=== PATIENT | female | born 1965 | race Caucasian/White ===

== ENCOUNTER 2016-07-14 11:57 | Inpatient (IN) | payer MEDICARE, MEDICAID ==
[~2016-07-14] VITALS: Ht 165.1 cm; Wt 78.5 kg
[~2016-07-14 11:57] MED LIST: ACET-73 GT; ACET650T10 GT; ACID1TAB12 GT; BISA10SU61 RC; CALC667C6 GT; DEXT1DRO3 OP; DOCU50LI GT; FERR-58 GT; INSU100V7 SQ; LEVE500T9 GT; MAGN400O6 GT; METO5SOL GT; MULT9LIQ GT; NA P133E RC
--- NOTE | 2016-07-14 12:05 | NUR ---
bibpa from snf due to pt was hypoxic. Patient received obtuned, appears in distress. Vent trach dependent with setting as tolerated. Patient noted obvious rales/wheezes. Patient;s face and both eyes noted with severe redness. Gt noted , abdomen non tendered. Skin is warm top touch rectal temp 100.3. Gowned and placed pt on tele monitor. Md barriga at bs
[2016-07-14 12:06] VITALS: BP 111/84
[2016-07-14] MEDS ORDERED: IV NS 0.9% 1,000 ML ONE (12:11)
[2016-07-14] MEDS ORDERED: IV SET PRIMARY PUMP SET 1 EA INFUS.SET MC ONE ×4 (12:11→19:32)
--- NOTE | 2016-07-14 12:11 | NUR ---
rt at bs
[2016-07-14] MEDS ORDERED: ASPIRIN 300 MG/SUPP.RECT RC ONE ×2 (12:12→12:30)
--- NOTE | 2016-07-14 12:18 | NUR ---
agricultural engineering technicians at for blood draw
[2016-07-14] MEDS ORDERED: ASPIRIN 325 MG TABLET ONE (12:29)
[2016-07-14] MEDS ORDERED: ASPIRIN 325 MG TABLET PO ONE (12:30)
[2016-07-14] MEDS ORDERED: PIPERACILLIN /TAZOBACTAM 3.375 G in IV D5W 50 ML IV ONE (12:30)
[2016-07-14] MEDS ORDERED: ACETAMINOPHEN ES 500 MG TABLET PO ONE (12:30)
[2016-07-14] MEDS ORDERED: VANCOMYCIN 1 GM in IV D5W 250 ML IV ONE (12:30)
[2016-07-14] MEDS ORDERED: ACETAMINOPHEN ES 500 MG TABLET ONE (12:30)
[2016-07-14] MEDS ORDERED: IV NS 0.9% 1,000 ML BAG IV ONE ×2 (12:30)
[2016-07-14 12:31] LABS: BASOPHILS # (AUTO) 0.5 /CMM (0.0-0.2); BASOPHILS % (AUTO) 2.5 % (0.0-2.0); EOSINOPHILS % (AUTO) 0.2 % (0.0-6.0); HEMATOCRIT 37 % (33-45); HEMOGLOBIN 12.6 g/dL (11.5-14.8); LYMPHOCYTES # (AUTO) 2.1 /CMM (0.8-4.8); LYMPHOCYTES % (AUTO) 9.9 % (20.0-44.0); MEAN CORPUSCULAR HEMOGLOBIN 30 PG (26.0-33.0); MEAN CORPUSCULAR HGB CONC 34 g/dl (31.0-36.0); MEAN CORPUSCULAR VOLUME 88 fL (82-100); MONOCYTES % (AUTO) 4.9 % (2.0-12.0); NEUTROPHILS # (AUTO) 17.6 /CMM (1.8-8.9); NEUTROPHILS % (AUTO) 82.5 % (43.0-81.0); PLATELET COUNT (AUTO) 256 /CMM (150-450); RDW COEFFICIENT OF VARIATION 13.4 (11.5-15.0); RED BLOOD CELL COUNT(AUTO) 4.22 MIL/uL (4.0-5.2); WHITE BLOOD COUNT (AUTO) 21.2 K/uL (4.3-11.0)
--- NOTE | 2016-07-14 12:35 | NUR ---
another iv inserted to rac 20. blood sample sent to lab
[2016-07-14] MEDS ORDERED: IV NS 0.9% 500 ML IV ONE (12:40)
[2016-07-14] MEDS ORDERED: IV NS 0.9% 2,000 ML ONE (12:40)
[2016-07-14 12:45] LABS: PROTHROMBIN TIME 10.4 SECS (9.5-12.7)
--- NOTE | 2016-07-14 12:45 | NUR ---
pharmacy tech customer service at bs
[2016-07-14 12:49] LABS: TROPONIN I < 0.017 ng/mL (0.00-0.056)
[2016-07-14 12:57] LABS: ALANINE AMINOTRANSFERASE 19 U/L (12-78); ALBUMIN 3.4 g/dL (3.4-5.0); ALKALINE PHOSPHATASE 102 U/L (46-116); B-TYPE NATRIURETIC PEPTIDE 209 PG/ML (0-125); BILIRUBIN,TOTAL 0.8 mg/dL (0.2-1.0); CALCIUM, SERUM 9.4 mg/dL (8.5-10.1); CARBON DIOXIDE 20 mmol/L (21-32); CHLORIDE 104 mmol/L (98-107); CREATININE 0.6 mg/dL (0.6-1.3); GFR 105 mL/min (>60); GLUCOSE 156 mg/dL (74-106); POTASSIUM 5.9 mmol/L (3.5-5.1); SODIUM SERUM 136 mmol/L (136-145); TOTAL PROTEIN, SERUM 7.8 g/dL (6.4-8.2)
[2016-07-14 13:07] LABS: ASPARTATE AMINOTRANSFERASE 11 U/L (15-37); BILIRUBIN,DIRECT 0.1 mg/dL (0.0-0.2); UREA NITROGEN, BLOOD 13 mg/dL (7-18)
[2016-07-14 13:12] LABS: LACTIC ACID 2.4 mmol/L (0.4-2.0)
--- NOTE | 2016-07-14 13:22 | NUR ---
[facility] PAGED [phone] LETITIA CM LOGISTICAL ENGINEER
[2016-07-14] MEDS ORDERED: DEXTROSE 50%-WATER 50 ML DISP.SYRIN IV ONE (13:30)
[2016-07-14] MEDS ORDERED: CALCIUM CHLORIDE 1,000 MG/10 ML DISP.SYRIN IV ONE (13:30)
[2016-07-14] MEDS ORDERED: SODIUM BICARBONATE SYR 50 MEQ/50 ML DISP.SYRIN IV ONE (13:30)
[2016-07-14] MEDS ORDERED: INSULIN REGULAR, HUMAN 100 UNIT/ML 10 ML VIAL IV ONE (13:30)
[2016-07-14] MEDS ORDERED: SODIUM POLYSTYRENE SULFONATE 15 G/60 ML BOTTLE PO ONE (13:30)
[2016-07-14 13:37] LABS: BAND % (MANUAL) 5 % (0.0-5.0); LYMPHOCYTES % (MANUAL) 11 % (16-48); MONOCYTES % (MANUAL) 9 % (0-11.0); NEUTROPHILS % (MANUAL) 75 (42-76)
[2016-07-14 13:38] LABS: PLATELET ESTIMATE ADEQUATE
[2016-07-14] MEDS ORDERED: SODIUM POLYSTYRENE SULFONATE 15 G/60 ML BOTTLE ONE (13:44)
[2016-07-14] MEDS ORDERED: CALCIUM CHLORIDE 1,000 MG/10 ML DISP.SYRIN ONE (13:45)
[2016-07-14] MEDS ORDERED: INSULIN REGULAR, HUMAN 100 UNIT/ML 10 ML VIAL ONE (13:45)
[2016-07-14] MEDS ORDERED: DEXTROSE 50%-WATER 50 ML DISP.SYRIN ONE (13:45)
[2016-07-14] MEDS ORDERED: SODIUM BICARBONATE SYR 50 MEQ/50 ML DISP.SYRIN ONE (13:45)
[2016-07-14] MEDS ORDERED: AMIN30LI26 GT (13:47)
[2016-07-14] MEDS ORDERED: CRAN3875 GT (13:47)
[2016-07-14] MEDS ORDERED: SACC250C6 GT (13:47)
[2016-07-14] MEDS ORDERED: FERR220S2 GT (13:47)
[2016-07-14] MEDS ORDERED: DEXT15DR23 EACHEYE (13:47)
[2016-07-14] MEDS ORDERED: INSU300I SQ (13:47)
[2016-07-14] MEDS ORDERED: ENOX40DI SQ (13:47)
[2016-07-14] MEDS ORDERED: FAMO-131 GT (13:47)
[2016-07-14] MEDS ORDERED: DEXT50DI5 IV (13:55)
--- NOTE | 2016-07-14 14:00 | NUR ---
PATIENT'S TRACH WAS CHANGED FROM A BIVONA#9 TO A SHILEY #8 XLT DISTAL DUE TO CUFF LEAK BY DR. DENNIS. SMALL AMOUNT OF BLOOD NOTED. PATIENT TOLERATED WELL. HOT AIR FURNACE INSTALLER REPAIRER DONE. PATIENT RESTING COMFORTABLY AT THIS TIME. WILL CONTINUE TO MONITOR.
[2016-07-14 14:11] VITALS: BP 119/57
[2016-07-14 14:11] LABS: ABG BASE EXCESS -1.5 mmol/L; ABG PCO2 31.7 mmHg (35.0-45.0); ABG PH 7.455 (7.350-7.450); ABG PO2 134.5 mmHg (75.0-100.0); ABG TOTAL HEMOGLOBIN 10.6 G/dL (12.0-16.0); AaDO2 186.3 mmHg; COHb 0.6 % (0.5-1.5); MetHb 0.4 % (0.0-1.5); PEEP,BG 5 cm H2O; SITE, ABG Right Radial; VT, ABG 550 mL
--- NOTE | 2016-07-14 14:15 | NUR ---
ABG DONE AND REPORTED TO NURSE[place]EXANDRIA)
[2016-07-14] MEDS ORDERED: INSU100V9 SQ (14:17)
[2016-07-14] MEDS ORDERED: *INS REG SQ (14:17)
[2016-07-14] MEDS ORDERED: MULT1TAB11 GT (14:20)
--- NOTE | 2016-07-14 14:27 | NUR ---
new vent setting ac 16 tv 550 fio2 40% peep 5
--- NOTE | 2016-07-14 14:27 | NUR ---
urine sample sent to lab
--- NOTE | 2016-07-14 14:30 | NUR ---
MD Eubanks at
[2016-07-14 14:36] LABS: APPEARANCE,URINE Turbid (CLEAR); BILIRUBIN,URINE Negative (NEGATIVE); BLOOD, URINE Large Ery/uL (NEGATIVE); COLOR,URINE Yellow (YELLOW); KETONES,URINE Negative (NEGATIVE); LEUKOCYTE ESTERASE ,URINE Trace (NEGATIVE); NITRITE, URINE Negative (NEGATIVE); PROTEIN,URINE 30 mg/dl (NEGATIVE); UGLUCOSE Negative (NEGATIVE); UROBILINOGEN,URINE 0.2 EU/dL (0.2)
--- NOTE | 2016-07-14 14:59 | NUR ---
REPORT GIOEVN TO FLOOR NRSE FOR GIOVANNY
[2016-07-14] MEDS ORDERED: ZOLPIDEM TARTRATE 5 MG TABLET PO PRN (15:00)
[2016-07-14] MEDS ORDERED: Z GUARD REMEDY 2 OZ OINT TP PRN (15:00)
[2016-07-14] MEDS ORDERED: HYDROCODONE/APAP 5/325MG 1 EACH TABLET PO PRN (15:00)
[2016-07-14] MEDS ORDERED: BISACODYL SUPP (10 MG) 10 MG/SUPP.RECT SUPP.RECT RC PRN (15:00)
[2016-07-14] MEDS ORDERED: ONDANSETRON HCL/PF 4 MG/2 ML VIAL IVP PRN (15:00)
--- NOTE | 2016-07-14 15:00 | NUR ---
pt was transferred to [facility]
[2016-07-14 15:04] LABS: ADD URINE CULTURE NO; BACTERIA,URINE Rare /HPF (None Seen); RBC,URINE 80-100 /HPF (0-2); SQUAMOUS EPITHELIAL CELL,UR Few /HPF (None Seen); WBC,URINE 0-3 /HPF (0-3)
--- NOTE | 2016-07-14 15:35 | NUR ---
RN INITIAL NOTE RECEIVED REPORT FROM REEMA. PT TRANSFERRED VIA GURNEY FROM ED. PT OBTUNDED OPENS EYES SPONTANEOUSLY. INO XLT #8 AC 16 TV 550 FIO2 40% PEEP # 5. TELE MONITOR SR 90'S. GT NPO. IV RAC #20G. R HAND #20G FLUSHED PATENT AND INTACT. DIAPER. PT CLEAN WARM AND DRY. WILL CONTINUE TO MONITOR CLOSELY.
[2016-07-14] MEDS ORDERED: FEE PK DOSING 1 MIN EA MC ONE (15:48)
[2016-07-14] MEDS ORDERED: DEXTROSE 50%-WATER 50 ML DISP.SYRIN IV PRN (16:00)
[2016-07-14] MEDS: DOCUSATE SODIUM LIQ 100 MG/10 ML UDC GT SCH (17:00)
[2016-07-14] MEDS ORDERED: PIPERACILLIN /TAZOBACTAM 3.375 G in IV D5W 50 ML IV SCH (18:00)
[2016-07-14] MEDS ORDERED: SECONDARY IV SET 1 EA INFUS.SET MC ONE (19:32)
[2016-07-14] MEDS: BLOOD SUGAR DIAGNOSTIC 1 EACH STRIP IN SCH ×2 (19:34→23:28)
[2016-07-14] MEDS: ENOXAPARIN SODIUM 40 MG/0.4 ML DISP.SYRIN SQ SCH (19:42)
--- NOTE | 2016-07-14 19:49 | NUR ---
RN CLOSING NOTE PT OBTUNDED OPENS EYES SPONTANEOUSLY. INO XLT #8 AC 16 TV 550 FIO2 40% PEEP # 5. TELE MONITOR SR 90'S. GT NPO. IV RAC #20G. R HAND #20G FLUSHED PATENT AND INTACT. DIAPER. PT CLEAN WARM AND DRY. ALL SAFETY MEASURES IN PLACE. REPORT GIVEN TO PM NURSE.
[2016-07-14] MEDS: IV NS 0.9% 1,000 ML IV PRN (19:59)
[2016-07-14 20:00] VITALS: BP 93/51
[2016-07-14] MEDS: MEROPENEM 500 MG in IV NS 0.9% 50 ML IV SCH (20:17)
[2016-07-14] MEDS: LEVETIRACETAM (250 MG) 250 MG TABLET PO SCH (20:17)
[2016-07-14] MEDS: METOCLOPRAMIDE HCL 10 MG/10 ML UDC GT SCH (20:18)
[2016-07-14] MEDS: FLUCONAZOLE (100 MG) 100 MG TABLET PO SCH (20:18)
[2016-07-14] MEDS ORDERED: PIPERACILLIN /TAZOBACTAM 4.5 G in IV D5W 50 ML IV SCH (21:00)
[2016-07-14] MEDS: INSULIN DETEMIR 100 UNIT/ML CARTRIDGE SQ SCH ×2 (21:55→23:36)
--- NOTE | 2016-07-14 21:59 | NUR ---
RN- BLOOD GLUCOSE 115 MG/DL. HELD LEVEMIR DOSE OF 66 UNITS DUE TO NPO STATUS. WILL F/U W/ MD IF FEEDING IS TO BE CONTINUED.
[2016-07-14] MEDS ORDERED: GLYTROL 1,000 ML BAG ONE (23:13)
[2016-07-14] MEDS: GLYTROL 1,000 ML BAG GT PRN (23:29)
--- NOTE | 2016-07-14 23:30 | NUR ---
RN- STARTED PT ON GLYTROL 55ML/HR VIA GT. BS 116 MG/DL, LEVEMIR 66 UNITS GIVEN SQ.
[2016-07-14] MEDS: ACETAMINOPHEN ES 500 MG TABLET PO PRN (23:54)
[2016-07-15] VITALS (10 sets, daily range): BP systolic 73–140; BP diastolic 35–80
--- NOTE | 2016-07-15 | NUR ---
RN- TEMP IS 101.1 COOLING MEASURES GIVEN. PRN TYLENOL ES 500 MG GIVEN VIA GT FOR FEVER. WILL MONITOR TEMP.
[2016-07-15] MEDS: METOCLOPRAMIDE HCL 10 MG/10 ML UDC GT SCH ×3 (04:10→20:15)
[2016-07-15] MEDS: MEROPENEM 500 MG in IV NS 0.9% 50 ML IV SCH ×3 (04:10→20:14)
[2016-07-15] MEDS: BLOOD SUGAR DIAGNOSTIC 1 EACH STRIP IN SCH ×4 (05:09→23:21)
[2016-07-15] MEDS ORDERED: SECONDARY IV SET 1 EA INFUS.SET MC ONE (06:09)
[2016-07-15] MEDS: VANCOMYCIN 1 GM in IV D5W 250 ML IV SCH (06:15)
[2016-07-15 06:38] LABS: BASOPHILS % (AUTO) 0.2 % (0.0-2.0); EOSINOPHILS # (AUTO) 0.4 /CMM (0.0-0.7); EOSINOPHILS % (AUTO) 2.1 % (0.0-6.0); HEMATOCRIT 31 % (33-45); HEMOGLOBIN 10.4 g/dL (11.5-14.8); LYMPHOCYTES # (AUTO) 1.6 /CMM (0.8-4.8); LYMPHOCYTES % (AUTO) 7.7 % (20.0-44.0); MEAN CORPUSCULAR HEMOGLOBIN 29 PG (26.0-33.0); MEAN CORPUSCULAR HGB CONC 33 g/dl (31.0-36.0); MEAN CORPUSCULAR VOLUME 88 fL (82-100); MONOCYTES # (AUTO) 0.9 /CMM (0.1-1.30); MONOCYTES % (AUTO) 4.5 % (2.0-12.0); NEUTROPHILS # (AUTO) 17.7 /CMM (1.8-8.9); NEUTROPHILS % (AUTO) 85.5 % (43.0-81.0); PLATELET COUNT (AUTO) 211 /CMM (150-450); RDW COEFFICIENT OF VARIATION 14.4 (11.5-15.0); RED BLOOD CELL COUNT(AUTO) 3.55 MIL/uL (4.0-5.2); WHITE BLOOD COUNT (AUTO) 20.7 K/uL (4.3-11.0)
[2016-07-15 07:03] LABS: THYROID STIMULATING HORMONE 0.817 uIU/mL (0.358-3.74)
[2016-07-15 07:16] LABS: CALCIUM, SERUM 8.5 mg/dL (8.5-10.1); CREATININE 0.6 mg/dL (0.6-1.3); MAGNESIUM 1.9 mg/dL (1.8-2.4); PHOSPHORUS 3.1 mg/dL (2.5-4.9); POTASSIUM 3.8 mmol/L (3.5-5.1)
[2016-07-15] MEDS: LEVETIRACETAM (250 MG) 250 MG TABLET PO SCH ×2 (08:33→20:15)
[2016-07-15] MEDS: DOCUSATE SODIUM LIQ 100 MG/10 ML UDC GT SCH ×2 (08:33→17:15)
[2016-07-15] MEDS: PANTOPRAZOLE 40 MG VIAL IV SCH (08:33)
[2016-07-15] MEDS: PROSOURCE / PROSTAT (PYXIS) 30 ML UDC GT SCH (08:33)
[2016-07-15] MEDS ORDERED: ENOXAPARIN SODIUM 40 MG/0.4 ML DISP.SYRIN SQ SCH (09:00)
[2016-07-15 09:32] LABS: BAND % (MANUAL) 23 % (0.0-5.0); EOSINOPHILS % (MANUAL) 1 % (0-4); LYMPHOCYTES % (MANUAL) 9 % (16-48); MONOCYTES % (MANUAL) 2 % (0-11.0); NEUTROPHILS % (MANUAL) 65 (42-76); PLATELET ESTIMATE ADEQUATE
--- NOTE | 2016-07-15 10:18 | NUR ---
WOUND CARE CONSULT: PATIENT SEEN AND SKIN ASSESSMENT DONE. TRACH VENT DEPENDENT PATIENT, ON GT FEEDING, INCONTINENT, IMMOBILE, JESENIA 11, NANDO ISOFLEX RENE BED IN USE. SEE TODAY'S SKIN ASSESSMENT IN PCS ALONG WITH RECOMMENDATIONS. RECOMMEND MOISTURE PROTECTION WITH Z GUARD ORDERED. TURN AND REPOSITION EVERY 2 HRS PATIENT CONDITION PERMITS, OFFLOAD BOTH HEELS. ALL DISCUSSED WITH NURSING STAFF. MD IN AGREEMENT WITH PLAN OF CARE. Addendum: 07/15/16 at 1025 by PONCHO ORTIZ WNDNU Amended: Links added.
[2016-07-15] MEDS: ACETAMINOPHEN ES 500 MG TABLET PO PRN ×2 (10:30→20:14)
[2016-07-15] MEDS: Z GUARD REMEDY 2 OZ OINT TP SCH ×2 (10:31→17:16)
--- NOTE | 2016-07-15 12:00 | NUR ---
Hypotensive Patient blood pressure low (see vitals signs) on 70's. Rechecked on both arm with patient lying flat. Patient placed on trendelenberg position and blood pressure still low @ 73/35. Paged Dr. Eubanks x 2 via exchange, no call back. Paged Dr. Lebron and gave order Bolus 1L NS. 1330 Current BP 90/45
[2016-07-15] MEDS ORDERED: IV NS 0.9% 1,000 ML IV PRN (13:00)
[2016-07-15] MEDS: INSULIN REGULAR, HUMAN 100 UNIT/ML 3 ML VIAL SQ PRN (13:18)
[2016-07-15] MEDS ORDERED: IV NS 0.9% 1,000 ML BAG IV ONE (13:30)
[2016-07-15] MEDS ORDERED: IV NS 0.9% 1,000 ML BAG IV PRN (13:30)
--- NOTE | 2016-07-15 15:43 | NUR ---
RT PATIENT RECEIVED TRACHED ON [facility] VENT. PROMOTION SPECIALIST DONE. BILAT BREATH SOUNDS ON AUSCULTATION. VENT PLUGGED INTO RED OUTLET. AMBU BAG AT HEAD OF BED. SUCTIONED SMALL AMOUNTS OF THICK, YELLOW SECRETIONS. NO SOB OR SIGNS OF DISTRESS NOTED AT THIS TIME. WILL CONTINUE TO MONITOR THE PT FOR ANY CHANGE OF CONDITION. Addendum: 07/15/16 at 1834 by SHAWN FERRELL RT Amended: Links added.
[2016-07-15] MEDS: IV NS 0.9% 1,000 ML IV PRN (17:15)
[2016-07-15] MEDS: LACTOBACILLUS RHAMNOSUS GG 1 EACH CAP.SPRINK PO SCH (17:15)
--- NOTE | 2016-07-15 20:00 | NUR ---
RN INITIAL NOTES RECEIVED PT OBTUNDED ON BED, OPENS EYES ONLY. ON VENT AC 16, TV 550, 40% FIO2, PEEP 5, SHILEY 8XLT, SATURATING WELL. PT IS CURRENTLY ST, HR 110-120'S. PERKINS CATH INTACT. ON GTUBE FEEDING OF GLYTROL 55MLS/HR, NO RESIDUALS, TOLERATING WELL. RIGHT AC 20 AND RIGHT HAND 20G WITH NS @ 75MLS/HR, FLUSHED AND PATENT, NO S/S OF INFILTRATION/INFECTION, DRESSINGS CDI. BED LOW AND LOCKED, SIDERAILS UP. WILL MONITOR
[2016-07-15] MEDS: ENOXAPARIN SODIUM 40 MG/0.4 ML DISP.SYRIN SQ SCH (20:15)
[2016-07-15] MEDS: FLUCONAZOLE (100 MG) 100 MG TABLET PO SCH (20:15)
[2016-07-15] MEDS: INSULIN DETEMIR 100 UNIT/ML CARTRIDGE SQ SCH (21:30)
[2016-07-16] VITALS: BP 108/37
[2016-07-16] MEDS: VANCOMYCIN 1 GM in IV D5W 250 ML IV SCH ×2 (00:11→19:25)
[2016-07-16] MEDS: MEROPENEM 500 MG in IV NS 0.9% 50 ML IV SCH ×2 (03:20→11:24)
[2016-07-16] MEDS: GLYTROL 1,000 ML BAG GT PRN ×2 (03:21→16:24)
[2016-07-16] MEDS: IV NS 0.9% 1,000 ML IV PRN ×2 (03:22→16:27)
[2016-07-16 04:00] VITALS: BP 104/42
[2016-07-16] MEDS: ACETAMINOPHEN ES 500 MG TABLET PO PRN (05:07)
[2016-07-16] MEDS: METOCLOPRAMIDE HCL 10 MG/10 ML UDC GT SCH ×3 (05:07→20:14)
[2016-07-16] MEDS: BLOOD SUGAR DIAGNOSTIC 1 EACH STRIP IN SCH ×4 (05:08→23:37)
--- NOTE | 2016-07-16 06:30 | NUR ---
RN CLOSING NOTES PT REMAINS STABLE OF THE MOMENT. ALL DUE MEDS GIVEN. AM CARE PROVIDED. WILL ENDORSE TO AM RN
[2016-07-16 07:01] LABS: CALCIUM, SERUM 8.1 mg/dL (8.5-10.1); CREATININE 0.5 mg/dL (0.6-1.3); POTASSIUM 3.6 mmol/L (3.5-5.1)
[2016-07-16 07:05] LABS: BASOPHILS % (AUTO) 0.4 % (0.0-2.0); EOSINOPHILS # (AUTO) 0.4 /CMM (0.0-0.7); EOSINOPHILS % (AUTO) 3.1 % (0.0-6.0); HEMATOCRIT 28 % (33-45); HEMOGLOBIN 9.4 g/dL (11.5-14.8); LYMPHOCYTES # (AUTO) 1.4 /CMM (0.8-4.8); LYMPHOCYTES % (AUTO) 10.4 % (20.0-44.0); MEAN CORPUSCULAR HEMOGLOBIN 30 PG (26.0-33.0); MEAN CORPUSCULAR HGB CONC 34 g/dl (31.0-36.0); MEAN CORPUSCULAR VOLUME 88 fL (82-100); MONOCYTES # (AUTO) 0.9 /CMM (0.1-1.30); MONOCYTES % (AUTO) 6.4 % (2.0-12.0); NEUTROPHILS # (AUTO) 10.9 /CMM (1.8-8.9); NEUTROPHILS % (AUTO) 79.7 % (43.0-81.0); PLATELET COUNT (AUTO) 177 /CMM (150-450); RDW COEFFICIENT OF VARIATION 14.3 (11.5-15.0); RED BLOOD CELL COUNT(AUTO) 3.16 MIL/uL (4.0-5.2); WHITE BLOOD COUNT (AUTO) 13.7 K/uL (4.3-11.0)
--- NOTE | 2016-07-16 07:10 | NUR ---
RN INITIAL NOTES RECEIVED PT IN BED, HOB ELEVATED. PT ON MECH VENT WITH FF SETTINGS: AC16, TV550, FI02 40%, PEEP +5. TRACH IN PLACE. NO RESPIRATORY DISTRESS NOTED. NO SOB NOTED. NO SIGNS OF PAIN NOTED. RAC #10 AND RH #[address] ON NS AT 75ML/HR. GT IN PLACE. TOLERATING GLYTROL AT 55ML/HR. NO RESIDUAL NOTED. FC IN PLACE. NO HEMATURIA NOR SEDIMENTS NOTED. BLE ELEVATED. WILL CONTINUE TO MONITOR.
[2016-07-16 08:00] VITALS: BP 93/58
[2016-07-16] MEDS: PROSOURCE / PROSTAT (PYXIS) 30 ML UDC GT SCH (08:17)
[2016-07-16] MEDS: Z GUARD REMEDY 2 OZ OINT TP SCH ×2 (08:17→16:27)
[2016-07-16] MEDS: DOCUSATE SODIUM LIQ 100 MG/10 ML UDC GT SCH ×2 (08:17→16:24)
[2016-07-16] MEDS: PANTOPRAZOLE 40 MG VIAL IV SCH (08:17)
[2016-07-16] MEDS: LEVETIRACETAM (250 MG) 250 MG TABLET PO SCH ×2 (08:17→20:14)
[2016-07-16] MEDS: LACTOBACILLUS RHAMNOSUS GG 1 EACH CAP.SPRINK PO SCH ×2 (08:17→16:24)
[2016-07-16] MEDS ORDERED: Z GUARD REMEDY 2 OZ OINT TP PRN (09:00)
--- NOTE | 2016-07-16 11:30 | NUR ---
RN NOTES SEEN AND EXAMINED BY DR. CHETNA KRAUSE. AWARE IF CURRENT LAB RESULTS. PT AFEBRILE. ON IV ATB. NO ASE NOTED. TOLERATING GTF WELL. ON IVF. MD ORDERED TO DECREASE IVF TO 50ML/HR. NOTED AND CARRIED OUT. MOTHER AT BEDSIDE AWARE.
[2016-07-16 12:00] VITALS: BP_SYST 103; BP_SYST 95; BP_DIAS 60; BP_DIAS 61
--- NOTE | 2016-07-16 15:39 | NUR ---
RT RCV'D PT TRACHED ON [facility] VENT. DRAPERY OPERATOR DONE. BILAT BREATH SOUNDS ON AUSCULTATION. VENT PLUGGED INTO RED OUTLET. ALARMS ON AND WORKING PROPERLY. AMBU BAG AT HEAD OF BED. SUCTIONED MOD AMOUNTS OF THICK, PALE YELLOW SECRETIONS. NO SOB OR SIGNS OF DISTRESS NOTED AT THIS TIME. WILL CONTINUE TO MONITOR THE PT FOR ANY CHANGES. Addendum: 07/16/16 at 1700 by SHAWN FERRELL RT Amended: Links added.
[2016-07-16 16:00] VITALS: BP_SYST 106; BP_SYST 116; BP_DIAS 77
[2016-07-16] MEDS: INSULIN REGULAR, HUMAN 100 UNIT/ML 3 ML VIAL SQ PRN ×2 (17:55→23:34)
--- NOTE | 2016-07-16 18:37 | NUR ---
RN CLOSING NOTES PT REMAINS STABLE. NO RESPIRATORY DISTRESS NOTED. NO SOB NOTED. TOLERATES VENT WELL. NO SIGNS OF PAIN NOTED. AFEBRILE. GT INTACT, TOLERATES GFT WELL. IV LINES IN PLACE. ON IVF. FC IN PLACE. KEPT CLEAN AND DRY. REPOSITIONED Q2. KEPT BLE ELEVATED. KEPT COMFORTABLE. NO SIGNIFICANT CHANGE NOTED. WILL ENDORSE FOR CONTINUITY OF CARE.
[2016-07-16 20:00] VITALS: BP 137/62
--- NOTE | 2016-07-16 20:00 | NUR ---
MARIA L RN NOTES RECEIVED PTS ON BED OBTUNDED , REMAINS ON MECHANICAL VENT , ON AC MODE SETTINGS WELL TOLERATED , NO SOB NO DISTRESS , NO FACIAL GRIMACES NOTED , V/S STABLE AFEBRILE , ON TELE SR ON THE MONITOR , ALL DUE MEDS GIVEN ORDERED ALL NEEDS ATTENDED TOO CALL LIGHT WITHIN REACH . ON GT FEEDING GLYTROL 55 CC/HR , NO RESIDUAL NOTED , WITH IVF OF NS AT 50CC/HR INFUSING WELL . F/C INTACT AND PATENT , HOB ELEVATED FOR ASPIRATION PRECAUTION , SUCTION SECRETION DONE , KEPT PTS CLEAN DRY AND COMFORTABLE, WILL CONTINUE TO MONITOR PTS.
[2016-07-16] MEDS: FLUCONAZOLE (100 MG) 100 MG TABLET PO SCH (20:14)
[2016-07-16] MEDS: MEROPENEM 1 G in IV NS 0.9% 100 ML IV SCH (20:15)
--- NOTE | 2016-07-16 20:30 | NUR ---
MARIA L RN NOTES SPOKE TO [facility] ON DUTY RE VANCO DOSE FOR 1900 HRS WAS NOT GIVEN D/T AWAITING RESULT OF VANCO TROUGH . VANCO REDOSE AND TIME CHANGE , PER PHARMACIST , GIVE DOSE AT 7AM.
[2016-07-16] MEDS: ENOXAPARIN SODIUM 40 MG/0.4 ML DISP.SYRIN SQ SCH (20:47)
[2016-07-16] MEDS: INSULIN DETEMIR 100 UNIT/ML CARTRIDGE SQ SCH (22:00)
--- NOTE | 2016-07-16 23:00 | NUR ---
MARIA L RN NOTES BLOOD SUGAR FOR 12MN IS 238 - LEVEMIR 66 UNITS SQ AND REGULAR INSULIN 4 UNITS SQ GIVEN ORDERED AND PER SLIDING SCALE PTS ON GT FEEDING .WILL CHECKED BS AGAIN IN AM.
[2016-07-17] VITALS: BP 133/66
[2016-07-17] MEDS: ACETAMINOPHEN ES 500 MG TABLET PO PRN (02:09)
[2016-07-17 04:00] VITALS: BP 92/56
[2016-07-17] MEDS: METOCLOPRAMIDE HCL 10 MG/10 ML UDC GT SCH ×3 (05:36→20:22)
[2016-07-17] MEDS: MEROPENEM 1 G in IV NS 0.9% 100 ML IV SCH ×3 (05:37→20:21)
[2016-07-17] MEDS: GLYTROL 1,000 ML BAG GT PRN (05:41)
[2016-07-17] MEDS: BLOOD SUGAR DIAGNOSTIC 1 EACH STRIP IN SCH ×3 (05:51→17:44)
[2016-07-17] MEDS: INSULIN REGULAR, HUMAN 100 UNIT/ML 3 ML VIAL SQ PRN ×3 (05:54→17:46)
[2016-07-17] MEDS: VANCOMYCIN 1 GM in IV D5W 250 ML IV SCH ×2 (06:24→19:05)
--- NOTE | 2016-07-17 06:39 | NUR ---
MARIA L RN NOTES PTS ON BED OBTUNDED, REMAINS ON VENTILATOR AC SETTINGS WELL TOLERATED . BLOOD SUGAR AT 6AM IS 87 NO COVERAGE GIVEN PER SLIDING SCALE.ALL NEEDS ATTENDED TOO CALL LIGHT WITHIN REACH ,KEPT PTS CLEAN DRY AND COMFORTABLE, WILL ENDORSE TO RN DAY SHIFT FOR CONTINUITY OF CARE.
[2016-07-17 07:32] LABS: CALCIUM, SERUM 8.2 mg/dL (8.5-10.1); CREATININE 0.5 mg/dL (0.6-1.3); POTASSIUM 3.4 mmol/L (3.5-5.1)
[2016-07-17 08:00] VITALS: BP 140/68
[2016-07-17] MEDS: PROSOURCE / PROSTAT (PYXIS) 30 ML UDC GT SCH (08:45)
[2016-07-17] MEDS: PANTOPRAZOLE 40 MG VIAL IV SCH (08:45)
[2016-07-17] MEDS: LEVETIRACETAM (250 MG) 250 MG TABLET PO SCH ×2 (08:45→20:22)
[2016-07-17] MEDS: LACTOBACILLUS RHAMNOSUS GG 1 EACH CAP.SPRINK PO SCH ×2 (08:45→17:44)
[2016-07-17] MEDS: DOCUSATE SODIUM LIQ 100 MG/10 ML UDC GT SCH ×2 (08:45→17:43)
[2016-07-17] MEDS: Z GUARD REMEDY 2 OZ OINT TP SCH ×2 (08:46→17:44)
[2016-07-17] MEDS ORDERED: POTASSIUM CHLORIDE 20 MEQ POWDER PACKET GT SCH (11:30)
[2016-07-17 12:00] VITALS: BP 91/46
[2016-07-17] MEDS ORDERED: POLYVINYL ALCOHOL 15 ML BOTTLE EACHEYE PRN (15:30)
[2016-07-17 16:00] VITALS: BP_SYST 117; BP_SYST 91; BP_DIAS 46; BP_DIAS 63
--- NOTE | 2016-07-17 19:20 | NUR ---
RN INITIAL NOTE RECEIVED PT IN NO ACUTE DISTRESS IN BED. PT IS OBTUNDED. PT IS ON MECHANICAL VENT VIA TRACH. TRACH SITE IS C/D/I. PT TOLERATING VENT SETTING WELL WITH O2 SAT @ 100%. PT IS ON TELE WITH SR ON THE MONITOR. PT HAS F/C THAT IS CLEAN DRY INTACT AND PATENT WITH CLEAR YELLOW URINE DRAINING. PT HAS G TUBE THAT IS CLEAN DRY INTACT AND PATENT WITH WATER FLUSH. PT HAS RFA 20G THAT IS CLEAN DRY INTACT AND PATENT WITH NS @ 50ML/HR. BED IN LOW LOCK POSITION WITH RIALS UP X 2. CALL LIGHT WITHIN REACH AND ALL SAFETY MEASURES ENSURED AND CARRIED OUT. WILL CONTINUE TO MONITOR FOR ANY CHANGES IN CONDITION.
[2016-07-17 20:00] VITALS: BP 145/85
[2016-07-17] MEDS: ENOXAPARIN SODIUM 40 MG/0.4 ML DISP.SYRIN SQ SCH (20:22)
[2016-07-17] MEDS: FLUCONAZOLE (100 MG) 100 MG TABLET PO SCH (20:22)
[2016-07-17] MEDS: INSULIN DETEMIR 100 UNIT/ML CARTRIDGE SQ SCH (21:29)
[2016-07-18] VITALS: BP 130/74
[2016-07-18] MEDS: BLOOD SUGAR DIAGNOSTIC 1 EACH STRIP IN SCH ×5 (00:48→23:37)
[2016-07-18 04:00] VITALS: BP 109/73
[2016-07-18] MEDS: MEROPENEM 1 G in IV NS 0.9% 100 ML IV SCH ×3 (05:23→21:23)
[2016-07-18] MEDS: METOCLOPRAMIDE HCL 10 MG/10 ML UDC GT SCH ×3 (05:23→21:23)
[2016-07-18] MEDS: VANCOMYCIN 1 GM in IV D5W 250 ML IV SCH ×2 (06:28→19:23)
--- NOTE | 2016-07-18 07:01 | NUR ---
RN CLOSING NOTE PT REMAINS IN NO ACUTE DISTRESS IN BED. PT DID NOT HAVE ANY SIGNIFICANT CHANGE IN CONDITION DURING SHIFT. PT TOLERATED VENT SETTING WELL. ALL NEEDS MET ALL ORDERS CARRIED OUT. WILL ENDORSE TO AM RN FOR CONTINUITY OF CARE.
[2016-07-18 07:07] LABS: BASOPHILS % (AUTO) 0.5 % (0.0-2.0); EOSINOPHILS # (AUTO) 0.4 /CMM (0.0-0.7); EOSINOPHILS % (AUTO) 4.6 % (0.0-6.0); HEMATOCRIT 30 % (33-45); LYMPHOCYTES % (AUTO) 24.1 % (20.0-44.0); MEAN CORPUSCULAR HEMOGLOBIN 29 PG (26.0-33.0); MEAN CORPUSCULAR HGB CONC 33 g/dl (31.0-36.0); MEAN CORPUSCULAR VOLUME 88 fL (82-100); MONOCYTES # (AUTO) 0.7 /CMM (0.1-1.30); MONOCYTES % (AUTO) 8.7 % (2.0-12.0); NEUTROPHILS # (AUTO) 5.2 /CMM (1.8-8.9); NEUTROPHILS % (AUTO) 62.1 % (43.0-81.0); PLATELET COUNT (AUTO) 184 /CMM (150-450); RDW COEFFICIENT OF VARIATION 14.4 (11.5-15.0); RED BLOOD CELL COUNT(AUTO) 3.45 MIL/uL (4.0-5.2); WHITE BLOOD COUNT (AUTO) 8.4 K/uL (4.3-11.0)
[2016-07-18 07:17] LABS: CALCIUM, SERUM 8.7 mg/dL (8.5-10.1); CREATININE 0.6 mg/dL (0.6-1.3); POTASSIUM 3.9 mmol/L (3.5-5.1)
[2016-07-18 08:00] VITALS: BP_SYST 145; BP_DIAS 73; BP_DIAS 84
--- NOTE | 2016-07-18 08:00 | NUR ---
TELE1/RN AM SHIFT INITIAL NOTES RECEIVED PT AWAKE IN BED, PT OPEN EYES WITH NOTICEABLE CATARACTS IN BOTH EYES, NO TRACKING NOTED, REACTS TO LIGHT STIMULUS, OBTUNDED. NO GRIMACING NOTED, NO ACUTE CHANGE OF CONDITION NOTED. ON DECEREBRATE POSTURING. ON VENTILATOR SET AT PRESCRIBED RATES, SATURATING @ 100%, LUNG SOUNDS CLEAR. ON TELE WITH SINUS RHYTHM, HR 82. WITH ON GOING IV INFUSION OF NS @ 50CC/HR, IV SITE PATENT WITH NO S/S OF INFECTION. PERKINS CATHETER INTACT, WITH CLEAR YELLOW URINE OUTPUT. GTF ON GOING @ 55CC/HR, NO GASTRIC RESIDUAL NOTED, FLUSHED, PATENT. DVT SLEEVED IN PLACED, PUMP ON. PT IS COMFORTABLE AT THIS TIME. SCHEDULED AM MEDS TO BE GIVEN. CL WITHIN REACHED AND SAFETY MAINTAINED. ON GOING MONITORING.
[2016-07-18] MEDS: PANTOPRAZOLE 40 MG VIAL IV SCH (08:59)
[2016-07-18] MEDS: LACTOBACILLUS RHAMNOSUS GG 1 EACH CAP.SPRINK PO SCH ×2 (08:59→18:13)
[2016-07-18] MEDS: LEVETIRACETAM (250 MG) 250 MG TABLET PO SCH ×2 (08:59→21:23)
[2016-07-18] MEDS: DOCUSATE SODIUM LIQ 100 MG/10 ML UDC GT SCH ×2 (08:59→18:13)
[2016-07-18] MEDS: PROSOURCE / PROSTAT (PYXIS) 30 ML UDC GT SCH (08:59)
[2016-07-18] MEDS: Z GUARD REMEDY 2 OZ OINT TP SCH ×2 (09:00→18:13)
[2016-07-18 12:00] VITALS: BP_SYST 121; BP_SYST 93; BP_DIAS 65; BP_DIAS 68
--- NOTE | 2016-07-18 12:00 | NUR ---
TELE1/RN NOON ROUNDS NO CHANGE OF CONDITION. MONITORING CONTINUED.
[2016-07-18] MEDS: IV NS 0.9% 1,000 ML IV PRN (13:58)
[2016-07-18 16:00] VITALS: BP 106/51
--- NOTE | 2016-07-18 19:32 | NUR ---
TELE1/RN AM SHIFT END NOTES NO ACUTE CHANGE OF CONDITION NOTED DURING THE SHIFT. ALL NEEDS MET. PT ENDORSED TO PM NURSE TO CONTINUE CARE. CL WITHIN REACHED AND SAFETY MAINTAINED.
[2016-07-18 20:00] VITALS: BP 116/56
--- NOTE | 2016-07-18 20:00 | NUR ---
TELE 1/RN NOT PT IN BED OBTUNDED WITH EYES OPEN. REMAIN ON VENT/TRACH TOLERATING THE SETTINGS WELL. ON TELE SR HR 71. NO DISTRESS OR DISCOMFORT NOTED. NO SS OF PAIN NOTED. GT INTACT AND PATENT INFUSING GLYTROL @ 55 ML/HR, NO RESIDUAL NOTED. KEPT HOB ELEVATED. F/C INTACT AND PATENT DRAINING YELLOWISH COLOR URINE BY GRAVITY. IVF NS AT 50 ML/HR INFUSING WELL, NO S/S OF INFILTRATION NOTED. REPOSITION HIM FOR SKIN MANAGEMENT. SIDE RAILS UP X 2 AND CALL LIGHT WITHIN REACH. VSS. CONTINUE TO MONITOR HIM.
[2016-07-18] MEDS: FLUCONAZOLE (100 MG) 100 MG TABLET PO SCH (21:23)
[2016-07-18] MEDS: ENOXAPARIN SODIUM 40 MG/0.4 ML DISP.SYRIN SQ SCH (21:25)
[2016-07-18] MEDS: INSULIN DETEMIR 100 UNIT/ML CARTRIDGE SQ SCH (23:38)
[2016-07-18] MEDS: INSULIN REGULAR, HUMAN 100 UNIT/ML 3 ML VIAL SQ PRN (23:39)
[2016-07-19] VITALS: BP 131/77
[2016-07-19 00:08] VITALS: BP 131/77
[2016-07-19 04:00] VITALS: BP 104/50
[2016-07-19] MEDS: MEROPENEM 1 G in IV NS 0.9% 100 ML IV SCH (05:06)
[2016-07-19] MEDS: METOCLOPRAMIDE HCL 10 MG/10 ML UDC GT SCH (05:06)
[2016-07-19] MEDS: GLYTROL 1,000 ML BAG GT PRN (05:07)
[2016-07-19] MEDS: BLOOD SUGAR DIAGNOSTIC 1 EACH STRIP IN SCH (06:04)
[2016-07-19 06:22] LABS: CALCIUM, SERUM 8.6 mg/dL (8.5-10.1); CREATININE 0.5 mg/dL (0.6-1.3); POTASSIUM 3.7 mmol/L (3.5-5.1)
[2016-07-19] MEDS: VANCOMYCIN 1 GM in IV D5W 250 ML IV SCH (06:33)
--- NOTE | 2016-07-19 06:56 | NUR ---
WET PROCESS MILLER HEAD NOTE NO CHANGE IN CONDITION. ON TELE SB HR 53. NO DISTRESS OR DISCOMFORT NOTED. IVF INFUSING WELL, NO S/S OF INFILTRATION NOTED. GT INFUSING WELL, 0 ML RESIDUAL NOTED. F/C DRAINING WELL. REPOSITIONED HER Q2H. KEPT HIM DRY AND CLEAN. SIDE RAILS UP X 2 AND CALL LIGHT WITHIN REACH. WILL ENDORSE TO DAY SHIFT NURSE FOR CONTINUE TO CARE.
--- NOTE | 2016-07-19 07:15 | NUR ---
RN INITIAL NOTE PT WAS RECEIVED IN BED RESTING COMFORTABLY, OBTUNDED. PT HAS TRACH INO #8, AC-16, TV -550, FI02-40%, PEEP 5. TOLERATING SETTINGS WELL. NO S/S OF RESPIRATORY DISTRESS OR SOB. SINUS RHYTHM-ISAIAS ON TELE MONITOR HR 54. GTUBE FLUSHED AND PATENT. RUNNING GLYTROL 55ML/HR. RIGHT A/C AND RIGHT FOREARM IV SITES FLUSHED AND PATENT. DRESSING C/D/I. PERKINS CATHETER DRAINING TO GRAVITY. SKIN WARM AND DRY TO TOUCH. SAFETY PRECAUTIONS OBSERVED AT ALL TIMES. BED IN LOCKED, LOW POSITION. ALARMS ON. SIDE RAILS UP. CALL LIGHT WITHIN EASY REACH. WILL CONTINUE TO MONITOR.
[2016-07-19 08:00] VITALS: BP 93/41
[2016-07-19] MEDS: PANTOPRAZOLE 40 MG VIAL IV SCH (08:14)
[2016-07-19] MEDS: PROSOURCE / PROSTAT (PYXIS) 30 ML UDC GT SCH (08:14)
[2016-07-19] MEDS: DOCUSATE SODIUM LIQ 100 MG/10 ML UDC GT SCH (08:14)
[2016-07-19] MEDS: LEVETIRACETAM (250 MG) 250 MG TABLET PO SCH (08:14)
[2016-07-19] MEDS: LACTOBACILLUS RHAMNOSUS GG 1 EACH CAP.SPRINK PO SCH (08:15)
[2016-07-19] MEDS: Z GUARD REMEDY 2 OZ OINT TP SCH (08:15)
--- NOTE | 2016-07-19 10:00 | NUR ---
RN NOTE PATIENT IS BEING DISCHARGED TO [facility]. REPORT CALLED TO MIKE. IV SITE REMAINS IN PLACE FOR ANTIBIOTIC TREATMENT.
--- NOTE | 2016-07-19 11:00 | NUR ---
RN CLOSING NOTE PT DISCHARGED TO [facility]. ID BAND REMOVED . GTUBE CLAMPED. GAVE REPORT TO EMT.
== END 2016-07-19 11:12 | DRG 870 ==
LOC: ER 11:59 → ICU 13:58 → TELE1 14:44 → TELE-TD 17:50 → TELE1 07-17 13:36
PROC: 5A1955Z Respiratory Ventilation, Greater than 96 Consecutive Hours (ICD-10-PCS; principal; 2016-07-14)
DX: A41.9 Sepsis, unspecified organism (principal); J96.20 Acute and chronic respiratory failure, unspecified whether with hypoxia or hypercapnia; R53.2 Functional quadriplegia; J96.21 Acute and chronic respiratory failure with hypoxia; J15.6 Pneumonia due to other Gram-negative bacteria; G93.1 Anoxic brain damage, not elsewhere classified; N39.0 Urinary tract infection, site not specified; Z99.11 Dependence on respirator [ventilator] status; J98.11 Atelectasis; D63.8 Anemia in other chronic diseases classified elsewhere; E11.21 Type 2 diabetes mellitus with diabetic nephropathy; E27.9 Disorder of adrenal gland, unspecified; E87.5 Hyperkalemia; F09 Unspecified mental disorder due to known physiological condition; G40.909 Epilepsy, unspecified, not intractable, without status epilepticus; I51.7 Cardiomegaly; Z93.0 Tracheostomy status; Z93.1 Gastrostomy status; R13.10 Dysphagia, unspecified; Y95 Nosocomial condition
CPT/HCPCS: 31720; 36415; 36600; 71010-TC; 80048-TC; 80061-TC; 80076-TC; 80202-TC; 81000-TC; 82962-TC; 83605-TC; 83735-TC; 83880; 84100-TC; 84443-TC; 84484-TC; 85025-TC; 85730-TC; 86850-TC; 87040-TC; 87081-TC; 87086-TC; 94002-TC; 94003-TC; 94760-TC; A4216; A4606; A6402; C9113; J1650; J1815; J2185; J2543; J3370; J3490; J7030; J7040; J7060; J8597; Z7610

== ENCOUNTER 2016-12-16 06:32 | Inpatient (IN) | payer MEDICARE, MEDICAID ==
[~2016-12-16] VITALS: Ht 167.6 cm; Wt 85.3 kg
[2016-12-16] VITALS (66 sets, daily range): BP systolic 45–156; BP diastolic 21–102
[~2016-12-16 06:32] MED LIST changes: +*INS REG SQ; -ACID1TAB12 GT; +AMIN30LI26 GT; +CRAN3875 GT; +DEXT50DI5 IV; +ENOX40DI SQ; +FAMO-131 GT; -FERR-58 GT; +FERR220S2 GT; -INSU100V7 SQ; +INSU100V9 SQ; +INSU300I SQ; +MULT1TAB11 GT; -MULT9LIQ GT; +SACC250C6 GT
--- NOTE | 2016-12-16 06:40 | NUR ---
To bed 5 a 51 yo female bb ra 78 from [facility]; fever, tachy x 1 hour. Upon arrival to er, patient is awake, nonverbal, opens eyes, does not follow command. With trach to mech vent, satting at 96%. Temperature recorded as 104.1 per rectum. Sinus tachy on the monitor at 130's. Ongoing cardiac and vs monitoring. kept patent airway. safety measures rendered. Dr Sagastume at bedside. Sepsis protocol initiated.
--- NOTE | 2016-12-16 06:50 | NUR ---
started a saline lock on the rac g18, blood drawn and sent to lab.
[2016-12-16] MEDS ORDERED: IV NS 0.9% 1,000 ML BAG IV ONE ×2 (07:00→10:30)
[2016-12-16] MEDS ORDERED: ACETAMINOPHEN 650 MG/SUPP.RECT RC ONE ×2 (07:00→07:11)
[2016-12-16] MEDS ORDERED: PIPERACILLIN /TAZOBACTAM 3.375 G in IV D5W 50 ML IV ONE (07:00)
[2016-12-16] MEDS ORDERED: PANTOPRAZOLE 80 MG in IV NS 0.9% 500 ML IV ONE (07:00)
[2016-12-16] MEDS ORDERED: VANCOMYCIN 1 GM in IV D5W 250 ML IV ONE (07:00)
[2016-12-16 07:17] LABS: HEMATOCRIT 40 % (33-45); HEMOGLOBIN 13.1 g/dL (11.5-14.8); LYMPHOCYTES % (AUTO) 1.7 % (20.0-44.0); MEAN CORPUSCULAR HEMOGLOBIN 29 PG (26.0-33.0); MEAN CORPUSCULAR HGB CONC 33 g/dl (31.0-36.0); MEAN CORPUSCULAR VOLUME 88 fL (82-100); MONOCYTES # (AUTO) 0.1 /CMM (0.1-1.30); MONOCYTES % (AUTO) 0.1 % (2.0-12.0); NEUTROPHILS # (AUTO) 57.5 /CMM (1.8-8.9); NEUTROPHILS % (AUTO) 98.2 % (43.0-81.0); PLATELET COUNT (AUTO) 162 /CMM (150-450); RDW COEFFICIENT OF VARIATION 14.3 (11.5-15.0); RED BLOOD CELL COUNT(AUTO) 4.57 MIL/uL (4.0-5.2)
[2016-12-16 07:19] LABS: WHITE BLOOD COUNT (AUTO) 58.5 K/uL (4.3-11.0)
[2016-12-16 07:33] LABS: BAND % (MANUAL) 67 % (0.0-5.0); NEUTROPHILS % (MANUAL) 33 (42-76)
[2016-12-16 07:38] LABS: ABG BASE EXCESS -16.6 mmol/L; ABG OXYGEN SATURATION 75.2 % (92.0-98.5); ABG PCO2 38.4 mmHg (35.0-45.0); ABG PH 7.113 (7.350-7.450); ABG PO2 50.2 mmHg (75.0-100.0); COHb 0.8 % (0.5-1.5); MetHb 0.9 % (0.0-1.5); O2Hb 73.9 % (94.0-97.0); PEEP,BG 5 cm H2O; SITE, ABG Left Brachial; VENT MODE, BG AC 16 550 60% +5; VT, ABG 550 mL
[2016-12-16] MEDS ORDERED: BLOO-668 IN (07:44)
[2016-12-16] MEDS ORDERED: ACET650S26 GT (07:44)
[2016-12-16] MEDS ORDERED: NUT.237L36 GT (07:44)
[2016-12-16] MEDS ORDERED: IPRA3AMP IH ×2 (07:44)
[2016-12-16] MEDS ORDERED: ASCO500S2 GT (07:44)
[2016-12-16] MEDS ORDERED: LEVE100S GT (07:44)
[2016-12-16] MEDS ORDERED: POLY15DR40 EACHEYE (07:44)
[2016-12-16 07:49] LABS: INR 1.6 (0.87-1.13); PROTHROMBIN TIME 17.7 SECS (9.5-12.7)
[2016-12-16] MEDS ORDERED: NOREPINEPHRINE 8 MG in IV D5W 500 ML IV PRN ×2 (08:30→09:00)
--- NOTE | 2016-12-16 08:35 | NUR ---
PANEL ON-CALL PAGED
[2016-12-16] MEDS ORDERED: IV NS 0.9% 1,000 ML IV PRN (09:02)
--- NOTE | 2016-12-16 09:21 | NUR ---
REPORT GIVEN TO AUNG DEL CASTILLO FOR [facility] ICU 259
[2016-12-16 09:23] LABS: ALANINE AMINOTRANSFERASE 61 U/L (12-78); ALBUMIN 2.8 g/dL (3.4-5.0); ALKALINE PHOSPHATASE 721 U/L (46-116); ASPARTATE AMINOTRANSFERASE 111 U/L (15-37); BILIRUBIN,DIRECT 3.8 mg/dL (0.0-0.2); BILIRUBIN,TOTAL 4.6 mg/dL (0.2-1.0); CALCIUM, SERUM 8.8 mg/dL (8.5-10.1); CARBON DIOXIDE 13 mmol/L (21-32); CHLORIDE 104 mmol/L (98-107); CREATININE 1.7 mg/dL (0.6-1.3); GLUCOSE 207 mg/dL (74-106); POTASSIUM 4.4 mmol/L (3.5-5.1); SODIUM SERUM 138 mmol/L (136-145); TOTAL PROTEIN, SERUM 7.4 g/dL (6.4-8.2); TROPONIN I < 0.017 ng/mL (0.00-0.056); UREA NITROGEN, BLOOD 26 mg/dL (7-18)
[2016-12-16] MEDS ORDERED: MAGNESIUM HYDROXIDE 30 ML UDC PO PRN (09:30)
[2016-12-16] MEDS ORDERED: ACETAMINOPHEN 325 MG TABLET PO PRN (09:30)
[2016-12-16] MEDS ORDERED: ONDANSETRON HCL/PF 4 MG/2 ML VIAL IVP PRN (09:30)
[2016-12-16] MEDS ORDERED: MAG HYDROX/AL HYDROX/SIMETH 30 ML UDC PO PRN (09:30)
[2016-12-16] MEDS ORDERED: HYDROCODONE/APAP 5/325MG 1 EACH TABLET PO PRN (09:30)
--- NOTE | 2016-12-16 09:43 | NUR ---
PT TRANSFERRED TO CT.
--- NOTE | 2016-12-16 09:59 | NUR ---
RT PT RECEIVED TRACHED WITH A SHILEY 8 XLT ON THE VENT WITH NOTED SETTINGS. PT IS AWAKE BUT DOES NOT FOLLOW COMMANDS. VENT ALARMS ARE SET AND AUDIBLE WITH BVM BY BEDSIDE. DARK ROOM ATTENDANT CUFF PRESSURE NOTED. VENT IS PLUGGED INTO RED OUTLET. SX SMALL THIN CLEAR/WHITE SECRETIONS. WILL CONTINUE TO MONITOR. Addendum: 12/16/16 at 1003 by BO SEASY RT Amended: Links added.
[2016-12-16] MEDS: NOREPINEPHRINE 8 MG in IV D5W 500 ML IV PRN ×2 (10:00→16:09)
--- NOTE | 2016-12-16 10:00 | NUR ---
ICU/RN PT ADMITTED FROM ER.CHRONIC TRACH ON THE VENT AC MODE,FIO2-80%.UNRESPONSIVE.QUADRIPLEGIC. G-TUBE CLAMPED.NEW 3 WAY F/C INSERTED IN ER.PT HAS HEMATURIA.RIGHT FEMORAL TLC.CVP LINE,WITH CVP-10.LEVOPHED AT 10 MCG. 3L BOLUS OF NS GIVEN IN ER .LABS REVIEW MD NOTIFIED.LACTIC ACID #2 IS 5.1.ABG ORDERED.PT HAS SACRAL WOUND 3CM-1CM-0CM.COVERED WITH MEPILEX, REDNESS UNDER BILATERAL BREAST ,REDNESS ON LOWER BACK AND RANJAN AREA NOTED.WOUND CONSULT AND [facility] ORDERED. SUCTION PROVIDED.REPOSITION FOR COMFORT.
[2016-12-16] MEDS ORDERED: FEE PK DOSING 1 MIN EA MC ONE (10:31)
[2016-12-16 10:32] LABS: APPEARANCE,URINE Cloudy (CLEAR); BILIRUBIN,URINE LARGE (NEGATIVE); BLOOD, URINE Large Ery/uL (NEGATIVE); COLOR,URINE Red (YELLOW); KETONES,URINE 15 (NEGATIVE); LEUKOCYTE ESTERASE ,URINE Large (NEGATIVE); NITRITE, URINE Negative (NEGATIVE); PROTEIN,URINE >=300 mg/dl (NEGATIVE); UGLUCOSE 100 MG/DL mg/dL (NEGATIVE)
[2016-12-16 10:43] LABS: BACTERIA,URINE 1+ /HPF (None Seen); RBC,URINE TOO NUMEROUS TO COUN /HPF (0-2)
[2016-12-16 10:44] LABS: SQUAMOUS EPITHELIAL CELL,UR Moderate /HPF (None Seen)
[2016-12-16] MEDS ORDERED: SODIUM BICARBONATE SYR 50 MEQ/50 ML DISP.SYRIN IV ONE (12:00)
[2016-12-16] MEDS ORDERED: Sodium Bicarbonate 100 MEQ in IV 1/2NS 1000 ML 1,000 ML IV PRN (12:00)
[2016-12-16] MEDS ORDERED: CITRIC ACID/SODIUM CITRATE (BICITRA)15 ML UDC GT ONE (12:30)
[2016-12-16] MEDS: PIPERACILLIN /TAZOBACTAM 2.25 G in IV D5W 50 ML IV SCH ×2 (12:34→17:14)
[2016-12-16 12:41] LABS: ABG BASE EXCESS -12.6 mmol/L; ABG OXYGEN SATURATION 98.7 % (92.0-98.5); ABG PCO2 25.3 mmHg (35.0-45.0); ABG PH 7.301 (7.350-7.450); ABG PO2 281.2 mmHg (75.0-100.0); AaDO2 262.6 mmHg; COHb 0.1 % (0.5-1.5); MetHb 0.9 % (0.0-1.5); O2Hb 97.7 % (94.0-97.0); PEEP,BG 0 cm H2O; SITE, ABG Right Radial; VT, ABG 550 mL
--- NOTE | 2016-12-16 12:50 | NUR ---
WEBMETHODS ARCHITECT NOTE Received patient from CN, patient obtunded. Admitted for sepsis, WBC 58.5, last lactic acid 5.1. With trache to vent, tolerated settings at this time. With GT intact, clamped. With right femoral TLC intact, on Levophed at 14mcg, will titrate as ordered. SBP 80's at this time. ST 120's on the monitor. Temp 99.4. Kept HOB elevated. Collected sputum for CS. Skin assessment done, noted with sacral decub and bilateral breastfolds redness. Taken pictures and attached to chart. PIVs on RAC and JUSTINE intact. With james cath intact, noted with moderate amount of bloody urine.
[2016-12-16] MEDS: HYDROGEL DRESSING 90 GM TUBE TP SCH (13:10)
--- NOTE | 2016-12-16 14:00 | NUR ---
ICU/RN LACTIC ACID #2-5.1.DR LUGO NOTIFIED.NEW ORDER RECEIVED.INCREASED IV FLUIDS RATE TO 100 ML/HR..CVP-10.CONTINUE MONITORING.
--- NOTE | 2016-12-16 15:22 | NUR ---
CHRISTMAS [employer] FARM CREW BOSS NOTE Updated Dr. Nicole re: patient's condition. Levo @ 30mcg, HR 130. with order to add Samuel and may titrate Levo and increased IVF to 100ml/hr and also artificial tears for dry eyes.
[2016-12-16] MEDS: LACTOBACILLUS RHAMNOSUS GG 1 EACH CAP.SPRINK PO SCH (16:10)
[2016-12-16] MEDS: PHENYLEPHRINE 80 MG in IV D5W 250 ML IV PRN (16:56)
[2016-12-16] MEDS: CITRIC ACID/SODIUM CITRATE (BICITRA)15 ML UDC GT SCH (17:14)
[2016-12-16] MEDS: IV NS 0.9% 1,000 ML IV PRN (17:24)
[2016-12-16] MEDS: NOREPINEPHRINE 16 MG in IV D5W 500 ML IV PRN (21:05)
--- NOTE | 2016-12-16 21:09 | NUR ---
received pt from day shift, septic shock, lethargic, does not follow commands, blind, ST, receiving levo at 30mcg and dano at 80mcg, on the vent, lungs congested, no edema, GT clamped, f/c hematuria, NPO except meds, v/s stable, no pain, pt turned and repositioned.
[2016-12-16] MEDS: FLUCONAZOLE IN NS 100 MG in PREMIX 1 EA IV SCH ×2 (21:32)
[2016-12-16] MEDS: LANOLIN/MIN OIL/PETROLAT,WHT 3.5 GM TUBE EACHEYE SCH (21:34)
--- NOTE | 2016-12-16 22:00 | NUR ---
CVP monitoring discontinued per Dr Hendrickson ( assistant professor of communication) because in was connected to L Femoral vein.
[2016-12-17] VITALS (107 sets, daily range): BP systolic 88–131; BP diastolic 48–90
--- NOTE | 2016-12-17 | NUR ---
pt is resting in the bed, obtunded, on levo at 20mcg and dano at 80mcg, hematuria, v/s stable, no pain, cooling measures initiated, pt turned and repositioned q2hrs.
[2016-12-17] MEDS: IV NS 0.9% 1,000 ML IV PRN (00:15)
[2016-12-17] MEDS: PIPERACILLIN /TAZOBACTAM 2.25 G in IV D5W 50 ML IV SCH ×4 (00:20→17:44)
[2016-12-17] MEDS: CITRIC ACID/SODIUM CITRATE (BICITRA)15 ML UDC GT SCH ×4 (00:21→17:36)
[2016-12-17] MEDS ORDERED: ACETAMINOPHEN 650 MG/20.3 ML UDC ONE (00:46)
[2016-12-17] MEDS: ACETAMINOPHEN 650 MG/20.3 ML UDC NG PRN ×2 (00:48→23:08)
[2016-12-17] MEDS: VANCOMYCIN 1 GM in IV D5W 250 ML IV SCH ×2 (01:34→20:15)
--- NOTE | 2016-12-17 04:31 | NUR ---
pt is resting in the bed, no acute distress overnight, obtunded, ST, on levo at 20mcg and dano at 80mcg, hematuria, v/s stable, no pain, pt cleaned, changed and repositioned q2hrs.
[2016-12-17] MEDS: PHENYLEPHRINE 80 MG in IV D5W 250 ML IV PRN ×2 (05:10→17:59)
[2016-12-17 05:11] LABS: HEMATOCRIT 35 % (33-45); HEMOGLOBIN 11.2 g/dL (11.5-14.8); LYMPHOCYTES # (AUTO) 2.8 /CMM (0.8-4.8); LYMPHOCYTES % (AUTO) 2.3 % (20.0-44.0); MEAN CORPUSCULAR HEMOGLOBIN 28 PG (26.0-33.0); MEAN CORPUSCULAR HGB CONC 32 g/dl (31.0-36.0); MEAN CORPUSCULAR VOLUME 88 fL (82-100); MONOCYTES # (AUTO) 0.2 /CMM (0.1-1.30); MONOCYTES % (AUTO) 0.2 % (2.0-12.0); NEUTROPHILS # (AUTO) 118.5 /CMM (1.8-8.9); NEUTROPHILS % (AUTO) 97.5 % (43.0-81.0); PLATELET COUNT (AUTO) 65 /CMM (150-450); RDW COEFFICIENT OF VARIATION 14.8 (11.5-15.0); RED BLOOD CELL COUNT(AUTO) 3.93 MIL/uL (4.0-5.2)
[2016-12-17] MEDS: NOREPINEPHRINE 16 MG in IV D5W 500 ML IV PRN (05:11)
[2016-12-17 05:14] LABS: CALCIUM, SERUM 7.1 mg/dL (8.5-10.1); CREATININE 1.6 mg/dL (0.6-1.3); MAGNESIUM 1.6 mg/dL (1.8-2.4); PHOSPHORUS 3.5 mg/dL (2.5-4.9)
[2016-12-17 05:16] LABS: WHITE BLOOD COUNT (AUTO) 121.5 K/uL (4.3-11.0)
[2016-12-17 06:12] LABS: BAND % (MANUAL) 54 % (0.0-5.0); LYMPHOCYTES % (MANUAL) 2 % (16-48); METAMYELOCYTES % 7 % (0-0); MYELOCYTES % 2 % (0-0); NEUTROPHILS % (MANUAL) 31 (42-76); PROMYELOCYTES % 1 % (0-0); REACTIVE LYMPHOCYTES 3 % (0-0)
[2016-12-17] MEDS: INSULIN REGULAR, HUMAN 100 UNIT/ML 3 ML VIAL SQ PRN ×3 (06:20→17:50)
[2016-12-17] MEDS ORDERED: DEXTROSE 50%-WATER 50 ML DISP.SYRIN IV PRN (06:30)
[2016-12-17] MEDS ORDERED: PANTOPRAZOLE 40 MG TABLET.DR PO SCH (07:30)
--- NOTE | 2016-12-17 08:09 | NUR ---
WOUND CARE CONSULT: PT PRESENTS WITH STAGE 2 ULCER TO SACRUM, LEFT HIP SCAR AND BILATERAL BREAST FOLD REDNESS, PRESENT ON ADMISSION. PT IS VENT-DEPENDENT AND IMMOBILE. PT ON FIRST STEP MATTRESS. ALL SKIN PROTECTION AND WOUND RECOMMENDATIONS DISCUSSED WITH NURSING STAFF. WILL SEE PRN. GUO IN AGREEMENT WITH PLAN OF CARE. Addendum: 12/17/16 at 0811 by TISHA PATTERSON WNDNU Amended: Links added.
--- NOTE | 2016-12-17 08:10 | NUR ---
FITNESS LEADER: pt.is comatose, unable to check pupils reaction, flat activity, weak gag/cough reflex, O2 sat. WNL, ST 125-132, on 2 pressors Levophed 20 mcg, Samuel-synephrine 100mcg, SBP 100-110 now, continue titrate, T99.3, WBC 121, IVF NS 100ml/h (2L NS bolus in EMR from 12/16, started per IV flowsheet, active, will speak with MD) order aggresive insulin SS started over night, BS was over 400, NPO, hematuria, got GT around leak with pt.reposition and pt.was suctioned with large light brown secretion from oral cavity, keep HOB over 40, started GT LCS: got 800ml light brown stomach secretion, w/c nurse evaluated pt.: see new order-Hydrogel,Mepilex for sacral wound, was in room, updated with all above, see new orders, Mg IV, 2Decho, lab, steroids, charge nurse updated
[2016-12-17] MEDS: HYDROCORTISONE SOD SUCCINATE 100 MG/2 ML VIAL IV SCH ×3 (08:58→17:36)
[2016-12-17] MEDS: Magnesium 1GM/D5W 100ML PREMIX 100 ML IV SCH ×2 (08:58→09:45)
[2016-12-17] MEDS: LACTOBACILLUS RHAMNOSUS GG 1 EACH CAP.SPRINK PO SCH ×2 (08:58→17:36)
[2016-12-17] MEDS: LANOLIN/MIN OIL/PETROLAT,WHT 3.5 GM TUBE EACHEYE SCH ×2 (09:19→20:32)
[2016-12-17] MEDS: HYDROGEL DRESSING 90 GM TUBE TP SCH (09:19)
--- NOTE | 2016-12-17 09:35 | NUR ---
HIGHWAY COMMISSIONER: is in room, updated with pt.current, neuro status, VS, ST, Levo, Samuel gtts, 1L light brown GT LIS (said continue suction), NPO, hematuria, IVF NS 100ml/h (notified re NS 2L bolus from 12/16), BS 411 episode, aggressive insulin SS, labs, pH, lactic acid, WBC 121, orders, wound, gram neg rods in blood, see new orders
--- NOTE | 2016-12-17 09:40 | NUR ---
GROUND MIXER: GROUND MIXER: is going to speak with pt.family re POC, prognosis, charge nurse is aware
--- NOTE | 2016-12-17 10:15 | NUR ---
WATERWORKS SUPERVISOR: is in room, notified re pt.condition/neuro status, 2 pressors, VS, O2sat. vent.setting, ABG orders is in comp., hematuria, 1L GT LIS, labs, meds, orders, IVF, NPO, BS, see new orders
[2016-12-17 10:28] LABS: ABG BASE EXCESS -15.1 mmol/L; ABG OXYGEN SATURATION 96.8 % (92.0-98.5); ABG PCO2 25.8 mmHg (35.0-45.0); ABG PH 7.239 (7.350-7.450); ABG PO2 93.8 mmHg (75.0-100.0); AaDO2 161.7 mmHg; COHb 0.4 % (0.5-1.5); MetHb 0.7 % (0.0-1.5); O2Hb 95.7 % (94.0-97.0); SITE, ABG Right Radial; VT, ABG 500 mL
--- NOTE | 2016-12-17 11:03 | NUR ---
MANAGER QUANTITATIVE: pt.mother is in room, notified re pt.current condition, VS, pressors, orders, POC, results, message for was sent
--- NOTE | 2016-12-17 11:45 | NUR ---
WIRELESS CONSTRUCTION MANAGER: pt.mother got detailed explanation by re: pt.current status, multiple problems, included cancer risk, POC, poor prognosis, is in room also, updated with all above, see new orders, pt.mother wants continue full code
[2016-12-17] MEDS: BLOOD SUGAR DIAGNOSTIC 1 EACH STRIP IN SCH ×2 (12:16→17:48)
[2016-12-17] MEDS ORDERED: IV NS 0.9% 1,000 ML IV SCH (14:00)
--- NOTE | 2016-12-17 14:06 | NUR ---
MEDICAL SCIENTIST: morning Na 133, lactic acid 5.1 (prev 9.3), pt.is getting NS 100ml/h over night and now (needs order confirmation), 2L NS bolus order is in EMR from 12/16 (scanned), paged for verification: confirmed - continue IVF NS 100ml/h unless ham pumper will put in something else
--- NOTE | 2016-12-17 15:08 | NUR ---
SUPERANNUATION CLERK: is in room, notified re pt.condition, VS, neuro status, pressors, GT to LIS since morning time: 1L dark browns stomach drainage, meds, orders, labs, CT scan result, hematuria, ordered: Protonix IV 40 mg BID, Reglan 5 mg IV q6h for 24 hrs/4 doses
--- NOTE | 2016-12-17 17:00 | NUR ---
PRINTING MANAGER: US poultry service technician called/asked clamp F/c until her visit
[2016-12-17] MEDS: METOCLOPRAMIDE HCL 10 MG/2 ML VIAL IV SCH ×2 (17:36→21:11)
--- NOTE | 2016-12-17 20:00 | NUR ---
LEAD SOFTWARE ENGINEER NOTES RECEIVED PT IN BED, OBTUNDED/COMATOSE. MILD REACTION TO STRONG DEEP PAIN. TELE READS ST AT 122 BPM. ON VENT VIA SHILEY 8XLT, SETTINGS OF AC 24, TV 600, FIO2 40%, PEEP 5, TOLERATING WELL. SMALL TO MODERATE THICK SECRETIONS. G-TUBE PRESENT, CONNECTED TO LIS WITH BROWN DRAINAGE. NPO EXCEPT MEDS AT THIS TIME. PERKINS CATH PRESENT, DRAINING WELL TO CLOUDY YELLOW URINE. RIGHT FEMORAL TLC, RAC 18G IV, AND JUSTINE 20G IV PRESENT, RUNNING LEVOPHED, TETE-SYNEPHRINE AND NS. US TECH AT BEDSIDE. HOB ELEVATED, NO S/S OF PAIN OR DISTRESS. SIDE RAILS X3. BED ALARM ON. PT TURNED AND REPOSITIONED, EXTREMITIES OFFLOADED. PER MD, ATTEMPT TO TITRATE OFF LEVOPHED FIRST WHILE KEEPING SBP >90 MMHG USING TETE-SYNEPHRINE.
[2016-12-17] MEDS: MEROPENEM 500 MG in IV NS 0.9% 50 ML IV SCH (20:15)
[2016-12-17] MEDS: FLUCONAZOLE IN NS 100 MG in PREMIX 1 EA IV SCH ×2 (20:16)
[2016-12-17] MEDS: PANTOPRAZOLE 40 MG VIAL IV SCH (20:16)
[2016-12-17] MEDS ORDERED: MEROPENEM 500 MG in IV NS 0.9% 50 ML IV SCH (21:00)
[2016-12-18] VITALS (118 sets, daily range): BP systolic 67–119; BP diastolic 48–75
--- NOTE | 2016-12-18 | NUR ---
FINANCIAL AID ADVISOR NOTES PT TURNED AND REPOSITIONED, NO BM. ORAL CARE RENDERED. TRACHEAL SUCTION PERFORMED WITH MINIMAL SECRETIONS. GT TO LIS WITH BROWN DRAINAGE.
[2016-12-18] MEDS: BLOOD SUGAR DIAGNOSTIC 1 EACH STRIP IN SCH ×4 (00:31→17:16)
[2016-12-18] MEDS: CITRIC ACID/SODIUM CITRATE (BICITRA)15 ML UDC GT SCH ×4 (00:31→17:30)
[2016-12-18] MEDS: IV NS 0.9% 1,000 ML IV PRN ×4 (00:31→16:55)
[2016-12-18] MEDS: INSULIN REGULAR, HUMAN 100 UNIT/ML 3 ML VIAL SQ PRN (00:37)
--- NOTE | 2016-12-18 04:00 | NUR ---
NAILER HAND NOTES PT GIVEN BED BATH, LINENS CHANGED, TURNED AND REPOSITIONED, EXTREMITIES OFFLOADED. PT IS AFEBRILE WITH BODY TEMP OF 98.7. HOB ELEVATED.
[2016-12-18] MEDS: PHENYLEPHRINE 80 MG in IV D5W 250 ML IV PRN ×2 (04:41→18:00)
[2016-12-18] MEDS: METOCLOPRAMIDE HCL 10 MG/2 ML VIAL IV SCH ×2 (04:41→10:00)
[2016-12-18 04:55] LABS: CREATININE 1.6 mg/dL (0.6-1.3); POTASSIUM 3.2 mmol/L (3.5-5.1)
[2016-12-18 06:09] LABS: EOSINOPHILS # (AUTO) 0.2 /CMM (0.0-0.7); EOSINOPHILS % (AUTO) 0.3 % (0.0-6.0); HEMATOCRIT 24 % (33-45); HEMOGLOBIN 8.1 g/dL (11.5-14.8); LYMPHOCYTES # (AUTO) 2.1 /CMM (0.8-4.8); MEAN CORPUSCULAR HEMOGLOBIN 29 PG (26.0-33.0); MEAN CORPUSCULAR HGB CONC 34 g/dl (31.0-36.0); MEAN CORPUSCULAR VOLUME 85 fL (82-100); MONOCYTES # (AUTO) 0.7 /CMM (0.1-1.30); MONOCYTES % (AUTO) 1.1 % (2.0-12.0); NEUTROPHILS # (AUTO) 65.8 /CMM (1.8-8.9); NEUTROPHILS % (AUTO) 95.6 % (43.0-81.0); RDW COEFFICIENT OF VARIATION 14.4 (11.5-15.0); RED BLOOD CELL COUNT(AUTO) 2.83 MIL/uL (4.0-5.2)
[2016-12-18 07:10] LABS: PLATELET COUNT (AUTO) 32 /CMM (150-450); WHITE BLOOD COUNT (AUTO) 68.8 K/uL (4.3-11.0)
--- NOTE | 2016-12-18 07:40 | NUR ---
PRESIDING STEWARD: pt.is comatose, unable to check corneal reflex, weak gag/cough reflex+, keep HOB over40, ST 100-110, Levophed off, dano-synephrine 100mcg/min gtt, continue titrate, no hematuria now, continue GT LIS (light brown drainage now), O2sat. over 94%, no labored breathing, K+ 3.2, ordered 60meq K+ IV/6bags, 3L NS 250ml/h and titrate off pressor
[2016-12-18] MEDS: POTASSIUM CL. PREMIX PERIPHER. 50 ML IV SCH ×6 (07:47→13:20)
[2016-12-18] MEDS: HYDROCORTISONE SOD SUCCINATE 100 MG/2 ML VIAL IV SCH ×3 (09:06→16:19)
[2016-12-18] MEDS: LACTOBACILLUS RHAMNOSUS GG 1 EACH CAP.SPRINK PO SCH ×2 (09:06→16:19)
[2016-12-18] MEDS: PANTOPRAZOLE 40 MG VIAL IV SCH ×2 (09:06→20:58)
[2016-12-18] MEDS: MEROPENEM 500 MG in IV NS 0.9% 50 ML IV SCH (09:07)
[2016-12-18] MEDS: LANOLIN/MIN OIL/PETROLAT,WHT 3.5 GM TUBE EACHEYE SCH ×2 (09:07→21:05)
[2016-12-18] MEDS: HYDROGEL DRESSING 90 GM TUBE TP SCH (09:08)
--- NOTE | 2016-12-18 09:30 | NUR ---
PACKAGE WORKER: is in room, updated with pt.current condition, on Samuel-synephrine gtt, VS, I/O, IVF, orders, GT LIS amount, no hematuria now, labs, meds, BS, see new orders
[2016-12-18 09:56] LABS: ABG BASE EXCESS -8.2 mmol/L; ABG OXYGEN SATURATION 97.9 % (92.0-98.5); ABG PCO2 20.5 mmHg (35.0-45.0); ABG PH 7.462 (7.350-7.450); ABG PO2 111.9 mmHg (75.0-100.0); AaDO2 149.7 mmHg; COHb 0.5 % (0.5-1.5); MetHb 0.6 % (0.0-1.5); O2Hb 96.8 % (94.0-97.0); PEEP,BG 0 cm H2O; SITE, ABG Right Radial; VT, ABG 600 mL
[2016-12-18 10:03] LABS: BAND % (MANUAL) 45 % (0.0-5.0); LYMPHOCYTES % (MANUAL) 2 % (16-48); MONOCYTES % (MANUAL) 1 % (0-11.0); NEUTROPHILS % (MANUAL) 52 (42-76)
--- NOTE | 2016-12-18 11:10 | NUR ---
CRISIS CLINICIAN: is in room, updated with all above, VS, Samuel synephrine gtt, orders, GT LIS & urine without blood, labs, low platelets/ H/H, ordered: DIC, fibrinogen, continue monitoring, spoke with pt.mother
--- NOTE | 2016-12-18 11:20 | NUR ---
ANTHROPOLOGICAL LINGUIST: [place] [facility] transfuse if Fibrinogen below 150, DIC ordered, will endorse for next shift
[2016-12-18] MEDS ORDERED: METOCLOPRAMIDE HCL 10 MG/2 ML VIAL IV ONE (11:30)
--- NOTE | 2016-12-18 11:30 | NUR ---
ROUSTABOUT HEAD: pt.mother is in room, notified re pt.VS, pressor, I/O, IVF, BS, GTS, orders, labs, spoke with family, wants to change code status: continue all care, but do not resuscitate
--- NOTE | 2016-12-18 12:00 | NUR ---
WOUND CARE CENTER CONSULTANT: updated with pt.current condition, neurostatus, Samuel gtt, VS, O2sat., vent setting, microbiol.results, labs, meds, orders, GT LIS, IVF
--- NOTE | 2016-12-18 12:10 | NUR ---
ACCOUNTING BOOKKEEPER: pt.mother, who is decision maker per chart information, stated/changed code status for DNR (pt.mother said: no chest compression, no defibrillation, no ACLS meds, no resuscitation with cardiopulmonary arrest), verified with charge nurse, Job. is in unit, notified, confirmed.
[2016-12-18 13:37] LABS: PLATELET COUNT (AUTO) 28 /CMM (150-450)
[2016-12-18 13:45] LABS: FIBRINOGEN ACTIVITY 717 Mg/dL (213-485); INR 1.11 (0.87-1.13); PARTIAL THROMBOPLASTIN TIME 40 SEC (23-34); PROTHROMBIN TIME 11.9 SECS (9.5-12.7)
--- NOTE | 2016-12-18 14:21 | NUR ---
REPORTED CRITICAL LABS PLATELET REPEAT FOR TODAY AT 28 AND COAG PANEL SPECIFICALLY FIBRINOGIN TO DR. TURCIOS. SHE STATES THAT PLTL IS LOW FROM BONE MARROW SUPPRESSION AND SEPSIS, SHE GIVES NO ORDER FOR TRANSFUSION. SHE ASKS IF THE PT IS BLEEDING. NO CHANGE/BLEEDING FROM THIS MORNING WHEN DR. TURCIOS WAS ON THE UNIT. URINE IS CLEAR AND GASTRIC OUTPUT FROM THE GTUBE IS YELLOW/GREEN, BOTH WERE SEEN BY DR. TURCIOS.
[2016-12-18 14:53] LABS: D-DIMER > 35.20 mg/L(FEU (0.17-0.50)
--- NOTE | 2016-12-18 18:00 | NUR ---
INVESTIGATOR INTERNAL REVENUE: platelets 24085, Fibrinogen 717 (misc.order if below 150), no events of acute bleeding, updated, no new order, Vanco level 27/hold dose, pt.is on Samuel-synephrine gtt, titration+, but sensitive for dose adjustment, SR, GT LIS 600ml light brown drainage, BS 104, 3d NS bolus bag is running, PM/wound care done. JASMIN Momin DECORATOR MANNEQUIN was in room, updated with all above.
--- NOTE | 2016-12-18 19:30 | NUR ---
CISCO CONSULTANT: RECEIVED CHRONIC VENT DEPENDENT PT AND TOLERATING VENT SETTINGS ORDERED. REMAINED OBTUNDED/COMATOSE. 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 AFEBRILE. RIGHT FEMORAL TLC RUNNING NEOSYNEPHRINE AT 90MCG/MIN TO KEEP SBP ABOVE 90 AND 3RD BAG OF NS AT 250ML/HR. GT CONNECTED TO LIS WT SMALL AMT. OF LIGHT BROWN GASTRIC SECRETIONS. F/C PATENT AND INTACT DRAINING YELLOW URINE WT NO HEMATURIA AT THIS TIME. HOB ON SEMI-DIAZ'S. WILL CONTINUE TO MONITOR.
[2016-12-18] MEDS ORDERED: VANCOMYCIN 1 GM in IV D5W 250 ML IV SCH (20:00)
[2016-12-18] MEDS: MEROPENEM 1 G in IV NS 0.9% 100 ML IV SCH (21:02)
[2016-12-18] MEDS: IV NS 0.9% 250 ML IV PRN (21:30)
[2016-12-18] MEDS: FLUCONAZOLE IN NS 100 MG in PREMIX 1 EA IV SCH ×2 (21:47)
[2016-12-19] VITALS (103 sets, daily range): BP systolic 92–124; BP diastolic 51–86
--- NOTE | 2016-12-19 | NUR ---
ACCOUNTS PAYABLE ADMINISTRATOR: NO GIOVANNY AT THIS TIME. VS WITHIN HER BASELINE. REPOSITIONED FOR COMFORT. ORAL SUCTIONING RENDERED WT MODERATE AMT. OF CLEAR THIN SECRETIONS.
[2016-12-19] MEDS: BLOOD SUGAR DIAGNOSTIC 1 EACH STRIP IN SCH ×5 (00:02→23:24)
[2016-12-19] MEDS: INSULIN REGULAR, HUMAN 100 UNIT/ML 3 ML VIAL SQ PRN ×4 (00:04→23:23)
[2016-12-19] MEDS: CITRIC ACID/SODIUM CITRATE (BICITRA)15 ML UDC GT SCH ×5 (00:06→23:21)
--- NOTE | 2016-12-19 04:15 | NUR ---
ENVIRONMENTAL HEALTH AND SAFETY LEADER: BED BATH GIVEN AND TOLERATED FAIRLY. GOOD SKIN CARE RENDERED. VS WITHIN HER BASELINE. NO ACUTE DISTRESS.
[2016-12-19 05:09] LABS: CALCIUM, SERUM 7.2 mg/dL (8.5-10.1); CREATININE 1.3 mg/dL (0.6-1.3); MAGNESIUM 2.6 mg/dL (1.8-2.4); PHOSPHORUS 1.9 mg/dL (2.5-4.9); POTASSIUM 3.4 mmol/L (3.5-5.1); TOTAL PROTEIN, SERUM 5.4 g/dL (6.4-8.2)
[2016-12-19 05:18] LABS: LYMPHOCYTES # (AUTO) 1.9 /CMM (0.8-4.8); LYMPHOCYTES % (AUTO) 3.6 % (20.0-44.0); MEAN CORPUSCULAR HEMOGLOBIN 28 PG (26.0-33.0); MEAN CORPUSCULAR HGB CONC 33 g/dl (31.0-36.0); MEAN CORPUSCULAR VOLUME 85 fL (82-100); MONOCYTES # (AUTO) 0.9 /CMM (0.1-1.30); MONOCYTES % (AUTO) 1.7 % (2.0-12.0); NEUTROPHILS # (AUTO) 48.9 /CMM (1.8-8.9); NEUTROPHILS % (AUTO) 94.7 % (43.0-81.0); RDW COEFFICIENT OF VARIATION 14.9 (11.5-15.0); RED BLOOD CELL COUNT(AUTO) 2.37 MIL/uL (4.0-5.2)
[2016-12-19 05:20] LABS: WHITE BLOOD COUNT (AUTO) 51.7 K/uL (4.3-11.0)
[2016-12-19 05:21] LABS: HEMATOCRIT 20 % (33-45); HEMOGLOBIN 6.6 g/dL (11.5-14.8); PLATELET COUNT (AUTO) 36 /CMM (150-450)
[2016-12-19 05:38] LABS: ALBUMIN 1.4 g/dL (3.4-5.0)
[2016-12-19 05:39] LABS: BAND % (MANUAL) 57 % (0.0-5.0); LYMPHOCYTES % (MANUAL) 2 % (16-48); METAMYELOCYTES % 4 % (0-0); NEUTROPHILS % (MANUAL) 36 (42-76); REACTIVE LYMPHOCYTES 1 % (0-0)
[2016-12-19] MEDS: VANCOMYCIN 1.25 GM in IV D5W 500 ML IV SCH (05:54)
--- NOTE | 2016-12-19 06:37 | NUR ---
OPTICAL BRIGHTENER MAKER HELPER: NOTIFIED DR. RUSSELL FOR HGB=6.6 FROM 8.1 AND INFORMED HIM THAT URINE HAS SLIGHT HEMATURIA AND HAD EPISODE OF LOOSE STOOL IN DARK GREEN COLOR. MD BARONE ORDER FOR 1 UNIT PRBC AND STOOL OCCULT BLOOD X 2. ALSO NOTIFIED HIM OF ALBUMIN 1.4 AND SAID LET THE ROUNDING DOCTOR TAKE CARE OF IT. WILL ENDORSE TO DAY SHIFT. NO SIGNIFICANT GIOVANNY AT THIS TIME. STILL ON NEOSYNEPHRINE AT 70MCG/MIN FOR BP SUPPORT.
--- NOTE | 2016-12-19 07:05 | NUR ---
RN INITIAL NOTES RECEIVED PT ON MECH VENT. TRACH IN PLACE. AIRWAY PATENT. HOB ELEVATED. NO RESPIRATORY DISTRESS NOTED. NO SOB NOTED. NO SIGNS OF PAIN NOTED. ON TETE AT 70MCG/MIN. WILL TITRATE ACCORDINGLY. BP CLOSELY MONITOR. IV LINES IN PLACE. RIGHT FEMORAL TLC IN PLACE. GT IN PLACE, CONNECTED TO LOW INTERMITTENT SUCTION. FC IN PLACE. WILL MONITOR FOR ANY SIGNS OF ACTIVE BLEEDING. PT FOR BLOOD TRANSFUSION, 1 UNIT OF PRBC TODAY. WILL COLLECT STOOL OB X2. BLE ELEVATED. PT COMFORTABLE. WILL CLOSELY MONITOR.
[2016-12-19] MEDS: HYDROCORTISONE SOD SUCCINATE 100 MG/2 ML VIAL IV SCH ×3 (08:06→17:10)
[2016-12-19] MEDS: PANTOPRAZOLE 40 MG VIAL IV SCH ×2 (08:07→20:12)
[2016-12-19] MEDS: MEROPENEM 1 G in IV NS 0.9% 100 ML IV SCH ×2 (08:07→20:08)
[2016-12-19] MEDS: LACTOBACILLUS RHAMNOSUS GG 1 EACH CAP.SPRINK PO SCH ×2 (08:07→17:10)
[2016-12-19] MEDS: LANOLIN/MIN OIL/PETROLAT,WHT 3.5 GM TUBE EACHEYE SCH ×2 (08:08→20:09)
[2016-12-19] MEDS: HYDROGEL DRESSING 90 GM TUBE TP SCH (08:09)
[2016-12-19] MEDS: PHENYLEPHRINE 80 MG in IV D5W 250 ML IV PRN (10:23)
[2016-12-19] MEDS ORDERED: POTASSIUM PHOSPHATE MM 5 MMOL in IV D5W 100 ML IV SCH (10:30)
--- NOTE | 2016-12-19 11:30 | NUR ---
RN NOTES SEEN AND EXAMINED BY DR. BELLA TURCIOS. AWARE OF CURRENT LAB VALUES. GIVEN 1 UNIT OF PRBC. NO BT REACTION NOTED. NO ORDER MADE.
[2016-12-19] MEDS: IV NS 0.9% 1,000 ML IV PRN ×2 (13:43→22:39)
--- NOTE | 2016-12-19 13:50 | NUR ---
RN NOTES SEEN AND EXAMINED BY DR. ESQUIVEL. [facility]. TRACH IN PLACE. AIRWAY PATENT. NO RESPIRATORY DISTRESS NOTED. NO ORDER MADE. WILL CONTINUE TO MONITOR
--- NOTE | 2016-12-19 15:00 | NUR ---
RN NOTES SEEN AND EXAMINED BY DR. MINDA LUGO. AWARE OF CURRENT LAB VALUES: WBC 51.7, HGB 6.6, HCT 20, PLATELET 36. NO SIGNS OF ACTIVE BLEEDING NOTED. SODIUM 140, POTASSIUM 3.4, CHLORIDE 111, C02 17, BUN 35, CREA 1.3, ALBUMIN 1.4, MG 2.6, PHOS 1.9. MD ORDERED IVF AND KPHOS IV. NOTED AND CARRIED OUT.
--- NOTE | 2016-12-19 18:40 | NUR ---
RN CLOSING NOTES NO SIGNIFICANT CHANGE NOTED. PT REMAINS ON VENT. AIRWAY PATENT. NO RESPIRATORY DISTRESS NOTED. IV LINES IN PLACE. TOLERATING IVF WELL. GT CONNECTED TO LOW INTERMITTENT SUCTION. FC IN PLACE. ADEQUATE OUTPUT NOTED. TX PROVIDED ORDERED. KEPT CLEAN AND DRY. REPOSITIONED Q2. KEPT BLE ELEVATED. GIVEN 1 UNIT OF PRBC GIVEN. NO BT REACTION NOTED. NO SIGNS OF ACTIVE BLEEDING NOTED. KEPT COMFORTABLE. WILL ENDORSE FOR CONTINUITY OF CARE.
--- NOTE | 2016-12-19 20:28 | NUR ---
received pt from day shift, obtunded, SR, receiving dano at 50mcg, on the vent, lungs congested, some non pitting edema BL hands, GT to LIS some output, f/c OK output, NPO except meds, v/s stable, no pain, pt turned and repositioned.
[2016-12-19] MEDS: FLUCONAZOLE IN NS 100 MG in PREMIX 1 EA IV SCH ×2 (20:52)
[2016-12-20] VITALS (62 sets, daily range): BP systolic 62–145; BP diastolic 30–128
--- NOTE | 2016-12-20 00:39 | NUR ---
pt is resting in the bed, obtunded, SR, receiving dano at 20mcg, v/s stable, no pain, pt turned and repositioned q2hrs.
--- NOTE | 2016-12-20 04:11 | NUR ---
pt is resting in the bed, no acute distress overnight, obtunded, SR, off of dano since 329, v/s stable, no pain, pt cleaned, changed and repositioned q2hrs.
[2016-12-20 05:07] LABS: HEMATOCRIT 22 % (33-45); HEMOGLOBIN 7.3 g/dL (11.5-14.8); LYMPHOCYTES # (AUTO) 1.4 /CMM (0.8-4.8); LYMPHOCYTES % (AUTO) 6.7 % (20.0-44.0); MEAN CORPUSCULAR HEMOGLOBIN 28 PG (26.0-33.0); MEAN CORPUSCULAR HGB CONC 33 g/dl (31.0-36.0); MEAN CORPUSCULAR VOLUME 85 fL (82-100); MONOCYTES # (AUTO) 0.2 /CMM (0.1-1.30); NEUTROPHILS # (AUTO) 18.8 /CMM (1.8-8.9); NEUTROPHILS % (AUTO) 92.3 % (43.0-81.0); RDW COEFFICIENT OF VARIATION 14.6 (11.5-15.0); RED BLOOD CELL COUNT(AUTO) 2.59 MIL/uL (4.0-5.2); WHITE BLOOD COUNT (AUTO) 20.4 K/uL (4.3-11.0)
[2016-12-20 05:13] LABS: CALCIUM, SERUM 6.7 mg/dL (8.5-10.1); CREATININE 1.2 mg/dL (0.6-1.3); POTASSIUM 3.1 mmol/L (3.5-5.1)
[2016-12-20 05:17] LABS: PLATELET COUNT (AUTO) 22 /CMM (150-450)
[2016-12-20 05:40] LABS: BAND % (MANUAL) 8 % (0.0-5.0); LYMPHOCYTES % (MANUAL) 4 % (16-48); MONOCYTES % (MANUAL) 7 % (0-11.0); NEUTROPHILS % (MANUAL) 81 (42-76)
[2016-12-20] MEDS: CITRIC ACID/SODIUM CITRATE (BICITRA)15 ML UDC GT SCH ×4 (05:43→23:39)
[2016-12-20] MEDS: VANCOMYCIN 1.25 GM in IV D5W 500 ML IV SCH (05:44)
[2016-12-20] MEDS: BLOOD SUGAR DIAGNOSTIC 1 EACH STRIP IN SCH ×4 (05:44→23:39)
[2016-12-20] MEDS: IV NS 0.9% 1,000 ML IV PRN ×3 (05:59→20:20)
--- NOTE | 2016-12-20 07:34 | NUR ---
INITIAL MAGNETO REPAIRER NOTE RCVD PT WITH EYES OPEN, UNABLE TO FOLLOW COMMANDS, BUE AND BLE RIGID AND FLACCID. SR ON TELE. TOLERATING ORDERED VENT SETTINGS. OFF PRESSORS AT THIS TIME. PEG PLACEMENT VERIFIED BY AUSCULTATION/ASPIRATION. PEG ON LOW INT. SUCTION. PERKINS DRAINING CLOUDY, YELLOW URINE. IV SITES C/D/I/PATENT. NO S/O INFILTRATION/PHLEBITIS OBSERVED IVF INFUSING. WILL CONTINUE TO MONITOR PT FOR SAFETY AND COMFORT. CALL LIGHT WITHIN REACH. BED IN LOW AND LOCKED POSITION.
[2016-12-20] MEDS: MEROPENEM 1 G in IV NS 0.9% 100 ML IV SCH ×2 (08:46→20:20)
[2016-12-20] MEDS: POTASSIUM CL. PREMIX PERIPHER. 50 ML IV SCH ×6 (08:46→16:57)
[2016-12-20] MEDS: IV NS 0.9% 250 ML IV PRN (08:46)
[2016-12-20] MEDS: PANTOPRAZOLE 40 MG VIAL IV SCH ×2 (08:46→20:20)
[2016-12-20] MEDS: HYDROGEL DRESSING 90 GM TUBE TP SCH (08:47)
[2016-12-20] MEDS: HYDROCORTISONE SOD SUCCINATE 100 MG/2 ML VIAL IV SCH ×3 (08:47→16:59)
[2016-12-20] MEDS: LANOLIN/MIN OIL/PETROLAT,WHT 3.5 GM TUBE EACHEYE SCH ×2 (08:47→22:29)
[2016-12-20] MEDS: LACTOBACILLUS RHAMNOSUS GG 1 EACH CAP.SPRINK PO SCH ×2 (08:47→16:59)
--- NOTE | 2016-12-20 10:06 | NUR ---
UNIT TRUST MANAGER NOTE DR. LUGO AT BEDSIDE INFORMED THAT ABDOMINAL AREA SOFT, NOT TENDER, NO OUTPUT FROM LIS, HYPOACTIVE BOWEL SOUNDS. RECOMMENDED TO D/C LIS. MD AGREED. WILL CONTINUE TO MONITOR.
[2016-12-20] MEDS ORDERED: POTASSIUM CHLORIDE 20 MEQ TAB.PRT.SR PO SCH (11:30)
--- NOTE | 2016-12-20 11:35 | NUR ---
STEEL PLACER NOTE PT'S MOM AT BEDSIDE UPDATED ON PT'S CONDITION, QUESTIONS ANSWERED. WILL CONTINUE TO MONITOR.
[2016-12-20 13:10] LABS: CHROMOGRANIN A 3 nmol/L (0-5)
--- NOTE | 2016-12-20 18:28 | NUR ---
GRANULATOR TENDER NOTE PT REMAINS STABLE OFF PRESSORS, TOLERATING ORDERED VENT SETTINGS. PERKINS DRAINING YELLOW URINE AND PEG CLAMPED. IV SITES C/D/I/PATENT. NO S/O INFILTRATION/PHLEBITIS OBSERVED IVF INFUSING TKO. WILL CONTINUE TO MONITOR PT FOR SAFETY AND COMFORT. CALL LIGHT WITHIN REACH. BED IN LOW AND LOCKED POSITION. PT'S CARE WILL BE ENDORSED TO MRI CT TECH RN FOR CONTINUITY OF CARE.
--- NOTE | 2016-12-20 19:38 | NUR ---
HOT BOX CHECKER. INITIAL ASSESSMENT. RECEIVED THE PT REST ON THE BE. TRACH TO VENT CONNECTED. PT AWAKE, OPEN EYES. DOES NOT FDOLLOW COMMANDS. LEAD MAINTENANCE TECHNICIAN SHOWING NSR. SHILEYXLT AC 24,TV 600,FIO2 40%. SAT 98%. IV RT FEMORAL TRIP[LE LUMEN NS 125 ML/H, FC PATENT. HOB ELEVATED. GT CLAMPED. TURN AND REPOSITION Q2H. WILL CONTINUE TO MONITOR VITALS.
[2016-12-20] MEDS: FLUCONAZOLE IN NS 100 MG in PREMIX 1 EA IV SCH ×2 (20:20)
[2016-12-20] MEDS: VANCOMYCIN 1 GM in IV D5W 250 ML IV SCH (20:21)
[2016-12-20] MEDS: INSULIN REGULAR, HUMAN 100 UNIT/ML 3 ML VIAL SQ PRN (23:44)
[2016-12-21] VITALS (28 sets, daily range): BP systolic 96–177; BP diastolic 49–93
--- NOTE | 2016-12-21 03:34 | NUR ---
BURNISHER. AM CARE.ORAL CARE, BATH GIVEN. LINEN CHANGE. REMAINING SAME VENT SETTING TOLERATED WELL. SAT98.NO ACUTE DISTRESS NOTED. CHIEF TALENT OFFICER SHOWING NSR. IV RT FEMORAL TRIPLE LUMEN IVF NS 125ML/H. GT CLAMPED. AFEBRILE. FC PATENT. HOB ELEVATED. TURN AND REPOSITION Q2H. WILL CONTINUE TO MONITOR VITALS.
[2016-12-21] MEDS: IV NS 0.9% 1,000 ML IV PRN (04:28)
[2016-12-21] MEDS: BLOOD SUGAR DIAGNOSTIC 1 EACH STRIP IN SCH ×3 (05:24→17:00)
[2016-12-21] MEDS: CITRIC ACID/SODIUM CITRATE (BICITRA)15 ML UDC GT SCH ×2 (05:24→12:00)
[2016-12-21 05:27] LABS: POTASSIUM 3.8 mmol/L (3.5-5.1)
[2016-12-21 07:04] LABS: BASOPHILS % (AUTO) 0.2 % (0.0-2.0); EOSINOPHILS % (AUTO) 0.1 % (0.0-6.0); HEMATOCRIT 25 % (33-45); HEMOGLOBIN 8.2 g/dL (11.5-14.8); LYMPHOCYTES # (AUTO) 1.3 /CMM (0.8-4.8); LYMPHOCYTES % (AUTO) 7.6 % (20.0-44.0); MEAN CORPUSCULAR HEMOGLOBIN 28 PG (26.0-33.0); MEAN CORPUSCULAR HGB CONC 33 g/dl (31.0-36.0); MEAN CORPUSCULAR VOLUME 86 fL (82-100); MONOCYTES # (AUTO) 0.4 /CMM (0.1-1.30); MONOCYTES % (AUTO) 2.1 % (2.0-12.0); NEUTROPHILS # (AUTO) 15.7 /CMM (1.8-8.9); RDW COEFFICIENT OF VARIATION 14.7 (11.5-15.0); RED BLOOD CELL COUNT(AUTO) 2.88 MIL/uL (4.0-5.2); WHITE BLOOD COUNT (AUTO) 17.4 K/uL (4.3-11.0)
[2016-12-21 07:05] LABS: PLATELET COUNT (AUTO) 40 /CMM (150-450)
--- NOTE | 2016-12-21 07:31 | NUR ---
INITIAL ELECTRICIAN MASTER NOTE RCVD PT NON-VERBAL WITH EYES OPEN, NOT FOLLOWING ANY COMMANDS. NON-PURPOSEFUL MOVEMENT OBSERVED. SR ON TELE. TOLERATING ORDERED VENT SETTINGS. PERKINS DRAINING YELLOW URINE. IV SITES C/D/I/PATENT. NO S/O INFILTRATION/PHLEBITIS OBSERVED. IVF INFUSING. WILL CONTINUE TO MONITOR PT FOR SAFETY AND COMFORT. CALL LIGHT WITHIN REACH. BED IN LOW AND LOCKED POSITION.
[2016-12-21 07:46] LABS: BAND % (MANUAL) 12 % (0.0-5.0); LYMPHOCYTES % (MANUAL) 6 % (16-48); METAMYELOCYTES % 2 % (0-0); MONOCYTES % (MANUAL) 7 % (0-11.0); MYELOCYTES % 3 % (0-0); NEUTROPHILS % (MANUAL) 70 (42-76)
[2016-12-21] MEDS: HYDROCORTISONE SOD SUCCINATE 100 MG/2 ML VIAL IV SCH ×3 (08:28→16:57)
[2016-12-21] MEDS: PANTOPRAZOLE 40 MG VIAL IV SCH ×2 (08:28→21:00)
[2016-12-21] MEDS: MEROPENEM 1 G in IV NS 0.9% 100 ML IV SCH ×2 (08:28→21:03)
[2016-12-21] MEDS: LACTOBACILLUS RHAMNOSUS GG 1 EACH CAP.SPRINK PO SCH ×2 (08:28→16:57)
[2016-12-21] MEDS: Z GUARD REMEDY 2 OZ OINT TP PRN (08:29)
[2016-12-21] MEDS: LANOLIN/MIN OIL/PETROLAT,WHT 3.5 GM TUBE EACHEYE SCH ×2 (08:29→21:02)
[2016-12-21] MEDS: HYDROGEL DRESSING 90 GM TUBE TP SCH (08:30)
--- NOTE | 2016-12-21 10:17 | NUR ---
GEOTHERMAL HVAC TECHNICIAN NOTE DR. LUGO IN UNIT REQUESTED DIET FOR PT AND TO REVIEW IVF, PT'S NA TRENDING UP, K CORRECTED YESTERDAY. HE RECOMMENDED TO CHANGE IVF TO 1/2 NS + 10 MEQ KCL AND DECREASE THE RATE AND DIETARY CONSULT TO START TUBE FEEDING. WILL F/U.
[2016-12-21 10:33] LABS: ABG OXYGEN SATURATION 98.3 % (92.0-98.5); ABG PCO2 16.9 mmHg (35.0-45.0); ABG PH 7.519 (7.350-7.450); ABG PO2 219.8 mmHg (75.0-100.0); COHb 0.3 % (0.5-1.5); MetHb 0.8 % (0.0-1.5); O2Hb 97.2 % (94.0-97.0); SITE, ABG Left Radial; VT, ABG 600 mL
--- NOTE | 2016-12-21 11:29 | NUR ---
NEW ACCOUNT INTERVIEWER NOTE DIETARY CONSULT DONE, ORDER FOR TUBE FEEDING ENTERED.
[2016-12-21] MEDS ORDERED: GLYTROL 1,000 ML BAG GT PRN ×2 (11:30→12:12)
--- NOTE | 2016-12-21 12:30 | NUR ---
HEAD ESTHETICIAN NOTE REQUESTED FROM DR. LUGO TO DEAN BEYER SINCE PH [phone]. AGREED. ORDERED D/C
[2016-12-21] MEDS: GLYTROL 1,000 ML BAG GT PRN (15:20)
--- NOTE | 2016-12-21 16:01 | NUR ---
INTERNATIONAL BANKER NOTE TUBE FEEDING STARTED WILL CONTINUE TO MONITOR.
[2016-12-21] MEDS: INSULIN REGULAR, HUMAN 100 UNIT/ML 3 ML VIAL SQ PRN (17:14)
[2016-12-21] MEDS: NYSTATIN TOP POWDER 15 GM BOTTLE TP SCH (17:16)
--- NOTE | 2016-12-21 18:27 | NUR ---
DRYING MACHINE OPERATOR PACKAGE YARNS NOTE PT REMAINS STABLE, DOWNGRADE ORDERED PENDING BED. SR ON TELE. TOLERATING NEW VENT SETTINGS. PERKINS DRAINING WELL. TOLERATING ORDERED TUBE FEEDING RATE, 20 ML RESIDUAL OBTAINED. IV SITES C/D/I/PATENT. NO S/O INFILTRATION/PHLEBITIS OBSERVED. IVF INFUSING TKO. WILL CONTINUE TO MONITOR PT FOR SAFETY AND COMFORT. BED IN LOW AND LOCKED POSITION. PT'S CARE WILL BE ENDORSED TO TRANSPORTATION SERVICES REPRESENTATIVE RN FOR CONTINUITY OF CARE.
--- NOTE | 2016-12-21 19:30 | NUR ---
CROP OR GRAIN FARMER REPORT GIVEN TO ELODIA HORAN; PT TRANSPORTED TO TELE VIA ACLS.
--- NOTE | 2016-12-21 20:00 | NUR ---
nURSING NOTES; rECIEVED FROM icu VIA BED EYES OPEN NOT FOCUSING, DRY EYES, ORSERED OINTSMENT APPLIED. iSOLATION DT ESBL IN THE URINE, PT WITH A PERKINS CATH CLEAR YELLOW. bATH GIVEN CLEANED AND DRIED UNDER THE BREAST, FACE RED, WASHED AND DRIEND. SACRAL TONE CLEANED, NOT FOAM DRESSING IN PLACE, WOUND MEASURED 1.5 CM WIDTH 3CM LENGTH, TOP LAYER SKIN TORN, WOUND CLEAN. sPEACIAL AIR BED IN USE. pT NOT REACTING TO TOUCH OR HER ROBBIE BEING SPOKEN. cONTACT iSOLATION CONTINUES. REPOSITIONED WITH THE ASIST OF ANOTHER NURSE.
[2016-12-21] MEDS: VANCOMYCIN 1 GM in IV D5W 250 ML IV SCH (21:02)
[2016-12-21] MEDS: FLUCONAZOLE IN NS 100 MG in PREMIX 1 EA IV SCH ×2 (21:03)
[2016-12-22] VITALS: BP 124/70
[2016-12-22] MEDS: BLOOD SUGAR DIAGNOSTIC 1 EACH STRIP IN SCH ×4 (00:33→18:25)
[2016-12-22] MEDS: INSULIN REGULAR, HUMAN 100 UNIT/ML 3 ML VIAL SQ PRN ×4 (00:36→18:24)
[2016-12-22] MEDS: GLYTROL 1,000 ML BAG GT PRN (03:59)
[2016-12-22 04:00] VITALS: BP 116/64
[2016-12-22 05:45] VITALS: BP 147/74
[2016-12-22 06:36] LABS: CALCIUM, SERUM 6.2 mg/dL (8.5-10.1); CREATININE 1.1 mg/dL (0.6-1.3); POTASSIUM 4.5 mmol/L (3.5-5.1)
--- NOTE | 2016-12-22 06:56 | NUR ---
nursing noteseyes open thru the night ket moist with eye drops as ordered. Small brown BM incontinent. Repositioned and turned and supported with pillows q 2 hours. Kept her swollen arms and hand elevated. Facwe noted easily redenneds sacracl wd cleaned with soap and water mepilex applied
--- NOTE | 2016-12-22 07:30 | NUR ---
RN OPENING NOTES RECEIVED PT. IN BED EYES GLAZED OVER, AND OBTUNDED. BREATHING ON OXYGEN UNLABORED. PT. HAS A SHILEY 8 TRACHEOSTOMY. NO S/S OF ACUTE DISTRESS. PT. HAS PERKINS 50CC CLEAR, AND YELLOW URINE OUTPUT. IV FLUIDS RUNNING ON THE RIGHT FEMORAL PICC CENTRAL LINE. PT. HAS RIGHT AND LEFT UPPER ARM IV ACCESS, INTACT AND PATENT. PT. HAS GLYTROL FEEDING TUBE RUNNING AT 30 ML/HR WITHOUT COMPLICATIONS. PT. HAS GENERALIZED PITTING EDEMA 2 + IN HANDS, FINGERS, AND LEGS. BED IS IN LOWEST POSITION, 2 SIDE RAILS UP, AND ALL NEEDS ATTENDED TO. WILL CONTINUE TO ASSESS AND MONITOR.
[2016-12-22 07:49] LABS: BASOPHILS % (AUTO) 0.1 % (0.0-2.0); HEMATOCRIT 27 % (33-45); HEMOGLOBIN 8.9 g/dL (11.5-14.8); LYMPHOCYTES # (AUTO) 1.8 /CMM (0.8-4.8); MEAN CORPUSCULAR HEMOGLOBIN 28 PG (26.0-33.0); MEAN CORPUSCULAR HGB CONC 33 g/dl (31.0-36.0); MEAN CORPUSCULAR VOLUME 86 fL (82-100); MONOCYTES # (AUTO) 0.1 /CMM (0.1-1.30); MONOCYTES % (AUTO) 0.4 % (2.0-12.0); NEUTROPHILS # (AUTO) 20.9 /CMM (1.8-8.9); NEUTROPHILS % (AUTO) 91.5 % (43.0-81.0); PLATELET COUNT (AUTO) 143 /CMM (150-450); RDW COEFFICIENT OF VARIATION 14.8 (11.5-15.0); RED BLOOD CELL COUNT(AUTO) 3.13 MIL/uL (4.0-5.2); WHITE BLOOD COUNT (AUTO) 22.9 K/uL (4.3-11.0)
[2016-12-22 08:00] VITALS: BP_SYST 130; BP_SYST 134; BP_DIAS 77
[2016-12-22 09:12] LABS: BAND % (MANUAL) 1 % (0.0-5.0); LYMPHOCYTES % (MANUAL) 13 % (16-48); MONOCYTES % (MANUAL) 7 % (0-11.0); NEUTROPHILS % (MANUAL) 79 (42-76)
[2016-12-22] MEDS ORDERED: SILVER NITRATE APPLICATOR 1 EA BOX TP ONE (10:00)
[2016-12-22] MEDS ORDERED: LIDOCAINE 2%-EPI 1:100,000 30 ML VIAL TP ONE (10:00)
[2016-12-22] MEDS: MULTIVIT, IRON, MIN NO. 8, FA 1 TAB GT SCH (10:24)
[2016-12-22] MEDS: PANTOPRAZOLE 40 MG VIAL IV SCH ×2 (10:24→20:44)
[2016-12-22] MEDS: LACTOBACILLUS RHAMNOSUS GG 1 EACH CAP.SPRINK PO SCH ×2 (10:25→18:11)
[2016-12-22] MEDS: THIAMINE HCL 100 MG TABLET PO SCH (10:25)
[2016-12-22] MEDS: HYDROGEL DRESSING 90 GM TUBE TP SCH (10:26)
[2016-12-22] MEDS: LANOLIN/MIN OIL/PETROLAT,WHT 3.5 GM TUBE EACHEYE SCH ×2 (10:27→20:44)
[2016-12-22] MEDS: HYDROCORTISONE SOD SUCCINATE 100 MG/2 ML VIAL IV SCH ×3 (10:51→18:11)
[2016-12-22] MEDS: NYSTATIN TOP POWDER 15 GM BOTTLE TP SCH ×2 (11:00→17:06)
--- NOTE | 2016-12-22 11:23 | NUR ---
RN NOTES 0900 MERREM IV ANTIBIOTIC WAS ADMINISTERED THIS MORNING PHARMACY AWARE OF DOSAGE GIVEN.
[2016-12-22] MEDS ORDERED: MEROPENEM 1 G in IV NS 0.9% 100 ML IV SCH (12:00)
--- NOTE | 2016-12-22 12:55 | NUR ---
RN NOTES WOUND DEBRIDEMENT CONSENT PLACED IN PT.S CHART WAS SIGNED BY PT.'S MOTHER.
[2016-12-22] MEDS ORDERED: LIDOCAINE 1%-EPI 1:200,000 SDV 10 ML VIAL IJ ONE (13:00)
[2016-12-22 16:00] VITALS: BP 101/62
--- NOTE | 2016-12-22 17:07 | NUR ---
RN NOTES WOUND CARE CLEANED PT.'S SACRAL WOUND, CLEANED WITH NORMAL SALINE, APPLIED HYDROGEL, AND MEPILEX. PROVIDED SPONGE BATH, APPLIED ZGUARD, AND MEDICATED POWDER UNDER BREAST FOLDS.
[2016-12-22] MEDS: MEROPENEM 1 G in IV NS 0.9% 100 ML IV SCH (18:11)
[2016-12-22 20:00] VITALS: BP 137/76
--- NOTE | 2016-12-22 20:02 | NUR ---
RN CLOSING NOTES PT. IN BED EYES GLAZED OVER, AND OBTUNDED. BREATHING ON OXYGEN UNLABORED OXYGEN SATURATION AT 100%. PT. HAS A SHILEY 8 TRACHEOSTOMY. NO S/S OF ACUTE DISTRESS. REMOVED FROM PERKINS 550 CC OF CLEAR, AND YELLOW URINE. IV FLUIDS RUNNING ON THE RIGHT FEMORAL CENTRAL LINE 75 ML/HR. PT. HAS RIGHT AND LEFT ARM IV ACCESS SITES, INTACT AND PATENT. PT. HAS GLYTROL FEEDING TUBE RUNNING AT 40 ML/HR WITHOUT COMPLICATIONS. PT. HAS GENERALIZED PITTING EDEMA 2 + IN HANDS, FINGERS, AND LEGS. BED IS IN LOWEST POSITION, 2 SIDE RAILS UP, AND ALL NEEDS ATTENDED TO.
[2016-12-22] MEDS: VANCOMYCIN 1 GM in IV D5W 250 ML IV SCH (20:44)
[2016-12-22] MEDS: FLUCONAZOLE IN NS 100 MG in PREMIX 1 EA IV SCH ×2 (20:44)
--- NOTE | 2016-12-22 21:00 | NUR ---
pt gt feeding with no residual noted ,increase to 50cc/hr.on Vent support,sinus rhythm on monitor,vss,afebrile.all iv sitehas no blood return but flushes, CVC 3 lumen intact and with blood return, iv fluids infusing to line. will continue to monitor.
[2016-12-23] VITALS: BP 155/78
[2016-12-23] MEDS: BLOOD SUGAR DIAGNOSTIC 1 EACH STRIP IN SCH ×4 (00:25→18:43)
[2016-12-23] MEDS: INSULIN REGULAR, HUMAN 100 UNIT/ML 3 ML VIAL SQ PRN ×4 (00:28→18:45)
[2016-12-23] MEDS: MEROPENEM 1 G in IV NS 0.9% 100 ML IV SCH ×3 (00:33→18:09)
[2016-12-23 04:00] VITALS: BP_SYST 144; BP_SYST 147; BP_DIAS 86; BP_DIAS 90
--- NOTE | 2016-12-23 06:00 | NUR ---
pt suctioned prn, but thin phlegm,whittish,bedbath provided, no bm james in place, tolerating gt feeding now increase to 60cc/hr.vss ,sinus rhythm on monitor. blood drawn from CVC femoral.continue with iv fluids and antibiotics.repositioned for comfort. kept clean and dry.
[2016-12-23 06:28] LABS: BASOPHILS % (AUTO) 0.1 % (0.0-2.0); EOSINOPHILS % (AUTO) 0.2 % (0.0-6.0); HEMATOCRIT 25 % (33-45); HEMOGLOBIN 8.2 g/dL (11.5-14.8); LYMPHOCYTES # (AUTO) 1.6 /CMM (0.8-4.8); LYMPHOCYTES % (AUTO) 7.8 % (20.0-44.0); MEAN CORPUSCULAR HEMOGLOBIN 28 PG (26.0-33.0); MEAN CORPUSCULAR HGB CONC 33 g/dl (31.0-36.0); MEAN CORPUSCULAR VOLUME 87 fL (82-100); MONOCYTES # (AUTO) 0.4 /CMM (0.1-1.30); NEUTROPHILS % (AUTO) 89.9 % (43.0-81.0); PLATELET COUNT (AUTO) 188 /CMM (150-450); RDW COEFFICIENT OF VARIATION 14.6 (11.5-15.0); WHITE BLOOD COUNT (AUTO) 21.1 K/uL (4.3-11.0)
[2016-12-23 06:53] LABS: CALCIUM, SERUM 7.2 mg/dL (8.5-10.1); CREATININE 1.1 mg/dL (0.6-1.3)
--- NOTE | 2016-12-23 07:45 | NUR ---
RN OPENING NOTES RECEIVED PT. IN BED EYES GLAZED OVER, AND OBTUNDED. BREATHING ON OXYGEN UNLABORED, NO S/S OF SOB. PT. HAS A SHILEY 8 TRACHEOSTOMY. NO S/S OF ACUTE DISTRESS. PT. HAS PERKINS 50CC CLEAR, AND YELLOW URINE OUTPUT. IV FLUIDS RUNNING ON THE RIGHT FEMORAL CENTRAL LINE 75 ML/HR. PT. HAS RIGHT AND LEFT UPPER ARM IV ACCESS INTACT. PEG GLYTROL FEEDING TUBE RUNNING AT 60 ML/HR WITHOUT COMPLICATIONS. PT. HAS GENERALIZED PITTING EDEMA 2 + IN HANDS, FINGERS, AND LEGS. DVT PUMPS ON BILATERAL LOWER EXTREMITIES WORKING. BED IS IN LOWEST POSITION, 2 SIDE RAILS UP, AND ALL NEEDS ATTENDED TO. WILL CONTINUE TO ASSESS AND MONITOR.
--- NOTE | 2016-12-23 07:45 | NUR ---
RN NOTE TELE READING NORMAL SINUS RHYTHM 80 BPM.
[2016-12-23 08:00] VITALS: BP 130/80
[2016-12-23] MEDS: HYDROGEL DRESSING 90 GM TUBE TP SCH (09:00)
[2016-12-23] MEDS: LANOLIN/MIN OIL/PETROLAT,WHT 3.5 GM TUBE EACHEYE SCH ×2 (09:00→21:00)
[2016-12-23] MEDS: NYSTATIN TOP POWDER 15 GM BOTTLE TP SCH ×2 (09:00→17:00)
[2016-12-23 10:28] LABS: BAND % (MANUAL) 6 % (0.0-5.0); LYMPHOCYTES % (MANUAL) 1 % (16-48); MONOCYTES % (MANUAL) 5 % (0-11.0); NEUTROPHILS % (MANUAL) 88 (42-76)
[2016-12-23] MEDS: MULTIVIT, IRON, MIN NO. 8, FA 1 TAB GT SCH (10:30)
[2016-12-23] MEDS: PANTOPRAZOLE 40 MG VIAL IV SCH ×2 (10:30→21:26)
[2016-12-23] MEDS: LACTOBACILLUS RHAMNOSUS GG 1 EACH CAP.SPRINK PO SCH ×2 (10:30→18:09)
[2016-12-23] MEDS: THIAMINE HCL 100 MG TABLET PO SCH (10:30)
[2016-12-23] MEDS: HYDROCORTISONE SOD SUCCINATE 100 MG/2 ML VIAL IV SCH ×3 (10:30→18:09)
--- NOTE | 2016-12-23 12:27 | NUR ---
RN NOTES PT.'S SACRAL WOUND DRESSING WAS CHANGED.
[2016-12-23 16:00] VITALS: BP 159/80
[2016-12-23] MEDS ORDERED: BISACODYL SUPP (10 MG) 10 MG/SUPP.RECT SUPP.RECT RC PRN (16:30)
[2016-12-23] MEDS ORDERED: ACETAMINOPHEN 650 MG/20.3 ML UDC GT PRN (16:30)
[2016-12-23] MEDS ORDERED: CLONIDINE HCL 0.1 MG TABLET PO PRN (16:30)
[2016-12-23] MEDS ORDERED: MAGNESIUM HYDROXIDE 30 ML UDC GT PRN (16:30)
[2016-12-23] MEDS ORDERED: MISCELLANEOUS MED 1 EA EA GT PRN (16:30)
[2016-12-23] MEDS ORDERED: NA PHOS,M-B/NA PHOS,DI-BA 1 EA ENEMA RC PRN (16:30)
[2016-12-23] MEDS: CALCIUM ACETATE 667 MG TABLET GT SCH (18:09)
[2016-12-23] MEDS: FERROUS SULFATE UDC 300 MG/5 ML UDC GT SCH (18:09)
[2016-12-23] MEDS: DOCUSATE SODIUM LIQ 100 MG/10 ML UDC GT SCH (18:10)
[2016-12-23 20:00] VITALS: BP 134/68
--- NOTE | 2016-12-23 20:00 | NUR ---
TELE/RN RECEIVE PATIENT EYES OPEN, OBTUNDED, APPEAR COMFORTABLE, NO SIGNS OF DISTRESS NOTED, MECH FRANKI WORKING WELL, GT FEEDING INFUSING, HOB ELEVATED, WILL MONITOR.
[2016-12-23] MEDS: METOCLOPRAMIDE HCL 5 MG/5 ML UDC GT SCH (21:00)
--- NOTE | 2016-12-23 21:03 | NUR ---
RN CLOSING NOTES PT. IN BED EYES GLAZED OVER, AND OBTUNDED. BREATHING ON OXYGEN UNLABORED AT FiO2 40% , NO S/S OF SOB. PT. HAS A SHILEY 8 TRACHEOSTOMY. NO S/S OF ACUTE DISTRESS. PT. HAS PERKINS 1350 CC CLEAR, AND YELLOW URINE OUTPUT. IV FLUIDS RUNNING ON THE RIGHT FEMORAL CENTRAL LINE 75 ML/HR. PT. HAS RIGHT AND LEFT UPPER ARM IV ACCESS INTACT. PEG GLYTROL FEEDING TUBE RUNNING AT 60 ML/HR WITHOUT COMPLICATIONS. PT. HAS GENERALIZED PITTING EDEMA 2 + IN HANDS, FINGERS, AND LEGS. DVT PUMPS ON BILATERAL LOWER EXTREMITIES WORKING. BED IS IN LOWEST POSITION, 2 SIDE RAILS UP, AND ALL NEEDS ATTENDED TO. WILL ENDORSE REPORT TO NURSE.
[2016-12-23] MEDS: FLUCONAZOLE IN NS 100 MG in PREMIX 1 EA IV SCH ×2 (21:26)
[2016-12-23] MEDS: LEVETIRACETAM SOL (5 ML) 100 MG/ML UDC GT SCH (21:33)
[2016-12-23] MEDS: GLYTROL 1,000 ML BAG GT PRN (21:38)
[2016-12-24] VITALS: BP 138/74
[2016-12-24] MEDS: BLOOD SUGAR DIAGNOSTIC 1 EACH STRIP IN SCH ×5 (00:12→23:59)
[2016-12-24] MEDS: INSULIN REGULAR, HUMAN 100 UNIT/ML 3 ML VIAL SQ PRN ×4 (00:14→18:00)
[2016-12-24] MEDS: MEROPENEM 1 G in IV NS 0.9% 100 ML IV SCH ×3 (01:21→17:46)
[2016-12-24 04:00] VITALS: BP 128/81
[2016-12-24] MEDS: METOCLOPRAMIDE HCL 5 MG/5 ML UDC GT SCH (05:00)
--- NOTE | 2016-12-24 06:15 | NUR ---
TELE/RN AWAKE, APPEAR COMFORTABLE, NO SIGNS OF DISTRESS NOTED, GT FEEDING INFUSING, NO RESIDUAL NOTED, VENT WORKING WELL, HOB ELEVATED, ALL NEEDS ATTENDED AT THIS TIME. WILL CONTINUE TO MONITOR.
[2016-12-24 06:44] LABS: BASOPHILS % (AUTO) 0.1 % (0.0-2.0); EOSINOPHILS % (AUTO) 0.2 % (0.0-6.0); HEMATOCRIT 24 % (33-45); HEMOGLOBIN 8.1 g/dL (11.5-14.8); LYMPHOCYTES # (AUTO) 1.6 /CMM (0.8-4.8); LYMPHOCYTES % (AUTO) 7.2 % (20.0-44.0); MEAN CORPUSCULAR HEMOGLOBIN 29 PG (26.0-33.0); MEAN CORPUSCULAR HGB CONC 34 g/dl (31.0-36.0); MEAN CORPUSCULAR VOLUME 86 fL (82-100); MONOCYTES # (AUTO) 0.7 /CMM (0.1-1.30); MONOCYTES % (AUTO) 3.2 % (2.0-12.0); NEUTROPHILS # (AUTO) 19.9 /CMM (1.8-8.9); NEUTROPHILS % (AUTO) 89.3 % (43.0-81.0); PLATELET COUNT (AUTO) 241 /CMM (150-450); RDW COEFFICIENT OF VARIATION 14.6 (11.5-15.0); RED BLOOD CELL COUNT(AUTO) 2.79 MIL/uL (4.0-5.2); WHITE BLOOD COUNT (AUTO) 22.3 K/uL (4.3-11.0)
[2016-12-24 07:09] LABS: CALCIUM, SERUM 7.8 mg/dL (8.5-10.1); CREATININE 1.1 mg/dL (0.6-1.3); POTASSIUM 4.1 mmol/L (3.5-5.1)
[2016-12-24 08:00] VITALS: BP 137/79
--- NOTE | 2016-12-24 08:02 | NUR ---
RN NOTES RECEIVED PT, PT IS STABLE AND IN BED. PT IS OBTUNDED. PT DOES NOT APPEAR TO BE IN PAIN. PT IS VENT DEPENDENT, VENT SETTINGS IN PLACE, O2 SAT ABOVE 95%. PT IS ON TELE MONITOR, CURRENTLY SR. FC INTACT, NO ACTIVE BLEEDING PRESENT IN URINE. IV ACCESS LOCATED ON RIGHT AC 18G RUNNING 1/2 NS + 10 KCL 75 ML/HR. PT IS ON GTF OF GLYTROL AT 70 ML/HR. SAFETY MEASURES IN PLACE, CALL LIGHT WITHIN REACH. WILL CONTINUE TO MONITOR.
[2016-12-24 08:22] LABS: BAND % (MANUAL) 11 % (0.0-5.0); EOSINOPHILS % (MANUAL) 1 % (0-4); LYMPHOCYTES % (MANUAL) 5 % (16-48); METAMYELOCYTES % 3 % (0-0); MONOCYTES % (MANUAL) 5 % (0-11.0); MYELOCYTES % 4 % (0-0); NEUTROPHILS % (MANUAL) 71 (42-76)
[2016-12-24] MEDS: FERROUS SULFATE UDC 300 MG/5 ML UDC GT SCH ×2 (08:52→17:46)
[2016-12-24] MEDS: THIAMINE HCL 100 MG TABLET PO SCH (08:52)
[2016-12-24] MEDS: LEVETIRACETAM SOL (5 ML) 100 MG/ML UDC GT SCH ×2 (08:52→22:12)
[2016-12-24] MEDS: CALCIUM ACETATE 667 MG TABLET GT SCH ×3 (08:52→17:46)
[2016-12-24] MEDS: HYDROCORTISONE SOD SUCCINATE 100 MG/2 ML VIAL IV SCH ×3 (08:52→17:46)
[2016-12-24] MEDS: PANTOPRAZOLE 40 MG VIAL IV SCH ×2 (08:52→22:12)
[2016-12-24] MEDS: DOCUSATE SODIUM LIQ 100 MG/10 ML UDC GT SCH ×2 (08:52→17:46)
[2016-12-24] MEDS: MULTIVIT, IRON, MIN NO. 8, FA 1 TAB GT SCH (08:52)
[2016-12-24] MEDS: ASCORBIC ACID 500 MG TABLET GT SCH (08:52)
[2016-12-24] MEDS: LACTOBACILLUS RHAMNOSUS GG 1 EACH CAP.SPRINK PO SCH ×2 (08:52→17:46)
[2016-12-24] MEDS: LANOLIN/MIN OIL/PETROLAT,WHT 3.5 GM TUBE EACHEYE SCH ×2 (08:53→21:00)
[2016-12-24] MEDS: NYSTATIN TOP POWDER 15 GM BOTTLE TP SCH ×2 (08:54→17:47)
[2016-12-24] MEDS: HYDROGEL DRESSING 90 GM TUBE TP SCH (08:54)
[2016-12-24 12:00] VITALS: BP 137/73
[2016-12-24 12:13] LABS: *MET NORMETANEPHRINE, PL 1309 pg/mL (0-145); *METANEPHRINES, PL 15 pg/mL (0-62)
[2016-12-24] MEDS ORDERED: METOCLOPRAMIDE HCL 10 MG/10 ML UDC GT PRN (13:30)
[2016-12-24] MEDS: GLYTROL 1,000 ML BAG GT PRN (15:38)
[2016-12-24 16:00] VITALS: BP 116/68
--- NOTE | 2016-12-24 19:03 | NUR ---
RN CLOSING NOTES PT IS IN BED RESTING. NO S/S OF DISTRESS OR SOB. PT IS VENT DEPENDENT, VENT SETTINGS IN PLACE. FC REMAINS INTACT, 1050 TOTAL OUTPUT. NO S/S OF BLEEDING IN THE URINE. SAFETY MEASURES IN PLACE, CALL LIGHT WITHIN REACH. WILL ENDORSE TO SUPERVISOR CORE DRILLING FOR GIOVANNY.
--- NOTE | 2016-12-24 19:30 | NUR ---
TELE/RN RECEIVE PATIENT AWAKE, NON VERBAL, OBTUNDED, APPEAR COMFORTABLE, NO DISTRESS NOTED, TRACH WITH MECH VENT AND IS WORKING WELL, IVF INFUSING, GT FEEDING INFUSING, RESIDUAL 60 MLS NOTED, WILL RECHECK AT 2230, IF RESIDUAL STILL HIGH, WILL HOLD FEEDING. HOB ELEVATED, WILL MONITOR.
[2016-12-24 20:00] VITALS: BP 136/70
--- NOTE | 2016-12-24 20:45 | NUR ---
TELE/RN VANCOMYCIN LEVEL AT 06:00 THIS MORNING WAS 25. CLARIFIED WITH PHARMACY ABOUT VANCOMYCIN DUE AT 21:00, PER PHARMACIST, SHE WILL ORDER IT FOR TOMORROW.
[2016-12-24] MEDS ORDERED: VANCOMYCIN 1 GM in IV D5W 250 ML IV SCH (21:00)
[2016-12-24] MEDS: FLUCONAZOLE IN NS 100 MG in PREMIX 1 EA IV SCH ×2 (22:01)
--- NOTE | 2016-12-24 22:24 | NUR ---
TELE/RN GASTRIC RESIDUAL STILL 60 MLS. HELD FEEDING AND WILL RECHECK AT 12:00 MIDNIGHT.
[2016-12-25] VITALS: BP 141/76
--- NOTE | 2016-12-25 | NUR ---
TELE/RN GASTRIC RESIDUAL IS 0. RESTARTED TUBE FEEDING AND WILL CONTINUE TO MONITOR.
[2016-12-25] MEDS: INSULIN REGULAR, HUMAN 100 UNIT/ML 3 ML VIAL SQ PRN ×5 (00:01→23:55)
[2016-12-25] MEDS: MEROPENEM 1 G in IV NS 0.9% 100 ML IV SCH ×3 (01:11→17:03)
--- NOTE | 2016-12-25 02:14 | NUR ---
TELE/RN APPEAR SLEEPING, APPEAR COMFORTABLE, NO SIGNS OF DISTRESS NOTED. WILL CONTINUE TO MONITOR.
[2016-12-25 04:00] VITALS: BP 151/80
[2016-12-25] MEDS: BLOOD SUGAR DIAGNOSTIC 1 EACH STRIP IN SCH ×3 (06:37→17:04)
[2016-12-25] MEDS: GLYTROL 1,000 ML BAG GT PRN ×2 (06:44→23:54)
[2016-12-25 07:00] VITALS: BP 142/70
--- NOTE | 2016-12-25 07:01 | NUR ---
TELE/RN NO RESIDUAL NOTED. BLOOD DRAW DONE FROM CENTRAL LINE. TRACH CARE DONE, TOLERATED, NO CHANGE IN CONDITION. ALL NEEDS ATTENDED AT THIS TIME, WILL ENDORSE.
[2016-12-25 07:25] LABS: HEMATOCRIT 24 % (33-45); HEMOGLOBIN 7.9 g/dL (11.5-14.8); LYMPHOCYTES # (AUTO) 1.5 /CMM (0.8-4.8); LYMPHOCYTES % (AUTO) 7.5 % (20.0-44.0); MEAN CORPUSCULAR HEMOGLOBIN 29 PG (26.0-33.0); MEAN CORPUSCULAR HGB CONC 33 g/dl (31.0-36.0); MEAN CORPUSCULAR VOLUME 87 fL (82-100); MONOCYTES # (AUTO) 0.7 /CMM (0.1-1.30); MONOCYTES % (AUTO) 3.3 % (2.0-12.0); NEUTROPHILS # (AUTO) 18.2 /CMM (1.8-8.9); NEUTROPHILS % (AUTO) 89.2 % (43.0-81.0); PLATELET COUNT (AUTO) 268 /CMM (150-450); RDW COEFFICIENT OF VARIATION 14.9 (11.5-15.0); RED BLOOD CELL COUNT(AUTO) 2.76 MIL/uL (4.0-5.2); WHITE BLOOD COUNT (AUTO) 20.4 K/uL (4.3-11.0)
--- NOTE | 2016-12-25 07:52 | NUR ---
APPLICATION INTEGRATION SPECIALIST: INITIAL NOTE RECEIVED PT NON-VERBAL, OPEN EYES. ON MECHANICAL VENTILATION SETTING TC 550, AC 18, FIO2 40%. BED BOUND. F/C PATENT AND DRAINING. NPO. ON G-TUBE RUNNING GLYTROL AT 60ML/HR. SITE CLEAR AND PATENT. 1/2 NS KCL 20MEQ RUNNING AT 75ML/HR. R GROIN CENTRAL LINE. IV ON RIGHT AC AND LEFT UPPER ARM. SITE CLEAR. ON CONTACT ISOLATION OF ESBL AND VRE OF URINE. RESTING COMFORTABLY IN BED. CALL LIGHT WITHIN REACH.
[2016-12-25 07:53] LABS: CALCIUM, SERUM 7.5 mg/dL (8.5-10.1); CREATININE 1.1 mg/dL (0.6-1.3); POTASSIUM 3.8 mmol/L (3.5-5.1)
[2016-12-25 08:00] VITALS: BP 142/70
[2016-12-25] MEDS: FERROUS SULFATE UDC 300 MG/5 ML UDC GT SCH ×2 (08:18→17:03)
[2016-12-25] MEDS: DOCUSATE SODIUM LIQ 100 MG/10 ML UDC GT SCH ×2 (08:18→17:03)
[2016-12-25] MEDS: HYDROCORTISONE SOD SUCCINATE 100 MG/2 ML VIAL IV SCH ×3 (08:18→17:03)
[2016-12-25] MEDS: THIAMINE HCL 100 MG TABLET PO SCH (08:18)
[2016-12-25] MEDS: CALCIUM ACETATE 667 MG TABLET GT SCH ×3 (08:18→17:03)
[2016-12-25] MEDS: ASCORBIC ACID 500 MG TABLET GT SCH (08:18)
[2016-12-25] MEDS: LACTOBACILLUS RHAMNOSUS GG 1 EACH CAP.SPRINK PO SCH ×2 (08:18→17:03)
[2016-12-25] MEDS: LEVETIRACETAM SOL (5 ML) 100 MG/ML UDC GT SCH ×2 (08:18→22:36)
[2016-12-25] MEDS: MULTIVIT, IRON, MIN NO. 8, FA 1 TAB GT SCH (08:18)
[2016-12-25] MEDS: PANTOPRAZOLE 40 MG VIAL IV SCH ×2 (08:18→22:36)
[2016-12-25] MEDS: NYSTATIN TOP POWDER 15 GM BOTTLE TP SCH ×2 (08:20→17:05)
[2016-12-25] MEDS: HYDROGEL DRESSING 90 GM TUBE TP SCH (08:20)
[2016-12-25] MEDS ORDERED: LANOLIN/MIN OIL/PETROLAT,WHT 3.5 GM TUBE EACHEYE SCH (09:30)
--- NOTE | 2016-12-25 10:00 | NUR ---
WOUND DRESSING CHANGED ORDERED. CLEANSED AND HYDROGEL APPLIED ON SACRUM WITH MEPILEX. Z-GUARD/ NYSTATIN POWDER APPLIED UNDER BILATERAL BREASTS AFTER CLEANINGS. PT TOLERATED WELL.
[2016-12-25 10:03] LABS: BAND % (MANUAL) 3 % (0.0-5.0); LYMPHOCYTES % (MANUAL) 7 % (16-48); MONOCYTES % (MANUAL) 2 % (0-11.0); MYELOCYTES % 3 % (0-0); NEUTROPHILS % (MANUAL) 85 (42-76)
[2016-12-25] MEDS: LANOLIN/MIN OIL/PETROLAT,WHT 3.5 GM TUBE EACHEYE SCH ×2 (12:50→22:37)
[2016-12-25 16:00] VITALS: BP 165/86
[2016-12-25] MEDS ORDERED: VANCOMYCIN 1 GM in IV D5W 250 ML IV SCH (18:00)
--- NOTE | 2016-12-25 18:31 | NUR ---
FILING AND POLISHING SUPERVISOR: CLOSING NOTE PT NON-VERBAL OPENS EYES. ON MECHANICAL VENTILATOR. SETTINGS TV 550, FIO2 40%, AC 18. SR AT 77. F/C OUTPUT IS 900. PATENT AND DRAINING. URINE YELLOW AND SLIGHTLY CLOUDY. NO HEMATURIA NOTED. BED BOUND. TURNED AND REPOSITIONED Q 2 HOURS. WOUND CARE DONE MD ORDER. NPO AND ON G-TUBE GLYTROL AT 60ML/HR. INCREASE BY 5ML AT 1700. NO RESIDUAL NOTED. NOW RUNNING AT 65ML/HR. G-TUBE SITE CLEAR. PATENT. ALL MEDICATIONS ADMINISTERED VIA G-TUBE. RIGHT AC, LEFT UPPER ARM IV. CENTRAL LINE AT R GROIN. ALL 3 SITES CLEAR AND PATENT. IV 1/2 NS KCL 10MEQ RUNNING AT 75ML/HR. SITE CLEAR AND PATENT. ON CONTACT ISOLATION. RESTING COMFORTABLY IN BED. CALL LIGHT WITHIN REACH.
[2016-12-25 20:00] VITALS: BP 123/78
--- NOTE | 2016-12-25 20:00 | NUR ---
TELE/RN RECEIVE PATIENT EYES OPEN, APPEAR COMFORTABLE, NO SIGNS OF DISTRESS NOTED, VENT WORKING WELL, GT FEEDING INFUSING, NO RESIDUAL NOTED, HOB ELEVATED, WILL MONITOR.
[2016-12-25] MEDS: FLUCONAZOLE IN NS 100 MG in PREMIX 1 EA IV SCH ×2 (21:39)
[2016-12-26] VITALS (7 sets, daily range): BP systolic 144–160; BP diastolic 48–81
[2016-12-26] MEDS: BLOOD SUGAR DIAGNOSTIC 1 EACH STRIP IN SCH ×4 (00:06→17:00)
[2016-12-26] MEDS: MEROPENEM 1 G in IV NS 0.9% 100 ML IV SCH ×3 (01:41→16:51)
[2016-12-26] MEDS: INSULIN REGULAR, HUMAN 100 UNIT/ML 3 ML VIAL SQ PRN ×3 (06:24→17:00)
--- NOTE | 2016-12-26 06:27 | NUR ---
TELE/RN NO BM FOR 3 DAYS NOTED, DULCOLAX SUPPOSITORY WAS ADMINISTERED ORDERED. GT NO RESIDUAL NOTED, FEEDING RATE WAS INCREASED TO 70 MLS/HR WHICH IS THE GOAL RATE ORDERED. WILL ENDORSE TO NEXT RN. ALL NEEDS ATTENDED AT THIS TIME. NO CHANGE IN CONDITION. WILL CONTINUE TO MONITOR.
[2016-12-26 07:00] LABS: BASOPHILS % (AUTO) 0.1 % (0.0-2.0); HEMATOCRIT 25 % (33-45); HEMOGLOBIN 8.3 g/dL (11.5-14.8); LYMPHOCYTES # (AUTO) 1.4 /CMM (0.8-4.8); LYMPHOCYTES % (AUTO) 6.7 % (20.0-44.0); MEAN CORPUSCULAR HEMOGLOBIN 29 PG (26.0-33.0); MEAN CORPUSCULAR HGB CONC 33 g/dl (31.0-36.0); MEAN CORPUSCULAR VOLUME 87 fL (82-100); MONOCYTES # (AUTO) 0.8 /CMM (0.1-1.30); MONOCYTES % (AUTO) 4.2 % (2.0-12.0); NEUTROPHILS # (AUTO) 18.1 /CMM (1.8-8.9); PLATELET COUNT (AUTO) 317 /CMM (150-450); RDW COEFFICIENT OF VARIATION 14.9 (11.5-15.0); WHITE BLOOD COUNT (AUTO) 20.3 K/uL (4.3-11.0)
[2016-12-26 07:13] LABS: CALCIUM, SERUM 7.7 mg/dL (8.5-10.1); CREATININE 1.1 mg/dL (0.6-1.3); POTASSIUM 3.6 mmol/L (3.5-5.1)
--- NOTE | 2016-12-26 07:40 | NUR ---
NEURO PSYCH SALES SPECIALIST: INITIAL NOTE RECEIVED PT NON-VERBAL. EYES CONSTANTLY OPEN. ON MECHANICAL VENTILATION. SETTING INCLUDE SHILEY #[id number], TV550, AC 18, FIO2 40%. SINUS RHYTHM. F/C PATENT AND IN PLACE, DRAINING. BED BOUND. NPO AND ON GLYTROL G-TUBE FEEDING ON 70ML/HR. GOAL IS 70ML/HR. IV L AND R ARM HEP LOCK. SITES CLEAR AND PATENT. R GROIN CENTRAL LINE. PATENT AND DRESSING INTACT. IV FLUIDS RUNNING 1/2NS +10MEQ AT 75ML/HR. RESTING COMFORTABLY IN BED. CALL LIGHT WITHIN REACH.
[2016-12-26] MEDS: LACTOBACILLUS RHAMNOSUS GG 1 EACH CAP.SPRINK PO SCH ×2 (08:09→16:51)
[2016-12-26] MEDS: DOCUSATE SODIUM LIQ 100 MG/10 ML UDC GT SCH ×2 (08:09→16:51)
[2016-12-26] MEDS: MULTIVIT, IRON, MIN NO. 8, FA 1 TAB GT SCH (08:09)
[2016-12-26] MEDS: PANTOPRAZOLE 40 MG VIAL IV SCH ×2 (08:09→21:29)
[2016-12-26] MEDS: HYDROCORTISONE SOD SUCCINATE 100 MG/2 ML VIAL IV SCH ×3 (08:09→16:52)
[2016-12-26] MEDS: CALCIUM ACETATE 667 MG TABLET GT SCH ×3 (08:09→16:52)
[2016-12-26] MEDS: ASCORBIC ACID 500 MG TABLET GT SCH (08:09)
[2016-12-26] MEDS: FERROUS SULFATE UDC 300 MG/5 ML UDC GT SCH ×2 (08:09→16:52)
[2016-12-26] MEDS: LEVETIRACETAM SOL (5 ML) 100 MG/ML UDC GT SCH ×2 (08:09→21:30)
[2016-12-26] MEDS: THIAMINE HCL 100 MG TABLET PO SCH (08:09)
[2016-12-26] MEDS: NYSTATIN TOP POWDER 15 GM BOTTLE TP SCH ×2 (08:10→16:51)
[2016-12-26] MEDS: LANOLIN/MIN OIL/PETROLAT,WHT 3.5 GM TUBE EACHEYE SCH ×2 (08:10→21:30)
[2016-12-26] MEDS: HYDROGEL DRESSING 90 GM TUBE TP SCH (08:11)
[2016-12-26 09:44] LABS: BAND % (MANUAL) 5 % (0.0-5.0); LYMPHOCYTES % (MANUAL) 6 % (16-48); METAMYELOCYTES % 1 % (0-0); MONOCYTES % (MANUAL) 1 % (0-11.0); MYELOCYTES % 5 % (0-0); NEUTROPHILS % (MANUAL) 82 (42-76)
--- NOTE | 2016-12-26 10:00 | NUR ---
WOUND CARE DONE. TURNED AND REPOSITIONED G2YYSNS.
--- NOTE | 2016-12-26 12:17 | NUR ---
EDUCATED FAMILY MEMBER (MOTHER) ABOUT THE IMPORTANCE OF WEARING GOWNS, GLOVES AND WASHING HANDS WITH CONTACT ISOLATION PRECAUTION. FAMILY MEMBER REFUSED TO LISTEN. TOLD ME SHE DOES NOT WANT TO WEAR GOWN. REINFORCED THE REASONS FOR SAFETY. MOTHER WORE GOWN WITH OUT GLOVES AND TOOK IT OFF. RE -EDUCATED MOM AGAIN. SHE REFUSED TO WEAR GOWN. ALL RISKS AND BENEFITS EXPLAINED.
[2016-12-26] MEDS: GLYTROL 1,000 ML BAG GT PRN (16:57)
--- NOTE | 2016-12-26 18:35 | NUR ---
NECK CUTTER: CLOSING NOTE PT [id number] WITH OBTUNED OPEN EYES. ON MECHANICAL VENTILATION. SETTINGS INCLUDE TV 550, FIO2 40%, AC 18. SR AT 76BPM. ALL MEDICATIONS GIVEN VIA G-TUBE. SITE PATENT. NO ADVERSE REACTIONS NOTED. G-TUBE RUNNING GLYTROL AT 70ML/HR (GOAL) AND NO RESIDUAL THROUGHOUT SHIFT NOTED. BED BOUND. TURNED AND REPOSITIONED Q 2 HOURS. L/R ARM HEPLOCK. PATENT AND CLEAR. R GROIN CENTRAL LINE RUNNING 1/2 NS KCL 10MEQ AT 75ML/HR. SITE CLEAR AND PATENT, DRESSING INTACT. F/C PATENT AND DRAINING 1300. NEW ORDER FOR US GUIDED THORACENTESIS PLACED. INSULIN ADMINISTERED PER SLIDING SCALE. WOUND CHANGE DONE ORDERED. ON CONTACT ISOLATION. RESTING COMFORTABLY IN BED. CALL LIGHT WITHIN REACH.
--- NOTE | 2016-12-26 20:00 | NUR ---
COOLER ROOM WORKER NOTE PT IN BED OBTUNDED. EYES OPEN. ON VENT/TRACH TOLERATING THE SETTINGS WELL. KEPT HOB ELEVATED. NO DISTRESS OR DISCOMFORT NOTED. NO S/S OF PAIN NOTED. GTF GLYTROL INFUSING AT 70 ML/HR, 0 ML RESIDUAL NOTED. IVF 1/2 NS WITH 10 MEQ KCL INFUSING WELL, NO S/S OF INFILTRATION NOTED. ON TELE SR HR 77. REPOSITION HER FOR SKIN MANAGEMENT, SIDE RAILS UP X 3 AND CALL LIGHT WITHIN REACH. CONTINUE TO MONITOR HER. Addendum: 12/26/16 at 2235 by MILLICENT PRECIADO RN F/C INTACT AND PATENT DRAINING YELLOWISH CLOUDY URINE.
[2016-12-26] MEDS: FLUCONAZOLE IN NS 100 MG in PREMIX 1 EA IV SCH ×2 (21:29)
[2016-12-27] VITALS (7 sets, daily range): BP systolic 96–153; BP diastolic 62–77
[2016-12-27] MEDS: BLOOD SUGAR DIAGNOSTIC 1 EACH STRIP IN SCH ×5 (00:07→23:47)
[2016-12-27] MEDS: MEROPENEM 1 G in IV NS 0.9% 100 ML IV SCH ×3 (00:22→16:31)
[2016-12-27] MEDS: INSULIN REGULAR, HUMAN 100 UNIT/ML 3 ML VIAL SQ PRN ×5 (00:22→23:56)
--- NOTE | 2016-12-27 07:00 | NUR ---
DOG TRACK KENNEL MANAGER NOTE PT IN BED OBTUNDED, TOLERATING VENT SETTINGS, NO DISTRESS OR DISCOMFORT NOTED. NO S/S OF PAIN NOTED. REPOSITION HER Q2H, KEPT HER DRY AND CLEAN. ON TELE SR HR 80. F/C INTACT AND PATENT DRAINING YELLOWISH CLOUDY URINE. SIDE RAILS UP X 3 AND CALL LIGHT WITHIN REACH. WILL ENDORSE TO DAY SHIFT NURSE FOR CONTINUE TO CARE.
[2016-12-27 07:14] LABS: CREATININE 1.1 mg/dL (0.6-1.3); POTASSIUM 3.5 mmol/L (3.5-5.1)
--- NOTE | 2016-12-27 07:20 | NUR ---
PRODUCT SUPPORT ANALYST OPENING RECEIVED PATIENT NON VERBAL NON RESPONSIVE AT THIS TIME. VENT DEPENDENT AND STABLE RESPIRATORY EFFORT. NO S/S PAIN AT THIS TIME. PATIENT ASSISTED TO REPOSITION TO INCREASE COMFORT AND OFFLOAD HEELS AND ELBOWS. BED LOWERED AND LOCKED, RAILS UPX3 FOR SAFETY AND WILL ROUND Q2H OR LESS PER NEEDS. Addendum: 12/27/16 at 0932 by ELY OWEN RN TELE NSR
[2016-12-27 07:21] LABS: EOSINOPHILS # (AUTO) 0.2 /CMM (0.0-0.7); EOSINOPHILS % (AUTO) 1.4 % (0.0-6.0); HEMATOCRIT 24 % (33-45); LYMPHOCYTES # (AUTO) 1.2 /CMM (0.8-4.8); MEAN CORPUSCULAR HEMOGLOBIN 29 PG (26.0-33.0); MEAN CORPUSCULAR HGB CONC 33 g/dl (31.0-36.0); MEAN CORPUSCULAR VOLUME 87 fL (82-100); MONOCYTES # (AUTO) 0.9 /CMM (0.1-1.30); MONOCYTES % (AUTO) 5.1 % (2.0-12.0); NEUTROPHILS # (AUTO) 15.2 /CMM (1.8-8.9); NEUTROPHILS % (AUTO) 86.5 % (43.0-81.0); PLATELET COUNT (AUTO) 324 /CMM (150-450); RDW COEFFICIENT OF VARIATION 15.1 (11.5-15.0); WHITE BLOOD COUNT (AUTO) 17.6 K/uL (4.3-11.0)
[2016-12-27] MEDS: LACTOBACILLUS RHAMNOSUS GG 1 EACH CAP.SPRINK PO SCH ×2 (08:22→16:31)
[2016-12-27] MEDS: DOCUSATE SODIUM LIQ 100 MG/10 ML UDC GT SCH ×2 (08:22→16:31)
[2016-12-27] MEDS: ASCORBIC ACID 500 MG TABLET GT SCH (08:22)
[2016-12-27] MEDS: PANTOPRAZOLE 40 MG VIAL IV SCH ×2 (08:22→21:33)
[2016-12-27] MEDS: CALCIUM ACETATE 667 MG TABLET GT SCH ×3 (08:22→16:31)
[2016-12-27] MEDS: MULTIVIT, IRON, MIN NO. 8, FA 1 TAB GT SCH (08:22)
[2016-12-27] MEDS: HYDROCORTISONE SOD SUCCINATE 100 MG/2 ML VIAL IV SCH ×3 (08:22→16:31)
[2016-12-27] MEDS: LEVETIRACETAM SOL (5 ML) 100 MG/ML UDC GT SCH ×2 (08:22→21:33)
[2016-12-27] MEDS: Z GUARD REMEDY 2 OZ OINT TP PRN ×3 (08:23→16:32)
[2016-12-27] MEDS: HYDROGEL DRESSING 90 GM TUBE TP SCH (08:23)
[2016-12-27] MEDS: LANOLIN/MIN OIL/PETROLAT,WHT 3.5 GM TUBE EACHEYE SCH ×2 (08:23→21:33)
[2016-12-27] MEDS: FERROUS SULFATE UDC 300 MG/5 ML UDC GT SCH ×2 (08:25→16:31)
[2016-12-27] MEDS: THIAMINE HCL 100 MG TABLET PO SCH (09:42)
--- NOTE | 2016-12-27 11:00 | NUR ---
MORTGAGE OR LOAN UNDERWRITER NOTES ANOTHER MESSAGE TO PHARMACY TO HAVE NYSTATIN BROUGHT UP
[2016-12-27 11:02] LABS: INR 0.96 (0.87-1.13)
[2016-12-27] MEDS: GLYTROL 1,000 ML BAG GT PRN (13:23)
[2016-12-27] MEDS: NYSTATIN TOP POWDER 15 GM BOTTLE TP SCH ×2 (13:23→16:31)
--- NOTE | 2016-12-27 18:30 | NUR ---
MS RN CLOSING PATIENT STABLE NO COMPLICATIONS NOTED ALL DUE MEDS GIVEN AND ALL NEEDS MET. PATIENT TURNED Q2H. TUBE FEEDING RUNNING ORDERED NO RESIDUAL NOTED. NO RESPIRATORY DIFFICULTY. BED LOWERED AND LOCKED, RAILS UPX3 FOR SAFETY WITH BED ALARM ON. CARE WILL BE ENDORSED TO RN FOR GIOVANNY.
--- NOTE | 2016-12-27 20:06 | NUR ---
PT RCVD ON [facility] VENT WITH NOTED SETTINGS . VENT ALARM WORKING AND AUDIBLE, VENT PLUGGED INTO RED OUTLET. TRACH SECURE IN AND IN PROPER POSITION. BILATERAL BREATH SOUNDS NOTED, CUFF CHECKED GENETICS TEACHER. SXN LARGE AMOUNT OF YELLOWISH GREEN THICK SECRETIONS . NO RESPIRATORY DISTRESS AT THIS TIME . AMBU BAG AT [facility], WILL CONTINUE TO MONITOR THE PT.
[2016-12-28] VITALS (8 sets, daily range): BP systolic 65–140; BP diastolic 61–88
[2016-12-28] MEDS: MEROPENEM 1 G in IV NS 0.9% 100 ML IV SCH ×2 (00:55→08:26)
--- NOTE | 2016-12-28 01:53 | NUR ---
Nrsg notes: Feeding bag changed per protocol residual checked no residual feeding continued
--- NOTE | 2016-12-28 04:43 | NUR ---
Nrsg notes: Slept off and on thru the night. When touched will awakened. Allen drainage clear yellow. Complete bath given with linen change. Mepliex on her sacrum. Oral care given throu pout the shift with the HOB elevated, ASP PRECAUTIONS. Isolation Contact continues as ordered. Tolerating her Peg feeding...aspiration precautions. Kept turned and supported with pillow, special air bed in use
[2016-12-28] MEDS: BLOOD SUGAR DIAGNOSTIC 1 EACH STRIP IN SCH ×3 (05:33→18:43)
[2016-12-28] MEDS: INSULIN REGULAR, HUMAN 100 UNIT/ML 3 ML VIAL SQ PRN ×3 (05:38→16:59)
--- NOTE | 2016-12-28 08:10 | NUR ---
RN NOTES RECEIVED PT. PT IS STABLE AND SLEEPING IN BED. PT IS OBTUNDED. VENT DEPENDENT, VENT SETTINGS IN PLACE. O2 SAT ABOVE 95%. RIGHT FEMORAL CENTRAL LINE INTACT, RUNNING 1/2 NS 10 MEQ KCL@ 75 ML/HR. PT IS ON GT FEEDING, GLYTROL AT 70CC/HR. SAFETY MEASURES IN PLACE, CALL LIGHT WITHIN REACH. WILL CONTINUE TO MONITOR.
[2016-12-28 08:24] LABS: CALCIUM, SERUM 7.6 mg/dL (8.5-10.1)
[2016-12-28] MEDS: LANOLIN/MIN OIL/PETROLAT,WHT 3.5 GM TUBE EACHEYE SCH (08:26)
[2016-12-28] MEDS: PANTOPRAZOLE 40 MG VIAL IV SCH (08:27)
[2016-12-28] MEDS: HYDROCORTISONE SOD SUCCINATE 100 MG/2 ML VIAL IV SCH ×2 (08:27→14:07)
[2016-12-28] MEDS: ASCORBIC ACID 500 MG TABLET GT SCH (08:27)
[2016-12-28] MEDS: LEVETIRACETAM SOL (5 ML) 100 MG/ML UDC GT SCH (08:27)
[2016-12-28] MEDS: THIAMINE HCL 100 MG TABLET PO SCH (08:27)
[2016-12-28] MEDS: DOCUSATE SODIUM LIQ 100 MG/10 ML UDC GT SCH (08:27)
[2016-12-28] MEDS: CALCIUM ACETATE 667 MG TABLET GT SCH ×2 (08:28→14:06)
[2016-12-28] MEDS: NYSTATIN TOP POWDER 15 GM BOTTLE TP SCH ×2 (08:28→17:00)
[2016-12-28] MEDS: MULTIVIT, IRON, MIN NO. 8, FA 1 TAB GT SCH (08:28)
[2016-12-28] MEDS: LACTOBACILLUS RHAMNOSUS GG 1 EACH CAP.SPRINK PO SCH (08:28)
[2016-12-28] MEDS: HYDROGEL DRESSING 90 GM TUBE TP SCH (08:29)
[2016-12-28] MEDS ORDERED: FLUCONAZOLE (100 MG) 100 MG TABLET PO SCH (09:00)
[2016-12-28] MEDS: FERROUS SULFATE UDC 300 MG/5 ML UDC GT SCH (10:36)
[2016-12-28] MEDS: POTASSIUM CL. PREMIX PERIPHER. 50 ML IV SCH ×6 (11:56→18:06)
--- NOTE | 2016-12-28 16:05 | NUR ---
RN NOTES CONTACTED PT'S FAMILY MEMBER AND NOTIFIED THEM REGARDING PT'S D/C TO [place] [facility].
--- NOTE | 2016-12-28 18:54 | NUR ---
RN CLOSING NOTES PT IS IN BED RESTING. PT IS OBTUNDED, NO S/S OF DISTRESS OR SOB. PT IS TO BE D/C, D/C PAPERWORK AND EXITCARE COMPLETED. ALL FORMS SIGNED AND COPIED. PT TO BE PICKED UP BY AMBULANCE TO GO TO [facility] AT 1915. PT TO BE D/C WITH PERKINS AND RIGHT GROIN CENTRAL LINE. LEFT UPPER ARM HL TO BE REMOVED AT DISCHARGE. REPORT GIVEN TO AUNG HILTON AT [facility]. BED LOWERED TO LOWEST POSITION, GUARD RAILS RAISED X3. SAFETY MEASURES IN PLACE. CALL LIGHT WITHIN REACH. WILL ENDORSE TO [facility] MARKER FOR GIOVANNY.
== END 2016-12-28 19:50 | DRG 870 ==
LOC: ER 06:35 → ICU 08:58 → MED 12-21 19:48 → TELE 12-21 20:24
PROVIDERS: ADMIT Internal Medicine; ATTEND Internal Medicine
PROC: 5A1955Z Respiratory Ventilation, Greater than 96 Consecutive Hours (ICD-10-PCS; principal; 2016-12-16)
PROC: 06HM33Z Insertion of Infusion Device into Right Femoral Vein, Percutaneous Approach (ICD-10-PCS; 2016-12-16)
PROC: B54BZZA Ultrasonography of Right Lower Extremity Veins, Guidance (ICD-10-PCS; 2016-12-16)
PROC: 30233N1 Transfusion of Nonautologous Red Blood Cells into Peripheral Vein, Percutaneous Approach (ICD-10-PCS; 2016-12-19)
DX: A41.9 Sepsis, unspecified organism (principal); N17.0 Acute kidney failure with tubular necrosis; J96.21 Acute and chronic respiratory failure with hypoxia; R65.21 Severe sepsis with septic shock; E43 Unspecified severe protein-calorie malnutrition; J18.9 Pneumonia, unspecified organism; Z99.11 Dependence on respirator [ventilator] status; G92 Toxic encephalopathy; G93.1 Anoxic brain damage, not elsewhere classified; R53.2 Functional quadriplegia; L89.153 Pressure ulcer of sacral region, stage 3; J90 Pleural effusion, not elsewhere classified; D68.59 Other primary thrombophilia; E87.2 Acidosis; R40.3 Persistent vegetative state; N10 Acute pyelonephritis; E87.1 Hypo-osmolality and hyponatremia; K92.0 Hematemesis; E66.01 Morbid (severe) obesity due to excess calories; D63.8 Anemia in other chronic diseases classified elsewhere; D69.6 Thrombocytopenia, unspecified; D35.00 Benign neoplasm of unspecified adrenal gland; E83.42 Hypomagnesemia; E87.6 Hypokalemia; G40.909 Epilepsy, unspecified, not intractable, without status epilepticus; K21.9 Gastro-esophageal reflux disease without esophagitis; K56.41 Fecal impaction; L30.4 Erythema intertrigo; R13.10 Dysphagia, unspecified; Z66 Do not resuscitate; Z79.899 Other long term (current) drug therapy; Z87.440 Personal history of urinary (tract) infections; Z93.0 Tracheostomy status; Z93.1 Gastrostomy status; R31.9 Hematuria, unspecified; R74.0 Nonspecific elevation of levels of transaminase and lactic acid dehydrogenase [LDH]; E88.09 Other disorders of plasma-protein metabolism, not elsewhere classified; M62.50 Muscle wasting and atrophy, not elsewhere classified, unspecified site; Z68.30 Body mass index [BMI] 30.0-30.9, adult; L98.9 Disorder of the skin and subcutaneous tissue, unspecified; K62.89 Other specified diseases of anus and rectum; B96.20 Unspecified Escherichia coli [E. coli] as the cause of diseases classified elsewhere; Z16.12 Extended spectrum beta lactamase (ESBL) resistance; Z86.61 Personal history of infections of the central nervous system; D69.59 Other secondary thrombocytopenia; E11.9 Type 2 diabetes mellitus without complications; N63.20 Unspecified lump in the left breast, unspecified quadrant
CPT/HCPCS: 31720; 36415; 36600; 71010-TC; 76604-TC; 76642-TC; 76705-TC; 76856-TC; 80048-TC; 80053-TC; 80076-TC; 80202-TC; 81000-TC; 82272-TC; 82533; 82803-TC; 82962-TC; 83605-TC; 83735-TC; 83835; 84100-TC; 84484-TC; 85025-TC; 85396; 85610-TC; 85730-TC; 86300; 86316; 86850-TC; 86921-TC; 87040-TC; 87070-TC; 87081-TC; 87086-TC; 87186-TC; 93307-TC; 94002-TC; 94003-TC; 94762-TC; 99082-TC; A4216; A4217; A4606; A6248; A6402; A6403; A7526; C1751; C9113; J1450; J1720; J1815; J1953; J2185; J2370; J2543; J2765; J3370; J3475; J3480; J3490; J7030; J7040; J7050; J7060; J8597; P9016-BL; Z7610

== ENCOUNTER 2017-01-03 14:16 | Inpatient (IN) | payer MEDICARE, MEDICAID ==
[~2017-01-03] VITALS: Ht 152.4 cm; Wt 88.9 kg
[~2017-01-03 14:16] MED LIST changes: +ACET650S26 GT; -AMIN30LI26 GT; +ASCO500S2 GT; +BLOO-668 IN; -DEXT1DRO3 OP; -INSU100V9 SQ; +IPRA3AMP IH; +LEVE100S GT; -LEVE500T9 GT; +NUT.237L36 GT; +POLY15DR40 EACHEYE
[2017-01-03] MEDS ORDERED: IV NS 0.9% 1,000 ML BAG IV ONE (14:30)
[2017-01-03 14:52] LABS: BASOPHILS # (AUTO) 0.1 /CMM (0.0-0.2); BASOPHILS % (AUTO) 0.9 % (0.0-2.0); EOSINOPHILS # (AUTO) 0.1 /CMM (0.0-0.7); HEMATOCRIT 21 % (33-45); LYMPHOCYTES # (AUTO) 1.4 /CMM (0.8-4.8); LYMPHOCYTES % (AUTO) 12.1 % (20.0-44.0); MEAN CORPUSCULAR HEMOGLOBIN 29 PG (26.0-33.0); MEAN CORPUSCULAR HGB CONC 34 g/dl (31.0-36.0); MEAN CORPUSCULAR VOLUME 87 fL (82-100); MONOCYTES # (AUTO) 0.7 /CMM (0.1-1.30); MONOCYTES % (AUTO) 5.8 % (2.0-12.0); NEUTROPHILS # (AUTO) 9.2 /CMM (1.8-8.9); NEUTROPHILS % (AUTO) 80.2 % (43.0-81.0); PLATELET COUNT (AUTO) 214 /CMM (150-450); RDW COEFFICIENT OF VARIATION 15.7 (11.5-15.0); RED BLOOD CELL COUNT(AUTO) 2.38 MIL/uL (4.0-5.2); WHITE BLOOD COUNT (AUTO) 11.5 K/uL (4.3-11.0)
[2017-01-03 15:01] LABS: CALCIUM, SERUM 8.3 mg/dL (8.5-10.1); CARBON DIOXIDE 27 mmol/L (21-32); CHLORIDE 105 mmol/L (98-107); CREATININE 1.1 mg/dL (0.6-1.3); GLUCOSE 127 mg/dL (74-106); POTASSIUM 3.4 mmol/L (3.5-5.1); SODIUM SERUM 140 mmol/L (136-145); UREA NITROGEN, BLOOD 24 mg/dL (7-18)
[2017-01-03 15:04] VITALS: BP 147/90
[2017-01-03 15:05] LABS: INR 0.98 (0.87-1.13); PROTHROMBIN TIME 10.2 SECS (9.5-12.7)
[2017-01-03 15:07] LABS: ALANINE AMINOTRANSFERASE 12 U/L (12-78); ALBUMIN 1.6 g/dL (3.4-5.0); ALKALINE PHOSPHATASE 113 U/L (46-116); ASPARTATE AMINOTRANSFERASE 15 U/L (15-37); BILIRUBIN,DIRECT 0.2 mg/dL (0.0-0.2); BILIRUBIN,TOTAL 0.4 mg/dL (0.2-1.0); TOTAL PROTEIN, SERUM 6.1 g/dL (6.4-8.2)
[2017-01-03 15:09] LABS: TROPONIN I < 0.017 ng/mL (0.00-0.056)
[2017-01-03] MEDS ORDERED: PANTOPRAZOLE 80 MG in IV NS 0.9% 500 ML IV ONE (15:30)
[2017-01-03] MEDS ORDERED: PANTOPRAZOLE 40 MG VIAL IV ONE (15:30)
[2017-01-03 15:37] LABS: APPEARANCE,URINE Hazy (CLEAR); BILIRUBIN,URINE Negative (NEGATIVE); BLOOD, URINE Moderate Ery/uL (NEGATIVE); COLOR,URINE Light yellow (YELLOW); KETONES,URINE Negative (NEGATIVE); LEUKOCYTE ESTERASE ,URINE Moderate (NEGATIVE); NITRITE, URINE Negative (NEGATIVE); PH,URINE 8.5 (5.0-8.0); PROTEIN,URINE 100 mg/dl (NEGATIVE); UGLUCOSE Negative (NEGATIVE); UROBILINOGEN,URINE 0.2 EU/dL (0.2)
[2017-01-03 15:45] LABS: BACTERIA,URINE None seen /HPF (None Seen); SQUAMOUS EPITHELIAL CELL,UR Few /HPF (None Seen)
[2017-01-03] MEDS ORDERED: PANT40SU2 GT (15:58)
[2017-01-03] MEDS ORDERED: MAG30ORA GT (15:58)
[2017-01-03] MEDS ORDERED: AMIN30LI2 GT (15:58)
[2017-01-03] MEDS ORDERED: FLUC100T8 GT (15:58)
[2017-01-03] MEDS ORDERED: CLON0.1T GT (15:58)
[2017-01-03] MEDS ORDERED: HYDR-552 GT (15:58)
[2017-01-03] MEDS ORDERED: HEPA50008 SQ (15:58)
[2017-01-03] MEDS ORDERED: PANTOPRAZOLE 40 MG VIAL ONE (15:58)
[2017-01-03] MEDS ORDERED: THIA100T74 GT (15:58)
[2017-01-03] MEDS ORDERED: ZINC220T GT (15:58)
[2017-01-03] MEDS ORDERED: SACC250C6 GT (15:58)
[2017-01-03] MEDS ORDERED: MEROPENEM 1,000 MG in IV NS 0.9% 100 ML IV ONE (16:00)
[2017-01-03] MEDS ORDERED: CLONIDINE HCL 0.1 MG TABLET GT PRN (17:30)
[2017-01-03] MEDS ORDERED: DEXTROSE 50%-WATER 50 ML DISP.SYRIN IV PRN (17:30)
[2017-01-03 18:00] VITALS: BP 132/82
[2017-01-03] MEDS ORDERED: Potassium Chloride 40 MEQ in IV D5/0.45 NACL 1,000 ML IV PRN (18:00)
[2017-01-03] MEDS: BLOOD SUGAR DIAGNOSTIC 1 EACH STRIP IN SCH (18:00)
[2017-01-03 20:00] VITALS: BP 128/71
[2017-01-03] MEDS ORDERED: GLYTROL 1,000 ML BAG GT SCH (20:00)
[2017-01-03] MEDS: CEFTRIAXONE 1 G in IV D5W 50 ML IV SCH (20:17)
[2017-01-03] MEDS: LEVETIRACETAM SOL (5 ML) 100 MG/ML UDC GT SCH (20:17)
[2017-01-03] MEDS: PANTOPRAZOLE 40 MG VIAL IV SCH (20:18)
[2017-01-03 21:54] VITALS: BP 128/71
[2017-01-04] VITALS (13 sets, daily range): BP systolic 99–142; BP diastolic 58–77
[2017-01-04] MEDS: BLOOD SUGAR DIAGNOSTIC 1 EACH STRIP IN SCH ×4 (00:53→17:16)
[2017-01-04] MEDS: INSULIN REGULAR, HUMAN 100 UNIT/ML 3 ML VIAL SQ PRN ×2 (00:56→12:18)
[2017-01-04 05:57] LABS: BASOPHILS # (AUTO) 0.1 /CMM (0.0-0.2); BASOPHILS % (AUTO) 0.4 % (0.0-2.0); EOSINOPHILS # (AUTO) 0.2 /CMM (0.0-0.7); EOSINOPHILS % (AUTO) 1.6 % (0.0-6.0); HEMATOCRIT 26 % (33-45); HEMOGLOBIN 8.6 g/dL (11.5-14.8); LYMPHOCYTES # (AUTO) 1.2 /CMM (0.8-4.8); LYMPHOCYTES % (AUTO) 8.1 % (20.0-44.0); MEAN CORPUSCULAR HEMOGLOBIN 29 PG (26.0-33.0); MEAN CORPUSCULAR HGB CONC 34 g/dl (31.0-36.0); MEAN CORPUSCULAR VOLUME 87 fL (82-100); MONOCYTES # (AUTO) 0.7 /CMM (0.1-1.30); NEUTROPHILS # (AUTO) 12.5 /CMM (1.8-8.9); NEUTROPHILS % (AUTO) 84.9 % (43.0-81.0); PLATELET COUNT (AUTO) 188 /CMM (150-450); RDW COEFFICIENT OF VARIATION 15.9 (11.5-15.0); RED BLOOD CELL COUNT(AUTO) 2.94 MIL/uL (4.0-5.2); WHITE BLOOD COUNT (AUTO) 14.7 K/uL (4.3-11.0)
[2017-01-04 06:13] LABS: ALBUMIN 1.5 g/dL (3.4-5.0); BILIRUBIN,TOTAL 0.6 mg/dL (0.2-1.0); CREATININE 0.9 mg/dL (0.6-1.3); MAGNESIUM 1.8 mg/dL (1.8-2.4); PHOSPHORUS 2.8 mg/dL (2.5-4.9); POTASSIUM 4.1 mmol/L (3.5-5.1); TOTAL PROTEIN, SERUM 6.1 g/dL (6.4-8.2)
[2017-01-04 06:25] LABS: THYROID STIMULATING HORMONE 1.783 uIU/mL (0.358-3.74)
[2017-01-04] MEDS: THIAMINE HCL 100 MG TABLET GT SCH (08:33)
[2017-01-04] MEDS: PANTOPRAZOLE 40 MG VIAL IV SCH ×2 (08:33→21:12)
[2017-01-04] MEDS: LEVETIRACETAM SOL (5 ML) 100 MG/ML UDC GT SCH ×2 (08:33→21:12)
[2017-01-04] MEDS: Z GUARD REMEDY 2 OZ OINT TP PRN ×2 (08:34→12:18)
[2017-01-04] MEDS ORDERED: FLUCONAZOLE (100 MG) 100 MG TABLET GT SCH (09:00)
[2017-01-04] MEDS: HYDROGEL DRESSING 90 GM TUBE TP SCH (10:37)
[2017-01-04] MEDS: GLYTROL 1,000 ML BAG GT PRN ×2 (15:43→17:16)
[2017-01-04] MEDS: HYDROGEL DRESSING 90 GM TUBE TP PRN (15:44)
[2017-01-04] MEDS ORDERED: LANOLIN/MIN OIL/PETROLAT,WHT 3.5 GM TUBE EACHEYE SCH (17:00)
[2017-01-04] MEDS: PROSOURCE / PROSTAT (PYXIS) 30 ML UDC GT SCH (17:16)
[2017-01-04] MEDS: CEFTRIAXONE 1 G in IV D5W 50 ML IV SCH (21:12)
[2017-01-04] MEDS: MUPIROCIN OINT 2% 22 GM TUBE SCH (21:12)
[2017-01-04] MEDS: LANOLIN/MIN OIL/PETROLAT,WHT 3.5 GM TUBE EACHEYE SCH (21:12)
[2017-01-05] VITALS: BP 95/65
[2017-01-05] MEDS: BLOOD SUGAR DIAGNOSTIC 1 EACH STRIP IN SCH ×5 (00:26→23:33)
[2017-01-05] MEDS: INSULIN REGULAR, HUMAN 100 UNIT/ML 3 ML VIAL SQ PRN ×3 (00:27→11:36)
[2017-01-05 01:26] LABS: APPEARANCE,URINE CLOUDY (CLEAR); BILIRUBIN,URINE NEGATIVE (NEGATIVE); BLOOD, URINE 3+ Ery/uL (NEGATIVE); COLOR,URINE AMBER (YELLOW); KETONES,URINE NEGATIVE (NEGATIVE); LEUKOCYTE ESTERASE ,URINE 3+ (NEGATIVE); NITRITE, URINE NEGATIVE (NEGATIVE); PROTEIN,URINE 2+ mg/dl (NEGATIVE); UGLUCOSE NEGATIVE (NEGATIVE); UROBILINOGEN,URINE 0.2 EU/dL (0.2)
[2017-01-05 01:32] LABS: BACTERIA,URINE 2+ /HPF (None Seen); SQUAMOUS EPITHELIAL CELL,UR Few /HPF (None Seen); WBC,URINE 81-100 /HPF (0-3)
[2017-01-05 04:00] VITALS: BP 108/59
[2017-01-05] MEDS ORDERED: MEROPENEM 1 G in IV NS 0.9% 100 ML IV SCH ×2 (05:00→08:17)
[2017-01-05] MEDS ORDERED: MEROPENEM 1 G VIAL IV ONE (05:07)
[2017-01-05] MEDS: IV NS 0.9% 250 ML IV PRN (05:17)
[2017-01-05] MEDS: LANOLIN/MIN OIL/PETROLAT,WHT 3.5 GM TUBE EACHEYE SCH ×3 (05:18→21:49)
[2017-01-05 05:52] LABS: BASOPHILS % (AUTO) 0.5 % (0.0-2.0); EOSINOPHILS # (AUTO) 0.2 /CMM (0.0-0.7); EOSINOPHILS % (AUTO) 1.5 % (0.0-6.0); HEMATOCRIT 23 % (33-45); HEMOGLOBIN 7.7 g/dL (11.5-14.8); LYMPHOCYTES % (AUTO) 9.2 % (20.0-44.0); MEAN CORPUSCULAR HEMOGLOBIN 29 PG (26.0-33.0); MEAN CORPUSCULAR HGB CONC 34 g/dl (31.0-36.0); MEAN CORPUSCULAR VOLUME 86 fL (82-100); MONOCYTES # (AUTO) 0.6 /CMM (0.1-1.30); MONOCYTES % (AUTO) 5.7 % (2.0-12.0); NEUTROPHILS # (AUTO) 8.8 /CMM (1.8-8.9); NEUTROPHILS % (AUTO) 83.1 % (43.0-81.0); PLATELET COUNT (AUTO) 194 /CMM (150-450); RDW COEFFICIENT OF VARIATION 16.3 (11.5-15.0); RED BLOOD CELL COUNT(AUTO) 2.67 MIL/uL (4.0-5.2); WHITE BLOOD COUNT (AUTO) 10.6 K/uL (4.3-11.0)
[2017-01-05 06:06] LABS: CALCIUM, SERUM 7.9 mg/dL (8.5-10.1); CREATININE 0.9 mg/dL (0.6-1.3); POTASSIUM 3.3 mmol/L (3.5-5.1)
[2017-01-05 08:00] VITALS: BP 116/76
[2017-01-05] MEDS ORDERED: FEE PK DOSING 1 MIN EA MC ONE (08:26)
[2017-01-05] MEDS ORDERED: MULTIVITAMIN LIQ 5 ML UDC GT SCH (09:00)
[2017-01-05] MEDS: VANCOMYCIN 1.25 GM in IV D5W 500 ML IV SCH ×2 (09:04→23:30)
[2017-01-05] MEDS: HYDROGEL DRESSING 90 GM TUBE TP SCH (09:04)
[2017-01-05] MEDS: LEVETIRACETAM SOL (5 ML) 100 MG/ML UDC GT SCH ×2 (09:05→21:48)
[2017-01-05] MEDS: ASCORBIC ACID 500 MG TABLET GT SCH (09:05)
[2017-01-05] MEDS: THIAMINE HCL 100 MG TABLET GT SCH (09:05)
[2017-01-05] MEDS: PROSOURCE / PROSTAT (PYXIS) 30 ML UDC GT SCH ×2 (09:05→16:24)
[2017-01-05] MEDS: PANTOPRAZOLE 40 MG VIAL IV SCH ×2 (09:05→21:48)
[2017-01-05] MEDS: MUPIROCIN OINT 2% 22 GM TUBE SCH ×2 (09:06→21:49)
[2017-01-05 09:42] LABS: BAND % (MANUAL) 2 % (0.0-5.0); LYMPHOCYTES % (MANUAL) 6 % (16-48); MONOCYTES % (MANUAL) 6 % (0-11.0); NEUTROPHILS % (MANUAL) 86 (42-76)
[2017-01-05] MEDS ORDERED: POTASSIUM CHLORIDE 20 MEQ POWDER PACKET NG SCH (11:30)
[2017-01-05 12:00] VITALS: BP 115/60
[2017-01-05] MEDS: MEROPENEM 1 G in IV NS 0.9% 100 ML IV SCH ×2 (12:00→21:48)
[2017-01-05 16:00] VITALS: BP 131/70
[2017-01-05] MEDS: GLYTROL 1,000 ML BAG GT PRN (16:24)
[2017-01-05] MEDS: LACTOBACILLUS RHAMNOSUS GG 1 EACH CAP.SPRINK PO SCH (16:24)
[2017-01-05 20:00] VITALS: BP 132/61
[2017-01-06] VITALS: BP 130/76
[2017-01-06 04:00] VITALS: BP 115/74
[2017-01-06] MEDS: LANOLIN/MIN OIL/PETROLAT,WHT 3.5 GM TUBE EACHEYE SCH ×3 (06:04→20:29)
[2017-01-06] MEDS: MEROPENEM 1 G in IV NS 0.9% 100 ML IV SCH ×3 (06:04→20:30)
[2017-01-06] MEDS: BLOOD SUGAR DIAGNOSTIC 1 EACH STRIP IN SCH ×3 (06:06→17:42)
[2017-01-06] MEDS: INSULIN REGULAR, HUMAN 100 UNIT/ML 3 ML VIAL SQ PRN ×2 (06:07→13:12)
[2017-01-06 06:24] LABS: BASOPHILS % (AUTO) 0.1 % (0.0-2.0); EOSINOPHILS # (AUTO) 0.2 /CMM (0.0-0.7); EOSINOPHILS % (AUTO) 1.6 % (0.0-6.0); HEMATOCRIT 24 % (33-45); HEMOGLOBIN 7.8 g/dL (11.5-14.8); LYMPHOCYTES # (AUTO) 1.1 /CMM (0.8-4.8); LYMPHOCYTES % (AUTO) 10.3 % (20.0-44.0); MEAN CORPUSCULAR HEMOGLOBIN 29 PG (26.0-33.0); MEAN CORPUSCULAR HGB CONC 33 g/dl (31.0-36.0); MEAN CORPUSCULAR VOLUME 86 fL (82-100); MONOCYTES # (AUTO) 0.8 /CMM (0.1-1.30); NEUTROPHILS # (AUTO) 8.7 /CMM (1.8-8.9); PLATELET COUNT (AUTO) 188 /CMM (150-450); RDW COEFFICIENT OF VARIATION 16.3 (11.5-15.0); RED BLOOD CELL COUNT(AUTO) 2.73 MIL/uL (4.0-5.2); WHITE BLOOD COUNT (AUTO) 10.7 K/uL (4.3-11.0)
[2017-01-06 06:44] LABS: CREATININE 0.9 mg/dL (0.6-1.3); POTASSIUM 3.8 mmol/L (3.5-5.1)
[2017-01-06 08:00] VITALS: BP 119/76
[2017-01-06] MEDS: PANTOPRAZOLE 40 MG VIAL IV SCH ×2 (09:42→20:30)
[2017-01-06] MEDS: ASCORBIC ACID 500 MG TABLET GT SCH (09:42)
[2017-01-06] MEDS: VANCOMYCIN 1.25 GM in IV D5W 500 ML IV SCH ×2 (09:42→21:00)
[2017-01-06] MEDS: LACTOBACILLUS RHAMNOSUS GG 1 EACH CAP.SPRINK PO SCH ×2 (09:42→17:41)
[2017-01-06] MEDS: MULTIVITAMINS,THERAGRAN 1 UDTAB TABLET PO SCH (09:42)
[2017-01-06] MEDS: LEVETIRACETAM SOL (5 ML) 100 MG/ML UDC GT SCH ×2 (09:42→20:30)
[2017-01-06] MEDS: PROSOURCE / PROSTAT (PYXIS) 30 ML UDC GT SCH ×2 (09:42→17:41)
[2017-01-06] MEDS: THIAMINE HCL 100 MG TABLET GT SCH (09:43)
[2017-01-06] MEDS: HYDROGEL DRESSING 90 GM TUBE TP SCH (09:43)
[2017-01-06] MEDS: MUPIROCIN OINT 2% 22 GM TUBE SCH ×2 (09:44→20:30)
[2017-01-06] MEDS ORDERED: IV NS 0.9% 250 ML IV ONE (11:28)
[2017-01-06] MEDS ORDERED: CT SWABBABLE VALVE TRANS SET 1 EA INFUS.SET MC ONE (11:28)
[2017-01-06] MEDS ORDERED: IOHEXOL-300 100 ML VIAL IV ONE (11:28)
[2017-01-06 12:00] VITALS: BP 110/59
[2017-01-06 16:00] VITALS: BP 103/65
[2017-01-06] MEDS: DOCUSATE SODIUM 100 MG CAPSULE PO SCH (17:42)
[2017-01-06 20:00] VITALS: BP 143/68
[2017-01-06] MEDS ORDERED: METOCLOPRAMIDE HCL 10 MG/2 ML VIAL ONE (21:23)
[2017-01-06] MEDS: METOCLOPRAMIDE HCL 10 MG/2 ML VIAL IV SCH (21:57)
[2017-01-07] VITALS: BP 123/69
[2017-01-07 04:00] VITALS: BP_SYST 121; BP_SYST 141; BP_DIAS 63; BP_DIAS 87
[2017-01-07] MEDS: MEROPENEM 1 G in IV NS 0.9% 100 ML IV SCH ×2 (04:17→11:59)
[2017-01-07] MEDS: METOCLOPRAMIDE HCL 10 MG/2 ML VIAL IV SCH ×4 (04:17→21:20)
[2017-01-07] MEDS: LANOLIN/MIN OIL/PETROLAT,WHT 3.5 GM TUBE EACHEYE SCH ×3 (04:18→21:21)
[2017-01-07] MEDS: BLOOD SUGAR DIAGNOSTIC 1 EACH STRIP IN SCH ×5 (05:24→23:44)
[2017-01-07 06:44] LABS: BASOPHILS % (AUTO) 0.6 % (0.0-2.0); EOSINOPHILS # (AUTO) 0.4 /CMM (0.0-0.7); EOSINOPHILS % (AUTO) 5.7 % (0.0-6.0); HEMATOCRIT 24 % (33-45); HEMOGLOBIN 8.1 g/dL (11.5-14.8); LYMPHOCYTES # (AUTO) 0.9 /CMM (0.8-4.8); LYMPHOCYTES % (AUTO) 12.6 % (20.0-44.0); MEAN CORPUSCULAR HEMOGLOBIN 29 PG (26.0-33.0); MEAN CORPUSCULAR HGB CONC 33 g/dl (31.0-36.0); MEAN CORPUSCULAR VOLUME 86 fL (82-100); MONOCYTES # (AUTO) 0.3 /CMM (0.1-1.30); MONOCYTES % (AUTO) 4.7 % (2.0-12.0); NEUTROPHILS # (AUTO) 5.6 /CMM (1.8-8.9); NEUTROPHILS % (AUTO) 76.4 % (43.0-81.0); PLATELET COUNT (AUTO) 162 /CMM (150-450); RDW COEFFICIENT OF VARIATION 16.1 (11.5-15.0); RED BLOOD CELL COUNT(AUTO) 2.83 MIL/uL (4.0-5.2); WHITE BLOOD COUNT (AUTO) 7.4 K/uL (4.3-11.0)
[2017-01-07 06:57] LABS: CREATININE 0.9 mg/dL (0.6-1.3); POTASSIUM 3.4 mmol/L (3.5-5.1)
[2017-01-07] MEDS ORDERED: VANCOMYCIN 1.25 GM in IV D5W 500 ML IV SCH (07:30)
[2017-01-07 08:00] VITALS: BP 123/71
[2017-01-07] MEDS: HYDROGEL DRESSING 90 GM TUBE TP SCH (09:00)
[2017-01-07] MEDS: PROSOURCE / PROSTAT (PYXIS) 30 ML UDC GT SCH ×2 (09:00→17:00)
[2017-01-07] MEDS: MUPIROCIN OINT 2% 22 GM TUBE SCH ×2 (09:00→21:21)
[2017-01-07] MEDS: THIAMINE HCL 100 MG TABLET GT SCH (09:00)
[2017-01-07] MEDS: MULTIVITAMINS,THERAGRAN 1 UDTAB TABLET PO SCH (09:00)
[2017-01-07] MEDS: DOCUSATE SODIUM 100 MG CAPSULE PO SCH ×2 (09:00→17:00)
[2017-01-07] MEDS: ASCORBIC ACID 500 MG TABLET GT SCH (09:00)
[2017-01-07] MEDS: LACTOBACILLUS RHAMNOSUS GG 1 EACH CAP.SPRINK PO SCH ×2 (09:00→17:00)
[2017-01-07] MEDS: LEVETIRACETAM SOL (5 ML) 100 MG/ML UDC GT SCH ×2 (09:49→21:21)
[2017-01-07] MEDS: PANTOPRAZOLE 40 MG VIAL IV SCH ×2 (09:55→21:20)
[2017-01-07 12:00] VITALS: BP 118/64
[2017-01-07] MEDS ORDERED: POTASSIUM CHLORIDE 20 MEQ POWDER PACKET GT SCH (12:00)
[2017-01-07] MEDS ORDERED: POTASSIUM CL. PREMIX PERIPHER. 50 ML IV ONE (13:00)
[2017-01-07 16:00] VITALS: BP 121/63
[2017-01-07] MEDS ORDERED: EPINEPHRINE (1:10,000) SYRINGE 1 MG/10 ML DISP.SYRIN ONE (18:05)
[2017-01-07] MEDS ORDERED: EPHEDRINE SULFATE IV 50MG VIAL ONE (18:39)
[2017-01-07] MEDS: METRONIDAZOLE 500MG/ NS 100ML 500 MG in PREMIX 1 EA IV SCH (19:45)
[2017-01-07 20:00] VITALS: BP 104/56
[2017-01-07 20:23] LABS: HEMOGLOBIN 7.6 g/dL (11.5-14.8)
[2017-01-07] MEDS ORDERED: GLYTROL 1,000 ML BAG GT PRN (20:30)
[2017-01-07] MEDS: CEFTAZIDIME 1 G in IV D5W 50 ML IV SCH (21:20)
[2017-01-08] VITALS (7 sets, daily range): BP systolic 86–113; BP diastolic 48–60
[2017-01-08] MEDS: METOCLOPRAMIDE HCL 10 MG/2 ML VIAL IV SCH ×4 (03:07→21:50)
[2017-01-08] MEDS: METRONIDAZOLE 500MG/ NS 100ML 500 MG in PREMIX 1 EA IV SCH ×3 (03:07→18:01)
[2017-01-08] MEDS: BLOOD SUGAR DIAGNOSTIC 1 EACH STRIP IN SCH ×3 (05:50→17:00)
[2017-01-08] MEDS: CEFTAZIDIME 1 G in IV D5W 50 ML IV SCH ×3 (05:51→21:50)
[2017-01-08] MEDS: LANOLIN/MIN OIL/PETROLAT,WHT 3.5 GM TUBE EACHEYE SCH ×3 (05:51→21:51)
[2017-01-08 06:27] LABS: HEMOGLOBIN 7.7 g/dL (11.5-14.8)
[2017-01-08 06:44] LABS: CALCIUM, SERUM 7.8 mg/dL (8.5-10.1); CREATININE 0.9 mg/dL (0.6-1.3); POTASSIUM 3.4 mmol/L (3.5-5.1)
[2017-01-08] MEDS: THIAMINE HCL 100 MG TABLET GT SCH (08:29)
[2017-01-08] MEDS: LEVETIRACETAM SOL (5 ML) 100 MG/ML UDC GT SCH ×2 (08:29→21:50)
[2017-01-08] MEDS: PROSOURCE / PROSTAT (PYXIS) 30 ML UDC GT SCH ×2 (08:29→17:00)
[2017-01-08] MEDS: DOCUSATE SODIUM 100 MG CAPSULE PO SCH ×2 (08:29→17:00)
[2017-01-08] MEDS: ASCORBIC ACID 500 MG TABLET GT SCH (08:30)
[2017-01-08] MEDS: MUPIROCIN OINT 2% 22 GM TUBE SCH ×2 (08:30→21:50)
[2017-01-08] MEDS: MULTIVITAMINS,THERAGRAN 1 UDTAB TABLET PO SCH (08:30)
[2017-01-08] MEDS: PANTOPRAZOLE 40 MG VIAL IV SCH ×2 (08:30→21:50)
[2017-01-08] MEDS: HYDROGEL DRESSING 90 GM TUBE TP SCH (08:30)
[2017-01-08] MEDS: LACTOBACILLUS RHAMNOSUS GG 1 EACH CAP.SPRINK PO SCH ×2 (08:30→17:00)
[2017-01-08] MEDS ORDERED: POTASSIUM CHLORIDE 20 MEQ POWDER PACKET GT ONE ×2 (10:00→13:00)
[2017-01-08] MEDS ORDERED: VANCOMYCIN 1 GM in IV D5W 250 ML IV SCH ×2 (11:00→12:00)
[2017-01-08] MEDS: ONDANSETRON HCL/PF 4 MG/2 ML VIAL IVP PRN (11:50)
[2017-01-08] MEDS: INSULIN REGULAR, HUMAN 100 UNIT/ML 3 ML VIAL SQ PRN ×2 (12:10→17:55)
[2017-01-08] MEDS ORDERED: GLYTROL 1,000 ML BAG GT PRN (12:36)
[2017-01-09] VITALS: BP 97/49
[2017-01-09] MEDS: BLOOD SUGAR DIAGNOSTIC 1 EACH STRIP IN SCH ×4 (00:39→18:23)
[2017-01-09] MEDS: INSULIN REGULAR, HUMAN 100 UNIT/ML 3 ML VIAL SQ PRN ×4 (00:41→18:22)
[2017-01-09] MEDS: METRONIDAZOLE 500MG/ NS 100ML 500 MG in PREMIX 1 EA IV SCH ×3 (02:13→19:43)
[2017-01-09 04:00] VITALS: BP 101/80
[2017-01-09] MEDS: METOCLOPRAMIDE HCL 10 MG/2 ML VIAL IV SCH ×4 (05:25→21:16)
[2017-01-09] MEDS: CEFTAZIDIME 1 G in IV D5W 50 ML IV SCH ×3 (05:26→21:16)
[2017-01-09] MEDS: IV NS 0.9% 250 ML IV PRN (05:26)
[2017-01-09] MEDS: LANOLIN/MIN OIL/PETROLAT,WHT 3.5 GM TUBE EACHEYE SCH ×3 (05:43→21:24)
[2017-01-09 07:10] LABS: BASOPHILS % (AUTO) 0.5 % (0.0-2.0); EOSINOPHILS # (AUTO) 0.3 /CMM (0.0-0.7); HEMATOCRIT 23 % (33-45); HEMOGLOBIN 7.9 g/dL (11.5-14.8); LYMPHOCYTES # (AUTO) 1.2 /CMM (0.8-4.8); LYMPHOCYTES % (AUTO) 18.1 % (20.0-44.0); MEAN CORPUSCULAR HEMOGLOBIN 29 PG (26.0-33.0); MEAN CORPUSCULAR HGB CONC 34 g/dl (31.0-36.0); MEAN CORPUSCULAR VOLUME 86 fL (82-100); MONOCYTES # (AUTO) 0.7 /CMM (0.1-1.30); MONOCYTES % (AUTO) 9.6 % (2.0-12.0); NEUTROPHILS # (AUTO) 4.5 /CMM (1.8-8.9); NEUTROPHILS % (AUTO) 66.8 % (43.0-81.0); PLATELET COUNT (AUTO) 153 /CMM (150-450); RDW COEFFICIENT OF VARIATION 16.3 (11.5-15.0); RED BLOOD CELL COUNT(AUTO) 2.72 MIL/uL (4.0-5.2); WHITE BLOOD COUNT (AUTO) 6.8 K/uL (4.3-11.0)
[2017-01-09 07:56] LABS: CALCIUM, SERUM 8.1 mg/dL (8.5-10.1); CREATININE 0.9 mg/dL (0.6-1.3); POTASSIUM 3.1 mmol/L (3.5-5.1)
[2017-01-09 08:00] VITALS: BP 112/60
[2017-01-09] MEDS: PANTOPRAZOLE 40 MG VIAL IV SCH ×2 (08:23→21:16)
[2017-01-09] MEDS: MULTIVITAMINS,THERAGRAN 1 UDTAB TABLET PO SCH (08:23)
[2017-01-09] MEDS: LACTOBACILLUS RHAMNOSUS GG 1 EACH CAP.SPRINK PO SCH ×2 (08:23→18:23)
[2017-01-09] MEDS: HYDROGEL DRESSING 90 GM TUBE TP SCH (08:23)
[2017-01-09] MEDS: DOCUSATE SODIUM 100 MG CAPSULE PO SCH (08:23)
[2017-01-09] MEDS: ASCORBIC ACID 500 MG TABLET GT SCH (08:23)
[2017-01-09] MEDS: THIAMINE HCL 100 MG TABLET GT SCH (08:23)
[2017-01-09] MEDS: MUPIROCIN OINT 2% 22 GM TUBE SCH ×2 (08:23→21:17)
[2017-01-09] MEDS: PROSOURCE / PROSTAT (PYXIS) 30 ML UDC GT SCH ×2 (08:23→18:23)
[2017-01-09] MEDS: LEVETIRACETAM SOL (5 ML) 100 MG/ML UDC GT SCH ×2 (08:23→21:16)
[2017-01-09] MEDS: IV D5/ 0.9% NACL 1,000 ML IV SCH (10:10)
[2017-01-09] MEDS ORDERED: POTASSIUM CHLORIDE 20 MEQ POWDER PACKET GT ONE (11:00)
[2017-01-09 12:00] VITALS: BP 98/54
[2017-01-09 16:00] VITALS: BP 118/71
[2017-01-09] MEDS: DOCUSATE SODIUM LIQ 100 MG/10 ML UDC NG SCH (18:23)
[2017-01-09 20:00] VITALS: BP 98/61
[2017-01-10] VITALS: BP 98/65
[2017-01-10] MEDS: BLOOD SUGAR DIAGNOSTIC 1 EACH STRIP IN SCH ×5 (00:18→23:21)
[2017-01-10] MEDS: INSULIN REGULAR, HUMAN 100 UNIT/ML 3 ML VIAL SQ PRN ×5 (00:23→23:22)
[2017-01-10] MEDS: METOCLOPRAMIDE HCL 10 MG/2 ML VIAL IV SCH ×4 (03:45→21:32)
[2017-01-10] MEDS: METRONIDAZOLE 500MG/ NS 100ML 500 MG in PREMIX 1 EA IV SCH ×2 (03:45→10:47)
[2017-01-10 04:00] VITALS: BP 127/58
[2017-01-10] MEDS: IV D5/ 0.9% NACL 1,000 ML IV SCH (05:35)
[2017-01-10] MEDS: LANOLIN/MIN OIL/PETROLAT,WHT 3.5 GM TUBE EACHEYE SCH ×3 (05:35→21:33)
[2017-01-10] MEDS: CEFTAZIDIME 1 G in IV D5W 50 ML IV SCH ×3 (05:35→21:32)
[2017-01-10 06:53] LABS: CALCIUM, SERUM 8.4 mg/dL (8.5-10.1); CREATININE 0.9 mg/dL (0.6-1.3); POTASSIUM 3.5 mmol/L (3.5-5.1)
[2017-01-10] MEDS ORDERED: VANCOMYCIN 1.25 GM in IV D5W 500 ML IV SCH (07:30)
[2017-01-10 08:00] VITALS: BP 123/69
[2017-01-10] MEDS: LACTOBACILLUS RHAMNOSUS GG 1 EACH CAP.SPRINK PO SCH ×2 (09:07→16:20)
[2017-01-10] MEDS: LEVETIRACETAM SOL (5 ML) 100 MG/ML UDC GT SCH ×2 (09:07→21:32)
[2017-01-10] MEDS: PANTOPRAZOLE 40 MG VIAL IV SCH ×2 (09:07→21:32)
[2017-01-10] MEDS: DOCUSATE SODIUM LIQ 100 MG/10 ML UDC NG SCH (09:07)
[2017-01-10] MEDS: THIAMINE HCL 100 MG TABLET GT SCH (09:07)
[2017-01-10] MEDS: MULTIVITAMINS,THERAGRAN 1 UDTAB TABLET PO SCH (09:08)
[2017-01-10] MEDS: PROSOURCE / PROSTAT (PYXIS) 30 ML UDC GT SCH ×2 (09:10→16:22)
[2017-01-10] MEDS: ASCORBIC ACID 500 MG TABLET GT SCH (09:10)
[2017-01-10] MEDS: HYDROGEL DRESSING 90 GM TUBE TP SCH (09:11)
[2017-01-10] MEDS: MUPIROCIN OINT 2% 22 GM TUBE SCH ×2 (09:11→21:33)
[2017-01-10] MEDS: HYDROGEL DRESSING 90 GM TUBE TP PRN (09:11)
[2017-01-10 12:00] VITALS: BP 117/64
[2017-01-10 12:58] LABS: BASOPHILS # (AUTO) 0.1 /CMM (0.0-0.2); BASOPHILS % (AUTO) 0.9 % (0.0-2.0); EOSINOPHILS # (AUTO) 0.4 /CMM (0.0-0.7); EOSINOPHILS % (AUTO) 4.2 % (0.0-6.0); HEMATOCRIT 28 % (33-45); HEMOGLOBIN 8.9 g/dL (11.5-14.8); LYMPHOCYTES # (AUTO) 1.5 /CMM (0.8-4.8); LYMPHOCYTES % (AUTO) 14.4 % (20.0-44.0); MEAN CORPUSCULAR HEMOGLOBIN 28 PG (26.0-33.0); MEAN CORPUSCULAR HGB CONC 32 g/dl (31.0-36.0); MEAN CORPUSCULAR VOLUME 87 fL (82-100); MONOCYTES # (AUTO) 0.6 /CMM (0.1-1.30); MONOCYTES % (AUTO) 5.8 % (2.0-12.0); NEUTROPHILS # (AUTO) 7.8 /CMM (1.8-8.9); NEUTROPHILS % (AUTO) 74.7 % (43.0-81.0); PLATELET COUNT (AUTO) 205 /CMM (150-450); RDW COEFFICIENT OF VARIATION 17.1 (11.5-15.0); RED BLOOD CELL COUNT(AUTO) 3.18 MIL/uL (4.0-5.2); WHITE BLOOD COUNT (AUTO) 10.4 K/uL (4.3-11.0)
[2017-01-10 13:08] LABS: INR 1.2 (0.87-1.13); PROTHROMBIN TIME 12.5 SECS (9.5-12.7)
[2017-01-10 13:34] LABS: BAND % (MANUAL) 11 % (0.0-5.0); EOSINOPHILS % (MANUAL) 3 % (0-4); LYMPHOCYTES % (MANUAL) 14 % (16-48); MONOCYTES % (MANUAL) 3 % (0-11.0); NEUTROPHILS % (MANUAL) 69 (42-76)
[2017-01-10] MEDS: GLYTROL 1,000 ML BAG GT PRN (14:52)
[2017-01-10 16:00] VITALS: BP 111/66
[2017-01-10] MEDS: METRONIDAZOLE 500 MG TABLET GT SCH (18:06)
[2017-01-10 20:00] VITALS: BP 117/67
[2017-01-11] VITALS (7 sets, daily range): BP systolic 111–126; BP diastolic 65–76
[2017-01-11] MEDS: IV D5/ 0.9% NACL 1,000 ML IV SCH ×2 (02:45→22:19)
[2017-01-11] MEDS: METRONIDAZOLE 500 MG TABLET GT SCH ×3 (02:46→18:02)
[2017-01-11] MEDS: METOCLOPRAMIDE HCL 10 MG/2 ML VIAL IV SCH ×4 (04:58→22:13)
[2017-01-11] MEDS: CEFTAZIDIME 1 G in IV D5W 50 ML IV SCH ×3 (04:59→22:17)
[2017-01-11] MEDS: LANOLIN/MIN OIL/PETROLAT,WHT 3.5 GM TUBE EACHEYE SCH ×3 (04:59→22:15)
[2017-01-11] MEDS: BLOOD SUGAR DIAGNOSTIC 1 EACH STRIP IN SCH ×4 (05:12→23:29)
[2017-01-11] MEDS: INSULIN REGULAR, HUMAN 100 UNIT/ML 3 ML VIAL SQ PRN ×3 (05:33→18:11)
[2017-01-11 07:09] LABS: CREATININE 0.9 mg/dL (0.6-1.3); POTASSIUM 2.9 mmol/L (3.5-5.1)
[2017-01-11] MEDS: PROSOURCE / PROSTAT (PYXIS) 30 ML UDC GT SCH ×2 (09:00→17:16)
[2017-01-11] MEDS ORDERED: MIDAZOLAM HCL 5MG/ML VIAL 25 MG/5 ML VIAL IV ONE (09:30)
[2017-01-11] MEDS ORDERED: NALOXONE PREFILLED SYRINGE 2 MG/2 ML SYRINGE IV ONE (09:30)
[2017-01-11] MEDS ORDERED: FENTANYL PF 250MCG/5ML AMPUL IV ONE (09:30)
[2017-01-11] MEDS ORDERED: METOCLOPRAMIDE HCL 10 MG/2 ML VIAL IV SCH (10:00)
[2017-01-11] MEDS: PANTOPRAZOLE 40 MG VIAL IV SCH ×2 (10:37→22:13)
[2017-01-11] MEDS: HYDROGEL DRESSING 90 GM TUBE TP SCH (10:38)
[2017-01-11] MEDS: MUPIROCIN OINT 2% 22 GM TUBE SCH ×2 (10:39→22:14)
[2017-01-11] MEDS ORDERED: LIDOCAINE HCL/PF 1% 30 ML SDV ONE (11:05)
[2017-01-11] MEDS: LACTOBACILLUS RHAMNOSUS GG 1 EACH CAP.SPRINK PO SCH ×2 (13:47→17:16)
[2017-01-11] MEDS: POTASSIUM CHLORIDE 20 MEQ POWDER PACKET GT SCH ×3 (13:47→15:26)
[2017-01-11] MEDS: MULTIVITAMINS,THERAGRAN 1 UDTAB TABLET PO SCH (13:47)
[2017-01-11] MEDS: ASCORBIC ACID 500 MG TABLET GT SCH (13:47)
[2017-01-11] MEDS: THIAMINE HCL 100 MG TABLET GT SCH (13:47)
[2017-01-11] MEDS: LEVETIRACETAM SOL (5 ML) 100 MG/ML UDC GT SCH ×2 (13:47→22:12)
[2017-01-11] MEDS: DOCUSATE SODIUM LIQ 100 MG/10 ML UDC NG SCH (13:47)
[2017-01-11] MEDS: GLYTROL 1,000 ML BAG GT PRN (23:35)
[2017-01-12] VITALS: BP_SYST 117; BP_DIAS 64; BP_DIAS 69
[2017-01-12] MEDS: METRONIDAZOLE 500 MG TABLET GT SCH ×3 (02:32→20:03)
[2017-01-12 04:00] VITALS: BP 113/66
[2017-01-12] MEDS: METOCLOPRAMIDE HCL 10 MG/2 ML VIAL IV SCH ×4 (05:11→21:06)
[2017-01-12] MEDS: CEFTAZIDIME 1 G in IV D5W 50 ML IV SCH ×3 (05:11→20:09)
[2017-01-12] MEDS: INSULIN REGULAR, HUMAN 100 UNIT/ML 3 ML VIAL SQ PRN ×3 (05:17→17:05)
[2017-01-12] MEDS: LANOLIN/MIN OIL/PETROLAT,WHT 3.5 GM TUBE EACHEYE SCH ×3 (05:21→20:10)
[2017-01-12] MEDS: BLOOD SUGAR DIAGNOSTIC 1 EACH STRIP IN SCH ×3 (05:22→17:03)
[2017-01-12 08:00] VITALS: BP 121/66
[2017-01-12 08:05] LABS: CALCIUM, SERUM 7.9 mg/dL (8.5-10.1); CREATININE 0.8 mg/dL (0.6-1.3); POTASSIUM 3.2 mmol/L (3.5-5.1)
[2017-01-12] MEDS: LEVETIRACETAM SOL (5 ML) 100 MG/ML UDC GT SCH ×2 (08:05→20:09)
[2017-01-12] MEDS: LACTOBACILLUS RHAMNOSUS GG 1 EACH CAP.SPRINK PO SCH ×2 (08:05→16:51)
[2017-01-12] MEDS: MULTIVITAMINS,THERAGRAN 1 UDTAB TABLET PO SCH (08:05)
[2017-01-12] MEDS: ASCORBIC ACID 500 MG TABLET GT SCH (08:05)
[2017-01-12] MEDS: THIAMINE HCL 100 MG TABLET GT SCH (08:05)
[2017-01-12] MEDS: PANTOPRAZOLE 40 MG VIAL IV SCH ×2 (08:05→20:09)
[2017-01-12] MEDS: DOCUSATE SODIUM LIQ 100 MG/10 ML UDC NG SCH (08:05)
[2017-01-12] MEDS: HYDROGEL DRESSING 90 GM TUBE TP SCH (08:05)
[2017-01-12] MEDS: PROSOURCE / PROSTAT (PYXIS) 30 ML UDC GT SCH ×2 (08:08→16:51)
[2017-01-12] MEDS: MUPIROCIN OINT 2% 22 GM TUBE SCH ×2 (08:09→20:10)
[2017-01-12] MEDS: POTASSIUM CHLORIDE 20 MEQ POWDER PACKET GT SCH ×2 (11:47→12:03)
[2017-01-12 12:00] VITALS: BP 105/59
[2017-01-12 16:00] VITALS: BP 118/72
[2017-01-12 20:00] VITALS: BP 118/58
[2017-01-12] MEDS: IV D5/ 0.9% NACL 1,000 ML IV PRN (22:31)
[2017-01-13] VITALS: BP 136/72
[2017-01-13] MEDS: BLOOD SUGAR DIAGNOSTIC 1 EACH STRIP IN SCH ×5 (00:08→23:47)
[2017-01-13] MEDS: INSULIN REGULAR, HUMAN 100 UNIT/ML 3 ML VIAL SQ PRN ×5 (00:08→23:59)
[2017-01-13] MEDS: METRONIDAZOLE 500 MG TABLET GT SCH ×3 (03:00→17:58)
[2017-01-13 04:00] VITALS: BP 120/61
[2017-01-13] MEDS: METOCLOPRAMIDE HCL 10 MG/2 ML VIAL IV SCH ×4 (04:00→21:59)
[2017-01-13] MEDS: LANOLIN/MIN OIL/PETROLAT,WHT 3.5 GM TUBE EACHEYE SCH ×3 (05:32→22:02)
[2017-01-13] MEDS: CEFTAZIDIME 1 G in IV D5W 50 ML IV SCH ×3 (05:33→21:52)
[2017-01-13 06:44] LABS: CREATININE 0.8 mg/dL (0.6-1.3); POTASSIUM 3.6 mmol/L (3.5-5.1)
[2017-01-13 08:00] VITALS: BP 95/61
[2017-01-13] MEDS: DOCUSATE SODIUM LIQ 100 MG/10 ML UDC NG SCH (09:00)
[2017-01-13] MEDS: LACTOBACILLUS RHAMNOSUS GG 1 EACH CAP.SPRINK PO SCH ×2 (09:00→16:58)
[2017-01-13] MEDS: ASCORBIC ACID 500 MG TABLET GT SCH (09:00)
[2017-01-13] MEDS: LEVETIRACETAM SOL (5 ML) 100 MG/ML UDC GT SCH ×2 (09:01→21:51)
[2017-01-13] MEDS: PROSOURCE / PROSTAT (PYXIS) 30 ML UDC GT SCH ×2 (09:05→17:00)
[2017-01-13] MEDS: MULTIVITAMINS,THERAGRAN 1 UDTAB TABLET PO SCH (09:06)
[2017-01-13] MEDS: THIAMINE HCL 100 MG TABLET GT SCH (09:06)
[2017-01-13] MEDS: PANTOPRAZOLE 40 MG VIAL IV SCH ×2 (09:06→21:51)
[2017-01-13] MEDS: HYDROGEL DRESSING 90 GM TUBE TP SCH (09:07)
[2017-01-13] MEDS: MUPIROCIN OINT 2% 22 GM TUBE SCH ×2 (09:08→21:00)
[2017-01-13 12:00] VITALS: BP 102/66
[2017-01-13 16:00] VITALS: BP_SYST 102; BP_SYST 122; BP_DIAS 62; BP_DIAS 73
[2017-01-13 20:00] VITALS: BP 110/65
[2017-01-13] MEDS: IV D5/ 0.9% NACL 1,000 ML IV PRN (21:54)
[2017-01-14] VITALS: BP 128/76
[2017-01-14] MEDS: METRONIDAZOLE 500 MG TABLET GT SCH ×3 (03:00→19:01)
[2017-01-14 04:00] VITALS: BP 105/64
[2017-01-14] MEDS: METOCLOPRAMIDE HCL 10 MG/2 ML VIAL IV SCH ×4 (04:00→21:20)
[2017-01-14] MEDS: CEFTAZIDIME 1 G in IV D5W 50 ML IV SCH ×2 (05:00→13:50)
[2017-01-14] MEDS: LANOLIN/MIN OIL/PETROLAT,WHT 3.5 GM TUBE EACHEYE SCH ×3 (05:00→21:19)
[2017-01-14] MEDS: BLOOD SUGAR DIAGNOSTIC 1 EACH STRIP IN SCH ×4 (06:00→23:44)
[2017-01-14 08:00] VITALS: BP 110/59
[2017-01-14] MEDS: ERYTHROMYCIN ETHYLSUCCINATE 200 MG/5 ML SUSPENSION GT SCH ×3 (08:00→16:49)
[2017-01-14] MEDS: LEVETIRACETAM SOL (5 ML) 100 MG/ML UDC GT SCH ×2 (10:31→21:18)
[2017-01-14] MEDS: PROSOURCE / PROSTAT (PYXIS) 30 ML UDC GT SCH ×2 (10:31→16:59)
[2017-01-14] MEDS: PANTOPRAZOLE 40 MG VIAL IV SCH ×2 (10:31→21:20)
[2017-01-14] MEDS: LACTOBACILLUS RHAMNOSUS GG 1 EACH CAP.SPRINK PO SCH ×2 (10:32→16:50)
[2017-01-14] MEDS: DOCUSATE SODIUM LIQ 100 MG/10 ML UDC NG SCH (10:32)
[2017-01-14] MEDS: THIAMINE HCL 100 MG TABLET GT SCH (10:32)
[2017-01-14] MEDS: MULTIVITAMINS,THERAGRAN 1 UDTAB TABLET PO SCH (10:32)
[2017-01-14] MEDS: HYDROGEL DRESSING 90 GM TUBE TP SCH (10:34)
[2017-01-14] MEDS: Z GUARD REMEDY 2 OZ OINT TP PRN (10:34)
[2017-01-14] MEDS: MUPIROCIN OINT 2% 22 GM TUBE SCH ×2 (10:35→21:19)
[2017-01-14] MEDS: ASCORBIC ACID 500 MG TABLET GT SCH (10:38)
[2017-01-14 12:00] VITALS: BP 116/69
[2017-01-14] MEDS: INSULIN REGULAR, HUMAN 100 UNIT/ML 3 ML VIAL SQ PRN ×2 (14:00→17:09)
[2017-01-14 16:00] VITALS: BP 105/64
[2017-01-14] MEDS: GLYTROL 1,000 ML BAG GT PRN (19:40)
[2017-01-14] MEDS: HYDROCODONE/APAP 5/325MG 1 EACH TABLET GT PRN ×2 (19:40→23:44)
[2017-01-14] MEDS: IV D5/ 0.9% NACL 1,000 ML IV PRN (19:40)
[2017-01-14 20:00] VITALS: BP 112/74
[2017-01-15] VITALS: BP 108/57
[2017-01-15] MEDS: METOCLOPRAMIDE HCL 10 MG/2 ML VIAL IV SCH ×4 (03:29→21:22)
[2017-01-15] MEDS: METRONIDAZOLE 500 MG TABLET GT SCH ×3 (03:30→18:05)
[2017-01-15 04:00] VITALS: BP 131/77
[2017-01-15] MEDS: BLOOD SUGAR DIAGNOSTIC 1 EACH STRIP IN SCH ×3 (05:13→17:11)
[2017-01-15] MEDS: HYDROCODONE/APAP 5/325MG 1 EACH TABLET GT PRN ×2 (05:14→12:02)
[2017-01-15] MEDS: LANOLIN/MIN OIL/PETROLAT,WHT 3.5 GM TUBE EACHEYE SCH ×3 (05:15→21:52)
[2017-01-15] MEDS: INSULIN REGULAR, HUMAN 100 UNIT/ML 3 ML VIAL SQ PRN ×3 (05:16→17:16)
[2017-01-15 08:00] VITALS: BP_SYST 119; BP_SYST 135; BP_DIAS 76
[2017-01-15] MEDS: MUPIROCIN OINT 2% 22 GM TUBE SCH ×2 (09:21→21:51)
[2017-01-15] MEDS: DOCUSATE SODIUM LIQ 100 MG/10 ML UDC NG SCH (09:23)
[2017-01-15] MEDS: MULTIVITAMINS,THERAGRAN 1 UDTAB TABLET PO SCH (09:23)
[2017-01-15] MEDS: PANTOPRAZOLE 40 MG VIAL IV SCH ×2 (09:23→21:23)
[2017-01-15] MEDS: THIAMINE HCL 100 MG TABLET GT SCH (09:23)
[2017-01-15] MEDS: LEVETIRACETAM SOL (5 ML) 100 MG/ML UDC GT SCH ×2 (09:23→21:22)
[2017-01-15] MEDS: LACTOBACILLUS RHAMNOSUS GG 1 EACH CAP.SPRINK PO SCH ×2 (09:23→16:30)
[2017-01-15] MEDS: ASCORBIC ACID 500 MG TABLET GT SCH (09:23)
[2017-01-15] MEDS: PROSOURCE / PROSTAT (PYXIS) 30 ML UDC GT SCH ×2 (09:24→16:32)
[2017-01-15] MEDS: HYDROGEL DRESSING 90 GM TUBE TP SCH (09:24)
[2017-01-15] MEDS: ERYTHROMYCIN ETHYLSUCCINATE 200 MG/5 ML SUSPENSION GT SCH ×3 (09:36→17:11)
[2017-01-15 12:00] VITALS: BP 125/74
[2017-01-15 16:00] VITALS: BP 135/84
[2017-01-15] MEDS: IV D5/ 0.9% NACL 1,000 ML IV PRN (16:28)
[2017-01-15] MEDS: CEFTAZIDIME 1 G in IV D5W 50 ML IV SCH (17:09)
[2017-01-15 20:00] VITALS: BP 125/76
[2017-01-16] VITALS: BP 122/79
[2017-01-16] MEDS: CEFTAZIDIME 1 G in IV D5W 50 ML IV SCH ×3 (00:09→16:23)
[2017-01-16] MEDS: BLOOD SUGAR DIAGNOSTIC 1 EACH STRIP IN SCH ×4 (00:09→17:10)
[2017-01-16] MEDS: INSULIN REGULAR, HUMAN 100 UNIT/ML 3 ML VIAL SQ PRN ×3 (00:16→11:13)
[2017-01-16] MEDS: METRONIDAZOLE 500 MG TABLET GT SCH ×3 (02:47→18:14)
[2017-01-16] MEDS: METOCLOPRAMIDE HCL 10 MG/2 ML VIAL IV SCH ×4 (03:49→21:24)
[2017-01-16 04:00] VITALS: BP 105/72
[2017-01-16] MEDS: LANOLIN/MIN OIL/PETROLAT,WHT 3.5 GM TUBE EACHEYE SCH ×3 (04:15→21:26)
[2017-01-16 08:00] VITALS: BP 126/75
[2017-01-16] MEDS: PANTOPRAZOLE 40 MG VIAL IV SCH ×2 (08:42→21:24)
[2017-01-16] MEDS: MULTIVITAMINS,THERAGRAN 1 UDTAB TABLET PO SCH (08:42)
[2017-01-16] MEDS: PROSOURCE / PROSTAT (PYXIS) 30 ML UDC GT SCH ×2 (08:42→16:22)
[2017-01-16] MEDS: DOCUSATE SODIUM LIQ 100 MG/10 ML UDC NG SCH (08:42)
[2017-01-16] MEDS: LACTOBACILLUS RHAMNOSUS GG 1 EACH CAP.SPRINK PO SCH ×2 (08:42→16:22)
[2017-01-16] MEDS: THIAMINE HCL 100 MG TABLET GT SCH (08:42)
[2017-01-16] MEDS: LEVETIRACETAM SOL (5 ML) 100 MG/ML UDC GT SCH ×2 (08:42→21:24)
[2017-01-16] MEDS: Z GUARD REMEDY 2 OZ OINT TP PRN (08:43)
[2017-01-16] MEDS: ASCORBIC ACID 500 MG TABLET GT SCH (08:44)
[2017-01-16] MEDS: MUPIROCIN OINT 2% 22 GM TUBE SCH ×2 (08:45→21:25)
[2017-01-16] MEDS: ERYTHROMYCIN ETHYLSUCCINATE 200 MG/5 ML SUSPENSION GT SCH ×3 (08:45→17:10)
[2017-01-16] MEDS: HYDROGEL DRESSING 90 GM TUBE TP SCH (08:45)
[2017-01-16 12:00] VITALS: BP_SYST 129; BP_DIAS 69; BP_DIAS 79
[2017-01-16 16:00] VITALS: BP 123/84
[2017-01-16] MEDS: IV D5/ 0.9% NACL 1,000 ML IV PRN (16:22)
[2017-01-16] MEDS: ONDANSETRON HCL/PF 4 MG/2 ML VIAL IVP PRN (17:11)
[2017-01-16 20:00] VITALS: BP 129/83
[2017-01-17] VITALS: BP 126/76
[2017-01-17] MEDS: CEFTAZIDIME 1 G in IV D5W 50 ML IV SCH ×3 (00:05→16:15)
[2017-01-17] MEDS: BLOOD SUGAR DIAGNOSTIC 1 EACH STRIP IN SCH ×4 (00:06→17:27)
[2017-01-17] MEDS: METRONIDAZOLE 500 MG TABLET GT SCH ×3 (03:33→18:08)
[2017-01-17] MEDS: METOCLOPRAMIDE HCL 10 MG/2 ML VIAL IV SCH ×4 (03:33→22:35)
[2017-01-17 04:00] VITALS: BP 123/76
[2017-01-17] MEDS: LANOLIN/MIN OIL/PETROLAT,WHT 3.5 GM TUBE EACHEYE SCH ×3 (05:05→20:14)
[2017-01-17 08:00] VITALS: BP 112/71
[2017-01-17] MEDS: ERYTHROMYCIN ETHYLSUCCINATE 200 MG/5 ML SUSPENSION GT SCH ×3 (08:59→17:27)
[2017-01-17] MEDS: HYDROGEL DRESSING 90 GM TUBE TP SCH (08:59)
[2017-01-17] MEDS: LEVETIRACETAM SOL (5 ML) 100 MG/ML UDC GT SCH ×2 (08:59→20:14)
[2017-01-17] MEDS: DOCUSATE SODIUM LIQ 100 MG/10 ML UDC NG SCH (08:59)
[2017-01-17] MEDS: LACTOBACILLUS RHAMNOSUS GG 1 EACH CAP.SPRINK PO SCH ×2 (08:59→16:15)
[2017-01-17] MEDS: ASCORBIC ACID 500 MG TABLET GT SCH (08:59)
[2017-01-17] MEDS: MULTIVITAMINS,THERAGRAN 1 UDTAB TABLET PO SCH (08:59)
[2017-01-17] MEDS: PANTOPRAZOLE 40 MG VIAL IV SCH ×2 (09:01→22:35)
[2017-01-17] MEDS: MUPIROCIN OINT 2% 22 GM TUBE SCH ×2 (09:02→20:15)
[2017-01-17] MEDS: PROSOURCE / PROSTAT (PYXIS) 30 ML UDC GT SCH ×2 (09:02→16:15)
[2017-01-17] MEDS: THIAMINE HCL 100 MG TABLET GT SCH (09:02)
[2017-01-17 12:00] VITALS: BP 117/65
[2017-01-17 16:00] VITALS: BP 107/63
[2017-01-17 20:00] VITALS: BP 98/58
[2017-01-17] MEDS: IV D5/ 0.9% NACL 1,000 ML IV PRN (20:14)
[2017-01-17] MEDS: HYDROCODONE/APAP 5/325MG 1 EACH TABLET GT PRN (20:14)
[2017-01-18] VITALS: BP 112/68
[2017-01-18] MEDS: BLOOD SUGAR DIAGNOSTIC 1 EACH STRIP IN SCH ×4 (00:31→17:29)
[2017-01-18] MEDS: HYDROCODONE/APAP 5/325MG 1 EACH TABLET GT PRN ×3 (00:31→14:26)
[2017-01-18] MEDS: INSULIN REGULAR, HUMAN 100 UNIT/ML 3 ML VIAL SQ PRN ×4 (00:37→17:44)
[2017-01-18] MEDS: CEFTAZIDIME 1 G in IV D5W 50 ML IV SCH ×3 (01:05→17:30)
[2017-01-18] MEDS: METRONIDAZOLE 500 MG TABLET GT SCH ×3 (03:49→19:05)
[2017-01-18 04:00] VITALS: BP 116/60
[2017-01-18] MEDS: METOCLOPRAMIDE HCL 10 MG/2 ML VIAL IV SCH ×4 (04:42→21:37)
[2017-01-18] MEDS: LANOLIN/MIN OIL/PETROLAT,WHT 3.5 GM TUBE EACHEYE SCH ×3 (05:25→21:39)
[2017-01-18 08:00] VITALS: BP 118/70
[2017-01-18] MEDS: ERYTHROMYCIN ETHYLSUCCINATE 200 MG/5 ML SUSPENSION GT SCH ×2 (08:55→13:19)
[2017-01-18] MEDS: PANTOPRAZOLE 40 MG VIAL IV SCH ×2 (08:58→21:37)
[2017-01-18] MEDS: THIAMINE HCL 100 MG TABLET GT SCH (08:58)
[2017-01-18] MEDS: ASCORBIC ACID 500 MG TABLET GT SCH (08:58)
[2017-01-18] MEDS: MULTIVITAMINS,THERAGRAN 1 UDTAB TABLET PO SCH (08:58)
[2017-01-18] MEDS: PROSOURCE / PROSTAT (PYXIS) 30 ML UDC GT SCH ×2 (08:58→17:29)
[2017-01-18] MEDS: LEVETIRACETAM SOL (5 ML) 100 MG/ML UDC GT SCH ×2 (08:58→21:37)
[2017-01-18] MEDS: LACTOBACILLUS RHAMNOSUS GG 1 EACH CAP.SPRINK PO SCH ×2 (08:58→17:29)
[2017-01-18] MEDS: DOCUSATE SODIUM LIQ 100 MG/10 ML UDC NG SCH (08:58)
[2017-01-18] MEDS: HYDROGEL DRESSING 90 GM TUBE TP SCH (09:00)
[2017-01-18] MEDS: MUPIROCIN OINT 2% 22 GM TUBE SCH ×2 (09:02→21:39)
[2017-01-18 12:00] VITALS: BP 140/78
[2017-01-18] MEDS: GLYTROL 1,000 ML BAG GT PRN (14:24)
[2017-01-18 16:00] VITALS: BP 147/75
[2017-01-18] MEDS: IV D5/ 0.9% NACL 1,000 ML IV PRN (17:30)
[2017-01-18 20:00] VITALS: BP 126/64
[2017-01-19] VITALS (7 sets, daily range): BP systolic 90–129; BP diastolic 51–71
[2017-01-19] MEDS: BLOOD SUGAR DIAGNOSTIC 1 EACH STRIP IN SCH ×5 (00:21→23:59)
[2017-01-19] MEDS: CEFTAZIDIME 1 G in IV D5W 50 ML IV SCH ×3 (00:22→16:23)
[2017-01-19] MEDS: INSULIN REGULAR, HUMAN 100 UNIT/ML 3 ML VIAL SQ PRN ×3 (00:22→18:25)
[2017-01-19] MEDS: METRONIDAZOLE 500 MG TABLET GT SCH ×3 (03:23→18:15)
[2017-01-19] MEDS: METOCLOPRAMIDE HCL 10 MG/2 ML VIAL IV SCH ×3 (03:23→16:24)
[2017-01-19] MEDS: HYDROCODONE/APAP 5/325MG 1 EACH TABLET GT PRN ×3 (03:29→16:24)
[2017-01-19] MEDS: LANOLIN/MIN OIL/PETROLAT,WHT 3.5 GM TUBE EACHEYE SCH ×3 (05:32→20:32)
[2017-01-19 05:50] LABS: BASOPHILS # (AUTO) 0.2 /CMM (0.0-0.2); BASOPHILS % (AUTO) 0.7 % (0.0-2.0); EOSINOPHILS # (AUTO) 0.4 /CMM (0.0-0.7); EOSINOPHILS % (AUTO) 1.6 % (0.0-6.0); HEMATOCRIT 22 % (33-45); HEMOGLOBIN 7.3 g/dL (11.5-14.8); LYMPHOCYTES % (AUTO) 9.1 % (20.0-44.0); MEAN CORPUSCULAR HEMOGLOBIN 28 PG (26.0-33.0); MEAN CORPUSCULAR HGB CONC 33 g/dl (31.0-36.0); MEAN CORPUSCULAR VOLUME 87 fL (82-100); MONOCYTES # (AUTO) 1.3 /CMM (0.1-1.30); MONOCYTES % (AUTO) 5.9 % (2.0-12.0); NEUTROPHILS # (AUTO) 18.6 /CMM (1.8-8.9); NEUTROPHILS % (AUTO) 82.7 % (43.0-81.0); PLATELET COUNT (AUTO) 282 /CMM (150-450); RDW COEFFICIENT OF VARIATION 19.1 (11.5-15.0); RED BLOOD CELL COUNT(AUTO) 2.56 MIL/uL (4.0-5.2); WHITE BLOOD COUNT (AUTO) 22.5 K/uL (4.3-11.0)
[2017-01-19 06:08] LABS: CALCIUM, SERUM 7.9 mg/dL (8.5-10.1); CREATININE 0.8 mg/dL (0.6-1.3)
[2017-01-19 06:14] LABS: POTASSIUM 2.6 mmol/L (3.5-5.1)
[2017-01-19] MEDS ORDERED: POTASSIUM CL. PREMIX PERIPHER. 50 ML ONE (06:25)
[2017-01-19] MEDS: POTASSIUM CL. PREMIX PERIPHER. 50 ML IV SCH ×6 (06:31→13:40)
[2017-01-19 07:04] LABS: BAND % (MANUAL) 3 % (0.0-5.0); EOSINOPHILS % (MANUAL) 3 % (0-4); LYMPHOCYTES % (MANUAL) 5 % (16-48); MONOCYTES % (MANUAL) 8 % (0-11.0); NEUTROPHILS % (MANUAL) 81 (42-76)
[2017-01-19] MEDS: PANTOPRAZOLE 40 MG VIAL IV SCH ×2 (08:01→20:32)
[2017-01-19] MEDS: MULTIVITAMINS,THERAGRAN 1 UDTAB TABLET PO SCH (08:01)
[2017-01-19] MEDS: THIAMINE HCL 100 MG TABLET GT SCH (08:01)
[2017-01-19] MEDS: LEVETIRACETAM SOL (5 ML) 100 MG/ML UDC GT SCH ×2 (08:01→20:32)
[2017-01-19] MEDS: LACTOBACILLUS RHAMNOSUS GG 1 EACH CAP.SPRINK PO SCH ×2 (08:01→16:24)
[2017-01-19] MEDS: PROSOURCE / PROSTAT (PYXIS) 30 ML UDC GT SCH ×2 (08:01→16:24)
[2017-01-19] MEDS: MUPIROCIN OINT 2% 22 GM TUBE SCH ×2 (08:02→20:34)
[2017-01-19] MEDS: HYDROGEL DRESSING 90 GM TUBE TP SCH (08:02)
[2017-01-19] MEDS: ASCORBIC ACID 500 MG TABLET GT SCH (08:11)
[2017-01-19] MEDS: DOCUSATE SODIUM LIQ 100 MG/10 ML UDC NG SCH (08:11)
[2017-01-19] MEDS ORDERED: METOCLOPRAMIDE HCL 10 MG/2 ML VIAL IV SCH (16:00)
[2017-01-19] MEDS: SUCRALFATE 1 G/10 ML UDC GT SCH ×2 (18:15→20:32)
[2017-01-19] MEDS: IV D5/ 0.9% NACL 1,000 ML IV PRN (20:42)
[2017-01-20] VITALS (8 sets, daily range): BP systolic 122–163; BP diastolic 57–85
[2017-01-20] MEDS: METOCLOPRAMIDE HCL 10 MG/2 ML VIAL IV SCH ×3 (00:04→16:00)
[2017-01-20] MEDS: CEFTAZIDIME 1 G in IV D5W 50 ML IV SCH ×3 (00:04→17:08)
[2017-01-20] MEDS: INSULIN REGULAR, HUMAN 100 UNIT/ML 3 ML VIAL SQ PRN ×5 (00:10→23:10)
[2017-01-20] MEDS: METRONIDAZOLE 500 MG TABLET GT SCH ×3 (02:23→18:12)
[2017-01-20] MEDS: BLOOD SUGAR DIAGNOSTIC 1 EACH STRIP IN SCH ×4 (05:32→23:05)
[2017-01-20] MEDS: LANOLIN/MIN OIL/PETROLAT,WHT 3.5 GM TUBE EACHEYE SCH ×3 (05:32→21:09)
[2017-01-20] MEDS: LACTOBACILLUS RHAMNOSUS GG 1 EACH CAP.SPRINK PO SCH ×2 (09:27→17:08)
[2017-01-20] MEDS: ASCORBIC ACID 500 MG TABLET GT SCH (09:28)
[2017-01-20] MEDS: MULTIVITAMINS,THERAGRAN 1 UDTAB TABLET PO SCH (09:28)
[2017-01-20] MEDS: THIAMINE HCL 100 MG TABLET GT SCH (09:28)
[2017-01-20] MEDS: LEVETIRACETAM SOL (5 ML) 100 MG/ML UDC GT SCH ×2 (09:28→21:08)
[2017-01-20] MEDS: DOCUSATE SODIUM LIQ 100 MG/10 ML UDC NG SCH (09:28)
[2017-01-20] MEDS: PANTOPRAZOLE 40 MG VIAL IV SCH ×2 (09:28→21:08)
[2017-01-20] MEDS: SUCRALFATE 1 G/10 ML UDC GT SCH ×4 (09:29→21:08)
[2017-01-20] MEDS: PROSOURCE / PROSTAT (PYXIS) 30 ML UDC GT SCH ×2 (09:32→17:08)
[2017-01-20] MEDS: MUPIROCIN OINT 2% 22 GM TUBE SCH ×2 (09:32→21:10)
[2017-01-20] MEDS: HYDROGEL DRESSING 90 GM TUBE TP SCH (09:33)
[2017-01-20 11:20] LABS: BASOPHILS % (AUTO) 0.2 % (0.0-2.0); EOSINOPHILS # (AUTO) 0.5 /CMM (0.0-0.7); EOSINOPHILS % (AUTO) 3.4 % (0.0-6.0); HEMATOCRIT 24 % (33-45); HEMOGLOBIN 7.6 g/dL (11.5-14.8); LYMPHOCYTES # (AUTO) 2.1 /CMM (0.8-4.8); LYMPHOCYTES % (AUTO) 15.1 % (20.0-44.0); MEAN CORPUSCULAR HEMOGLOBIN 28 PG (26.0-33.0); MEAN CORPUSCULAR HGB CONC 32 g/dl (31.0-36.0); MEAN CORPUSCULAR VOLUME 87 fL (82-100); MONOCYTES # (AUTO) 0.8 /CMM (0.1-1.30); MONOCYTES % (AUTO) 5.8 % (2.0-12.0); NEUTROPHILS # (AUTO) 10.7 /CMM (1.8-8.9); NEUTROPHILS % (AUTO) 75.5 % (43.0-81.0); PLATELET COUNT (AUTO) 242 /CMM (150-450); RDW COEFFICIENT OF VARIATION 19.1 (11.5-15.0); RED BLOOD CELL COUNT(AUTO) 2.75 MIL/uL (4.0-5.2); WHITE BLOOD COUNT (AUTO) 14.1 K/uL (4.3-11.0)
[2017-01-20 11:32] LABS: CALCIUM, SERUM 8.1 mg/dL (8.5-10.1); CREATININE 0.7 mg/dL (0.6-1.3)
[2017-01-20 11:33] LABS: POTASSIUM 2.8 mmol/L (3.5-5.1)
[2017-01-20] MEDS ORDERED: POTASSIUM CHLORIDE 20 MEQ POWDER PACKET GT ONE (12:30)
[2017-01-20] MEDS: HYDROCODONE/APAP 5/325MG 1 EACH TABLET GT PRN (16:02)
[2017-01-20] MEDS: IV D5/ 0.9% NACL 1,000 ML IV PRN (20:19)
[2017-01-21] VITALS (32 sets, daily range): BP systolic 73–123; BP diastolic 36–73
[2017-01-21] MEDS: CEFTAZIDIME 1 G in IV D5W 50 ML IV SCH ×3 (01:25→17:15)
[2017-01-21 02:30] LABS: BASOPHILS # (AUTO) 0.1 /CMM (0.0-0.2); BASOPHILS % (AUTO) 0.4 % (0.0-2.0); EOSINOPHILS # (AUTO) 0.1 /CMM (0.0-0.7); EOSINOPHILS % (AUTO) 0.5 % (0.0-6.0); LYMPHOCYTES # (AUTO) 1.9 /CMM (0.8-4.8); LYMPHOCYTES % (AUTO) 15.5 % (20.0-44.0); MEAN CORPUSCULAR HEMOGLOBIN 29 PG (26.0-33.0); MEAN CORPUSCULAR HGB CONC 33 g/dl (31.0-36.0); MEAN CORPUSCULAR VOLUME 87 fL (82-100); MONOCYTES # (AUTO) 0.8 /CMM (0.1-1.30); MONOCYTES % (AUTO) 6.1 % (2.0-12.0); NEUTROPHILS # (AUTO) 9.6 /CMM (1.8-8.9); NEUTROPHILS % (AUTO) 77.5 % (43.0-81.0); PLATELET COUNT (AUTO) 132 /CMM (150-450); RDW COEFFICIENT OF VARIATION 19.3 (11.5-15.0); WHITE BLOOD COUNT (AUTO) 12.4 K/uL (4.3-11.0)
[2017-01-21 03:07] LABS: HEMATOCRIT 18 % (33-45)
[2017-01-21] MEDS: METRONIDAZOLE 500 MG TABLET GT SCH ×3 (04:07→19:06)
[2017-01-21] MEDS: LANOLIN/MIN OIL/PETROLAT,WHT 3.5 GM TUBE EACHEYE SCH ×3 (05:32→22:00)
[2017-01-21] MEDS: INSULIN REGULAR, HUMAN 100 UNIT/ML 3 ML VIAL SQ PRN ×4 (05:41→23:31)
[2017-01-21] MEDS: BLOOD SUGAR DIAGNOSTIC 1 EACH STRIP IN SCH ×4 (05:51→23:29)
[2017-01-21] MEDS: HYDROCODONE/APAP 5/325MG 1 EACH TABLET GT PRN ×4 (05:53→17:14)
[2017-01-21 06:21] LABS: BAND % (MANUAL) 2 % (0.0-5.0); LYMPHOCYTES % (MANUAL) 14 % (16-48); METAMYELOCYTES % 1 % (0-0); MONOCYTES % (MANUAL) 2 % (0-11.0); NEUTROPHILS % (MANUAL) 81 (42-76)
[2017-01-21] MEDS: MUPIROCIN OINT 2% 22 GM TUBE SCH ×2 (09:00→14:03)
[2017-01-21] MEDS: THIAMINE HCL 100 MG TABLET GT SCH (09:00)
[2017-01-21] MEDS: HYDROGEL DRESSING 90 GM TUBE TP SCH (09:00)
[2017-01-21] MEDS: LEVETIRACETAM SOL (5 ML) 100 MG/ML UDC GT SCH (09:59)
[2017-01-21] MEDS: PROSOURCE / PROSTAT (PYXIS) 30 ML UDC GT SCH ×2 (09:59→17:21)
[2017-01-21] MEDS: PANTOPRAZOLE 40 MG VIAL IV SCH ×2 (09:59→22:02)
[2017-01-21] MEDS: DOCUSATE SODIUM LIQ 100 MG/10 ML UDC NG SCH (09:59)
[2017-01-21] MEDS: SUCRALFATE 1 G/10 ML UDC GT SCH ×4 (09:59→22:00)
[2017-01-21] MEDS: LACTOBACILLUS RHAMNOSUS GG 1 EACH CAP.SPRINK PO SCH ×2 (09:59→17:14)
[2017-01-21] MEDS: MULTIVITAMINS,THERAGRAN 1 UDTAB TABLET PO SCH (10:00)
[2017-01-21] MEDS: ASCORBIC ACID 500 MG TABLET GT SCH (10:00)
[2017-01-21] MEDS ORDERED: IV NS 0.9% 1,000 ML IV PRN (11:00)
[2017-01-21] MEDS: GLYTROL 1,000 ML BAG GT PRN (11:11)
[2017-01-21 12:03] LABS: HEMOGLOBIN 9.7 g/dL (11.5-14.8)
[2017-01-21] MEDS ORDERED: NOREPINEPHRINE 8 MG in IV D5W 500 ML IV PRN ×2 (19:00→21:00)
[2017-01-21] MEDS: NOREPINEPHRINE 16 MG in IV D5W 500 ML IV PRN (20:16)
[2017-01-21] MEDS: LEVETIRACETAM (500MG) 500 MG in IV NS 0.9% 100 ML IV SCH (21:58)
[2017-01-21] MEDS: METRONIDAZOLE 500MG/ NS 100ML 500 MG in PREMIX 1 EA IV SCH (21:59)
[2017-01-21] MEDS: IV NS 0.9% 250 ML IV PRN (22:07)
[2017-01-21] MEDS: IV D5/ 0.9% NACL 1,000 ML IV PRN (22:21)
[2017-01-22] VITALS (109 sets, daily range): BP systolic 89–156; BP diastolic 22–97
[2017-01-22 00:26] LABS: HEMATOCRIT 31 % (33-45); HEMOGLOBIN 10.2 g/dL (11.5-14.8); LYMPHOCYTES # (AUTO) 1.1 /CMM (0.8-4.8); LYMPHOCYTES % (AUTO) 1.5 % (20.0-44.0); MEAN CORPUSCULAR HEMOGLOBIN 28 PG (26.0-33.0); MEAN CORPUSCULAR HGB CONC 33 g/dl (31.0-36.0); MEAN CORPUSCULAR VOLUME 84 fL (82-100); MONOCYTES # (AUTO) 0.2 /CMM (0.1-1.30); MONOCYTES % (AUTO) 0.3 % (2.0-12.0); NEUTROPHILS # (AUTO) 70.9 /CMM (1.8-8.9); NEUTROPHILS % (AUTO) 98.2 % (43.0-81.0); PLATELET COUNT (AUTO) 212 /CMM (150-450)
[2017-01-22 00:39] LABS: CALCIUM, SERUM 7.9 mg/dL (8.5-10.1); CREATININE 0.8 mg/dL (0.6-1.3); PHOSPHORUS 1.9 mg/dL (2.5-4.9)
[2017-01-22 00:46] LABS: MAGNESIUM 1.2 mg/dL (1.8-2.4); POTASSIUM 2.5 mmol/L (3.5-5.1)
[2017-01-22] MEDS: CEFTAZIDIME 1 G in IV D5W 50 ML IV SCH ×2 (00:49→08:55)
[2017-01-22 01:18] LABS: WHITE BLOOD COUNT (AUTO) 72.2 K/uL (4.3-11.0)
[2017-01-22] MEDS ORDERED: POTASSIUM PHOSPHATE MM 15 MMOL in IV D5W 250 ML IV SCH ×3 (01:30→08:30)
[2017-01-22 01:41] LABS: BAND % (MANUAL) 59 % (0.0-5.0); LYMPHOCYTES % (MANUAL) 3 % (16-48); METAMYELOCYTES % 2 % (0-0); NEUTROPHILS % (MANUAL) 35 (42-76); PROMYELOCYTES % 1 % (0-0)
[2017-01-22] MEDS: POTASSIUM CL. PREMIX PERIPHER. 50 ML IV SCH ×6 (01:56→08:16)
[2017-01-22] MEDS: Magnesium 1GM/D5W 100ML PREMIX 100 ML IV SCH ×4 (02:21→05:23)
[2017-01-22] MEDS: LANOLIN/MIN OIL/PETROLAT,WHT 3.5 GM TUBE EACHEYE SCH ×3 (05:00→20:33)
[2017-01-22] MEDS: METRONIDAZOLE 500MG/ NS 100ML 500 MG in PREMIX 1 EA IV SCH ×3 (05:00→21:19)
[2017-01-22] MEDS: BLOOD SUGAR DIAGNOSTIC 1 EACH STRIP IN SCH ×4 (05:46→23:45)
[2017-01-22] MEDS: INSULIN REGULAR, HUMAN 100 UNIT/ML 3 ML VIAL SQ PRN ×4 (05:48→23:43)
[2017-01-22] MEDS ORDERED: POTASSIUM CL. PREMIX PERIPHER. 50 ML ONE (05:50)
[2017-01-22 06:19] LABS: HEMATOCRIT 29 % (33-45); HEMOGLOBIN 9.8 g/dL (11.5-14.8); LYMPHOCYTES # (AUTO) 2.4 /CMM (0.8-4.8); MEAN CORPUSCULAR HEMOGLOBIN 28 PG (26.0-33.0); MEAN CORPUSCULAR HGB CONC 33 g/dl (31.0-36.0); MEAN CORPUSCULAR VOLUME 84 fL (82-100); MONOCYTES # (AUTO) 0.8 /CMM (0.1-1.30); MONOCYTES % (AUTO) 0.9 % (2.0-12.0); NEUTROPHILS # (AUTO) 77.3 /CMM (1.8-8.9); NEUTROPHILS % (AUTO) 96.1 % (43.0-81.0); PLATELET COUNT (AUTO) 172 /CMM (150-450); RDW COEFFICIENT OF VARIATION 18.3 (11.5-15.0); RED BLOOD CELL COUNT(AUTO) 3.49 MIL/uL (4.0-5.2)
[2017-01-22 06:38] LABS: BILIRUBIN,DIRECT 0.2 mg/dL (0.0-0.2); BILIRUBIN,TOTAL 0.4 mg/dL (0.2-1.0)
[2017-01-22 06:55] LABS: WHITE BLOOD COUNT (AUTO) 80.4 K/uL (4.3-11.0)
[2017-01-22] MEDS: SUCRALFATE 1 G/10 ML UDC GT SCH ×4 (07:30→21:19)
[2017-01-22] MEDS ORDERED: POTASSIUM CL. PREMIX PERIPHER. 50 ML IV SCH (08:16)
[2017-01-22] MEDS: PROSOURCE / PROSTAT (PYXIS) 30 ML UDC GT SCH ×2 (08:35→16:24)
[2017-01-22] MEDS: ASCORBIC ACID 500 MG TABLET GT SCH (08:35)
[2017-01-22] MEDS: THIAMINE HCL 100 MG TABLET GT SCH (08:35)
[2017-01-22] MEDS: DOCUSATE SODIUM LIQ 100 MG/10 ML UDC NG SCH (08:36)
[2017-01-22] MEDS: LACTOBACILLUS RHAMNOSUS GG 1 EACH CAP.SPRINK PO SCH ×2 (08:38→16:24)
[2017-01-22] MEDS: MULTIVITAMINS,THERAGRAN 1 UDTAB TABLET PO SCH (08:38)
[2017-01-22] MEDS: IV D5/ 0.9% NACL 1,000 ML IV PRN ×3 (08:54→23:31)
[2017-01-22] MEDS: PANTOPRAZOLE 40 MG VIAL IV SCH ×2 (09:20→20:31)
[2017-01-22] MEDS: LEVETIRACETAM (500MG) 500 MG in IV NS 0.9% 100 ML IV SCH ×2 (09:20→20:28)
[2017-01-22] MEDS: MUPIROCIN OINT 2% 22 GM TUBE SCH ×2 (09:22→20:35)
[2017-01-22] MEDS: HYDROGEL DRESSING 90 GM TUBE TP SCH (09:22)
[2017-01-22 09:47] LABS: BAND % (MANUAL) 18 % (0.0-5.0); LYMPHOCYTES % (MANUAL) 2 % (16-48); METAMYELOCYTES % 1 % (0-0); MONOCYTES % (MANUAL) 2 % (0-11.0); MYELOCYTES % 1 % (0-0); NEUTROPHILS % (MANUAL) 76 (42-76)
[2017-01-22 12:00] LABS: BASOPHILS % (AUTO) 0.1 % (0.0-2.0); EOSINOPHILS % (AUTO) 0.1 % (0.0-6.0); HEMATOCRIT 28 % (33-45); HEMOGLOBIN 9.3 g/dL (11.5-14.8); LYMPHOCYTES # (AUTO) 2.9 /CMM (0.8-4.8); LYMPHOCYTES % (AUTO) 5.9 % (20.0-44.0); MEAN CORPUSCULAR HEMOGLOBIN 28 PG (26.0-33.0); MEAN CORPUSCULAR HGB CONC 33 g/dl (31.0-36.0); MEAN CORPUSCULAR VOLUME 84 fL (82-100); MONOCYTES # (AUTO) 0.6 /CMM (0.1-1.30); MONOCYTES % (AUTO) 1.2 % (2.0-12.0); NEUTROPHILS # (AUTO) 45.6 /CMM (1.8-8.9); NEUTROPHILS % (AUTO) 92.7 % (43.0-81.0); PLATELET COUNT (AUTO) 127 /CMM (150-450); RDW COEFFICIENT OF VARIATION 18.5 (11.5-15.0)
[2017-01-22 12:15] LABS: CALCIUM, SERUM 7.9 mg/dL (8.5-10.1); CREATININE 0.9 mg/dL (0.6-1.3); POTASSIUM 3.2 mmol/L (3.5-5.1)
[2017-01-22 12:21] LABS: WHITE BLOOD COUNT (AUTO) 49.2 K/uL (4.3-11.0)
[2017-01-22 13:59] LABS: BAND % (MANUAL) 16 % (0.0-5.0); EOSINOPHILS % (MANUAL) 1 % (0-4); LYMPHOCYTES % (MANUAL) 6 % (16-48); NEUTROPHILS % (MANUAL) 77 (42-76)
[2017-01-22] MEDS ORDERED: DOSING PER PHARMACY-AMIKACI IV XX PRN (15:00)
[2017-01-22] MEDS ORDERED: FEE PK DOSING 1 MIN EA MC ONE (15:11)
[2017-01-22] MEDS ORDERED: AMIKACIN IV SCH (16:00)
[2017-01-22] MEDS ORDERED: D5W IV SCH (16:00)
[2017-01-22] MEDS ORDERED: VANCOMYCIN HCL 125 MG/2.5 ML ORAL.SUSP PO SCH (16:00)
[2017-01-22] MEDS: NOREPINEPHRINE 16 MG in IV D5W 500 ML IV PRN (16:32)
[2017-01-22] MEDS: MEROPENEM 1 G in IV NS 0.9% 100 ML IV SCH (17:13)
[2017-01-22] MEDS ORDERED: LINEZOLID RTU BAG 600 MG in PREMIX 1 EA IV SCH (18:00)
[2017-01-22] MEDS: FLUCONAZOLE IN NS 100 MG in PREMIX 1 EA IV SCH ×2 (18:50)
[2017-01-22] MEDS: LINEZOLID RTU BAG 600 MG in PREMIX 1 EA IV SCH (20:18)
[2017-01-23] VITALS (36 sets, daily range): BP systolic 84–150; BP diastolic 39–78
[2017-01-23 00:30] LABS: EOSINOPHILS # (AUTO) 0.1 /CMM (0.0-0.7); EOSINOPHILS % (AUTO) 0.3 % (0.0-6.0); HEMATOCRIT 23 % (33-45); HEMOGLOBIN 7.5 g/dL (11.5-14.8); LYMPHOCYTES # (AUTO) 1.7 /CMM (0.8-4.8); LYMPHOCYTES % (AUTO) 7.6 % (20.0-44.0); MEAN CORPUSCULAR HEMOGLOBIN 28 PG (26.0-33.0); MEAN CORPUSCULAR HGB CONC 33 g/dl (31.0-36.0); MEAN CORPUSCULAR VOLUME 85 fL (82-100); MONOCYTES # (AUTO) 0.3 /CMM (0.1-1.30); MONOCYTES % (AUTO) 1.4 % (2.0-12.0); NEUTROPHILS # (AUTO) 20.2 /CMM (1.8-8.9); NEUTROPHILS % (AUTO) 90.7 % (43.0-81.0); PLATELET COUNT (AUTO) 72 /CMM (150-450); RDW COEFFICIENT OF VARIATION 18.5 (11.5-15.0); RED BLOOD CELL COUNT(AUTO) 2.69 MIL/uL (4.0-5.2); WHITE BLOOD COUNT (AUTO) 22.2 K/uL (4.3-11.0)
[2017-01-23] MEDS: MEROPENEM 1 G in IV NS 0.9% 100 ML IV SCH ×3 (00:48→16:20)
[2017-01-23 00:59] LABS: BAND % (MANUAL) 16 % (0.0-5.0); LYMPHOCYTES % (MANUAL) 8 % (16-48); NEUTROPHILS % (MANUAL) 76 (42-76)
[2017-01-23] MEDS: IV NS 0.9% 250 ML IV PRN (04:11)
[2017-01-23] MEDS ORDERED: IV NS 0.9% 250 ML IV PRN (04:30)
[2017-01-23 04:38] LABS: EOSINOPHILS # (AUTO) 0.1 /CMM (0.0-0.7); EOSINOPHILS % (AUTO) 0.7 % (0.0-6.0); HEMATOCRIT 23 % (33-45); HEMOGLOBIN 7.7 g/dL (11.5-14.8); LYMPHOCYTES # (AUTO) 1.9 /CMM (0.8-4.8); LYMPHOCYTES % (AUTO) 10.7 % (20.0-44.0); MEAN CORPUSCULAR HEMOGLOBIN 28 PG (26.0-33.0); MEAN CORPUSCULAR HGB CONC 33 g/dl (31.0-36.0); MEAN CORPUSCULAR VOLUME 84 fL (82-100); MONOCYTES # (AUTO) 0.3 /CMM (0.1-1.30); MONOCYTES % (AUTO) 1.7 % (2.0-12.0); NEUTROPHILS # (AUTO) 15.4 /CMM (1.8-8.9); NEUTROPHILS % (AUTO) 86.9 % (43.0-81.0); PLATELET COUNT (AUTO) 62 /CMM (150-450); RED BLOOD CELL COUNT(AUTO) 2.74 MIL/uL (4.0-5.2); WHITE BLOOD COUNT (AUTO) 17.7 K/uL (4.3-11.0)
[2017-01-23 04:55] LABS: CALCIUM, SERUM 7.5 mg/dL (8.5-10.1)
[2017-01-23 05:04] LABS: POTASSIUM 2.7 mmol/L (3.5-5.1)
[2017-01-23 05:13] LABS: BAND % (MANUAL) 15 % (0.0-5.0); EOSINOPHILS % (MANUAL) 1 % (0-4); LYMPHOCYTES % (MANUAL) 12 % (16-48); MONOCYTES % (MANUAL) 3 % (0-11.0); NEUTROPHILS % (MANUAL) 69 (42-76)
[2017-01-23] MEDS: METRONIDAZOLE 500MG/ NS 100ML 500 MG in PREMIX 1 EA IV SCH ×3 (05:38→21:49)
[2017-01-23] MEDS: LANOLIN/MIN OIL/PETROLAT,WHT 3.5 GM TUBE EACHEYE SCH ×3 (05:42→21:50)
[2017-01-23] MEDS: BLOOD SUGAR DIAGNOSTIC 1 EACH STRIP IN SCH ×3 (06:00→17:01)
[2017-01-23] MEDS: INSULIN REGULAR, HUMAN 100 UNIT/ML 3 ML VIAL SQ PRN (06:02)
[2017-01-23] MEDS ORDERED: POTASSIUM CL. PREMIX PERIPHER. 50 ML ONE (06:05)
[2017-01-23] MEDS: POTASSIUM CL. PREMIX PERIPHER. 50 ML IV SCH ×6 (06:08→11:54)
[2017-01-23] MEDS: SUCRALFATE 1 G/10 ML UDC GT SCH ×4 (07:19→21:49)
[2017-01-23] MEDS: LINEZOLID RTU BAG 600 MG in PREMIX 1 EA IV SCH (07:33)
[2017-01-23] MEDS: LEVETIRACETAM (500MG) 500 MG in IV NS 0.9% 100 ML IV SCH ×2 (07:52→21:14)
[2017-01-23] MEDS: PROSOURCE / PROSTAT (PYXIS) 30 ML UDC GT SCH ×2 (08:15→16:12)
[2017-01-23] MEDS: DOCUSATE SODIUM LIQ 100 MG/10 ML UDC NG SCH (08:15)
[2017-01-23] MEDS: THIAMINE HCL 100 MG TABLET GT SCH (08:15)
[2017-01-23] MEDS: ASCORBIC ACID 500 MG TABLET GT SCH (08:15)
[2017-01-23] MEDS: LACTOBACILLUS RHAMNOSUS GG 1 EACH CAP.SPRINK PO SCH ×2 (08:16→16:13)
[2017-01-23] MEDS: MULTIVITAMINS,THERAGRAN 1 UDTAB TABLET PO SCH (08:16)
[2017-01-23] MEDS: PANTOPRAZOLE 40 MG VIAL IV SCH ×2 (08:20→21:49)
[2017-01-23] MEDS: HYDROGEL DRESSING 90 GM TUBE TP SCH (08:20)
[2017-01-23] MEDS: MUPIROCIN OINT 2% 22 GM TUBE SCH ×2 (08:21→21:49)
[2017-01-23] MEDS: FLUCONAZOLE IN NS 100 MG in PREMIX 1 EA IV SCH ×2 (15:29)
[2017-01-24] VITALS: BP 127/75
[2017-01-24 00:29] LABS: BASOPHILS % (AUTO) 0.1 % (0.0-2.0); EOSINOPHILS # (AUTO) 0.2 /CMM (0.0-0.7); EOSINOPHILS % (AUTO) 1.4 % (0.0-6.0); HEMATOCRIT 26 % (33-45); HEMOGLOBIN 8.6 g/dL (11.5-14.8); LYMPHOCYTES # (AUTO) 0.8 /CMM (0.8-4.8); MEAN CORPUSCULAR HEMOGLOBIN 28 PG (26.0-33.0); MEAN CORPUSCULAR HGB CONC 33 g/dl (31.0-36.0); MEAN CORPUSCULAR VOLUME 84 fL (82-100); MONOCYTES # (AUTO) 0.4 /CMM (0.1-1.30); MONOCYTES % (AUTO) 2.4 % (2.0-12.0); NEUTROPHILS # (AUTO) 14.7 /CMM (1.8-8.9); NEUTROPHILS % (AUTO) 91.1 % (43.0-81.0); PLATELET COUNT (AUTO) 62 /CMM (150-450); RDW COEFFICIENT OF VARIATION 18.9 (11.5-15.0); RED BLOOD CELL COUNT(AUTO) 3.09 MIL/uL (4.0-5.2); WHITE BLOOD COUNT (AUTO) 16.1 K/uL (4.3-11.0)
[2017-01-24] MEDS: BLOOD SUGAR DIAGNOSTIC 1 EACH STRIP IN SCH ×4 (00:40→17:04)
[2017-01-24 00:46] LABS: BAND % (MANUAL) 9 % (0.0-5.0); EOSINOPHILS % (MANUAL) 1 % (0-4); LYMPHOCYTES % (MANUAL) 5 % (16-48); MONOCYTES % (MANUAL) 3 % (0-11.0); NEUTROPHILS % (MANUAL) 82 (42-76)
[2017-01-24] MEDS: MEROPENEM 1 G in IV NS 0.9% 100 ML IV SCH ×3 (01:02→17:03)
[2017-01-24 04:00] VITALS: BP 120/74
[2017-01-24] MEDS ORDERED: AMIKACIN 1,000 MG in IV D5W 100 ML IV SCH (05:00)
[2017-01-24] MEDS: LANOLIN/MIN OIL/PETROLAT,WHT 3.5 GM TUBE EACHEYE SCH ×3 (05:18→21:29)
[2017-01-24] MEDS: METRONIDAZOLE 500MG/ NS 100ML 500 MG in PREMIX 1 EA IV SCH ×3 (05:18→21:24)
[2017-01-24] MEDS: SUCRALFATE 1 G/10 ML UDC GT SCH ×4 (06:42→21:24)
[2017-01-24 07:14] LABS: CALCIUM, SERUM 7.8 mg/dL (8.5-10.1); CREATININE 0.9 mg/dL (0.6-1.3); POTASSIUM 3.2 mmol/L (3.5-5.1)
[2017-01-24 08:00] VITALS: BP_SYST 123; BP_SYST 127; BP_DIAS 73
[2017-01-24] MEDS: MULTIVITAMINS,THERAGRAN 1 UDTAB TABLET PO SCH (08:03)
[2017-01-24] MEDS: ASCORBIC ACID 500 MG TABLET GT SCH (08:03)
[2017-01-24] MEDS: THIAMINE HCL 100 MG TABLET GT SCH (08:03)
[2017-01-24] MEDS: PROSOURCE / PROSTAT (PYXIS) 30 ML UDC GT SCH ×2 (08:03→16:19)
[2017-01-24] MEDS: DOCUSATE SODIUM LIQ 100 MG/10 ML UDC NG SCH (08:03)
[2017-01-24] MEDS: LACTOBACILLUS RHAMNOSUS GG 1 EACH CAP.SPRINK PO SCH ×2 (08:03→16:17)
[2017-01-24] MEDS: MUPIROCIN OINT 2% 22 GM TUBE SCH ×2 (08:17→21:29)
[2017-01-24] MEDS: PANTOPRAZOLE 40 MG VIAL IV SCH ×2 (08:17→21:24)
[2017-01-24] MEDS: LEVETIRACETAM (500MG) 500 MG in IV NS 0.9% 100 ML IV SCH ×2 (08:17→21:25)
[2017-01-24] MEDS: HYDROGEL DRESSING 90 GM TUBE TP SCH (08:18)
[2017-01-24] MEDS ORDERED: POTASSIUM CHLORIDE 20 MEQ POWDER PACKET GT SCH (10:00)
[2017-01-24 12:00] VITALS: BP 124/70
[2017-01-24] MEDS: INSULIN REGULAR, HUMAN 100 UNIT/ML 3 ML VIAL SQ PRN ×2 (12:29→17:08)
[2017-01-24] MEDS: AMIKACIN IV SCH (15:15)
[2017-01-24] MEDS: D5W IV SCH (15:15)
[2017-01-24 16:00] VITALS: BP_SYST 113; BP_SYST 131; BP_DIAS 66
[2017-01-24] MEDS: FLUCONAZOLE IN NS 100 MG in PREMIX 1 EA IV SCH ×2 (16:17)
[2017-01-24] MEDS: IV NS 0.9% 250 ML IV PRN (18:14)
[2017-01-24 20:00] VITALS: BP 109/63
[2017-01-25] VITALS: BP 105/55
[2017-01-25] MEDS: BLOOD SUGAR DIAGNOSTIC 1 EACH STRIP IN SCH ×4 (00:51→17:33)
[2017-01-25] MEDS: MEROPENEM 1 G in IV NS 0.9% 100 ML IV SCH ×3 (00:56→16:14)
[2017-01-25 04:00] VITALS: BP 107/60
[2017-01-25] MEDS: LANOLIN/MIN OIL/PETROLAT,WHT 3.5 GM TUBE EACHEYE SCH ×3 (05:22→21:03)
[2017-01-25] MEDS: METRONIDAZOLE 500MG/ NS 100ML 500 MG in PREMIX 1 EA IV SCH ×3 (05:22→21:03)
[2017-01-25 06:58] LABS: BASOPHILS % (AUTO) 0.4 % (0.0-2.0); EOSINOPHILS # (AUTO) 0.3 /CMM (0.0-0.7); EOSINOPHILS % (AUTO) 4.2 % (0.0-6.0); HEMATOCRIT 24 % (33-45); LYMPHOCYTES # (AUTO) 1.5 /CMM (0.8-4.8); LYMPHOCYTES % (AUTO) 19.3 % (20.0-44.0); MEAN CORPUSCULAR HEMOGLOBIN 28 PG (26.0-33.0); MEAN CORPUSCULAR HGB CONC 34 g/dl (31.0-36.0); MEAN CORPUSCULAR VOLUME 84 fL (82-100); MONOCYTES # (AUTO) 0.3 /CMM (0.1-1.30); MONOCYTES % (AUTO) 4.4 % (2.0-12.0); NEUTROPHILS # (AUTO) 5.6 /CMM (1.8-8.9); NEUTROPHILS % (AUTO) 71.7 % (43.0-81.0); RDW COEFFICIENT OF VARIATION 18.8 (11.5-15.0); RED BLOOD CELL COUNT(AUTO) 2.84 MIL/uL (4.0-5.2); WHITE BLOOD COUNT (AUTO) 7.8 K/uL (4.3-11.0)
[2017-01-25 07:07] LABS: PLATELET COUNT (AUTO) 44 /CMM (150-450)
[2017-01-25 07:09] LABS: CALCIUM, SERUM 7.7 mg/dL (8.5-10.1); CREATININE 0.8 mg/dL (0.6-1.3); POTASSIUM 3.8 mmol/L (3.5-5.1)
[2017-01-25 08:00] VITALS: BP 109/79
[2017-01-25] MEDS: PANTOPRAZOLE 40 MG VIAL IV SCH ×2 (08:18→21:03)
[2017-01-25] MEDS: SUCRALFATE 1 G/10 ML UDC GT SCH ×4 (08:18→21:03)
[2017-01-25] MEDS: THIAMINE HCL 100 MG TABLET GT SCH (08:18)
[2017-01-25] MEDS: LACTOBACILLUS RHAMNOSUS GG 1 EACH CAP.SPRINK PO SCH ×2 (08:18→16:14)
[2017-01-25] MEDS: ASCORBIC ACID 500 MG TABLET GT SCH (08:18)
[2017-01-25] MEDS: DOCUSATE SODIUM LIQ 100 MG/10 ML UDC NG SCH (08:18)
[2017-01-25] MEDS: MULTIVITAMINS,THERAGRAN 1 UDTAB TABLET PO SCH (08:18)
[2017-01-25] MEDS: HYDROGEL DRESSING 90 GM TUBE TP PRN (08:21)
[2017-01-25] MEDS: HYDROGEL DRESSING 90 GM TUBE TP SCH (08:21)
[2017-01-25] MEDS: MUPIROCIN OINT 2% 22 GM TUBE SCH ×2 (08:22→21:03)
[2017-01-25] MEDS: PROSOURCE / PROSTAT (PYXIS) 30 ML UDC GT SCH ×2 (08:23→16:13)
[2017-01-25 09:00] LABS: BAND % (MANUAL) 23 % (0.0-5.0); EOSINOPHILS % (MANUAL) 1 % (0-4); LYMPHOCYTES % (MANUAL) 7 % (16-48); NEUTROPHILS % (MANUAL) 69 (42-76)
[2017-01-25] MEDS: LEVETIRACETAM (500MG) 500 MG in IV NS 0.9% 100 ML IV SCH ×2 (09:01→21:02)
[2017-01-25 12:00] VITALS: BP 130/79
[2017-01-25] MEDS: INSULIN REGULAR, HUMAN 100 UNIT/ML 3 ML VIAL SQ PRN (12:07)
[2017-01-25] MEDS: FLUCONAZOLE IN NS 100 MG in PREMIX 1 EA IV SCH ×2 (15:09)
[2017-01-25 16:00] VITALS: BP 132/68
[2017-01-25 20:00] VITALS: BP 137/74
[2017-01-26] VITALS: BP 91/62
[2017-01-26] MEDS: MEROPENEM 1 G in IV NS 0.9% 100 ML IV SCH ×2 (00:29→10:27)
[2017-01-26] MEDS: BLOOD SUGAR DIAGNOSTIC 1 EACH STRIP IN SCH ×4 (00:29→17:41)
[2017-01-26 04:00] VITALS: BP 105/56
[2017-01-26] MEDS: METRONIDAZOLE 500MG/ NS 100ML 500 MG in PREMIX 1 EA IV SCH (05:11)
[2017-01-26] MEDS: LANOLIN/MIN OIL/PETROLAT,WHT 3.5 GM TUBE EACHEYE SCH ×3 (05:12→21:17)
[2017-01-26 07:04] LABS: CALCIUM, SERUM 7.6 mg/dL (8.5-10.1); CREATININE 0.8 mg/dL (0.6-1.3); POTASSIUM 2.9 mmol/L (3.5-5.1)
[2017-01-26 08:00] VITALS: BP 118/74
[2017-01-26] MEDS: HYDROGEL DRESSING 90 GM TUBE TP SCH (08:18)
[2017-01-26] MEDS: PROSOURCE / PROSTAT (PYXIS) 30 ML UDC GT SCH ×2 (08:18→16:05)
[2017-01-26] MEDS: Z GUARD REMEDY 2 OZ OINT TP PRN ×3 (08:18→17:46)
[2017-01-26] MEDS: ASCORBIC ACID 500 MG TABLET GT SCH (08:19)
[2017-01-26] MEDS: SUCRALFATE 1 G/10 ML UDC GT SCH ×4 (08:19→21:17)
[2017-01-26] MEDS: DOCUSATE SODIUM LIQ 100 MG/10 ML UDC NG SCH (08:19)
[2017-01-26] MEDS: THIAMINE HCL 100 MG TABLET GT SCH (08:19)
[2017-01-26] MEDS: PANTOPRAZOLE 40 MG VIAL IV SCH ×2 (08:20→21:17)
[2017-01-26] MEDS: LACTOBACILLUS RHAMNOSUS GG 1 EACH CAP.SPRINK PO SCH ×2 (08:20→16:05)
[2017-01-26] MEDS: MULTIVITAMINS,THERAGRAN 1 UDTAB TABLET PO SCH (08:20)
[2017-01-26] MEDS: LEVETIRACETAM (500MG) 500 MG in IV NS 0.9% 100 ML IV SCH (08:21)
[2017-01-26] MEDS: MUPIROCIN OINT 2% 22 GM TUBE SCH ×2 (08:26→21:17)
[2017-01-26] MEDS: POTASSIUM CL. PREMIX PERIPHER. 50 ML IV SCH ×6 (11:13→17:40)
[2017-01-26] MEDS: IV D5/ 0.9% NACL 1,000 ML IV PRN ×2 (11:21→22:32)
[2017-01-26 12:00] VITALS: BP 101/61
[2017-01-26] MEDS: INSULIN REGULAR, HUMAN 100 UNIT/ML 3 ML VIAL SQ PRN (12:36)
[2017-01-26] MEDS: METRONIDAZOLE 500 MG TABLET GT SCH ×2 (13:28→21:17)
[2017-01-26] MEDS: D5W IV SCH (15:54)
[2017-01-26] MEDS: AMIKACIN IV SCH (15:54)
[2017-01-26] MEDS: FLUCONAZOLE (100 MG) 100 MG TABLET GT SCH (15:55)
[2017-01-26 16:00] VITALS: BP 123/68
[2017-01-26] MEDS: HYDROGEL DRESSING 90 GM TUBE TP PRN (17:46)
[2017-01-26 20:00] VITALS: BP 122/71
[2017-01-26] MEDS: LEVETIRACETAM SOL (5 ML) 100 MG/ML UDC GT SCH (21:17)
[2017-01-27] VITALS: BP 134/77
[2017-01-27] MEDS: INSULIN REGULAR, HUMAN 100 UNIT/ML 3 ML VIAL SQ PRN ×5 (01:31→23:30)
[2017-01-27] MEDS: BLOOD SUGAR DIAGNOSTIC 1 EACH STRIP IN SCH ×5 (01:34→23:26)
[2017-01-27 04:00] VITALS: BP 114/66
[2017-01-27] MEDS: IV D5/ 0.9% NACL 1,000 ML IV PRN ×4 (05:08→20:09)
[2017-01-27] MEDS: LANOLIN/MIN OIL/PETROLAT,WHT 3.5 GM TUBE EACHEYE SCH ×3 (05:09→21:08)
[2017-01-27] MEDS: METRONIDAZOLE 500 MG TABLET GT SCH ×3 (05:12→21:03)
[2017-01-27 06:45] LABS: CALCIUM, SERUM 7.3 mg/dL (8.5-10.1); CREATININE 0.8 mg/dL (0.6-1.3); POTASSIUM 3.2 mmol/L (3.5-5.1)
[2017-01-27 08:00] VITALS: BP 114/77
[2017-01-27] MEDS: LEVETIRACETAM SOL (5 ML) 100 MG/ML UDC GT SCH ×2 (08:58→21:03)
[2017-01-27] MEDS: ASCORBIC ACID 500 MG TABLET GT SCH (08:58)
[2017-01-27] MEDS: LACTOBACILLUS RHAMNOSUS GG 1 EACH CAP.SPRINK PO SCH ×2 (08:58→16:33)
[2017-01-27] MEDS: DOCUSATE SODIUM LIQ 100 MG/10 ML UDC NG SCH (08:58)
[2017-01-27] MEDS: THIAMINE HCL 100 MG TABLET GT SCH (08:58)
[2017-01-27] MEDS: SUCRALFATE 1 G/10 ML UDC GT SCH ×4 (08:58→21:02)
[2017-01-27] MEDS: PANTOPRAZOLE 40 MG VIAL IV SCH ×2 (08:59→21:03)
[2017-01-27] MEDS: PROSOURCE / PROSTAT (PYXIS) 30 ML UDC GT SCH ×2 (08:59→16:33)
[2017-01-27] MEDS: MULTIVITAMINS,THERAGRAN 1 UDTAB TABLET PO SCH (08:59)
[2017-01-27] MEDS: Z GUARD REMEDY 2 OZ OINT TP PRN (08:59)
[2017-01-27] MEDS: HYDROGEL DRESSING 90 GM TUBE TP SCH (08:59)
[2017-01-27] MEDS: MUPIROCIN OINT 2% 22 GM TUBE SCH ×2 (09:01→21:07)
[2017-01-27] MEDS: POTASSIUM CHLORIDE 20 MEQ TAB.PRT.SR PO SCH ×2 (10:36→12:31)
[2017-01-27 12:00] VITALS: BP 140/87
[2017-01-27 16:00] VITALS: BP 132/80
[2017-01-27] MEDS: FLUCONAZOLE (100 MG) 100 MG TABLET GT SCH (16:33)
[2017-01-27] MEDS ORDERED: METOCLOPRAMIDE HCL 10 MG/10 ML UDC GT SCH (18:00)
[2017-01-27 20:00] VITALS: BP 131/83
[2017-01-28] VITALS: BP 140/76
[2017-01-28] MEDS: IV D5/ 0.9% NACL 1,000 ML IV PRN ×4 (00:47→21:32)
[2017-01-28 04:00] VITALS: BP_SYST 121; BP_DIAS 76; BP_DIAS 86
[2017-01-28] MEDS: LANOLIN/MIN OIL/PETROLAT,WHT 3.5 GM TUBE EACHEYE SCH ×3 (05:31→21:38)
[2017-01-28] MEDS: METRONIDAZOLE 500 MG TABLET GT SCH ×3 (05:31→21:16)
[2017-01-28] MEDS: BLOOD SUGAR DIAGNOSTIC 1 EACH STRIP IN SCH ×3 (05:32→17:23)
[2017-01-28] MEDS: INSULIN REGULAR, HUMAN 100 UNIT/ML 3 ML VIAL SQ PRN ×3 (05:43→17:29)
[2017-01-28 06:34] LABS: CALCIUM, SERUM 7.2 mg/dL (8.5-10.1); CREATININE 0.7 mg/dL (0.6-1.3)
[2017-01-28] MEDS: SUCRALFATE 1 G/10 ML UDC GT SCH ×4 (06:37→21:15)
[2017-01-28 08:00] VITALS: BP 137/78
[2017-01-28 08:21] LABS: BASOPHILS % (AUTO) 0.2 % (0.0-2.0); EOSINOPHILS # (AUTO) 0.4 /CMM (0.0-0.7); EOSINOPHILS % (AUTO) 6.1 % (0.0-6.0); HEMATOCRIT 25 % (33-45); HEMOGLOBIN 8.2 g/dL (11.5-14.8); LYMPHOCYTES # (AUTO) 1.4 /CMM (0.8-4.8); LYMPHOCYTES % (AUTO) 22.2 % (20.0-44.0); MEAN CORPUSCULAR HEMOGLOBIN 28 PG (26.0-33.0); MEAN CORPUSCULAR HGB CONC 33 g/dl (31.0-36.0); MEAN CORPUSCULAR VOLUME 84 fL (82-100); MONOCYTES # (AUTO) 0.2 /CMM (0.1-1.30); MONOCYTES % (AUTO) 2.5 % (2.0-12.0); NEUTROPHILS # (AUTO) 4.5 /CMM (1.8-8.9); PLATELET COUNT (AUTO) 56 /CMM (150-450); RDW COEFFICIENT OF VARIATION 18.1 (11.5-15.0); RED BLOOD CELL COUNT(AUTO) 2.94 MIL/uL (4.0-5.2); WHITE BLOOD COUNT (AUTO) 6.5 K/uL (4.3-11.0)
[2017-01-28] MEDS ORDERED: POTASSIUM CL. PREMIX PERIPHER. 50 ML IV SCH (08:30)
[2017-01-28] MEDS ORDERED: POTASSIUM CHLORIDE 10 MEQ/50 ML PREMIXED IVPB FOR PERIPHERAL LINE IV ONE (08:30)
[2017-01-28] MEDS: POTASSIUM CL. PREMIX PERIPHER. 50 ML IV SCH ×4 (08:40→11:15)
[2017-01-28] MEDS: LEVETIRACETAM SOL (5 ML) 100 MG/ML UDC GT SCH ×2 (08:44→21:15)
[2017-01-28] MEDS: THIAMINE HCL 100 MG TABLET GT SCH (08:44)
[2017-01-28] MEDS: ASCORBIC ACID 500 MG TABLET GT SCH (08:44)
[2017-01-28] MEDS: PROSOURCE / PROSTAT (PYXIS) 30 ML UDC GT SCH ×2 (08:44→17:22)
[2017-01-28] MEDS: LACTOBACILLUS RHAMNOSUS GG 1 EACH CAP.SPRINK PO SCH ×2 (08:45→17:23)
[2017-01-28] MEDS: DOCUSATE SODIUM LIQ 100 MG/10 ML UDC NG SCH (08:45)
[2017-01-28] MEDS: MULTIVITAMINS,THERAGRAN 1 UDTAB TABLET PO SCH (08:45)
[2017-01-28] MEDS: MUPIROCIN OINT 2% 22 GM TUBE SCH (08:55)
[2017-01-28] MEDS: Z GUARD REMEDY 2 OZ OINT TP PRN (08:55)
[2017-01-28] MEDS: HYDROGEL DRESSING 90 GM TUBE TP SCH (08:55)
[2017-01-28] MEDS: PANTOPRAZOLE 40 MG VIAL IV SCH ×2 (08:55→21:16)
[2017-01-28 10:03] LABS: BAND % (MANUAL) 17 % (0.0-5.0); EOSINOPHILS % (MANUAL) 9 % (0-4); LYMPHOCYTES % (MANUAL) 3 % (16-48); MONOCYTES % (MANUAL) 3 % (0-11.0); NEUTROPHILS % (MANUAL) 68 (42-76)
[2017-01-28] MEDS: Magnesium 1GM/D5W 100ML PREMIX 100 ML IV SCH ×2 (10:19→11:15)
[2017-01-28] MEDS: METOPROLOL TARTRATE INJ 5 MG/5 ML AMPUL IVP PRN ×2 (10:49→10:58)
[2017-01-28 12:00] VITALS: BP 101/49
[2017-01-28 16:00] VITALS: BP 104/54
[2017-01-28] MEDS: AMIKACIN IV SCH (17:22)
[2017-01-28] MEDS: D5W IV SCH (17:22)
[2017-01-28 20:00] VITALS: BP 126/75
[2017-01-29] VITALS (7 sets, daily range): BP systolic 135–158; BP diastolic 69–92
[2017-01-29] MEDS: METOPROLOL TARTRATE INJ 5 MG/5 ML AMPUL IVP PRN ×2 (00:08→22:07)
[2017-01-29] MEDS: BLOOD SUGAR DIAGNOSTIC 1 EACH STRIP IN SCH ×4 (00:51→17:08)
[2017-01-29] MEDS: INSULIN REGULAR, HUMAN 100 UNIT/ML 3 ML VIAL SQ PRN ×4 (00:52→17:16)
[2017-01-29] MEDS: METRONIDAZOLE 500 MG TABLET GT SCH ×3 (05:24→20:42)
[2017-01-29] MEDS: LANOLIN/MIN OIL/PETROLAT,WHT 3.5 GM TUBE EACHEYE SCH ×3 (05:59→20:43)
[2017-01-29 06:48] LABS: CALCIUM, SERUM 6.8 mg/dL (8.5-10.1); CREATININE 0.7 mg/dL (0.6-1.3); MAGNESIUM 1.5 mg/dL (1.8-2.4)
[2017-01-29 07:36] LABS: POTASSIUM 2.7 mmol/L (3.5-5.1)
[2017-01-29] MEDS: IV D5/ 0.9% NACL 1,000 ML IV PRN ×2 (08:57→21:36)
[2017-01-29] MEDS: POTASSIUM CL. PREMIX PERIPHER. 50 ML IV SCH ×12 (09:01→18:49)
[2017-01-29] MEDS: Magnesium 1GM/D5W 100ML PREMIX 100 ML IV SCH ×4 (09:01→10:12)
[2017-01-29] MEDS: LACTOBACILLUS RHAMNOSUS GG 1 EACH CAP.SPRINK PO SCH ×2 (09:04→17:08)
[2017-01-29] MEDS: ASCORBIC ACID 500 MG TABLET GT SCH (09:04)
[2017-01-29] MEDS: PANTOPRAZOLE 40 MG VIAL IV SCH ×2 (09:04→20:42)
[2017-01-29] MEDS: MULTIVITAMINS,THERAGRAN 1 UDTAB TABLET PO SCH (09:04)
[2017-01-29] MEDS: SUCRALFATE 1 G/10 ML UDC GT SCH ×4 (09:04→21:00)
[2017-01-29] MEDS: LEVETIRACETAM SOL (5 ML) 100 MG/ML UDC GT SCH ×2 (09:04→20:42)
[2017-01-29] MEDS: THIAMINE HCL 100 MG TABLET GT SCH (09:04)
[2017-01-29] MEDS: DOCUSATE SODIUM LIQ 100 MG/10 ML UDC NG SCH (09:04)
[2017-01-29] MEDS: PROSOURCE / PROSTAT (PYXIS) 30 ML UDC GT SCH ×2 (09:05→17:08)
[2017-01-29] MEDS: HYDROGEL DRESSING 90 GM TUBE TP SCH (09:05)
[2017-01-30] VITALS (7 sets, daily range): BP systolic 99–157; BP diastolic 49–78
[2017-01-30] MEDS: INSULIN REGULAR, HUMAN 100 UNIT/ML 3 ML VIAL SQ PRN ×5 (00:43→23:34)
[2017-01-30] MEDS: BLOOD SUGAR DIAGNOSTIC 1 EACH STRIP IN SCH ×5 (00:48→23:31)
[2017-01-30] MEDS: HYDROCODONE/APAP 5/325MG 1 EACH TABLET GT PRN ×3 (00:57→11:16)
[2017-01-30] MEDS: Z GUARD REMEDY 2 OZ OINT TP PRN (05:08)
[2017-01-30] MEDS: METRONIDAZOLE 500 MG TABLET GT SCH ×3 (05:08→22:05)
[2017-01-30] MEDS: LANOLIN/MIN OIL/PETROLAT,WHT 3.5 GM TUBE EACHEYE SCH ×3 (05:09→22:06)
[2017-01-30] MEDS: IV D5/ 0.9% NACL 1,000 ML IV PRN ×2 (05:09→15:38)
[2017-01-30 06:03] LABS: BASOPHILS % (AUTO) 0.2 % (0.0-2.0); EOSINOPHILS # (AUTO) 0.1 /CMM (0.0-0.7); EOSINOPHILS % (AUTO) 1.3 % (0.0-6.0); HEMATOCRIT 22 % (33-45); HEMOGLOBIN 7.2 g/dL (11.5-14.8); LYMPHOCYTES # (AUTO) 1.6 /CMM (0.8-4.8); LYMPHOCYTES % (AUTO) 16.7 % (20.0-44.0); MEAN CORPUSCULAR HEMOGLOBIN 28 PG (26.0-33.0); MEAN CORPUSCULAR HGB CONC 33 g/dl (31.0-36.0); MEAN CORPUSCULAR VOLUME 84 fL (82-100); MONOCYTES # (AUTO) 0.3 /CMM (0.1-1.30); MONOCYTES % (AUTO) 2.7 % (2.0-12.0); NEUTROPHILS # (AUTO) 7.8 /CMM (1.8-8.9); NEUTROPHILS % (AUTO) 79.1 % (43.0-81.0); PLATELET COUNT (AUTO) 79 /CMM (150-450); RDW COEFFICIENT OF VARIATION 18.2 (11.5-15.0); RED BLOOD CELL COUNT(AUTO) 2.59 MIL/uL (4.0-5.2); WHITE BLOOD COUNT (AUTO) 9.9 K/uL (4.3-11.0)
[2017-01-30 06:14] LABS: CREATININE 0.7 mg/dL (0.6-1.3); MAGNESIUM 1.8 mg/dL (1.8-2.4); POTASSIUM 3.6 mmol/L (3.5-5.1)
[2017-01-30 08:04] LABS: BAND % (MANUAL) 13 % (0.0-5.0); EOSINOPHILS % (MANUAL) 2 % (0-4); LYMPHOCYTES % (MANUAL) 16 % (16-48); MONOCYTES % (MANUAL) 1 % (0-11.0); NEUTROPHILS % (MANUAL) 68 (42-76)
[2017-01-30] MEDS: PROSOURCE / PROSTAT (PYXIS) 30 ML UDC GT SCH ×2 (09:00→17:25)
[2017-01-30] MEDS: LEVETIRACETAM SOL (5 ML) 100 MG/ML UDC GT SCH ×2 (11:14→22:05)
[2017-01-30] MEDS: POTASSIUM CL. PREMIX PERIPHER. 50 ML IV SCH ×2 (11:14→12:33)
[2017-01-30] MEDS: SUCRALFATE 1 G/10 ML UDC GT SCH ×4 (11:14→22:05)
[2017-01-30] MEDS: DOCUSATE SODIUM LIQ 100 MG/10 ML UDC NG SCH (11:15)
[2017-01-30] MEDS: LACTOBACILLUS RHAMNOSUS GG 1 EACH CAP.SPRINK PO SCH ×2 (11:15→17:25)
[2017-01-30] MEDS: ASCORBIC ACID 500 MG TABLET GT SCH (11:16)
[2017-01-30] MEDS: HYDROGEL DRESSING 90 GM TUBE TP SCH (11:18)
[2017-01-30] MEDS: THIAMINE HCL 100 MG TABLET GT SCH (11:22)
[2017-01-30] MEDS: MULTIVITAMINS,THERAGRAN 1 UDTAB TABLET PO SCH (11:22)
[2017-01-30] MEDS: PANTOPRAZOLE 40 MG VIAL IV SCH ×2 (11:22→22:05)
[2017-01-30] MEDS: D5W IV SCH (15:38)
[2017-01-30] MEDS: AMIKACIN IV SCH (15:38)
[2017-01-31] VITALS (7 sets, daily range): BP systolic 121–153; BP diastolic 68–86
[2017-01-31] MEDS: IV D5/ 0.9% NACL 1,000 ML IV PRN ×2 (02:32→16:28)
[2017-01-31] MEDS: LANOLIN/MIN OIL/PETROLAT,WHT 3.5 GM TUBE EACHEYE SCH ×3 (04:22→21:54)
[2017-01-31] MEDS: METRONIDAZOLE 500 MG TABLET GT SCH ×3 (04:22→21:53)
[2017-01-31] MEDS: INSULIN REGULAR, HUMAN 100 UNIT/ML 3 ML VIAL SQ PRN ×4 (05:08→23:23)
[2017-01-31] MEDS: BLOOD SUGAR DIAGNOSTIC 1 EACH STRIP IN SCH ×4 (05:10→23:19)
[2017-01-31 06:53] LABS: CREATININE 0.7 mg/dL (0.6-1.3); POTASSIUM 2.9 mmol/L (3.5-5.1)
[2017-01-31] MEDS: DOCUSATE SODIUM LIQ 100 MG/10 ML UDC NG SCH (10:20)
[2017-01-31] MEDS: MULTIVITAMINS,THERAGRAN 1 UDTAB TABLET PO SCH (10:20)
[2017-01-31] MEDS: ASCORBIC ACID 500 MG TABLET GT SCH (10:20)
[2017-01-31] MEDS: LEVETIRACETAM SOL (5 ML) 100 MG/ML UDC GT SCH ×2 (10:20→21:53)
[2017-01-31] MEDS: LACTOBACILLUS RHAMNOSUS GG 1 EACH CAP.SPRINK PO SCH ×2 (10:20→16:29)
[2017-01-31] MEDS: SUCRALFATE 1 G/10 ML UDC GT SCH ×4 (10:20→21:53)
[2017-01-31] MEDS: PANTOPRAZOLE 40 MG VIAL IV SCH ×2 (10:20→21:53)
[2017-01-31] MEDS: PROSOURCE / PROSTAT (PYXIS) 30 ML UDC GT SCH ×2 (10:20→16:28)
[2017-01-31] MEDS: HYDROGEL DRESSING 90 GM TUBE TP SCH (10:21)
[2017-01-31] MEDS: THIAMINE HCL 100 MG TABLET GT SCH (10:21)
[2017-01-31] MEDS: HYDROCODONE/APAP 5/325MG 1 EACH TABLET GT PRN ×2 (10:25→23:25)
[2017-01-31] MEDS: METOPROLOL TARTRATE INJ 5 MG/5 ML AMPUL IVP PRN ×2 (13:04→19:43)
[2017-01-31] MEDS: POTASSIUM CHLORIDE 20 MEQ POWDER PACKET GT SCH ×3 (13:22→15:13)
[2017-01-31 13:37] LABS: CALCIUM, SERUM 7.6 mg/dL (8.5-10.1); CREATININE 0.7 mg/dL (0.6-1.3); POTASSIUM 3.1 mmol/L (3.5-5.1)
[2017-01-31 13:48] LABS: BASOPHILS % (AUTO) 0.1 % (0.0-2.0); EOSINOPHILS # (AUTO) 0.2 /CMM (0.0-0.7); EOSINOPHILS % (AUTO) 1.5 % (0.0-6.0); HEMATOCRIT 23 % (33-45); HEMOGLOBIN 7.7 g/dL (11.5-14.8); LYMPHOCYTES # (AUTO) 1.5 /CMM (0.8-4.8); LYMPHOCYTES % (AUTO) 12.8 % (20.0-44.0); MEAN CORPUSCULAR HEMOGLOBIN 28 PG (26.0-33.0); MEAN CORPUSCULAR HGB CONC 33 g/dl (31.0-36.0); MEAN CORPUSCULAR VOLUME 84 fL (82-100); MONOCYTES # (AUTO) 0.4 /CMM (0.1-1.30); MONOCYTES % (AUTO) 3.1 % (2.0-12.0); NEUTROPHILS # (AUTO) 9.6 /CMM (1.8-8.9); NEUTROPHILS % (AUTO) 82.5 % (43.0-81.0); PLATELET COUNT (AUTO) 93 /CMM (150-450); RDW COEFFICIENT OF VARIATION 18.3 (11.5-15.0); WHITE BLOOD COUNT (AUTO) 11.6 K/uL (4.3-11.0)
[2017-01-31 14:24] LABS: BAND % (MANUAL) 5 % (0.0-5.0); EOSINOPHILS % (MANUAL) 1 % (0-4); LYMPHOCYTES % (MANUAL) 15 % (16-48); MONOCYTES % (MANUAL) 1 % (0-11.0); NEUTROPHILS % (MANUAL) 78 (42-76)
[2017-02-01] VITALS (12 sets, daily range): BP systolic 96–125; BP diastolic 48–80
[2017-02-01] MEDS: IV D5/ 0.9% NACL 1,000 ML IV PRN ×2 (03:24→13:45)
[2017-02-01] MEDS: METRONIDAZOLE 500 MG TABLET GT SCH ×3 (04:28→20:24)
[2017-02-01] MEDS: LANOLIN/MIN OIL/PETROLAT,WHT 3.5 GM TUBE EACHEYE SCH ×3 (04:28→20:28)
[2017-02-01] MEDS: BLOOD SUGAR DIAGNOSTIC 1 EACH STRIP IN SCH ×3 (05:42→18:03)
[2017-02-01] MEDS: INSULIN REGULAR, HUMAN 100 UNIT/ML 3 ML VIAL SQ PRN ×3 (05:51→18:07)
[2017-02-01 06:51] LABS: BASOPHILS % (AUTO) 0.2 % (0.0-2.0); EOSINOPHILS # (AUTO) 0.2 /CMM (0.0-0.7); EOSINOPHILS % (AUTO) 1.6 % (0.0-6.0); HEMATOCRIT 25 % (33-45); HEMOGLOBIN 8.4 g/dL (11.5-14.8); LYMPHOCYTES # (AUTO) 1.7 /CMM (0.8-4.8); LYMPHOCYTES % (AUTO) 17.3 % (20.0-44.0); MEAN CORPUSCULAR HEMOGLOBIN 28 PG (26.0-33.0); MEAN CORPUSCULAR HGB CONC 34 g/dl (31.0-36.0); MEAN CORPUSCULAR VOLUME 84 fL (82-100); MONOCYTES # (AUTO) 0.4 /CMM (0.1-1.30); MONOCYTES % (AUTO) 4.3 % (2.0-12.0); NEUTROPHILS # (AUTO) 7.7 /CMM (1.8-8.9); NEUTROPHILS % (AUTO) 76.6 % (43.0-81.0); PLATELET COUNT (AUTO) 95 /CMM (150-450); RDW COEFFICIENT OF VARIATION 16.6 (11.5-15.0); RED BLOOD CELL COUNT(AUTO) 2.96 MIL/uL (4.0-5.2)
[2017-02-01 07:13] LABS: CALCIUM, SERUM 7.4 mg/dL (8.5-10.1); CREATININE 0.6 mg/dL (0.6-1.3); POTASSIUM 3.4 mmol/L (3.5-5.1)
[2017-02-01] MEDS: SUCRALFATE 1 G/10 ML UDC GT SCH ×4 (07:30→22:08)
[2017-02-01] MEDS: PANTOPRAZOLE 40 MG VIAL IV SCH ×2 (08:34→20:24)
[2017-02-01] MEDS: HYDROGEL DRESSING 90 GM TUBE TP SCH (08:34)
[2017-02-01 08:45] LABS: BAND % (MANUAL) 1 % (0.0-5.0); EOSINOPHILS % (MANUAL) 2 % (0-4); LYMPHOCYTES % (MANUAL) 11 % (16-48); MONOCYTES % (MANUAL) 8 % (0-11.0); NEUTROPHILS % (MANUAL) 78 (42-76)
[2017-02-01] MEDS: LACTOBACILLUS RHAMNOSUS GG 1 EACH CAP.SPRINK PO SCH ×2 (09:00→16:23)
[2017-02-01] MEDS: PROSOURCE / PROSTAT (PYXIS) 30 ML UDC GT SCH ×2 (09:00→16:23)
[2017-02-01] MEDS ORDERED: POTASSIUM CHLORIDE 20 MEQ POWDER PACKET GT SCH ×2 (10:00→14:30)
[2017-02-01] MEDS ORDERED: POTASSIUM CL. PREMIX PERIPHER. 50 ML IV SCH ×3 (10:00→13:00)
[2017-02-01] MEDS: THIAMINE HCL 100 MG TABLET GT SCH (12:41)
[2017-02-01] MEDS: LEVETIRACETAM SOL (5 ML) 100 MG/ML UDC GT SCH ×2 (12:41→20:23)
[2017-02-01] MEDS: ASCORBIC ACID 500 MG TABLET GT SCH (12:42)
[2017-02-01] MEDS: DOCUSATE SODIUM LIQ 100 MG/10 ML UDC NG SCH (12:42)
[2017-02-01] MEDS: MULTIVITAMINS,THERAGRAN 1 UDTAB TABLET PO SCH (12:42)
[2017-02-01] MEDS: D5W IV SCH (16:10)
[2017-02-01] MEDS: AMIKACIN IV SCH (16:10)
[2017-02-02] VITALS: BP 131/82
[2017-02-02] MEDS: BLOOD SUGAR DIAGNOSTIC 1 EACH STRIP IN SCH ×5 (00:24→23:51)
[2017-02-02] MEDS: INSULIN REGULAR, HUMAN 100 UNIT/ML 3 ML VIAL SQ PRN ×5 (00:26→23:54)
[2017-02-02 04:00] VITALS: BP 130/73
[2017-02-02] MEDS: LANOLIN/MIN OIL/PETROLAT,WHT 3.5 GM TUBE EACHEYE SCH ×3 (04:30→20:40)
[2017-02-02] MEDS: IV D5/ 0.9% NACL 1,000 ML IV PRN ×2 (04:31→17:46)
[2017-02-02] MEDS: METRONIDAZOLE 500 MG TABLET GT SCH ×3 (04:32→20:27)
[2017-02-02 06:24] LABS: BASOPHILS % (AUTO) 0.2 % (0.0-2.0); EOSINOPHILS # (AUTO) 0.2 /CMM (0.0-0.7); EOSINOPHILS % (AUTO) 1.3 % (0.0-6.0); HEMATOCRIT 26 % (33-45); HEMOGLOBIN 8.8 g/dL (11.5-14.8); LYMPHOCYTES # (AUTO) 1.5 /CMM (0.8-4.8); LYMPHOCYTES % (AUTO) 12.1 % (20.0-44.0); MEAN CORPUSCULAR HEMOGLOBIN 29 PG (26.0-33.0); MEAN CORPUSCULAR HGB CONC 34 g/dl (31.0-36.0); MEAN CORPUSCULAR VOLUME 84 fL (82-100); MONOCYTES # (AUTO) 0.5 /CMM (0.1-1.30); MONOCYTES % (AUTO) 4.1 % (2.0-12.0); NEUTROPHILS # (AUTO) 9.9 /CMM (1.8-8.9); NEUTROPHILS % (AUTO) 82.3 % (43.0-81.0); PLATELET COUNT (AUTO) 108 /CMM (150-450); RDW COEFFICIENT OF VARIATION 17.1 (11.5-15.0); RED BLOOD CELL COUNT(AUTO) 3.07 MIL/uL (4.0-5.2)
[2017-02-02 06:40] LABS: CALCIUM, SERUM 7.4 mg/dL (8.5-10.1); CREATININE 0.6 mg/dL (0.6-1.3); MAGNESIUM 1.4 mg/dL (1.8-2.4); PHOSPHORUS 2.2 mg/dL (2.5-4.9); POTASSIUM 3.2 mmol/L (3.5-5.1)
[2017-02-02 08:00] VITALS: BP 117/67
[2017-02-02] MEDS: LEVETIRACETAM SOL (5 ML) 100 MG/ML UDC GT SCH ×2 (08:34→20:27)
[2017-02-02] MEDS: THIAMINE HCL 100 MG TABLET GT SCH (08:34)
[2017-02-02] MEDS: MULTIVITAMINS,THERAGRAN 1 UDTAB TABLET PO SCH (08:34)
[2017-02-02] MEDS: DOCUSATE SODIUM LIQ 100 MG/10 ML UDC NG SCH (08:34)
[2017-02-02] MEDS: PANTOPRAZOLE 40 MG VIAL IV SCH ×2 (08:34→20:28)
[2017-02-02] MEDS: ASCORBIC ACID 500 MG TABLET GT SCH (08:34)
[2017-02-02] MEDS: LACTOBACILLUS RHAMNOSUS GG 1 EACH CAP.SPRINK PO SCH ×2 (08:34→17:47)
[2017-02-02] MEDS: PROSOURCE / PROSTAT (PYXIS) 30 ML UDC GT SCH ×2 (08:35→17:47)
[2017-02-02] MEDS: HYDROGEL DRESSING 90 GM TUBE TP SCH (08:35)
[2017-02-02] MEDS: SUCRALFATE 1 G/10 ML UDC GT SCH ×4 (08:43→21:48)
[2017-02-02] MEDS ORDERED: POTASSIUM CL. PREMIX PERIPHER. 50 ML IV SCH (11:30)
[2017-02-02] MEDS: Magnesium 1GM/D5W 100ML PREMIX 100 ML IV SCH ×4 (11:37→15:59)
[2017-02-02 12:00] VITALS: BP 137/75
[2017-02-02] MEDS ORDERED: NEUTRA PHOS 1 POWD.PACKET NG ONE (12:30)
[2017-02-02 16:00] VITALS: BP 121/68
[2017-02-02] MEDS: Potassium Chloride 10 MEQ in IV D5W 50 ML IV SCH ×4 (16:37→20:27)
[2017-02-02 20:00] VITALS: BP 119/82
[2017-02-03] VITALS (7 sets, daily range): BP systolic 108–174; BP diastolic 66–92
[2017-02-03] MEDS: LANOLIN/MIN OIL/PETROLAT,WHT 3.5 GM TUBE EACHEYE SCH ×3 (05:45→21:38)
[2017-02-03] MEDS: METRONIDAZOLE 500 MG TABLET GT SCH ×3 (05:45→21:38)
[2017-02-03] MEDS: BLOOD SUGAR DIAGNOSTIC 1 EACH STRIP IN SCH ×4 (05:58→23:30)
[2017-02-03] MEDS: INSULIN REGULAR, HUMAN 100 UNIT/ML 3 ML VIAL SQ PRN ×4 (06:00→23:32)
[2017-02-03 06:45] LABS: CALCIUM, SERUM 7.5 mg/dL (8.5-10.1); CREATININE 0.6 mg/dL (0.6-1.3); POTASSIUM 3.8 mmol/L (3.5-5.1)
[2017-02-03] MEDS: LACTOBACILLUS RHAMNOSUS GG 1 EACH CAP.SPRINK PO SCH ×2 (08:31→18:25)
[2017-02-03] MEDS: LEVETIRACETAM SOL (5 ML) 100 MG/ML UDC GT SCH ×2 (08:31→21:38)
[2017-02-03] MEDS: SUCRALFATE 1 G/10 ML UDC GT SCH ×4 (08:31→21:38)
[2017-02-03] MEDS: AMIKACIN 350 MG in IV D5W 100 ML IV SCH (08:31)
[2017-02-03] MEDS: PANTOPRAZOLE 40 MG VIAL IV SCH ×2 (08:32→21:38)
[2017-02-03] MEDS: HYDROGEL DRESSING 90 GM TUBE TP SCH (08:32)
[2017-02-03] MEDS: DOCUSATE SODIUM LIQ 100 MG/10 ML UDC NG SCH (09:00)
[2017-02-03] MEDS: THIAMINE HCL 100 MG TABLET GT SCH (09:00)
[2017-02-03] MEDS: PROSOURCE / PROSTAT (PYXIS) 30 ML UDC GT SCH ×2 (09:00→17:00)
[2017-02-03] MEDS: MULTIVITAMINS,THERAGRAN 1 UDTAB TABLET PO SCH (09:00)
[2017-02-03] MEDS: ASCORBIC ACID 500 MG TABLET GT SCH (09:00)
[2017-02-03] MEDS: IV D5/ 0.9% NACL 1,000 ML IV PRN (10:34)
[2017-02-03] MEDS ORDERED: ANESTHESIA TRAY IN PYXIS 1 EA TRAY MC ONE (12:51)
[2017-02-03] MEDS ORDERED: ROCURONIUM BROMIDE 50 MG/5 ML ONE (13:16)
[2017-02-03] MEDS ORDERED: MIDAZOLAM HCL 2 MG/2ML VIAL ONE (13:16)
[2017-02-03] MEDS ORDERED: NOREPINEPHRINE 8 MG in IV D5W 500 ML IV PRN (13:30)
[2017-02-03] MEDS ORDERED: NTG 50 MG/D5W250 ML BOTTL 250 ML IV PRN (13:30)
[2017-02-03] MEDS ORDERED: LIDOCAINE 0.5% HCL 50 ML VIAL ONE (14:05)
[2017-02-03] MEDS: GLYTROL 1,000 ML BAG GT PRN (21:40)
[2017-02-04] VITALS (7 sets, daily range): BP systolic 129–154; BP diastolic 80–97
[2017-02-04] MEDS: IV D5/ 0.9% NACL 1,000 ML IV PRN ×3 (01:18→23:28)
[2017-02-04] MEDS: LANOLIN/MIN OIL/PETROLAT,WHT 3.5 GM TUBE EACHEYE SCH ×3 (05:06→21:58)
[2017-02-04] MEDS: METRONIDAZOLE 500 MG TABLET GT SCH ×3 (05:06→20:26)
[2017-02-04] MEDS: BLOOD SUGAR DIAGNOSTIC 1 EACH STRIP IN SCH ×4 (06:18→23:29)
[2017-02-04] MEDS: INSULIN REGULAR, HUMAN 100 UNIT/ML 3 ML VIAL SQ PRN ×3 (06:18→23:43)
[2017-02-04 07:13] LABS: CALCIUM, SERUM 7.3 mg/dL (8.5-10.1); CREATININE 0.6 mg/dL (0.6-1.3); PHOSPHORUS 2.5 mg/dL (2.5-4.9); POTASSIUM 3.3 mmol/L (3.5-5.1)
[2017-02-04] MEDS: PANTOPRAZOLE 40 MG VIAL IV SCH ×2 (08:58→20:26)
[2017-02-04] MEDS: DOCUSATE SODIUM LIQ 100 MG/10 ML UDC NG SCH (08:58)
[2017-02-04] MEDS: LEVETIRACETAM SOL (5 ML) 100 MG/ML UDC GT SCH ×2 (08:58→20:26)
[2017-02-04] MEDS: THIAMINE HCL 100 MG TABLET GT SCH (08:59)
[2017-02-04] MEDS: LACTOBACILLUS RHAMNOSUS GG 1 EACH CAP.SPRINK PO SCH ×2 (08:59→16:38)
[2017-02-04] MEDS: ASCORBIC ACID 500 MG TABLET GT SCH (08:59)
[2017-02-04] MEDS: PROSOURCE / PROSTAT (PYXIS) 30 ML UDC GT SCH ×2 (08:59→16:38)
[2017-02-04] MEDS: MULTIVITAMINS,THERAGRAN 1 UDTAB TABLET PO SCH (08:59)
[2017-02-04] MEDS: SUCRALFATE 1 G/10 ML UDC GT SCH ×4 (09:00→21:57)
[2017-02-04] MEDS ORDERED: POTASSIUM CHLORIDE 20 MEQ POWDER PACKET NG SCH (09:00)
[2017-02-04] MEDS: HYDROGEL DRESSING 90 GM TUBE TP SCH (09:46)
[2017-02-04] MEDS ORDERED: METOCLOPRAMIDE HCL 10 MG/2 ML VIAL IV PRN (13:00)
[2017-02-04] MEDS ORDERED: BISACODYL SUPP (10 MG) 10 MG/SUPP.RECT SUPP.RECT RC PRN (13:00)
[2017-02-04] MEDS ORDERED: METO5VIA6 IV (14:49)
[2017-02-04] MEDS ORDERED: METO5AMP3 IVP (14:49)
[2017-02-04] MEDS ORDERED: PANT40VI IV (14:49)
[2017-02-04] MEDS ORDERED: Hydrogel Dressing TP (14:49)
[2017-02-04] MEDS ORDERED: BISA10SU8 RC (14:49)
[2017-02-04] MEDS ORDERED: ALLA266C2 TP (14:49)
[2017-02-04] MEDS ORDERED: SUCR1ORA6 GT (14:49)
[2017-02-04] MEDS ORDERED: AMIK250V13 IV (14:49)
[2017-02-04] MEDS ORDERED: DOCU50LI NG (14:49)
[2017-02-04] MEDS ORDERED: ASCO500T9 GT (14:49)
[2017-02-04] MEDS ORDERED: MULT-24 PO (14:49)
[2017-02-04] MEDS ORDERED: Prosource GT (14:49)
[2017-02-04] MEDS ORDERED: METR500T GT (14:49)
[2017-02-04] MEDS ORDERED: LEVE100S GT (14:49)
[2017-02-04] MEDS ORDERED: LACT1CAP72 PO (14:49)
[2017-02-04] MEDS ORDERED: THIA100T13 GT (14:49)
[2017-02-04] MEDS ORDERED: LANO3.5O3 EACHEYE (14:49)
[2017-02-04] MEDS ORDERED: NUT.100029 GT (14:49)
[2017-02-04] MEDS: AMIKACIN 350 MG in IV D5W 100 ML IV SCH (20:27)
[2017-02-05] VITALS: BP 130/67
[2017-02-05 00:34] VITALS: BP 130/67
[2017-02-05 04:00] VITALS: BP 131/76
[2017-02-05] MEDS: BLOOD SUGAR DIAGNOSTIC 1 EACH STRIP IN SCH ×2 (05:15→11:57)
[2017-02-05] MEDS: METRONIDAZOLE 500 MG TABLET GT SCH ×2 (05:15→12:43)
[2017-02-05] MEDS: LANOLIN/MIN OIL/PETROLAT,WHT 3.5 GM TUBE EACHEYE SCH ×2 (05:25→12:43)
[2017-02-05] MEDS: INSULIN REGULAR, HUMAN 100 UNIT/ML 3 ML VIAL SQ PRN (05:52)
[2017-02-05 06:44] LABS: CALCIUM, SERUM 7.5 mg/dL (8.5-10.1); CREATININE 0.6 mg/dL (0.6-1.3); POTASSIUM 3.6 mmol/L (3.5-5.1)
[2017-02-05 08:00] VITALS: BP 135/81
[2017-02-05] MEDS: LEVETIRACETAM SOL (5 ML) 100 MG/ML UDC GT SCH (08:08)
[2017-02-05] MEDS: SUCRALFATE 1 G/10 ML UDC GT SCH ×2 (08:08→12:43)
[2017-02-05] MEDS: LACTOBACILLUS RHAMNOSUS GG 1 EACH CAP.SPRINK PO SCH (08:08)
[2017-02-05] MEDS: DOCUSATE SODIUM LIQ 100 MG/10 ML UDC NG SCH (08:08)
[2017-02-05] MEDS: ASCORBIC ACID 500 MG TABLET GT SCH (08:08)
[2017-02-05] MEDS: THIAMINE HCL 100 MG TABLET GT SCH (08:09)
[2017-02-05] MEDS: MULTIVITAMINS,THERAGRAN 1 UDTAB TABLET PO SCH (08:09)
[2017-02-05] MEDS: PANTOPRAZOLE 40 MG VIAL IV SCH (08:10)
[2017-02-05] MEDS: PROSOURCE / PROSTAT (PYXIS) 30 ML UDC GT SCH (08:10)
[2017-02-05] MEDS: HYDROGEL DRESSING 90 GM TUBE TP SCH (08:11)
[2017-02-05 12:00] VITALS: BP 139/75
== END 2017-02-05 15:27 | DRG 870 ==
LOC: ER 14:18 → TELE-TD 16:31 → TELE1 01-04 11:05 → TELE-TD 01-07 20:40 → TELE1 01-09 10:25 → ICU 01-21 19:50 → TELE1 01-23 17:21
PROVIDERS: ADMIT Nurse Practitioner Acute Care; ATTEND Nurse Practitioner Acute Care
PROC: 5A1955Z Respiratory Ventilation, Greater than 96 Consecutive Hours (ICD-10-PCS; principal; 2017-01-03)
PROC: 0DB68ZX Excision of Stomach, Via Natural or Artificial Opening Endoscopic, Diagnostic (ICD-10-PCS; 2017-01-07)
PROC: 0DB98ZX Excision of Duodenum, Via Natural or Artificial Opening Endoscopic, Diagnostic (ICD-10-PCS; 2017-01-07)
PROC: 0W9J3ZZ Drainage of Pelvic Cavity, Percutaneous Approach (ICD-10-PCS; 2017-01-11)
PROC: 0W9H3ZZ Drainage of Retroperitoneum, Percutaneous Approach (ICD-10-PCS; 2017-01-11)
PROC: 30233N1 Transfusion of Nonautologous Red Blood Cells into Peripheral Vein, Percutaneous Approach (ICD-10-PCS; 2017-01-21)
PROC: 02HV33Z Insertion of Infusion Device into Superior Vena Cava, Percutaneous Approach (ICD-10-PCS; 2017-01-22)
PROC: B548ZZA Ultrasonography of Superior Vena Cava, Guidance (ICD-10-PCS; 2017-01-22)
PROC: 0DHA3UZ Insertion of Feeding Device into Jejunum, Percutaneous Approach (ICD-10-PCS; 2017-02-03)
DX: A41.9 Sepsis, unspecified organism (principal); N17.0 Acute kidney failure with tubular necrosis; J18.9 Pneumonia, unspecified organism; G93.40 Encephalopathy, unspecified; E43 Unspecified severe protein-calorie malnutrition; Z99.11 Dependence on respirator [ventilator] status; G93.1 Anoxic brain damage, not elsewhere classified; N15.1 Renal and perinephric abscess; J90 Pleural effusion, not elsewhere classified; R53.2 Functional quadriplegia; L89.153 Pressure ulcer of sacral region, stage 3; K68.19 Other retroperitoneal abscess; J96.11 Chronic respiratory failure with hypoxia; R40.3 Persistent vegetative state; K92.2 Gastrointestinal hemorrhage, unspecified; D62 Acute posthemorrhagic anemia; N39.0 Urinary tract infection, site not specified; J98.11 Atelectasis; D68.59 Other primary thrombophilia; K94.23 Gastrostomy malfunction; E87.0 Hyperosmolality and hypernatremia; D69.6 Thrombocytopenia, unspecified; B96.20 Unspecified Escherichia coli [E. coli] as the cause of diseases classified elsewhere; E11.9 Type 2 diabetes mellitus without complications; E83.42 Hypomagnesemia; E87.6 Hypokalemia; E66.9 Obesity, unspecified; L30.4 Erythema intertrigo; Z66 Do not resuscitate; Z87.440 Personal history of urinary (tract) infections; G40.909 Epilepsy, unspecified, not intractable, without status epilepticus; K21.9 Gastro-esophageal reflux disease without esophagitis; R13.10 Dysphagia, unspecified; S00.511A Abrasion of lip, initial encounter; X58.XXXA Exposure to other specified factors, initial encounter; Y93.9 Activity, unspecified; Y92.129 Unspecified place in nursing home as the place of occurrence of the external cause; E27.9 Disorder of adrenal gland, unspecified; D35.00 Benign neoplasm of unspecified adrenal gland; Z22.322 Carrier or suspected carrier of Methicillin resistant Staphylococcus aureus; N63.20 Unspecified lump in the left breast, unspecified quadrant; R31.9 Hematuria, unspecified; Z93.0 Tracheostomy status; Z68.38 Body mass index [BMI] 38.0-38.9, adult; R21 Rash and other nonspecific skin eruption; K29.50 Unspecified chronic gastritis without bleeding; K29.80 Duodenitis without bleeding; K59.00 Constipation, unspecified; Y84.8 Other medical procedures as the cause of abnormal reaction of the patient, or of later complication, without mention of misadventure at the time of the procedure; Y73.8 Miscellaneous gastroenterology and urology devices associated with adverse incidents, not elsewhere classified; Z16.19 Resistance to other specified beta lactam antibiotics; B96.89 Other specified bacterial agents as the cause of diseases classified elsewhere
CPT/HCPCS: 31720; 36415; 36569; 43246; 71010-TC; 74000-TC; 75989; 75989-TC; 80048-TC; 80053-TC; 80061-TC; 80076-TC; 80150; 80202-TC; 81000-TC; 82247-TC; 82248-TC; 82962-TC; 83540-TC; 83605-TC; 83735-TC; 84100-TC; 84443-TC; 84484-TC; 85025-TC; 85027-TC; 85610-TC; 85730-TC; 86850-TC; 86921-TC; 87040-TC; 87070-TC; 87075-TC; 87081-TC; 87086-TC; 87102-TC; 87186-TC; 88305-TC; 88312-TC; 88313-TC; 88342; 94002-TC; 94003-TC; 94640-TC; 94760-TC; 94762-TC; 99082-TC; A4216; A4217; A4606; A4623; A6248; A6253; A6402; A6403; A7526; C1751; C9113; J0171; J0278; J0690; J0696; J0713; J1450; J1815; J1953; J2020; J2185; J2250; J2310; J2405; J2704; J2765; J3010; J3370; J3475; J3480; J3490; J7030; J7040; J7042; J7050; J7060; P9016-BL; Q9967; Z7610

== ENCOUNTER 2017-05-08 09:23 | Inpatient (IN) | payer MEDICARE, MEDICAID ==
[~2017-05-08] VITALS: Ht 175.3 cm; Wt 59.9 kg
[~2017-05-08 09:23] MED LIST changes: -ACET-73 GT; -ACET650S26 GT; +ACET650S26 JT; -ACET650T10 GT; +ALLA266C2 TP; +AMIK250V13 IV; -ASCO500S2 GT; +ASCO500T9 GT; -BISA10SU61 RC; +BISA10SU8 RC; -CALC667C6 GT; -CRAN3875 GT; -DEXT50DI5 IV; -DOCU50LI GT; +DOCU50LI NG; -ENOX40DI SQ; -FAMO-131 GT; -FERR220S2 GT; +Hydrogel Dressing TP; -INSU300I SQ; -IPRA3AMP IH; +LACT1CAP72 PO; +LANO3.5O3 EACHEYE; -MAGN400O6 GT; +METO5AMP3 IVP; -METO5SOL GT; +METO5VIA6 IV; +METR500T GT; +MULT-24 PO; -MULT1TAB11 GT; -NA P133E RC; +NUT.100029 GT; -NUT.237L36 GT; +PANT40VI IV; -POLY15DR40 EACHEYE; +Prosource GT; -SACC250C6 GT; +SUCR1ORA6 GT; +THIA100T13 GT; +ZINC220T JT
--- NOTE | 2017-05-08 09:30 | NUR ---
RT PATIENT REC'D VIA TRANSPORT ON [facility]CH VENT. PATIENT PLACED ON HOPSITAL VENT WITH SAME SETTINGS PER MD. ALARMS CHECKED + AUDIBLE. PATIENT IN NO DISTRESS AT THIS TIME. Addendum: 05/08/17 at 1041 by LES ERNST RT Amended: Links added.
--- NOTE | 2017-05-08 09:35 | NUR ---
MIRELLA FROM [facility] FOR JT REPLACEMENT. PATIENT IS OBTUNDED, VENT/TRACH DEPENDENT. G-TUBE IN PLACE, BUT JT PULLED OUT. PATIENT HAS PERKINS CATH IN PLACE. BREATHING VIA VENT. NO ACUTE DISTRESS. VITALS STABLE. SAFETY AND COMFORT MEASURES IN PLACE. AWAITING MD ORDERS.
[2017-05-08] MEDS ORDERED: ASCO500T9 JT (09:53)
[2017-05-08] MEDS ORDERED: CRAN3875 JT (09:53)
[2017-05-08] MEDS ORDERED: OMEP20TA5 JT (09:53)
[2017-05-08] MEDS ORDERED: HEPA500039 SQ (09:53)
[2017-05-08] MEDS ORDERED: NUT.237L28 JT (09:53)
[2017-05-08] MEDS ORDERED: CALC667C6 GT (09:53)
[2017-05-08] MEDS ORDERED: CLON0.1T JT (09:53)
[2017-05-08] MEDS ORDERED: SACC250C JT (09:53)
[2017-05-08] MEDS ORDERED: MAGN400O6 JT (09:53)
[2017-05-08] MEDS ORDERED: NA P133E RC (09:53)
[2017-05-08] MEDS ORDERED: BISA10SU8 RC (09:53)
[2017-05-08] MEDS ORDERED: METH1TAB JT (09:53)
[2017-05-08] MEDS ORDERED: FAMO20TA8 JT (09:53)
[2017-05-08] MEDS ORDERED: DOCU100C36 JT (09:53)
[2017-05-08] MEDS ORDERED: FERR220S2 JT (09:53)
[2017-05-08] MEDS ORDERED: MULT-213 JT (09:53)
[2017-05-08] MEDS ORDERED: LEVE100S JT (09:53)
[2017-05-08] MEDS ORDERED: THIA100T13 JT (09:53)
[2017-05-08] MEDS ORDERED: IV NS 0.9% 500 ML BAG IV ONE (10:00)
--- NOTE | 2017-05-08 10:05 | NUR ---
NEW IV STARTED ON LEFT UPPER ARM, 20 G. BLOOD DRAWN AND SENT TO LAB.
[2017-05-08 10:17] LABS: BASOPHILS # (AUTO) 0.1 /CMM (0.0-0.2); BASOPHILS % (AUTO) 0.5 % (0.0-2.0); EOSINOPHILS # (AUTO) 0.3 /CMM (0.0-0.7); EOSINOPHILS % (AUTO) 2.7 % (0.0-6.0); HEMATOCRIT 33 % (33-45); HEMOGLOBIN 11.5 g/dL (11.5-14.8); LYMPHOCYTES # (AUTO) 1.9 /CMM (0.8-4.8); LYMPHOCYTES % (AUTO) 15.1 % (20.0-44.0); MEAN CORPUSCULAR HEMOGLOBIN 33 PG (26.0-33.0); MEAN CORPUSCULAR HGB CONC 35 g/dl (31.0-36.0); MEAN CORPUSCULAR VOLUME 95 fL (82-100); MONOCYTES # (AUTO) 0.7 /CMM (0.1-1.30); NEUTROPHILS # (AUTO) 9.4 /CMM (1.8-8.9); NEUTROPHILS % (AUTO) 75.7 % (43.0-81.0); PLATELET COUNT (AUTO) 359 /CMM (150-450); RDW COEFFICIENT OF VARIATION 12.5 (11.5-15.0); RED BLOOD CELL COUNT(AUTO) 3.51 MIL/uL (4.0-5.2); WHITE BLOOD COUNT (AUTO) 12.4 K/uL (4.3-11.0)
[2017-05-08 10:33] LABS: BILIRUBIN,DIRECT 0.1 mg/dL (0.0-0.2); BILIRUBIN,TOTAL 0.3 mg/dL (0.2-1.0); CREATININE 0.8 mg/dL (0.6-1.3); POTASSIUM 3.5 mmol/L (3.5-5.1); TOTAL PROTEIN, SERUM 7.2 g/dL (6.4-8.2)
[2017-05-08 10:39] LABS: INR 0.98 (0.87-1.13)
--- NOTE | 2017-05-08 11:02 | NUR ---
RICKY PAGED FOR DR. LUGO.
--- NOTE | 2017-05-08 11:41 | NUR ---
REPORT GIVEN TO MARIIA HORAN FOR GIOVANNY UPON ADMISSION.
--- NOTE | 2017-05-08 11:58 | NUR ---
PATIENT TRANSPORTED TO [facility] VIA ACLS PROTOCOL. RNMARIIA TO PROVIDE GIOVANNY.
[2017-05-08 12:00] VITALS: BP 108/56
[2017-05-08] MEDS ORDERED: ZOLPIDEM TARTRATE 5 MG TABLET PO PRN (12:30)
[2017-05-08] MEDS ORDERED: Z GUARD REMEDY 2 OZ OINT TP PRN (12:30)
[2017-05-08] MEDS ORDERED: ONDANSETRON HCL/PF 4 MG/2 ML VIAL IVP PRN (12:30)
[2017-05-08] MEDS ORDERED: ACETAMINOPHEN 650 MG/SUPP.RECT RC PRN (12:30)
[2017-05-08] MEDS ORDERED: HYDROMORPHONE INJ 0.5 MG/0.5 ML SYRINGE IV PRN (13:30)
[2017-05-08] MEDS: IV D5/0.45 NACL 1,000 ML IV PRN (15:38)
[2017-05-08] MEDS: POTASSIUM CL. PREMIX PERIPHER. 50 ML IV SCH ×2 (15:38→18:30)
[2017-05-08 16:00] VITALS: BP 99/60
[2017-05-08 20:00] VITALS: BP 117/60
--- NOTE | 2017-05-08 20:00 | NUR ---
MARIA L RN NOTE RECEIVED PT IN BED OBTUNDED. ON VENT/TRACH TOLERATING SETTINGS WELL. NO DISTRESS OR DISCOMFORT NOTED. NO S/S OF PAIN NOTED. ON TELE SR HR 88. F/C INTACT AND PATENT DRAINING YELLOWISH COLOR URINE. IVF D5 1/2 NS @ 75 ML/HR AT JUSTINE #20 G, NO S/S OF INFILTRATION NOTED. GT CLAMPED. DRESSING ON J TUBE SITE. TWO DRAINS FROM RT SIDE KIDNEY INTACT AND PATENT DRAINING WELL. WOUND CONSULT PENDING. REPOSITION HER Q2H, KEPT HER DRY AND CLEAN. ALL NEEDS ATTENDED. SIDE RAILS UP X 3 AND CALL LIGHT WITHIN REACH. VSS. CONTINUE TO MONITOR HER.
--- NOTE | 2017-05-08 22:48 | NUR ---
MARIA L RN NOTE VERIFIED FROM [facility] SUB[facility]UTE UNIT REGARDING ISOLATION, ACCORDING TO NURSE OF THAT UNIT STATES " ISOLATION FOR VRE URINE".
[2017-05-09] VITALS: BP 121/70
[2017-05-09 04:00] VITALS: BP 99/63
--- NOTE | 2017-05-09 04:22 | NUR ---
MARIA L RN NOTE DILAUDID 0.25 MG IVP GIVEN FOR PAIN AND COMFORT. ON TELE HR 118. UNABLE TO USE PAIN SCALE DUE TO PT'S CONDITION.
--- NOTE | 2017-05-09 04:24 | NUR ---
MARIA L RN NOTE NOTED PT IS LEAKING YELLOWISH COLOR DRAINAGE FROM J TUBE SITE, CHANGED THE SITE DRESSING, ALSO BED BATH GIVEN. REPOSITION HER Q2H, KEPT HER DRY AND CLEAN.
[2017-05-09 06:39] LABS: BASOPHILS % (AUTO) 0.3 % (0.0-2.0); EOSINOPHILS # (AUTO) 0.4 /CMM (0.0-0.7); EOSINOPHILS % (AUTO) 3.1 % (0.0-6.0); HEMATOCRIT 32 % (33-45); HEMOGLOBIN 11.3 g/dL (11.5-14.8); LYMPHOCYTES # (AUTO) 2.4 /CMM (0.8-4.8); LYMPHOCYTES % (AUTO) 20.9 % (20.0-44.0); MEAN CORPUSCULAR HEMOGLOBIN 33 PG (26.0-33.0); MEAN CORPUSCULAR HGB CONC 35 g/dl (31.0-36.0); MEAN CORPUSCULAR VOLUME 94 fL (82-100); MONOCYTES # (AUTO) 0.8 /CMM (0.1-1.30); MONOCYTES % (AUTO) 7.2 % (2.0-12.0); NEUTROPHILS # (AUTO) 7.8 /CMM (1.8-8.9); NEUTROPHILS % (AUTO) 68.5 % (43.0-81.0); PLATELET COUNT (AUTO) 326 /CMM (150-450); RDW COEFFICIENT OF VARIATION 12.8 (11.5-15.0); RED BLOOD CELL COUNT(AUTO) 3.41 MIL/uL (4.0-5.2); WHITE BLOOD COUNT (AUTO) 11.4 K/uL (4.3-11.0)
[2017-05-09 07:08] LABS: CALCIUM, SERUM 8.7 mg/dL (8.5-10.1); CREATININE 0.7 mg/dL (0.6-1.3); MAGNESIUM 1.8 mg/dL (1.8-2.4); PHOSPHORUS 3.8 mg/dL (2.5-4.9)
--- NOTE | 2017-05-09 07:15 | NUR ---
MARIA L RN NOTE NO CHANGE IN CONDITION. ON TELE S TACH 112. IVF INFUSING WELL, NO S/S OF INFILTRATION NOTED. RT KIDNEY DRAINS ARE INTACT AND DRAINING WELL #1 WITH 20 ML BROWNISH COLOR FLUID NOTED. BAG #2 0 ML. PT IS NPO. REPOSITION HER Q2H, KEPT HER DRY AND CLEAN. SIDE RAILS UP X 3 AND CALL LIGHT WITHIN REACH. ENDORSE TO DAY SHIFT NURSE FOR CONTINUE TO CARE.
--- NOTE | 2017-05-09 07:16 | NUR ---
TD RN NOTES RECEIVED PT ON BED SLEEPING, O[facility]DED. [facility] SAT[facility]. ON TELE MONITOR SINUS TACHY 112. IV ACCESS IB JUSTINE 20G D51/2 NS @ 75CC/HR NO SIGN OF INFECTION. PT ON NPO. SIDE RAILS UP. HEAD OF BED ELEVATED. CALL LIGHT WITHIN REACH. WILL CONTINUE TO MONITOR PT CLOSELY.
[2017-05-09 08:00] VITALS: BP 132/51
[2017-05-09] MEDS: IV D5/0.45 NACL 1,000 ML IV PRN (09:05)
--- NOTE | 2017-05-09 09:47 | NUR ---
EKG RESULTS REPORTED TO PATIENT'S NURSE(MANUEL).
--- NOTE | 2017-05-09 10:56 | NUR ---
WOUND CARE CONSULT: PT PRESENTS WITH STAGE 3 ULCER TO SACRAL AREA WITH MULTIPLE OPEN AREAS EXTENDING TO BUTTOCKS, PRESENT ON ADMISSION. PT ALSO NOTED TO HAVE RT GROIN EXCORIATION, POA AND FEEDING TUBE SITE WITH GAUZE PROTECTION, J TUBE (CLAMPED) AND 2 DRAINS WITH DRAINAGE BAGS TO RT FLANK, ALL PRESENT ON ADMISSION. RECOMMEND SURGICAL CONSULT. DEFER TO MD FOR SURGICAL SITES. ALLSKIN PROTECTION AND WOUND RECOMMENDATIONS DISCUSSED WITH NURSING STAFF. PT ON NANDO ISOFLEX LOW AIRLOSS BED. CURRENT JESENIA SCORE IS 8. WILL SEE PRN. MD IN AGREEMENT WITH PLAN OF CARE. Addendum: 05/09/17 at 1059 by TISHA PATTERSON WNDNU Amended: Links added.
[2017-05-09] MEDS ORDERED: DEXTROSE 50%-WATER 50 ML DISP.SYRIN IV PRN (11:00)
[2017-05-09 12:00] VITALS: BP 103/55
[2017-05-09] MEDS: POLYVINYL ALCOHOL 15 ML BOTTLE EACHEYE PRN (12:00)
[2017-05-09] MEDS: BLOOD SUGAR DIAGNOSTIC 1 EACH STRIP IN SCH ×3 (12:00→23:42)
[2017-05-09] MEDS: HYDROGEL DRESSING 90 GM TUBE TP SCH (12:01)
--- NOTE | 2017-05-09 15:12 | NUR ---
MILK COLLECTOR NOTES FNS ORDERED GLYTROL AND VITC AND ASCORBIC ACID ONCE PT IS DONE WITH JTUBE PLACEMENT.
[2017-05-09] MEDS ORDERED: GLYTROL 1,000 ML BAG GT PRN (15:30)
[2017-05-09 16:00] VITALS: BP_SYST 93; BP_SYST 98; BP_DIAS 54; BP_DIAS 60
--- NOTE | 2017-05-09 16:17 | NUR ---
RT NOTE: PATIENT RECEIVED WITH TRACH ON LTV VENT. ALARMS VERIFIED AND AUDIBLE. SUCTIONED AND LAVAGED SMALL-MODERATE AMOUNT OF THICK COSTELLO SECRETIONS. VENT PLUGGED INTO RED OUTLET. AMBU BAG AT [facility].
[2017-05-09] MEDS: INSULIN REGULAR, HUMAN 100 UNIT/ML 3 ML VIAL SQ PRN ×2 (17:56→23:44)
--- NOTE | 2017-05-09 19:12 | NUR ---
TD RN NOTES NO ACUTE CHANGES NOTED DURING THE SHIFT. POST JTUBE INSERTION. FEEDING TUBE ORDERED. TOLERATING WELL. DUE MEDS GIVEN. HEAD OF BED ELEVATED. SIDE RAILS UP. WILL ENDORSED TO THE PM NURSE FOR GIOVANNY.
--- NOTE | 2017-05-09 19:37 | NUR ---
MARIA L RN NOTE PT IN BED OBTUNDED. ON VENT/TRACH TOLERATING THE SETTINGS WELL. NO DISTRESS OR DISCOMFORT NOTED. NO S/S OF PAIN NOTED. ON TELE SINUS TACH HR 104. F/C INTACT AND PATENT DRAINING CLOUDY WITH SEDEMENTS URINE. RT SIDE KIDNEY DRAINS INTACT AND PATENT 0 ML OUTPUT AT THIS TIME. S/P PEG IN PLACE INFUSING GLYTROL AT 75 ML/HR. 0 ML RESIDUAL NOTED. OLD J TUBE SITE WITH DRESSING ON. SL IN JUSTINE #20 G INTACT AND PATENT. PT IN ISOLATION FOR VRE URINE PER SNF NURSE. ISOLATION PRECAUTIONS TAKEN. NO S/S OF HYPO OR HYPERGLYCEMIA NOTED. REPOSITION HER FOR SKIN MANAGEMENT. SIDE RAILS UP X 3 AND CALL LIGHT WITHIN REACH. VSS. CONTINUE TO MONITOR HER.
[2017-05-09 20:00] VITALS: BP 98/62
--- NOTE | 2017-05-09 22:12 | NUR ---
MARIA L RN NOTE CONSENT FOR DEBRIDMENT IN AM RECEIVED FROM MOTHER TENISHA SHARIF OVER THE PHONE, WITNESSED BY NURSE CRISTHIAN.
[2017-05-10] VITALS: BP 107/65
--- NOTE | 2017-05-10 01:46 | NUR ---
RT NOTES PT RECEIVED ON [facility] VENT WITH NOTED SETTING. VENT TO RED OUTLET. AMBU BAG AT [facility]. TOOL MARKER DONE. ALARMS SET AND AUDIBLE. NO SOB OR RESP DISTRESS NOTED SHIFT. Addendum: 05/10/17 at 0146 by JOSE RUSSELL RT Amended: Links added.
[2017-05-10 04:00] VITALS: BP 107/65
[2017-05-10] MEDS: BLOOD SUGAR DIAGNOSTIC 1 EACH STRIP IN SCH ×3 (05:18→17:27)
[2017-05-10] MEDS: INSULIN REGULAR, HUMAN 100 UNIT/ML 3 ML VIAL SQ PRN ×3 (05:19→17:30)
--- NOTE | 2017-05-10 06:31 | NUR ---
MARIA L RN NOTE NO CHANGE IN PT'S CONDITION. REMAIN OBTUNDED. NO DISTRESS NOTED. NO S/S OF PAIN NOTED. ON TELE SINUS TACH HR 106. GTF INFUSING WELL, 0 ML RESIDUAL NOTED. KEPT HER HOB ELEVATED. F/C INTACT AND PATENT DRAINING TEA COLOR WITH ODOR URINE. RT SIDE KIDNEY DRAINAGE BAG INTACT AND PATENT 0 ML OUTPUT NOTED. J TUBE SITE IS LEAKING, CHANGE THE DRESSING. SIDE RAILS UP X 3 AND CALL LIGHT WITHIN REACH. WILL ENDORSE TO DAY SHIFT NURSE.
--- NOTE | 2017-05-10 07:30 | NUR ---
MARIA L RN INITIAL NOTES RECEIVED PATIENT OBTUNDED IN BED, ON VENT SETTINGS ORDERED TOLERATING WELL NO SIGNS OF DISTRESS, ON TELE ST 113, FC TO GRAVITY, RIGHT SIDED KIDNEY DRAINS IN PLACE NO OUTPUT NOTED, G-TUBE IN PLACE NO RESIDUAL NOTED, HOB ELEVATED, ISOLATION PRECAUTIONS NOTED, IV JUSTINE 20G, CLEAN AND PATENT, BED IN LOW AND LOCKED POSITION CALL LIGHT WITHIN REACH, WILL CONTINUE TO MONITOR.
[2017-05-10 08:00] VITALS: BP 112/69
[2017-05-10] MEDS: ASCORBIC ACID 500 MG TABLET PO SCH (08:46)
[2017-05-10] MEDS: HYDROGEL DRESSING 90 GM TUBE TP SCH (08:46)
[2017-05-10] MEDS: MULTIVITAMINS,THERAGRAN 1 UDTAB TABLET PO SCH (08:46)
[2017-05-10] MEDS: POLYVINYL ALCOHOL 15 ML BOTTLE EACHEYE PRN (08:47)
[2017-05-10] MEDS: GLYTROL 1,000 ML BAG GT PRN (08:47)
[2017-05-10] MEDS: NYSTATIN TOP POWDER 15 GM BOTTLE TP SCH ×2 (09:00→17:27)
[2017-05-10 12:00] VITALS: BP_SYST 108; BP_DIAS 68; BP_DIAS 69
[2017-05-10 16:00] VITALS: BP 118/86
--- NOTE | 2017-05-10 16:16 | NUR ---
Patient received trached on LTV vent. Alarms verified and audible. Suctioned and lavaged moderate-large amount of thick goddard secretions. Vent plugged into red outlet. Ambu bag at [facility].
[2017-05-10 18:31] LABS: APPEARANCE,URINE SL CLOUDY (CLEAR); BILIRUBIN,URINE NEGATIVE (NEGATIVE); BLOOD, URINE 3+ Ery/uL (NEGATIVE); COLOR,URINE YELLOW (YELLOW); KETONES,URINE NEGATIVE (NEGATIVE); LEUKOCYTE ESTERASE ,URINE 3+ (NEGATIVE); NITRITE, URINE NEGATIVE (NEGATIVE); PROTEIN,URINE 2+ mg/dl (NEGATIVE); UGLUCOSE NEGATIVE (NEGATIVE); UROBILINOGEN,URINE 0.2 EU/dL (0.2)
[2017-05-10 18:37] LABS: PH,URINE >8.5 (5.0-8.0)
[2017-05-10 18:42] LABS: BACTERIA,URINE Many /HPF (None Seen); SQUAMOUS EPITHELIAL CELL,UR Few /HPF (None Seen)
[2017-05-10 18:44] LABS: TRIPLE PHOSPHATE CRYSTAL,UR Few /HPF (None Seen)
--- NOTE | 2017-05-10 18:46 | NUR ---
WINCHER NOTES PATIENT IN BED, NO DISTRESS NOTED, CLEANED AND REPOSITIONED, WOUND CARE DONE, NEW PERKINS CATHETER PLACED DUE TO MD ORDER AND OLD PERKINS CATHETER LEAKING. WILL ENDORSE TO PANEL INSTALLER FOR CONTINUITY OF CARE.
--- NOTE | 2017-05-10 19:20 | NUR ---
ASSISTANT DEAN OF STUDENTS OPENING NOTES RECEIVED REPORT FROM ALEJANDRO HORAN. PATIENT OBTUNDED & VENT-TRACH DEPENDENT. TRACH INTACT W/ VENT SETTINGS AC 18, TV 500, FIO2 40%, PEEP 5. NO RESPIRATORY DISTRESS NOTED, SATING WELL @ 99-100%. ON TELE SINUS TACH, HR 101. LEFT UPPER ARM IV #20 INTACT W/ DRESSING CDI. G-TUBE INTACT & FLUSHING WELL W/ GLYTROL @ 75 ML/HR. MINIMAL RESIDUAL NOTED @ THIS TIME. RIGHT LOWER DRAINS INTACT W/ VERY LITTLE OUTPUT NOTED. PERKINS CATH INTACT & DRAINING YELLOW URINE. NO S/S OF PAIN OR DISCOMFORT @ THIS TIME. SAFETY MEASURES IN PLACE W/ SIDE RAILS UP & BED LOCKED & IN LOWEST POSITION. WILL CONTINUE TO MONITOR.
[2017-05-10 20:00] VITALS: BP 105/57
[2017-05-11] VITALS: BP 105/66
[2017-05-11] MEDS: INSULIN REGULAR, HUMAN 100 UNIT/ML 3 ML VIAL SQ PRN ×5 (00:27→23:19)
[2017-05-11] MEDS: BLOOD SUGAR DIAGNOSTIC 1 EACH STRIP IN SCH ×5 (00:28→23:26)
[2017-05-11] MEDS: GLYTROL 1,000 ML BAG GT PRN ×2 (03:58→18:23)
[2017-05-11 04:00] VITALS: BP 100/66
[2017-05-11 06:43] LABS: BASOPHILS % (AUTO) 0.3 % (0.0-2.0); EOSINOPHILS # (AUTO) 0.4 /CMM (0.0-0.7); EOSINOPHILS % (AUTO) 3.2 % (0.0-6.0); HEMATOCRIT 29 % (33-45); HEMOGLOBIN 10.1 g/dL (11.5-14.8); LYMPHOCYTES # (AUTO) 3.2 /CMM (0.8-4.8); LYMPHOCYTES % (AUTO) 27.4 % (20.0-44.0); MEAN CORPUSCULAR HEMOGLOBIN 33 PG (26.0-33.0); MEAN CORPUSCULAR HGB CONC 35 g/dl (31.0-36.0); MEAN CORPUSCULAR VOLUME 95 fL (82-100); MONOCYTES % (AUTO) 8.8 % (2.0-12.0); NEUTROPHILS # (AUTO) 7.1 /CMM (1.8-8.9); NEUTROPHILS % (AUTO) 60.3 % (43.0-81.0); PLATELET COUNT (AUTO) 346 /CMM (150-450); RDW COEFFICIENT OF VARIATION 12.8 (11.5-15.0); RED BLOOD CELL COUNT(AUTO) 3.02 MIL/uL (4.0-5.2); WHITE BLOOD COUNT (AUTO) 11.8 K/uL (4.3-11.0)
[2017-05-11 07:02] LABS: CALCIUM, SERUM 8.7 mg/dL (8.5-10.1); CREATININE 0.7 mg/dL (0.6-1.3); POTASSIUM 4.3 mmol/L (3.5-5.1)
--- NOTE | 2017-05-11 07:23 | NUR ---
RT PATIENT REC'D TRACHED ON [facility] VENT WITH SETTINGS SET BY MD CARROLL BOSTON. VENT ALARMS CHECKED + AUDIBLE. CUFF PRESSURE CHECKED SUBSURFACE AUGMENTEE OPERATOR. SUCTIONED WITH SMALL AMT COSTELLO SEMITHICK SECRETIONS. DIM COARSE B/S. PATIENT IN NO DISTRESS AT THIS TIME. AMBU BAG AT HOB. Addendum: 05/11/17 at 0910 by LES ERNST RT Amended: Links added.
--- NOTE | 2017-05-11 07:49 | NUR ---
PHLEBOTOMY SERVICES REPRESENTATIVE NOTES RECEIVED . PATIENT OBTUNDED & VENT-TRACH DEPENDENT. TRACH INTACT W/ VENT SETTINGS AC 18, TV 500, FIO2 40%, PEEP 5. NO RESPIRATORY DISTRESS NOTED, SATING WELL @ 99-100%. ON TELE SINUS TACH, HR 100 LEFT UPPER ARM IV #20 INTACT W/ DRESSING CDI. G-TUBE INTACT WITH GLYTROL @ 65 ML/HR. . RIGHT LOWER DRAINS INTACT W/ VERY LITTLE OUTPUT GREENISH COLOR NOTED. PERKINS CATH INTACT & DRAINING YELLOW URINE. NO S/S OF PAIN OR DISCOMFORT @ THIS TIME. SAFETY MEASURES IN PLACE W/ SIDE RAILS UP & BED LOCKED & IN LOWEST POSITION. WILL CONTINUE TO MONITOR.
[2017-05-11 08:00] VITALS: BP 91/66
[2017-05-11] MEDS: HYDROGEL DRESSING 90 GM TUBE TP PRN (08:36)
[2017-05-11] MEDS: ASCORBIC ACID 500 MG TABLET PO SCH (08:36)
[2017-05-11] MEDS: MULTIVITAMINS,THERAGRAN 1 UDTAB TABLET PO SCH (08:36)
[2017-05-11] MEDS: HYDROGEL DRESSING 90 GM TUBE TP SCH (08:41)
[2017-05-11] MEDS: NYSTATIN TOP POWDER 15 GM BOTTLE TP SCH ×2 (08:41→16:49)
[2017-05-11 12:00] VITALS: BP 91/57
--- NOTE | 2017-05-11 13:14 | NUR ---
SECONDARY ART TEACHER NOTE KEEP CLEAN DRY , ALL NEEDS ATTENDED, SPOKE WITH MOTHER OF PATIENT UPDATED PATIENT CONDITION , NOT IN ACUTE DISTRESS WILL CONT TO MONITOR CLOSELY
--- NOTE | 2017-05-11 15:41 | NUR ---
SALES CLERK NOTE SPOKE WITH VINCENT RN GAS BLENDER NOTIFIED THAT RT SIDE 1 DRAIN IS OUT , NO DRAINAGE IS NOTED SINCE AM . STATED ITS OK KEEP DRESSING INTACT , ALSO NOTIFIED THAT EARLIER BP WAS 91/57 T 99.0, STATED THAT WILL CHECK IT OUT
[2017-05-11 16:00] VITALS: BP 107/68
[2017-05-11] MEDS: FLUCONAZOLE IN NS 100 MG in PREMIX 1 EA IV SCH ×2 (17:15)
--- NOTE | 2017-05-11 17:43 | NUR ---
SENIOR NETWORK SYSTEMS ENGINEER NOTE SPOKE WITH DAUGHTER AWARE THAT PATIENT WILL STAY OVER NIGHT WITH ATB FOR UTI ,
[2017-05-11] MEDS: CEFTRIAXONE 1 G in IV D5W 50 ML IV SCH (18:21)
--- NOTE | 2017-05-11 18:36 | NUR ---
MANAGER PET NOTE ALL NEEDS ATTENDED , KEEP CLEAN DRY , TURN REPOSITION Q2 HOUR, CONT ON TUBE FEEDING AT 65 ML PER HOUR ,10 ML OF RESIDUAL NOTED, SPOKE WITH VINCENT RN WASTE DISPOSAL LEAKAGE TESTER STATED CONT ON 65 ML PER HOUR
--- NOTE | 2017-05-11 19:20 | NUR ---
POWERHOUSE ELECTRICIAN OPENING NOTES RECEIVED REPORT FROM SARITA HORAN. PATIENT OBTUNDED & VENT-TRACH DEPENDENT. TRACH INTACT W/ VENT SETTINGS AC 18, TV 500, FIO2 40%, PEEP 5. NO RESPIRATORY DISTRESS NOTED, SATING WELL @ 99-100%. ON TELE SINUS TACH, HR 101. LEFT UPPER ARM IV #20 INTACT W/ DRESSING CDI. G-TUBE INTACT & FLUSHING WELL W/ GLYTROL @ 65 ML/HR. MINIMAL RESIDUAL NOTED @ THIS TIME. RIGHT KIDNEY DRAIN INTACT W/ VERY LITTLE OUTPUT NOTED. PERKINS CATH INTACT & DRAINING YELLOW URINE. NO S/S OF PAIN OR DISCOMFORT @ THIS TIME. SAFETY MEASURES IN PLACE W/ SIDE RAILS UP & BED LOCKED & IN LOWEST POSITION. WILL CONTINUE TO MONITOR.
[2017-05-11 20:00] VITALS: BP 97/61
[2017-05-12] VITALS (7 sets, daily range): BP systolic 88–113; BP diastolic 48–71
[2017-05-12] MEDS: BLOOD SUGAR DIAGNOSTIC 1 EACH STRIP IN SCH ×3 (05:23→17:38)
[2017-05-12] MEDS: INSULIN REGULAR, HUMAN 100 UNIT/ML 3 ML VIAL SQ PRN ×3 (05:32→17:48)
--- NOTE | 2017-05-12 08:15 | NUR ---
BASTING MARKER NOTE: RECEIVED PATIENT IN BED, ASLEEP, RESPIRATION IS EVEN AND UNLABORED. VENT-TRACH DEPENDENT SATURATING 100%. TOLERATING WELL. NO S/S OF DISCOMFORT OR PAIN. HOB ELEVATED. GT FEEDING OF GLYCOTROL @65CC/HR RUNNING AND NO RESIDUAL NOTED. (L) UA IV LINE NOTED PATENT AND INTACT. (R) KIDNEY DRAIN NOTED INTACT AND PATENT W/ NO DRAINAGE NOTED. CALL LIGHT WITHIN REACH. BED ALARM AND LOCKED AT ALL TIMES.
[2017-05-12] MEDS: ASCORBIC ACID 500 MG TABLET PO SCH (08:58)
[2017-05-12] MEDS: MULTIVITAMINS,THERAGRAN 1 UDTAB TABLET PO SCH (08:58)
[2017-05-12] MEDS: HYDROGEL DRESSING 90 GM TUBE TP PRN (08:59)
[2017-05-12] MEDS: NYSTATIN TOP POWDER 15 GM BOTTLE TP SCH ×2 (08:59→17:18)
[2017-05-12] MEDS: HYDROGEL DRESSING 90 GM TUBE TP SCH (09:01)
[2017-05-12] MEDS: GLYTROL 1,000 ML BAG GT PRN (11:01)
[2017-05-12] MEDS: FLUCONAZOLE IN NS 100 MG in PREMIX 1 EA IV SCH ×2 (17:06)
--- NOTE | 2017-05-12 17:52 | NUR ---
WIRELESS SALES MANAGER NOTE: SPOKE W/ AJAY KAUR AND MADE HIM AWARE OF THE PATIENT'S MOTHER, TENISHA'S REQUEST RE: THE PATIENT'S ARTIFICIAL TEAR DROPS SCHEDULE. ENGINEERING DESIGNER W/ NEW ORDER.
[2017-05-12] MEDS: POLYVINYL ALCOHOL 15 ML BOTTLE EACHEYE SCH (18:16)
[2017-05-12] MEDS: CEFTRIAXONE 1 G in IV D5W 50 ML IV SCH (18:17)
--- NOTE | 2017-05-12 19:15 | NUR ---
NURSE ASSESSOR NOTE: RECEIVED PATIENT IN BED, ASLEEP, RESPIRATION IS EVEN AND UNLABORED. VENT-TRACH DEPENDENT SATURATING 100%. TOLERATING WELL. ON LEATHER LEVELER SR=88. NO S/S OF DISCOMFORT OR PAIN. HOB ELEVATED. GT FEEDING OF GLYCOTROL @65CC/HR RUNNING AND NO RESIDUAL NOTED. (L) UA IV LINE NOTED PATENT AND INTACT. (R) KIDNEY DRAIN NOTED INTACT AND PATENT W/ NO DRAINAGE NOTED. PERKINS CATHETER NOTED DRAINING YELLOW URINE. CALL LIGHT WITHIN REACH. BED ALARM AND LOCKED AT ALL TIMES. REMAINED ON CONTACT ISOLATION W/ URINE PER NURSE REPORT. URINE CULTURE STILL PENDING. REPORT WILL BE GIVEN TO PM SHIFT NURSE FOR CONTINUITY OF CARE.
--- NOTE | 2017-05-12 19:20 | NUR ---
METALLURGICAL SPECIALIST OPENING NOTES RECEIVED REPORT FROM CARLOS HORAN. PATIENT OBTUNDED & VENT-TRACH DEPENDENT. TRACH INTACT W/ VENT SETTINGS AC 18, TV 500, FIO2 40%, PEEP 5. NO RESPIRATORY DISTRESS NOTED, SATING WELL @ 99-100%. ON TELE SINUS RHYTHM IN THE 90S. LEFT UPPER ARM IV #20 INTACT W/ DRESSING CDI, SALINE LOCKED. G-TUBE INTACT & FLUSHING WELL W/ GLYTROL @ 65 ML/HR. NO RESIDUAL NOTED @ THIS TIME. RIGHT KIDNEY DRAIN INTACT W/ VERY LITTLE OUTPUT NOTED. PERKINS CATH INTACT & DRAINING YELLOW URINE. NO S/S OF PAIN OR DISCOMFORT @ THIS TIME. SAFETY MEASURES IN PLACE W/ SIDE RAILS UP & BED LOCKED & IN LOWEST POSITION. WILL CONTINUE TO MONITOR.
[2017-05-13] VITALS: BP_SYST 96; BP_SYST 98; BP_DIAS 55; BP_DIAS 56
[2017-05-13] MEDS: BLOOD SUGAR DIAGNOSTIC 1 EACH STRIP IN SCH ×4 (00:41→18:15)
[2017-05-13] MEDS: INSULIN REGULAR, HUMAN 100 UNIT/ML 3 ML VIAL SQ PRN ×4 (00:41→18:24)
[2017-05-13] MEDS: POLYVINYL ALCOHOL 15 ML BOTTLE EACHEYE SCH ×3 (02:38→16:06)
[2017-05-13] MEDS: GLYTROL 1,000 ML BAG GT PRN (03:39)
[2017-05-13 04:00] VITALS: BP_SYST 101; BP_SYST 106; BP_DIAS 56; BP_DIAS 66
[2017-05-13 08:00] VITALS: BP 104/68
[2017-05-13 08:36] LABS: BASOPHILS % (AUTO) 0.3 % (0.0-2.0); EOSINOPHILS # (AUTO) 0.6 /CMM (0.0-0.7); EOSINOPHILS % (AUTO) 5.1 % (0.0-6.0); HEMATOCRIT 28 % (33-45); HEMOGLOBIN 9.6 g/dL (11.5-14.8); LYMPHOCYTES # (AUTO) 2.7 /CMM (0.8-4.8); LYMPHOCYTES % (AUTO) 22.3 % (20.0-44.0); MEAN CORPUSCULAR HEMOGLOBIN 33 PG (26.0-33.0); MEAN CORPUSCULAR HGB CONC 35 g/dl (31.0-36.0); MEAN CORPUSCULAR VOLUME 94 fL (82-100); MONOCYTES % (AUTO) 8.5 % (2.0-12.0); NEUTROPHILS # (AUTO) 7.6 /CMM (1.8-8.9); NEUTROPHILS % (AUTO) 63.8 % (43.0-81.0); PLATELET COUNT (AUTO) 335 /CMM (150-450); RED BLOOD CELL COUNT(AUTO) 2.91 MIL/uL (4.0-5.2); WHITE BLOOD COUNT (AUTO) 11.9 K/uL (4.3-11.0)
[2017-05-13 08:44] LABS: CALCIUM, SERUM 8.4 mg/dL (8.5-10.1); CARBON DIOXIDE 23 mmol/L (21-32); CHLORIDE 104 mmol/L (98-107); CREATININE 0.7 mg/dL (0.6-1.3); GLUCOSE 188 mg/dL (74-106); POTASSIUM 4.8 mmol/L (3.5-5.1); SODIUM SERUM 136 mmol/L (136-145); UREA NITROGEN, BLOOD 22 mg/dL (7-18)
[2017-05-13] MEDS: NYSTATIN TOP POWDER 15 GM BOTTLE TP SCH ×2 (09:12→16:06)
[2017-05-13] MEDS: ASCORBIC ACID 500 MG TABLET PO SCH (09:12)
[2017-05-13] MEDS: HYDROGEL DRESSING 90 GM TUBE TP SCH (09:12)
[2017-05-13] MEDS: MULTIVITAMINS,THERAGRAN 1 UDTAB TABLET PO SCH (09:12)
[2017-05-13 10:53] LABS: BILIRUBIN,DIRECT 0.1 mg/dL (0.0-0.2); BILIRUBIN,TOTAL 0.1 mg/dL (0.2-1.0)
[2017-05-13 12:00] VITALS: BP 104/65
[2017-05-13 16:00] VITALS: BP 101/56
--- NOTE | 2017-05-13 16:00 | NUR ---
RN NOTE PT NOTED WITH DIAPER FULL OF URINE, POSSIBLY PERKINS IS LEAKING. WILL MONITOR FURTHER PT, KEPT CLEAN AND DRY.
[2017-05-13] MEDS: FLUCONAZOLE IN NS 100 MG in PREMIX 1 EA IV SCH ×2 (16:04)
[2017-05-13] MEDS: CEFTRIAXONE 1 G in IV D5W 50 ML IV SCH (18:15)
--- NOTE | 2017-05-13 19:30 | NUR ---
RN/TELE NOTES: RECEIVED PATIENT OBTUNDED & VENT-TRACH DEPENDENT. TRACH INTACT W/ VENT SETTINGS AC 18, TV 500, FIO2 40%, PEEP 5. NO FACIAL GRIMACES OR MOANING NOTED. NO RESPIRATORY DISTRESS NOTED. ON TELE SINUS RHYTHM 89'S. LEFT UPPER ARM IV #20 INTACT W/ DRESSING CDI, SALINE LOCKED. G-TUBE INTACT & FLUSHING WELL W/ GLYTROL @ 65 ML/HR. NO RESIDUAL NOTED @ THIS TIME. RIGHT KIDNEY DRAIN INTACT W/ VERY LITTLE OUTPUT NOTED. PERKINS CATH INTACT & DRAINING YELLOW URINE. NO S/S OF PAIN OR DISCOMFORT @ THIS TIME. SAFETY MEASURES IN PLACE W/ SIDE RAILS UP & BED LOCKED & IN LOWEST POSITION. WILL CONTINUE TO MONITOR
[2017-05-13 20:00] VITALS: BP 105/66
[2017-05-13] MEDS: SULFAMEHOX/TRIMETH 200-40MG/ 5 ML UDC GT SCH (21:22)
[2017-05-14] VITALS: BP 101/64
[2017-05-14] MEDS: BLOOD SUGAR DIAGNOSTIC 1 EACH STRIP IN SCH ×4 (00:02→18:34)
[2017-05-14] MEDS: INSULIN REGULAR, HUMAN 100 UNIT/ML 3 ML VIAL SQ PRN ×4 (00:04→18:36)
[2017-05-14] MEDS: POLYVINYL ALCOHOL 15 ML BOTTLE EACHEYE SCH ×3 (02:15→18:28)
[2017-05-14] MEDS: GLYTROL 1,000 ML BAG GT PRN (02:33)
[2017-05-14 04:00] VITALS: BP 100/56
--- NOTE | 2017-05-14 07:09 | NUR ---
TELE/RN NOTES: NO ACUTE CHANGES NOTED DURING THIS SHIFT. REPORT GIVEN TO AM SHIFT NURSE FOR GIOVANNY.
[2017-05-14 08:00] VITALS: BP 108/60
--- NOTE | 2017-05-14 08:04 | NUR ---
DOCTOR ASSISTANT NOTES RECEIVED PT ON BED SLEEPING. OBTUNDED. ON PAGE MAKEUP SYSTEM OPERATOR SR OF 89. [facility] SATURATING WELL. NO SIGN OF RESPIRATORY DISTRESS. IV ACCESS ON JUSTINE MIDLINE #20 RUNNING WELL. NO SIGN OF PAIN OR REDNESS. HEAD OF BED ELEVATED. SIDE RAILS UP. CALL LIGHT WITHIN REACH . WILL CONTINUE TO MONITOR PT CLOSELY.
[2017-05-14] MEDS: NYSTATIN TOP POWDER 15 GM BOTTLE TP SCH ×2 (08:59→18:28)
[2017-05-14] MEDS: MULTIVITAMINS,THERAGRAN 1 UDTAB TABLET PO SCH (09:00)
[2017-05-14] MEDS: SULFAMEHOX/TRIMETH 200-40MG/ 5 ML UDC GT SCH ×2 (09:00→20:07)
[2017-05-14] MEDS: ASCORBIC ACID 500 MG TABLET PO SCH (09:01)
[2017-05-14] MEDS: HYDROGEL DRESSING 90 GM TUBE TP SCH (09:01)
--- NOTE | 2017-05-14 11:45 | NUR ---
INTERNET SPECIALIST NOTES ENDORSED TO FANI HORAN FOR GIOVANNY.
--- NOTE | 2017-05-14 11:50 | NUR ---
ADVERTISING SALES CONSULTANT NOTES RECEIVED PATIENT IN BED RESTING. OBTUNDED. ON CASH REGISTER SERVICER SR 88. ON [facility] VENT SETTING SATURATING WELL. NO ACUTE DISTRESS, NO SOB. NO S/S OF PAIN OR DISCOMFORT. IV ACCESS ON JUSTINE MIDLINE #20 INTACT AND PATENT. HEAD OF BED ELEVATED. SIDE RAILS UP. CALL LIGHT WITHIN REACH . WILL CONTINUE TO MONITOR ACCORDINGLY
[2017-05-14 12:00] VITALS: BP 95/56
[2017-05-14 16:00] VITALS: BP 107/67
--- NOTE | 2017-05-14 19:30 | NUR ---
RN/TELE NOTES: RECEIVED PATIENT OBTUNDED & VENT-TRACH DEPENDENT. TRACH INTACT W/ VENT SETTINGS AC 18, TV 500, FIO2 40%, PEEP 5. NO FACIAL GRIMACES OR MOANING NOTED. NO RESPIRATORY DISTRESS NOTED. ON TELE SINUS RHYTHM 82'S. LEFT UPPER ARM IV #20 INTACT W/ DRESSING CDI, SALINE LOCKED. G-TUBE INTACT & FLUSHING WELL W/ GLYTROL @ 65 ML/HR. NO RESIDUAL NOTED @ THIS TIME. RIGHT KIDNEY DRAIN INTACT W/ VERY LITTLE OUTPUT NOTED. PERKINS CATH INTACT & DRAINING YELLOW URINE. NO S/S OF PAIN OR DISCOMFORT @ THIS TIME. SAFETY MEASURES IN PLACE W/ SIDE RAILS UP & BED LOCKED & IN LOWEST POSITION. WILL CONTINUE TO MONITOR.
--- NOTE | 2017-05-14 19:34 | NUR ---
RN CLOSING NOTES NO SIGNIFICANT CHANGE IN PATIENT'S CONDITION. NO ACUTE DISTRESS, NO SOB NOTED. ALL NEEDS ATTENDED AND PROVIDED. KEPT PATIENT CLEAN, SAFE, AND COMFORTABLE IN BED. TURNED AND REPOSITIONED EVERY 2 HRS NEEDED. PATIENT FOR DISCHARGE, WAITING FOR AMBULANCE, REPORT GIVEN TO AUNG BENEDICT FROM [facility]. BED IN LOW/LOCKED POSITION, HOB ELEVATED, SIDERAILS UP, CALL LIGHT IN REACH. ENDORSED TO NIGHT RN FOR GIOVANNY.
[2017-05-14 20:00] VITALS: BP 101/60
--- NOTE | 2017-05-14 21:32 | NUR ---
RN/TELE NOTES: PT. WAS PICKED UP [facility]UL[facility] VIA [facility] W/MONITOR W/ 3 STAFF MEMBERS. REPORT GIVEN. PT. LEFT IN STABLE CONDITION.
== END 2017-05-14 21:30 | DRG 356 ==
LOC: ER 09:25 → TELE1 12:56 → TELE-TD 13:18 → TELE1 05-10 09:39
PROVIDERS: ADMIT Internal Medicine; ATTEND Internal Medicine
PROC: 5A1955Z Respiratory Ventilation, Greater than 96 Consecutive Hours (ICD-10-PCS; principal; 2017-05-08)
PROC: 0DHA3UZ Insertion of Feeding Device into Jejunum, Percutaneous Approach (ICD-10-PCS; 2017-05-09)
PROC: 0JB70ZZ Excision of Back Subcutaneous Tissue and Fascia, Open Approach (ICD-10-PCS; 2017-05-10)
DX: K94.13 Enterostomy malfunction (principal); E43 Unspecified severe protein-calorie malnutrition; Z99.11 Dependence on respirator [ventilator] status; G93.1 Anoxic brain damage, not elsewhere classified; J15.9 Unspecified bacterial pneumonia; G61.0 Guillain-Barre syndrome; J96.11 Chronic respiratory failure with hypoxia; R40.3 Persistent vegetative state; L89.153 Pressure ulcer of sacral region, stage 3; R53.2 Functional quadriplegia; D68.69 Other thrombophilia; E87.2 Acidosis; N39.0 Urinary tract infection, site not specified; Z68.1 Body mass index [BMI] 19.9 or less, adult; E11.22 Type 2 diabetes mellitus with diabetic chronic kidney disease; N18.9 Chronic kidney disease, unspecified; G40.909 Epilepsy, unspecified, not intractable, without status epilepticus; D72.829 Elevated white blood cell count, unspecified; G70.00 Myasthenia gravis without (acute) exacerbation; R13.10 Dysphagia, unspecified; Z66 Do not resuscitate; Z87.440 Personal history of urinary (tract) infections; Z79.4 Long term (current) use of insulin; L98.8 Other specified disorders of the skin and subcutaneous tissue; L30.4 Erythema intertrigo; L89.329 Pressure ulcer of left buttock, unspecified stage; L89.319 Pressure ulcer of right buttock, unspecified stage; N13.9 Obstructive and reflux uropathy, unspecified; F09 Unspecified mental disorder due to known physiological condition; Z86.14 Personal history of Methicillin resistant Staphylococcus aureus infection; B96.4 Proteus (mirabilis) (morganii) as the cause of diseases classified elsewhere; B96.20 Unspecified Escherichia coli [E. coli] as the cause of diseases classified elsewhere; Z87.442 Personal history of urinary calculi; Z93.0 Tracheostomy status; Z16.11 Resistance to penicillins; Y84.8 Other medical procedures as the cause of abnormal reaction of the patient, or of later complication, without mention of misadventure at the time of the procedure; Y73.8 Miscellaneous gastroenterology and urology devices associated with adverse incidents, not elsewhere classified; Y92.129 Unspecified place in nursing home as the place of occurrence of the external cause
CPT/HCPCS: 31720; 36415; 43246; 71045-TC; 80048-TC; 80076-TC; 81000-TC; 82247-TC; 82248-TC; 82962-TC; 83605-TC; 83735-TC; 84100-TC; 84703-TC; 85025-TC; 85730-TC; 86850-TC; 87081-TC; 87086-TC; 87186-TC; 94002-TC; 94003-TC; 94762-TC; A4216; A4606; A6248; A6402; A6403; J0696; J1450; J1815; J3480; J3490; J7030; J7040; J7060; Z7610

== ENCOUNTER 2017-07-04 11:42 | Inpatient (IN) | payer MEDICARE, MEDICAID ==
[~2017-07-04] VITALS: Ht 165.1 cm; Wt 73.9 kg
[~2017-07-04 11:42] MED LIST changes: -*INS REG SQ; -ALLA266C2 TP; -AMIK250V13 IV; -ASCO500T9 GT; +ASCO500T9 JT; -BLOO-668 IN; +CALC667C6 GT; +CLON0.1T JT; +CRAN3875 JT; +DOCU100C36 JT; -DOCU50LI NG; +FAMO20TA8 JT; +FERR220S17 JT; +HEPA500039 SQ; -Hydrogel Dressing TP; -LACT1CAP72 PO; -LANO3.5O3 EACHEYE; -LEVE100S GT; +LEVE100S JT; +MAGN400O6 JT; +METH1TAB JT; -METO5AMP3 IVP; -METO5VIA6 IV; -METR500T GT; +MULT-213 JT; -MULT-24 PO; +NA P133E RC; -NUT.100029 GT; +NUT.237L28 JT; +OMEP20TA5 JT; -PANT40VI IV; -Prosource GT; +SACC250C JT; -SUCR1ORA6 GT; -THIA100T13 GT; +THIA100T13 JT
--- NOTE | 2017-07-04 12:00 | NUR ---
BIB EMS for dislodged peritoneal abscess drainage tube. SEEN BY MD FOR EVAL. VENT/TRACH. FC. SAFETY AND COMFORT MEASURES PROVIDED. WILL MONITOR.
--- NOTE | 2017-07-04 12:10 | NUR ---
IV ACCESS STARTED, CULTURES AND BLOOD DRAWN.
[2017-07-04 12:19] LABS: BASOPHILS % (AUTO) 0.4 % (0.0-2.0); EOSINOPHILS % (AUTO) 3.6 % (0.0-6.0); HEMATOCRIT 32 % (33-45); HEMOGLOBIN 11.3 g/dL (11.5-14.8); LYMPHOCYTES # (AUTO) 2.4 /CMM (0.8-4.8); LYMPHOCYTES % (AUTO) 21.9 % (20.0-44.0); MEAN CORPUSCULAR HGB CONC 35 g/dl (31.0-36.0); MEAN CORPUSCULAR VOLUME 92 fL (82-100); MONOCYTES # (AUTO) 0.8 /CMM (0.1-1.30); MONOCYTES % (AUTO) 7.4 % (2.0-12.0); NEUTROPHILS # (AUTO) 7.4 /CMM (1.8-8.9); NEUTROPHILS % (AUTO) 66.7 % (43.0-81.0); PLATELET COUNT (AUTO) 273 /CMM (150-450); RDW COEFFICIENT OF VARIATION 13.3 (11.5-15.0); RED BLOOD CELL COUNT(AUTO) 3.51 MIL/uL (4.0-5.2); WHITE BLOOD COUNT (AUTO) 11.1 K/uL (4.3-11.0)
[2017-07-04 12:27] VITALS: BP 109/69
[2017-07-04 12:27] LABS: CALCIUM, SERUM 10.3 mg/dL (8.5-10.1); CARBON DIOXIDE 21 mmol/L (21-32); CHLORIDE 100 mmol/L (98-107); GLUCOSE 206 mg/dL (74-106); POTASSIUM 4.3 mmol/L (3.5-5.1); SODIUM SERUM 134 mmol/L (136-145); UREA NITROGEN, BLOOD 51 mg/dL (7-18)
[2017-07-04 12:29] LABS: INR 0.91 (0.85-1.15)
[2017-07-04 12:32] LABS: ALANINE AMINOTRANSFERASE 16 U/L (12-78); ALBUMIN 3.2 g/dL (3.4-5.0); ALKALINE PHOSPHATASE 149 U/L (46-116); ASPARTATE AMINOTRANSFERASE 16 U/L (15-37); BILIRUBIN,DIRECT 0.1 mg/dL (0.0-0.2); BILIRUBIN,TOTAL 0.3 mg/dL (0.2-1.0); TOTAL PROTEIN, SERUM 8.2 g/dL (6.4-8.2)
--- NOTE | 2017-07-04 12:34 | NUR ---
RT RECD PT ON TRACH INTACT AND SECURED WITH FOLLOWING VENT SETTINGS AC 18 500 40 PEEP +5 VENT PLUGGED IN RED OUTLET ALARMS ON AND AUDIBLE BAG AND MASK AT HOB. SX THICK YELLOW SECRETIONS NO RESP DISTRESS NOTED ATT Addendum: 07/04/17 at 1237 by CLAU DE LA TORRE RT Amended: Links added.
[2017-07-04 12:35] LABS: TROPONIN I < 0.017 ng/mL (0.00-0.056)
[2017-07-04 12:39] LABS: APPEARANCE,URINE Turbid (CLEAR); BILIRUBIN,URINE Negative (NEGATIVE); BLOOD, URINE Large Ery/uL (NEGATIVE); COLOR,URINE Yellow (YELLOW); KETONES,URINE Negative (NEGATIVE); LEUKOCYTE ESTERASE ,URINE Large (NEGATIVE); NITRITE, URINE Negative (NEGATIVE); PH,URINE 8.5 (5.0-8.0); PROTEIN,URINE 100 mg/dl (NEGATIVE); UGLUCOSE Negative (NEGATIVE); UROBILINOGEN,URINE 0.2 EU/dL (0.2)
[2017-07-04 12:57] LABS: BACTERIA,URINE Many /HPF (None Seen); SQUAMOUS EPITHELIAL CELL,UR Few /HPF (None Seen); WBC,URINE 21-50 /HPF (0-3)
[2017-07-04 12:59] LABS: URINE AMORPHOUS PHOSPHATES Many /HPF (None Seen)
[2017-07-04 13:00] LABS: CALCIUM OXALATE CRYSTALS,UR Few /HPF (None Seen)
[2017-07-04] MEDS ORDERED: CT SWABBABLE VALVE TRANS SET 1 EA INFUS.SET MC ONE (13:59)
[2017-07-04] MEDS ORDERED: IV NS 0.9% 250 ML IV ONE (13:59)
[2017-07-04] MEDS ORDERED: IOHEXOL-300 100 ML VIAL IV ONE (13:59)
[2017-07-04] MEDS ORDERED: VANCOMYCIN 1 GM in IV D5W 250 ML IV ONE (14:00)
[2017-07-04] MEDS ORDERED: PIPERACILLIN /TAZOBACTAM 3.375 G in IV D5W 50 ML IV ONE (14:00)
--- NOTE | 2017-07-04 14:15 | NUR ---
PT TAKEN TO CT.
[2017-07-04] MEDS ORDERED: NUT.237L30 GT (14:19)
[2017-07-04] MEDS ORDERED: LEVE100S GT (14:19)
[2017-07-04] MEDS ORDERED: AMIN30LI31 GT (14:19)
[2017-07-04] MEDS ORDERED: IPRA3AMP23 IH ×2 (14:19)
[2017-07-04] MEDS ORDERED: INSU100V30 SQ (14:19)
[2017-07-04] MEDS ORDERED: RANI15SY GT (14:19)
--- NOTE | 2017-07-04 14:23 | NUR ---
CALLED NURSE SUP FOR TELE BED
[2017-07-04 14:46] VITALS: BP 115/72
[2017-07-04 16:00] VITALS: BP 93/63
--- NOTE | 2017-07-04 16:03 | NUR ---
PETROLEUM TERMINAL PLANT OPERATOR NOTES RECEIVED PATIENT FROM ER, VIA [facility], REPORT GIVEN BY AUNG BATISTA, VENT SETTINGS AC 18 TV 500 FIO2 40% PEEP 5, PATIENT IS TOLERATING VENT SETTINGS WELL O2SAT 100%, PATIENT IS OBTUNDED, WITH EYES OPEN, GTUBE IN PLACE CLAMPED, FC IN PLACE WITH YELLOW CLOUDY URINE, IV R HAND 20G, SKIN ISSUES NOTED AND PICTURES TAKEN AND PLACED IN CHART, WOUND CONSULT ORDERED, NO BELONGINGS WITH PATIENT, PATIENT CLEANED AND REPOSITIONED AND MADE COMFORTABLE, OFFLOADING EXTREMITIES, AWAITING ADMISSION ORDERS FROM AJAY LUCIO, BED IN LOCKED POSITION WILL CONTINUE TO MONITOR.
--- NOTE | 2017-07-04 16:08 | NUR ---
REPORT GIVEN TO ALEJANDRO HORAN FOR 117-1.
[2017-07-04 16:30] VITALS: BP 93/63
[2017-07-04] MEDS ORDERED: ACETAMINOPHEN 325 MG TABLET PO PRN (17:30)
[2017-07-04] MEDS ORDERED: ONDANSETRON HCL/PF 4 MG/2 ML VIAL IVP PRN (17:30)
[2017-07-04] MEDS ORDERED: HYDROCODONE/APAP 5/325MG 1 EACH TABLET PO PRN (17:30)
[2017-07-04] MEDS ORDERED: *INSULIN REGULAR(HUMULIN R)HUM 100 UNIT/ML VIAL SQ PRN (17:30)
[2017-07-04] MEDS ORDERED: ZOLPIDEM TARTRATE 5 MG TABLET PO PRN (17:30)
[2017-07-04] MEDS ORDERED: DEXTROSE 50%-WATER 50 ML DISP.SYRIN IV PRN (17:30)
[2017-07-04] MEDS: PROSTAT (PYXIS) 30 ML UDC GT SCH (18:00)
[2017-07-04] MEDS: BLOOD SUGAR DIAGNOSTIC 1 EACH STRIP VI SCH ×2 (18:43→21:39)
[2017-07-04] MEDS: Z GUARD REMEDY 2 OZ OINT TP PRN (18:52)
[2017-07-04] MEDS: LACTOBACILLUS RHAMNOSUS GG 1 EACH CAP.SPRINK PO SCH (18:52)
[2017-07-04] MEDS: LEVETIRACETAM SOL (5 ML) 100 MG/ML UDC JT SCH (18:52)
[2017-07-04] MEDS: INSULIN REGULAR, HUMAN 100 UNIT/ML 3 ML VIAL SQ PRN ×2 (18:56→21:41)
[2017-07-04] MEDS: IV NS 0.9% 1,000 ML IV PRN (18:57)
--- NOTE | 2017-07-04 19:00 | NUR ---
MIXED CROP FARMER NOTES PATIENT RESTING IN BED, NO SIGNS OF DISTRESS, WILL ENDORSE TO MAIL SORTING SUPERVISOR FOR CONTINUITY OF CARE.
--- NOTE | 2017-07-04 19:30 | NUR ---
IT SUPPORT SPECIALIST NOTES RECEIVED PATIENT IN BED VENT SETTINGS AC 18 TV 500 FIO2 40% PEEP 5, PATIENT IS TOLERATING VENT SETTINGS WELL O2SAT 100%, PATIENT IS OBTUNDED, WITH EYES OPEN, GTUBE IN PLACE CLAMPED, FC IN PLACE WITH YELLOW CLOUDY URINE, IV R HAND 20G, OFFLOADING EXTREMITIES,BED IN LOCKED POSITION WILL CONTINUE TO MONITOR.
[2017-07-04] MEDS: GLYTROL 1,000 ML BAG GT SCH (21:40)
[2017-07-04 22:00] VITALS: BP 91/50
[2017-07-05] MEDS: BLOOD SUGAR DIAGNOSTIC 1 EACH STRIP VI SCH ×4 (06:45→22:23)
[2017-07-05] MEDS: INSULIN REGULAR, HUMAN 100 UNIT/ML 3 ML VIAL SQ PRN ×4 (06:46→22:30)
--- NOTE | 2017-07-05 06:47 | NUR ---
PICKLE SORTER NOTE PATIENT STABLE. ALL NEEDS MET AND ATTENDED TO. BLOOD SUGAR 190. INSULIN GIVEN PER SLIDING SCALE. WILL ENDORSE TO DAY SHIFT FOR GIOVANNY.
[2017-07-05 07:48] LABS: BASOPHILS % (AUTO) 0.3 % (0.0-2.0); EOSINOPHILS % (AUTO) 3.5 % (0.0-6.0); HEMATOCRIT 32 % (33-45); HEMOGLOBIN 11.2 g/dL (11.5-14.8); LYMPHOCYTES # (AUTO) 1.4 /CMM (0.8-4.8); LYMPHOCYTES % (AUTO) 12.6 % (20.0-44.0); MEAN CORPUSCULAR HGB CONC 35 g/dl (31.0-36.0); MEAN CORPUSCULAR VOLUME 92 fL (82-100); MONOCYTES # (AUTO) 0.7 /CMM (0.1-1.30); MONOCYTES % (AUTO) 6.3 % (2.0-12.0); NEUTROPHILS # (AUTO) 8.8 /CMM (1.8-8.9); NEUTROPHILS % (AUTO) 77.3 % (43.0-81.0); PLATELET COUNT (AUTO) 239 /CMM (150-450); RDW COEFFICIENT OF VARIATION 13.3 (11.5-15.0); RED BLOOD CELL COUNT(AUTO) 3.44 MIL/uL (4.0-5.2); WHITE BLOOD COUNT (AUTO) 11.4 K/uL (4.3-11.0)
[2017-07-05 07:57] LABS: CALCIUM, SERUM 9.5 mg/dL (8.5-10.1); CREATININE 1.1 mg/dL (0.6-1.3); MAGNESIUM 2.2 mg/dL (1.8-2.4); POTASSIUM 3.6 mmol/L (3.5-5.1)
[2017-07-05 08:00] VITALS: BP 106/67
[2017-07-05] MEDS: IV NS 0.9% 1,000 ML IV PRN ×2 (08:22→22:18)
[2017-07-05] MEDS: DOCUSATE SODIUM 100 MG CAPSULE PO SCH (08:24)
[2017-07-05] MEDS: LEVETIRACETAM SOL (5 ML) 100 MG/ML UDC JT SCH ×2 (08:24→17:16)
[2017-07-05] MEDS: LACTOBACILLUS RHAMNOSUS GG 1 EACH CAP.SPRINK PO SCH ×2 (08:24→16:07)
[2017-07-05] MEDS: FERROUS SULFATE (325 MG) 325 MG/TAB TABLET PO SCH ×3 (08:24→16:09)
[2017-07-05] MEDS: THIAMINE HCL 100 MG TABLET PO SCH (08:24)
[2017-07-05] MEDS: PROSTAT (PYXIS) 30 ML UDC GT SCH (08:25)
--- NOTE | 2017-07-05 08:41 | NUR ---
DIVER TENDER NOTE COLLECTED URINE SAMPLE AND CALLED LAB FOR AIR ANALYSIS ENGINEERING TECHNICIAN.
[2017-07-05] MEDS ORDERED: Medication Not On Formulary EA (Cran/Vitc/Mannose/Inulin/Brom (Uti-Stat Liquid) 30 ML) JT SCH (09:00)
[2017-07-05] MEDS: CLONIDINE HCL 0.1 MG TABLET JT SCH ×2 (09:00→11:43)
--- NOTE | 2017-07-05 09:46 | NUR ---
WOUND CARE CONSULT: PT PRESENTS WITH IMMOBILITY, FECAL INCONTINENCE AND RT SIDE DRAIN SITE, SACRAL STAGE 3 ULCER, PRESENT ON ADMISSION. RECOMMENDATIONS MADE FOR WOUND CARE AND SKIN PROTECTION. DISCUSSED WITH NURSING STAFF. FIRST STEP MATTRESS ORDERED. ALL SKIN PROTECTION MEASURES IN PLACE. CURRENT JESENIA SCORE IS 10. WILL SEE PRN. GUO IN AGREEMENT WITH PLAN OF CARE. Addendum: 07/05/17 at 0947 by TISHA PATTERSON WNDNU Amended: Links added.
[2017-07-05] MEDS: HYDROGEL DRESSING 90 GM TUBE TP SCH (11:26)
[2017-07-05 12:00] VITALS: BP 124/71
[2017-07-05 16:00] VITALS: BP 92/48
[2017-07-05] MEDS: PROSOURCE / PROSTAT (PYXIS) 30 ML UDC GT SCH (16:07)
[2017-07-05 20:00] VITALS: BP 91/66
--- NOTE | 2017-07-05 20:00 | NUR ---
MARIA L RN NOTES RECEIVED BEDSIDE REPORT.PATIENT IN BED,OBTUNDED, WITH EYES OPEN,VENT SETTINGS AC 18 TV 500 FIO2 40% PEEP 5,VENT SETTINGS PATIENT IS TOLERATING WELL WITH SATURATION OF 100%,V/S WNL, G TUBE IN PLACE CLAMPED, FC IN PLACE WITH YELLOW URINE, IV R HAND 20G, BOTH EXTREMITIES OFFLOADING, SAFETY MEASURES IMPLEMENTED, BED IN LOCKED POSITION. WILL CONTINUE MONITORING.
[2017-07-06] VITALS (7 sets, daily range): BP systolic 90–119; BP diastolic 48–74
--- NOTE | 2017-07-06 08:16 | NUR ---
WOUND CARE CONSULT WOUND CARE RECEIVED SECOND CONSULT FOR RIGHT HAND WOUND. WOUND CARE WILL DEFER CONSULT AND TREATMENT PLAN TO SURGICAL TEAM WHO ARE NOW FOLLOWING.
[2017-07-06] MEDS: PROSOURCE / PROSTAT (PYXIS) 30 ML UDC GT SCH ×2 (08:19→16:44)
[2017-07-06] MEDS: LEVETIRACETAM SOL (5 ML) 100 MG/ML UDC JT SCH ×2 (08:19→17:16)
[2017-07-06] MEDS: Z GUARD REMEDY 2 OZ OINT TP PRN (08:20)
[2017-07-06] MEDS: LACTOBACILLUS RHAMNOSUS GG 1 EACH CAP.SPRINK PO SCH ×2 (08:20→16:44)
[2017-07-06] MEDS: THIAMINE HCL 100 MG TABLET PO SCH (08:20)
[2017-07-06] MEDS: CLONIDINE HCL 0.1 MG TABLET JT SCH (08:20)
[2017-07-06] MEDS: DOCUSATE SODIUM 100 MG CAPSULE PO SCH (08:20)
[2017-07-06] MEDS: FERROUS SULFATE (325 MG) 325 MG/TAB TABLET PO SCH ×3 (08:20→16:44)
[2017-07-06] MEDS: HYDROGEL DRESSING 90 GM TUBE TP SCH (08:20)
[2017-07-06] MEDS: BLOOD SUGAR DIAGNOSTIC 1 EACH STRIP VI SCH ×4 (08:21→22:16)
[2017-07-06] MEDS: INSULIN REGULAR, HUMAN 100 UNIT/ML 3 ML VIAL SQ PRN ×4 (08:30→22:18)
[2017-07-06] MEDS: GLYTROL 1,000 ML BAG GT SCH (09:57)
[2017-07-06] MEDS: IV NS 0.9% 1,000 ML IV PRN (10:18)
--- NOTE | 2017-07-06 19:25 | NUR ---
TRUCK SERVICE TECHNICIAN OPENING NOTES RECEIVED REPORT FROM JOVANI HORAN. PATIENT OBTUNDED, IN BED W/ EYES OPEN. RESPONSIVE TO TACTILE STIMULI. BREATHING EVEN & UNLABORED W/ TRACH INTACT & TOLERATING VENT SETTINGS AC 18, TV 500, FIO2 40%, PEEP 5. ON TELE W/ SINUS RHYTHM, HR 71. NO RESPIRATORY OR CARDIAC DISTRESS NOTED. RIGHT ARM IV #20 INTACT & PATENT W/ DRESSING CDI & IVF NS @ 75 ML/HR. G-TUBE FLUSHING WELL W/ GTF GLYTROL @ 80 ML/HR. NO RESIDUAL NOTED @ THIS TIME. PERKINS CATH DRAINING YELLOW URINE. NO S/S OF PAIN OR DISCOMFORT @ THIS TIME. SAFETY MEASURES IN PLACE W/ SIDE RAILS UP, BED LOCKED & IN LOWEST POSITION & BED ALARM ON. TURNED & REPOSITIONED FOR COMFORT. WILL CONTINUE TO MONITOR.
[2017-07-07] VITALS: BP 122/75
[2017-07-07] MEDS: IV NS 0.9% 1,000 ML IV PRN ×2 (01:06→16:44)
[2017-07-07] MEDS: GLYTROL 1,000 ML BAG GT SCH (01:42)
[2017-07-07 04:00] VITALS: BP 152/86
--- NOTE | 2017-07-07 05:02 | NUR ---
pt kimmy'sundar on mechanical vent. suction done t/o shift. pt kimmy patent and secure. ambu bag at bedside. vent plugged into red outlet. alarms are on and audible. Addendum: 07/07/17 at 0504 by JE PERES RT Amended: Links added.
--- NOTE | 2017-07-07 07:31 | NUR ---
RN NOTES RECEIVED PT FROM BAND INSTRUMENT REPAIRER, OBTUNDED, CHRONIC VENT/TRACH DEPENDENT TOLERATING VENT SETTINGS NO DISTRESS NOTED. SR ON THE TELE JAN HR 105. PERKINS DRAINING TO GRAVITY, YELLOW IN COLOR. R ARM IV SITE INTACT NO IVF. BED LOCKED AND IN LOWEST POSITION, CALL LIGHT WITHIN REACH, SIDE RAILS UPX3, WILL CONT TO JAN.
[2017-07-07 08:00] VITALS: BP 150/90
--- NOTE | 2017-07-07 08:03 | NUR ---
Delta pt received on mechanical vent. Pt trach is secure. Vent is plugged into a red outlet, alarms are set and audible, and BVM is at bedside. Addendum: 07/07/17 at 0804 by RADHA DICKERSON RT Amended: Links added.
[2017-07-07] MEDS: DOCUSATE SODIUM 100 MG CAPSULE PO SCH (08:46)
[2017-07-07] MEDS: FERROUS SULFATE (325 MG) 325 MG/TAB TABLET PO SCH ×3 (08:46→16:37)
[2017-07-07] MEDS: THIAMINE HCL 100 MG TABLET PO SCH (08:46)
[2017-07-07] MEDS: LACTOBACILLUS RHAMNOSUS GG 1 EACH CAP.SPRINK PO SCH ×2 (08:46→16:37)
[2017-07-07] MEDS: CLONIDINE HCL 0.1 MG TABLET JT SCH (08:46)
[2017-07-07] MEDS: PROSOURCE / PROSTAT (PYXIS) 30 ML UDC GT SCH ×2 (08:46→16:37)
[2017-07-07] MEDS: BLOOD SUGAR DIAGNOSTIC 1 EACH STRIP VI SCH ×4 (08:47→22:07)
[2017-07-07] MEDS: HYDROGEL DRESSING 90 GM TUBE TP SCH (08:47)
[2017-07-07] MEDS: LEVETIRACETAM SOL (5 ML) 100 MG/ML UDC JT SCH ×2 (08:48→17:14)
[2017-07-07] MEDS: INSULIN REGULAR, HUMAN 100 UNIT/ML 3 ML VIAL SQ PRN ×4 (08:54→22:11)
[2017-07-07 12:00] VITALS: BP 102/70
[2017-07-07 16:00] VITALS: BP 104/66
--- NOTE | 2017-07-07 18:28 | NUR ---
RN NOTES PT REMAINED IN STABLE CONDITION THROUGHOUT THE SHIFT, ALL NEEDS MET. NO SIGNIFICANT CHANGES NOTED. WILL ENDORSE TO ONCOMING SHIFT.
[2017-07-07 20:00] VITALS: BP 94/66
--- NOTE | 2017-07-07 20:00 | NUR ---
RN NOTES RECEIVED PT IN BED, OBTUNDED, CHRONIC VENT/TRACH DEPENDENT TOLERATING VENT SETTINGS NO DISTRESS NOTED. SR ON THE TELE JAN. PERKINS DRAINING TO GRAVITY, YELLOW IN COLOR. R ARM IV SITE INTACT NO IVF. BED LOCKED AND IN LOWEST POSITION, CALL LIGHT WITHIN REACH, SIDE RAILS UPX3, WILL CONT TO JAN.
[2017-07-07] MEDS: HYDROGEL DRESSING 90 GM TUBE TP PRN (22:09)
[2017-07-08] VITALS: BP 123/69
[2017-07-08 04:00] VITALS: BP 146/76
[2017-07-08] MEDS: GLYTROL 1,000 ML BAG GT SCH ×2 (04:22→18:21)
[2017-07-08] MEDS: IV NS 0.9% 1,000 ML IV PRN ×2 (04:39→18:21)
--- NOTE | 2017-07-08 05:24 | NUR ---
RT NOTE PATIENT RECEIVED TRACHED ON MECHANICAL VENTILATION. AMBU BAG @ HOB. SUCTION DONE, TRACH SECURED AND PATENT AT ALL TIMES. CONTINUOUS PULSE OX AT BEDSIDE. ALARMS ON AND AUDIBLE. TX CARROLL WELL, NO ADVERSE REACTIONS NOTED. VENT PLUGGED INTO RED OUTLET. NO SOB NOTED T/O SHIFT. Addendum: 07/08/17 at 0526 by JOSE RUSSELL RT Amended: Links added.
--- NOTE | 2017-07-08 06:30 | NUR ---
RN CLOSING NOTES PT REMAINED IN STABLE CONDITION THROUGHOUT THE SHIFT, ALL NEEDS MET. NO SIGNIFICANT CHANGES NOTED. WILL ENDORSE TO AM SHIFT.
[2017-07-08 07:19] LABS: BASOPHILS % (AUTO) 0.5 % (0.0-2.0); EOSINOPHILS % (AUTO) 5.6 % (0.0-6.0); HEMATOCRIT 29 % (33-45); HEMOGLOBIN 10.1 g/dL (11.5-14.8); LYMPHOCYTES # (AUTO) 2.1 /CMM (0.8-4.8); LYMPHOCYTES % (AUTO) 23.5 % (20.0-44.0); MEAN CORPUSCULAR HGB CONC 35 g/dl (31.0-36.0); MEAN CORPUSCULAR VOLUME 91 fL (82-100); MONOCYTES # (AUTO) 0.6 /CMM (0.1-1.30); MONOCYTES % (AUTO) 6.8 % (2.0-12.0); NEUTROPHILS # (AUTO) 5.6 /CMM (1.8-8.9); NEUTROPHILS % (AUTO) 63.6 % (43.0-81.0); PLATELET COUNT (AUTO) 225 /CMM (150-450); RDW COEFFICIENT OF VARIATION 12.6 (11.5-15.0); RED BLOOD CELL COUNT(AUTO) 3.15 MIL/uL (4.0-5.2); WHITE BLOOD COUNT (AUTO) 8.8 K/uL (4.3-11.0)
[2017-07-08 07:35] LABS: CALCIUM, SERUM 8.9 mg/dL (8.5-10.1); CREATININE 0.7 mg/dL (0.6-1.3); POTASSIUM 3.9 mmol/L (3.5-5.1)
[2017-07-08] MEDS: BLOOD SUGAR DIAGNOSTIC 1 EACH STRIP VI SCH ×4 (07:40→21:13)
[2017-07-08] MEDS: INSULIN REGULAR, HUMAN 100 UNIT/ML 3 ML VIAL SQ PRN ×4 (07:41→21:19)
--- NOTE | 2017-07-08 07:50 | NUR ---
RN NOTES RECEIVED PATIENT IN BED, OBTUNDED, VENT/TRACH DEPENDENT TOLERATING VENT SETTINGS WELL WITH NO DISTRESS NOTED. ON INFORMATION SYSTEMS ADMINISTRATOR OF SINUS RHYTHM HR OF 84. F/C IN TACT AND PATENT WITH ADEQUATE FLOW OF URINE. RIGHT ARM IV SITE INTACT AND PATENT WITH S/SX OF INFILTRATION NOTED. BED LOCKED AND IN LOW POSITION, PLACED CALL LIGHT WITHIN REACH. WILL CONT TO MONITOR CONTINUITY OF CARE.
[2017-07-08 08:00] VITALS: BP 118/66
--- NOTE | 2017-07-08 08:08 | NUR ---
Female trach pt received on mechanical vent. Pt trach is secure. Vent is plugged into a red outlet, alarms are set and audible, and BVM is at bedside. Addendum: 07/08/17 at 0809 by RADHA DICKERSON RT Amended: Links added.
[2017-07-08] MEDS: LACTOBACILLUS RHAMNOSUS GG 1 EACH CAP.SPRINK PO SCH (08:12)
[2017-07-08] MEDS: DOCUSATE SODIUM 100 MG CAPSULE PO SCH (08:12)
[2017-07-08] MEDS: THIAMINE HCL 100 MG TABLET PO SCH (08:12)
[2017-07-08] MEDS: LEVETIRACETAM SOL (5 ML) 100 MG/ML UDC JT SCH ×2 (08:12→17:34)
[2017-07-08] MEDS: PROSOURCE / PROSTAT (PYXIS) 30 ML UDC GT SCH ×2 (08:12→16:27)
[2017-07-08] MEDS: FERROUS SULFATE (325 MG) 325 MG/TAB TABLET PO SCH (08:12)
[2017-07-08] MEDS: CLONIDINE HCL 0.1 MG TABLET JT SCH (08:13)
[2017-07-08] MEDS: HYDROGEL DRESSING 90 GM TUBE TP PRN (08:19)
[2017-07-08] MEDS ORDERED: HYDROCODONE/APAP 5/325MG 1 EACH TABLET GT PRN (09:16)
[2017-07-08] MEDS: HYDROGEL DRESSING 90 GM TUBE TP SCH (09:19)
[2017-07-08] MEDS ORDERED: ACETAMINOPHEN 650 MG/20.3 ML UDC GT PRN (09:30)
[2017-07-08 12:00] VITALS: BP 102/64
[2017-07-08] MEDS: FERROUS SULFATE (325 MG) 325 MG/TAB TABLET GT SCH ×2 (12:48→16:26)
[2017-07-08 16:00] VITALS: BP 134/78
[2017-07-08] MEDS: LACTOBACILLUS RHAMNOSUS GG 1 EACH CAP.SPRINK GT SCH (16:27)
--- NOTE | 2017-07-08 19:20 | NUR ---
RN NOTE PATIENT REMAINED STABLE THROUGHOUT SHIFT. NO DISTRESS NOTED. ALL MEDS AND WOUND TREATMENT DONE ORDERED. WILL ENDORSED TO NEXT SHIFT TO CONTINUE CONTINUITY OF CARE.
[2017-07-08 20:00] VITALS: BP 116/63
[2017-07-09] VITALS: BP 112/51
[2017-07-09 04:00] VITALS: BP 149/81
[2017-07-09] MEDS: IV NS 0.9% 1,000 ML IV PRN ×2 (05:36→18:40)
[2017-07-09] MEDS: GLYTROL 1,000 ML BAG GT SCH ×2 (05:37→18:40)
--- NOTE | 2017-07-09 06:38 | NUR ---
RN CLOSING NOTES PT IN BED, OBTUNDED, CHRONIC VENT/TRACH DEPENDENT TOLERATING VENT SETTINGS NO DISTRESS NOTED. SR ON THE TELE JAN. PERKINS DRAINING TO GRAVITY, YELLOW IN COLOR. R ARM IV SITE INTACT NO IVF. BED LOCKED AND IN LOWEST POSITION, CALL LIGHT WITHIN REACH, SIDE RAILS UPX3, WILL ENDORSE TO AM RN.
[2017-07-09] MEDS: BLOOD SUGAR DIAGNOSTIC 1 EACH STRIP VI SCH (07:40)
--- NOTE | 2017-07-09 07:42 | NUR ---
REMELT OPERATOR RECEIVED PATIENT OBTUNDED, WITH (+) PAIN STIMULUS ON MECHANICAL VENTILATORY SUPPORT SATURATING WELL AFEBRILE DECEREBRATE POSITION NOTED FLACCID LOWER EXTREMITIES BED BOUND WITH PERKINS CATHETER DRAINING TO URINE BAG AT ADEQUATE AMOUNT MONITORED CLOSELY
[2017-07-09 08:00] VITALS: BP 133/91
[2017-07-09] MEDS ORDERED: DEXTROSE 50%-WATER 50 ML DISP.SYRIN IV PRN (08:00)
[2017-07-09] MEDS: INSULIN REGULAR, HUMAN 100 UNIT/ML 3 ML VIAL SQ PRN ×4 (08:10→23:10)
[2017-07-09] MEDS: PROSOURCE / PROSTAT (PYXIS) 30 ML UDC GT SCH ×2 (08:10→17:12)
[2017-07-09] MEDS: DOCUSATE SODIUM LIQ 100 MG/10 ML UDC GT SCH (08:11)
[2017-07-09] MEDS: CLONIDINE HCL 0.1 MG TABLET JT SCH (08:11)
[2017-07-09] MEDS: FERROUS SULFATE (325 MG) 325 MG/TAB TABLET GT SCH ×3 (08:11→17:12)
[2017-07-09] MEDS: THIAMINE HCL 100 MG TABLET GT SCH (08:11)
[2017-07-09] MEDS: LEVETIRACETAM SOL (5 ML) 100 MG/ML UDC JT SCH ×2 (08:11→17:12)
[2017-07-09] MEDS: LACTOBACILLUS RHAMNOSUS GG 1 EACH CAP.SPRINK GT SCH ×2 (08:11→17:12)
[2017-07-09] MEDS: HYDROGEL DRESSING 90 GM TUBE TP SCH (08:12)
[2017-07-09 12:00] VITALS: BP_SYST 102; BP_SYST 107; BP_DIAS 65; BP_DIAS 66
[2017-07-09] MEDS: BLOOD SUGAR DIAGNOSTIC 1 EACH STRIP IN SCH ×3 (12:13→23:04)
--- NOTE | 2017-07-09 15:11 | NUR ---
HOGSHEAD BUILDER ABLE TO SPEAK WITH THE FAMILY AND TOLD TO INFORM THE DOCTOR THAT HER MOTHER WANTS HER TO TRANSFER TO THE FACILITY SO FAR, HER VITALS SIGNS ARE STABLE FEEDING IS TOLERATED WILL INFORM MIGHT SHIFT NURSE TO CONVEY MOTHER'S PROPOSAL TO TRANSFER PATIENT BACK TO THE FACILITY
[2017-07-09 16:00] VITALS: BP_SYST 131; BP_SYST 133; BP_DIAS 87
--- NOTE | 2017-07-09 18:11 | NUR ---
RT RECD PT TRACH'D INTACT SECURED AND INTACT SECURED. ALARMS ON AND AUDIBLE VENT PLUGGED IN RED OUTLET AMBU BAG AT HEAD OF HEAD. SX PT THICK COPIOUS YELLOW SECRETIONS
[2017-07-09 20:00] VITALS: BP 105/61
--- NOTE | 2017-07-09 20:03 | NUR ---
RN TEL INITIAL NOTES RECEIVED PATIENT IN BED, OBTUNDED, VENT/TRACH DEPENDENT TOLERATING VENT SETTINGS WELL WITH NO DISTRESS NOTED. ON BICYCLE MECHANIC OF SINUS RHYTHM HR OF 80'S. GTF GLYTROL @ 80ML/H, WELL CARROLL, 5CC RESIDUAL, WILL CONT TO MONITOR. F/C IN TACT AND PATENT WITH ADEQUATE FLOW OF URINE. RIGHT ARM IV SITE INTACT AND PATENT WITH S/SX OF INFILTRATION NOTED. BED LOCKED AND IN LOW POSITION, PLACED CALL LIGHT WITHIN REACH. WILL CONT TO MONITOR CONTINUITY OF CARE.
--- NOTE | 2017-07-09 22:25 | NUR ---
Received the patient on AC 18,500.40%,+5 as per MD order. Breath sounds equal bilateral. Suctioned pt's airways as needed. Ambu bag at the bed side. Vent plugged into red outlet and alarms set and audible.
[2017-07-10] VITALS: BP 155/80
[2017-07-10 04:00] VITALS: BP 147/80
[2017-07-10] MEDS: BLOOD SUGAR DIAGNOSTIC 1 EACH STRIP IN SCH ×2 (05:09→12:44)
[2017-07-10] MEDS: INSULIN REGULAR, HUMAN 100 UNIT/ML 3 ML VIAL SQ PRN ×2 (05:14→12:45)
--- NOTE | 2017-07-10 06:08 | NUR ---
RN TEL CLOSING NOTES ENDORSED PATIENT IN BED, OBTUNDED, VENT/TRACH DEPENDENT TOLERATING VENT SETTINGS WELL WITH NO DISTRESS NOTED. ON DOOR REPAIRMAN OF SINUS RHYTHM HR OF 80'S. GTF GLYTROL @ 80ML/H, WELL CARROLL, 5CC RESIDUAL, WILL CONT TO MONITOR. F/C IN TACT AND PATENT WITH ADEQUATE FLOW OF URINE. RIGHT ARM IV SITE INTACT AND PATENT WITH S/SX OF INFILTRATION NOTED. BED LOCKED AND IN LOW POSITION, PLACED CALL LIGHT WITHIN REACH. WILL CONT TO MONITOR CONTINUITY OF CARE.
--- NOTE | 2017-07-10 07:15 | NUR ---
RN INITIAL NOTES: REC'D PT ON BED, NOT IN ANY DISTRESS, OBTUNDED. ON MV VIA TRACH, SATING AT 100%. ON TELEMONITOR, ST HR 105 BPM. HAS R ARM G20, PL, W/ NS X 75 CC/HR INFUSING WELL. ON CONT TF GLYTROL X 80 CC/HR INFUSING WELL. HAS FC PATENT & INTACT. PROVIDED COMFORT & SAFETY MEASURES. BED KEPT LOW & IN LOCKED POS. CALL LIGHT PLACED W/IN REACH. WILL CONTINUE TO MONITOR & ATTEND PT NEEDS.
[2017-07-10 08:00] VITALS: BP 137/73
[2017-07-10] MEDS: FERROUS SULFATE (325 MG) 325 MG/TAB TABLET GT SCH ×2 (09:11→12:49)
[2017-07-10] MEDS: LEVETIRACETAM SOL (5 ML) 100 MG/ML UDC JT SCH (09:11)
[2017-07-10] MEDS: CLONIDINE HCL 0.1 MG TABLET JT SCH (09:11)
[2017-07-10] MEDS: THIAMINE HCL 100 MG TABLET GT SCH (09:11)
[2017-07-10] MEDS: LACTOBACILLUS RHAMNOSUS GG 1 EACH CAP.SPRINK GT SCH (09:11)
[2017-07-10] MEDS: DOCUSATE SODIUM LIQ 100 MG/10 ML UDC GT SCH (09:11)
[2017-07-10] MEDS: Z GUARD REMEDY 2 OZ OINT TP PRN (09:12)
[2017-07-10] MEDS: PROSOURCE / PROSTAT (PYXIS) 30 ML UDC GT SCH (09:12)
[2017-07-10] MEDS: HYDROGEL DRESSING 90 GM TUBE TP SCH (09:12)
[2017-07-10 12:00] VITALS: BP 114/66
--- NOTE | 2017-07-10 12:00 | NUR ---
RN NOTES: REPORT GIVEN TO FELICIA HORAN FOR GIOVANNY. PT FOR DC BACK TO SNF PER DR. LUGO.
--- NOTE | 2017-07-10 12:05 | NUR ---
RN NOTES REPORT RECEIVED FROM MARIIA. PATIENT IN BED, OBTUNDED, VENT/TRACH DEPENDENT TOLERATING VENT SETTINGS WELL WITH NO DISTRESS NOTED. ON FLARE MAN OF SINUS TACH HR OF 108 . F/C IN TACT AND PATENT WITH ADEQUATE FLOW OF URINE. RIGHT ARM IV SITE INTACT AND PATENT WITH S/SX OF INFILTRATION NOTED. BED LOCKED AND IN LOW POSITION, PLACED CALL LIGHT WITHIN REACH. WILL CONT TO MONITOR CONTINUITY OF CARE.
--- NOTE | 2017-07-10 15:50 | NUR ---
RN NOTE 51 YEARS OLD FEMALE DISCHARGED TO [facility] IN STABLE CONDITION. VENT/TRACH DEPENDENT TOLERATING VENT SETTINGS WELL WITH NO DISTRESS NOTED. COMPLIANT WITH MEDICATIONS, COOPERATIVE WITH TREATMENT PLANS. REMOVED RIGHT ARM IV CATHETER INTACT. MEDICAL TREATMENT PLANS DEFERRED FOR CONTINUAL MONITORING. EDUCATE FAMILY ABOUT AFTER CARE PLAN AND COPIES PROVIDED. MEDICATIONS RECONCILED, REPORT GIVEN TO MARICHUY AT [facility] FOR CONTINUITY OF CARE. PATIENT UNABLE TO SIGN PAPERWORK BUT 2 RN SIGNED AND WITNESSED. WOUND PICTURES TAKEN AND DOCUMENTED IN CHART. PATIENT LEFT THE UNIT VIA AMBULANCE WITH RT.
== END 2017-07-10 16:01 | DRG 622 ==
LOC: ER 11:43 → TELE1 16:08
PROVIDERS: ADMIT Nurse Practitioner Acute Care; ATTEND Nurse Practitioner Acute Care
PROC: 5A1955Z Respiratory Ventilation, Greater than 96 Consecutive Hours (ICD-10-PCS; principal; 2017-07-04)
PROC: 0JB70ZZ Excision of Back Subcutaneous Tissue and Fascia, Open Approach (ICD-10-PCS; 2017-07-07)
DX: E86.0 Dehydration (principal); G93.40 Encephalopathy, unspecified; Z99.11 Dependence on respirator [ventilator] status; J96.11 Chronic respiratory failure with hypoxia; L89.153 Pressure ulcer of sacral region, stage 3; R53.2 Functional quadriplegia; N39.0 Urinary tract infection, site not specified; D68.59 Other primary thrombophilia; J98.11 Atelectasis; E87.2 Acidosis; G40.909 Epilepsy, unspecified, not intractable, without status epilepticus; Z93.1 Gastrostomy status; E83.52 Hypercalcemia; R13.10 Dysphagia, unspecified; Z79.4 Long term (current) use of insulin; Z86.14 Personal history of Methicillin resistant Staphylococcus aureus infection; E11.9 Type 2 diabetes mellitus without complications; S61.411A Laceration without foreign body of right hand, initial encounter; X58.XXXA Exposure to other specified factors, initial encounter; Y93.9 Activity, unspecified; Y92.129 Unspecified place in nursing home as the place of occurrence of the external cause
CPT/HCPCS: 31720; 36415; 71045-TC; 80048-TC; 80061-TC; 80076-TC; 81000-TC; 82962-TC; 83605-TC; 83735-TC; 84100-TC; 84484-TC; 85025-TC; 85730-TC; 87040-TC; 87086-TC; 94002-TC; 94003-TC; 94760-TC; A4217; A4606; A6248; A6402; J1815; J1953; J2543; J3370; J7030; J7050; J7060; Q9967; Z7610